=== PATIENT | female | born 1955 ===

== ENCOUNTER 2019-12-30 13:35 | Outpatient (RCR) | payer OTHER, SELFPAY | END 2020-03-19 15:22 | disposition home or self-care (01) | LOC: HO.WCC 13:35 | PROVIDERS: PCP Internal Medicine; Visit Provider Surgery | DX: E11.621 Type 2 diabetes mellitus with foot ulcer (principal); E11.51 Type 2 diabetes mellitus with diabetic peripheral angiopathy without gangrene; I70.245 Atherosclerosis of native arteries of left leg with ulceration of other part of foot; L89.893 Pressure ulcer of other site, stage 3; E11.42 Type 2 diabetes mellitus with diabetic polyneuropathy; I48.20 Chronic atrial fibrillation, unspecified; Z89.511 Acquired absence of right leg below knee; Z79.2 Long term (current) use of antibiotics; Z79.82 Long term (current) use of aspirin; Z79.899 Other long term (current) drug therapy; Z79.4 Long term (current) use of insulin; Z86.73 Personal history of transient ischemic attack (TIA), and cerebral infarction without residual deficits | CPT/HCPCS: 11042; 11043; 97597; 99213; 99214 ==

== ENCOUNTER 2020-01-15 12:24 | Outpatient (REF) | payer OTHER, SELFPAY ==
--- NOTE | 2020-01-15 12:32 | XR_ITS ---
EXAMINATION: XR FOOT, LEFT CLINICAL INFORMATION: Diabetic foot wound COMPARISON: None TECHNIQUE: AP, lateral, and oblique views of the left foot. FINDINGS: There is been transmetatarsal amputation of the great toe. Surgical margin appears intact. No fracture or dislocation is seen. There are mild degenerative changes of the midfoot. There are large calcaneal spurs. No soft tissue foreign body or abnormal air collection is seen. XR/XR foot LT min 3V IMPRESSION: No fracture or x-ray evidence of osteomyelitis. Postsurgical changes following transmetatarsal amputation of the great toe. Large calcaneal spurs.
== END 2020-01-15 12:25 | disposition home or self-care (01) ==
LOC: HO.XRAY 12:24
PROVIDERS: PCP Internal Medicine; Visit Provider Surgery
DX: S91.105D Unspecified open wound of left lesser toe(s) without damage to nail, subsequent encounter (principal)
CPT/HCPCS: 73630

== ENCOUNTER 2020-09-23 07:02 | Outpatient (REF) | payer OTHER, SELFPAY ==
[2020-09-23 07:21] LABS: MANUAL DIFF FLAG NO
[2020-09-23 07:25] LABS: Basophils Percent Auto 0.3 % (0-2); Eosinophils Absolute Auto 0.4 X10*3/uL (0.0-0.4); Eosinophils Percent Auto 6.8 % (0-4); Hematocrit 38.3 % (37-47); Imm Gran Abs Auto 0.01 X10*3/uL (0.00-0.03); Imm Gran Pct Auto 0.2 % (0.0-0.4); Lymphocytes Absolute Auto 1.7 X10*3/uL (1.2-4.9); Lymphocytes Percent Auto 30.2 % (20-40); Mean Corpuscular HGB Conc 28.7 g/dl (31.0-35.0); Mean Corpuscular Hemoglobin 23.5 pg (27.0-33.0); Mean Corpuscular Volume 81.8 fL (80-98); Mean Platelet Volume 12.8 fL (9.4-12.3); Monocytes Absolute Auto 0.4 X10*3/uL (0.1-1.2); Monocytes Percent Auto 6.8 % (2-11); Neutrophils Absolute Auto 3.2 X10*3/uL (2.0-8.3); Neutrophils Percent Auto 55.7 % (45-73); Platelet Count 181 X10*3/uL (160-400); Red Blood Count 4.68 X10*6/uL (4.20-5.50); Red Cell Distribution Width 18.1 % (11.0-16.0); White Blood Count 5.8 X10*3/uL (4.8-10.8)
[2020-09-23 07:58] LABS: Alanine Aminotransferase 8 U/L (0-31); Albumin Level 3.3 g/dL (3.5-5.0); Alkaline Phosphatase 84 U/L (39-117); Anion Gap 11 (12-20); Aspartate Amino Transferase 17 U/L (5-31); Bilirubin Total 1.1 mg/dL (0.0-1.0); Blood Urea Nitrogen 18 mg/dL (9-16); Calcium 8.8 mg/dL (8.4-10.2); Carbon Dioxide 36 mmol/L (22-29); Chloride 100 mmol/L (96-108); Estimated Glomerular Filt Rate 49; Glucose Random 139 mg/dL (60-115); Potassium 3.6 mmol/L (3.3-5.1); Sodium 143 mmol/L (135-145)
== END 2020-09-23 07:03 | disposition home or self-care (01) ==
LOC: HO.MMNH2L 07:02
PROVIDERS: Visit Provider Family Medicine
DX: Z00.00 Encounter for general adult medical examination without abnormal findings (principal)
CPT/HCPCS: 36415; 80053; 85025

== ENCOUNTER 2020-09-28 00:11 | Outpatient (REF) | payer OTHER, SELFPAY ==
[2020-09-28 06:33] LABS: MANUAL DIFF FLAG NO
[2020-09-28 07:13] LABS: Basophils Percent Auto 0.6 % (0-2); Eosinophils Absolute Auto 0.4 X10*3/uL (0.0-0.4); Eosinophils Percent Auto 8.3 % (0-4); Hematocrit 38.4 % (37-47); Hemoglobin 11.3 g/dl (12.0-16.0); Imm Gran Abs Auto 0.01 X10*3/uL (0.00-0.03); Imm Gran Pct Auto 0.2 % (0.0-0.4); Lymphocytes Absolute Auto 2.1 X10*3/uL (1.2-4.9); Lymphocytes Percent Auto 39.4 % (20-40); Mean Corpuscular HGB Conc 29.4 g/dl (31.0-35.0); Mean Corpuscular Volume 81.7 fL (80-98); Monocytes Absolute Auto 0.4 X10*3/uL (0.1-1.2); Monocytes Percent Auto 8.1 % (2-11); Neutrophils Absolute Auto 2.3 X10*3/uL (2.0-8.3); Neutrophils Percent Auto 43.4 % (45-73); Platelet Count 118 X10*3/uL (160-400); Red Cell Distribution Width 18.7 % (11.0-16.0); White Blood Count 5.3 X10*3/uL (4.8-10.8)
[2020-09-28 07:34] LABS: Anion Gap 16 (12-20); Blood Urea Nitrogen 26 mg/dL (9-16); Calcium 8.7 mg/dL (8.4-10.2); Carbon Dioxide 32 mmol/L (22-29); Chloride 98 mmol/L (96-108); Estimated Glomerular Filt Rate 34; Glucose Random 110 mg/dL (60-115); Potassium 3.1 mmol/L (3.3-5.1); Sodium 143 mmol/L (135-145)
[2020-09-28 07:40] LABS: Digoxin 0.9 ng/mL (0.8-2.0)
== END 2020-09-28 00:12 | disposition home or self-care (01) ==
LOC: HO.MMNH2L 00:11
PROVIDERS: Visit Provider Family Medicine
DX: E11.9 Type 2 diabetes mellitus without complications (principal); I50.33 Acute on chronic diastolic (congestive) heart failure; Z79.899 Other long term (current) drug therapy
CPT/HCPCS: 36415; 80048; 80162; 85025

== ENCOUNTER 2020-10-05 00:25 | Outpatient (REF) | payer OTHER, SELFPAY ==
[2020-10-05 06:45] LABS: Hemoglobin 11.1 g/dl (12.0-16.0); Imm Gran Abs Auto 0.01 X10*3/uL (0.00-0.03); Imm Gran Pct Auto 0.2 % (0.0-0.4)
[2020-10-05 06:47] LABS: Basophils Percent Auto 0.6 % (0-2); Eosinophils Absolute Auto 0.3 X10*3/uL (0.0-0.4); Eosinophils Percent Auto 5.2 % (0-4); Hematocrit 37.1 % (37-47); Lymphocytes Absolute Auto 1.8 X10*3/uL (1.2-4.9); Lymphocytes Percent Auto 33.2 % (20-40); Mean Corpuscular HGB Conc 29.9 g/dl (31.0-35.0); Mean Corpuscular Hemoglobin 24.3 pg (27.0-33.0); Mean Corpuscular Volume 81.2 fL (80-98); Monocytes Absolute Auto 0.4 X10*3/uL (0.1-1.2); Neutrophils Absolute Auto 2.8 X10*3/uL (2.0-8.3); Neutrophils Percent Auto 52.8 % (45-73); Platelet Count 128 X10*3/uL (160-400); Red Blood Count 4.57 X10*6/uL (4.20-5.50); Red Cell Distribution Width 18.8 % (11.0-16.0); White Blood Count 5.4 X10*3/uL (4.8-10.8)
[2020-10-05 07:08] LABS: MANUAL DIFF FLAG NO
[2020-10-05 07:14] LABS: Anion Gap 15 (12-20); Blood Urea Nitrogen 35 mg/dL (9-16); Calcium 8.2 mg/dL (8.4-10.2); Carbon Dioxide 31 mmol/L (22-29); Chloride 101 mmol/L (96-108); Estimated Glomerular Filt Rate 34; Glucose Random 110 mg/dL (60-115); Potassium 3.3 mmol/L (3.3-5.1); Sodium 144 mmol/L (135-145)
[2020-10-05 07:25] LABS: Digoxin 1.2 ng/mL (0.8-2.0)
== END 2020-10-05 00:26 | disposition home or self-care (01) ==
LOC: HO.MMNH2L 00:25
PROVIDERS: Visit Provider Family Medicine
DX: E11.9 Type 2 diabetes mellitus without complications (principal); I50.33 Acute on chronic diastolic (congestive) heart failure
CPT/HCPCS: 36415; 80048; 80162; 85025

== ENCOUNTER 2023-03-02 07:56 | Emergency (ER) | payer OTHER, SELFPAY ==
--- NOTE | 2023-03-02 08:01 | ED_ITS ---
HPI - General Adult General Chief complaint: General Medical Stated complaint: WOUND/BEDSORE, BLEEDING CONTR,-THINNER PER EMS Time Seen by Provider: 03/02/23 08:01 Source: patient and EMS Mode of arrival: EMS Limitations: no limitations History of Present Illness HPI narrative: Patient is a 67 year old assigned female at with a history of diabetes and chronic wounds presenting to the emergency department today with bleeding from the chronic wounds of her left lower leg. Patient states that this morning she was changing her chronic left lower leg wound dressings when they began to bleed. Patient states that she has an appointment at wound center today at 11am. Patient denies any dizziness, lightheadedness, abdominal pain, nausea, vomiting, fever, chills, blurry vision, double vision, loss of vision, chest pain, difficulty breathing, shortness of breath, back pain, night sweats, pain with urination, increased urinary frequency, increased urinary urgency, blood in her urine or stool, syncope or a near syncopal episode, recent trauma or falls, bowel incontinence, bladder incontinence, bowel retention, bladder retention, or any other complaints at this time. Onset (ago): minute(s) Location: left and lower extremity Radiation: non-radiation Severity: mild Severity scale (1-10): 2 Relieving factors: none Exacerbating factors: none Associated symptoms: denies other symptoms Treatments prior to arrival: none Related Data Allergies Allergy/AdvReac Type Severity Reaction Status Date / Time vancomycin Allergy Flushing Verified 03/02/23 08:05 clindomycin Allergy Unknown Diarrhea Uncoded 03/02/23 08:05 penicillin Allergy Unknown Rash Uncoded 03/02/23 08:05 Review of Systems 2 Constitutional: Constitutional: Reports no additional constitutional complaints, Denies chills, Denies fever(s) and Denies night sweats Eyes: Eyes: Reports no additional eye complaints, Denies blurry vision, Denies change in vision, Denies diplopia, Denies eye discharge, Denies loss of vision and Denies eye pain ENT: Denies dizziness Cardiovascular: Cardiovascular: Reports no additional cardiovascular complaints, Denies chest pain, Denies lightheadedness, Denies Loss of Consciousness and Denies dyspnea Respiratory: Respiratory: Reports no additional respiratory complaints and Denies dyspnea Gastrointestinal: Gastrointestinal: Reports no additional gastrointestinal complaints, Denies abdominal pain, Denies melena, Denies hematochezia, Denies change in bowel habits and Denies change in stool character Genitourinary: Genitourinary: Denies hematuria, Denies urinary frequency, Denies dysuria, Denies urinary incontinence, Denies urinary hesitancy and Denies urinary urgency Musculoskeletal: Musculoskeletal: Reports no additional musculoskeletal complaints, Denies numbness and Denies tingling Comments: right below knee amputation, chronic wounds to the left posterior lower leg, all left toes amputated, chronic wound on left foot stump Neurologic: Denies dizziness, Denies loss of vision, Denies numbness and Denies tingling Psychiatric: Psychiatric: Reports no additional psychiatric complaints Endocrine: Endocrine: Reports no additional endocrine complaints Hematologic/Lymphatic: Hematologic/Lymphatic: Reports no additional hematologic/lymphatic complaints Allergic/Immunologic: Allergic/Immunologic: Reports no additional allergic/immunologic complaints PMFSH Past Medical History Attestation statement: The following information was validated with the patient. Source: old records reviewed and nursing notes reviewed Onset Date is defined in the Problem List Problems that require an onset date and time if occurred within 24 hrs of arrival to the ED Aortic Dissection and Rupture; Neurologic impairment; Cardiopulmonary Arrest; Endotracheal Intubation; Insertion or Replacement of Mechanical Circulatory Assist Device Social History Social History Advance Directives: No Advance Directives Information Provided: Yes Physical Exam ED Vital Signs: Vital Signs - 24 hr 03/02/23 08:06 Temperature 97 F Pulse Rate 90 Respiratory Rate 16 Blood Pressure 131/59 L Pulse Oximetry 95 Oxygen Delivery Method Room Air BMI result Body Mass Index 44.2 Const General: cooperative, no acute distress, alert and awake Nutritional Appearance: well nourished Orientation/consciousness: patient oriented x3 Limitations: no limitations [facility] Head: Yes normal to inspection and Yes atraumatic Ears: hearing grossly normal bilaterally and external ears normal General nose exam: Normal external nose present, no nasal discharge noted and no epistaxis Face and sinus: Yes normal facial exam, No abrasion and No laceration Mouth: Normal oral and palatal mucosa present, no drooling and no muffled voice Eyes General: appearance normal, both eyes and all related structures Periorbital: periorbital findings normal Eyelids: Yes eyelids normal Conjunctivae: conjunctivae normal Pupils: Equal, round and reactive pupils present EOM: EOMs intact bilaterally Neck Neck: Yes normal visual inspection, Yes full ROM and Yes no lymphadenopathy Chest Chest palpation & inspection: normal inspection of the chest Resp Effort & Inspection: normal respiratory effort and able to speak in complete sentences GI Inspection: Yes normal to inspection Neuro General: patient oriented x3 and moves all extremities Cranial nerves: Yes Equal, round and reactive pupils present Cognition (Neuro): normal cognition Motor exam (neuro): 5/5 motor strength present throughout Sensory Exam: Normal double simultaneous stimulation for sensation Coordination: [id number] test normal Extrem Other: right below knee amputation, chronic wounds to the left posterior lower leg, all left toes amputated, chronic wound on left foot stump General: Yes capillary refill normal Psych Appearance: grossly normal Mental Status: mental status grossly normal Affect: normal affect Attitude: cooperative Thought process: Normal thought process present Thought content: Normal thought content present Insight: Good insight present (Psych) Medical Decision Making Medical Decision Making MDM Narrative: Patient is a 67 year old assigned female at with a history of diabetes and chronic wounds presenting to the emergency department today with bleeding from her chronic wounds. Patient's physical exam was as noted in the physical exam portion of this note. I explained my physical exam findings to the patient. I answered all questions asked by the patient. Patient's wounds were re-dressed by the wound nurse, without incident. I stressed the importance of the patient taking her medication as prescribed. I stressed the importance of the patient following up with her primary care provider and the wound center. I stressed the importance of the patient returning to the emergency department immediately if her symptoms were to worsen or if she were to develop any dizziness, shortness of breath, difficulty breathing, chest pain, blurry vision, loss of vision, nausea, vomiting, abdominal pain, fever, chills, back pain, or any other complaints. Patient verbalized agreement and understanding with this treatment plan and discharge. Differential Diagnosis Differential Diagnoses: The differential diagnosis associated with the presentation includes Chronic wounds Bleeding wound Admission/Observation Consideration of admission/observation: Escalation of care including admission/observation considered Patient would have been admitted to the hospital had her clinical presentation warranted hospital admission. Consult Healthcare Provider Management of the patient was discussed with: Licensed Sales Assistant (consulted the wound nurse who re-dressed the wounds as noted in the MDM Rationale portion of this note.) Independent Historian Clinical information obtained from an independent historian. History obtained from or confirmed by: Spouse (patient's provided additional history and confirmed the history provided by the patient.) and EMS (EMS provided additional history and confirmed the history provided by the patient.) Chronic Conditions Patient?s care impacted by: Diabetes Discharge Plan Discharge Clinical Impression: Chronic wound Patient Disposition: Home, Self-Care Instructions: Chronic Wounds (ED) Additional Instructions: Follow up with your primary care provider and your wound center. Return to the emergency department immediately if your symptoms worsen or if you develop any dizziness, shortness of breath, difficulty breathing, chest pain, blurry vision, loss of vision, nausea, vomiting, abdominal pain, fever, chills, back pain, or any other complaints. Referrals: Ciirlo Alarcon III, MD [Primary Care Provider] - Interventions: ED Discharge Assessment Last Done: 03/02/23 10:21 Discharge Date/Time: 03/02/23 10:21 Print Language: Beninese
[2023-03-02 08:02] VITALS: BP 140/80; PULSE 90; O2SAT 94
[2023-03-02 08:06] VITALS: BP 131/59; PULSE 90; RESP 16; TEMP 36.1; O2SAT 95; BMI 44.2
--- OUTSIDE RECORDS SUMMARY | 2023-03-02 08:23 | XMS_ITS | Continuity of Care Document ---
Author Name Unknown Organization [facility] Address [address] [place] [address]- Care Team Providers Care Hand Bootmaker Name Role Phone Cirilo Alarcon III, MD Primary Care Physician Encounter [facility] Date(s): 01/04/23 - 01/11/23 [facility] [address] [place] [id number] Encounter Diagnosis TYPE II DIABETES MELLITUS [NON-INSULIN DEPENDENT TYPE] [NIDDM TYPE] [ADULT-ONSET TYPE] OR UNSPECIFIED TYPE, UNCONTROLLED, WITHOUT MENTION OF COMPLICATION (Discharge Diagnosis) - 01/04/23 History of transmetatarsal amputation of left foot(Discharge Diagnosis) - 01/04/23 Attending Physician: Eleni Tyler NP Admitting Physician: Eleni Tyler NP Referring Physician: Cirilo Alarcon III, MD Allergies, Adverse Reactions, Alerts Substance Reaction Severity Status clindamycin diarrhea Active penicillin rash Active Immunizations Given and Recorded Vaccine Date Status Refusal Reason SARS-CoV-2 (COVID-19) mRNA-1273 vaccine 12/28/20 R ecorded SARS-CoV-2 (COVID-19) mRNA-1273 vaccine 06/10/20 R ecorded SARS-CoV-2 (COVID-19) mRNA-1273 vaccine 05/13/20 R ecorded influenza virus vaccine, inactivated 1 12/24/06 Gi leonid Pneumococcal Vaccine (oldterm) 11/19/06 Given 1Result Comment: lot# [id number] exp. [id number] Medications atorvastatin 80 mg oral tablet 1 tablet = 80 mg, By Mouth, Daily at bedtime, # 30 tablet, 0 Refills, Maintenance, 02/28/19 11:22:00 EST, Tablet, [facility], 170.1, cm, 02/28/19 4:06:00 EST, Height, 138, kg, 02/25/19 10:41:00 EST, Dry Weight Start Date: 02/28/19 Status: Ordered calcitriol 0.25 mcg oral capsule 1 capsule = 0.25 mcg, By Mouth, Every Monday, Monday and Monday, 0 Refills, Maintenance, 01/07/22 20:26:00 EST, Partial fill upon patient request if the prescription is for a schedule II opioid drug. Start Date: 01/07/22 Status: Ordered Calcium Alginate Pad (7.5 X 12cm) See Instructions, # 1 each, Refills 3, Tot. Refills 3, Maintenance, apply a small piece to the wounds on the left second toe and heel daily, cover with dressing, 01/26/22 12:22:00 EST, Supply, 170, cm, 01/26/22 11:31:00 EST, Height, 109.4, kg, ... Start Date: 01/26/22 Status: Ordered DilTIAZem (Eqv-Tiazac) = 120 mg, By Mouth, Daily, 0 Refills, Maintenance, 01/07/22 20:25:00 EST, Partial fill upon patientrequest if the prescription is for a schedule II opioid drug. Start Date: 01/07/22 Status: Ordered Eliquis 2.5 mg oral tablet 1 tablet = 2.5 mg, By Mouth, 2 times a day, 0 Refills, Maintenance, 03/25/22 10:55:00 EST, Partial fill upon patient request if the prescription is for a schedule II opioid drug. Start Date: 03/25/22 Status: Ordered Forefoot shoe filler Forefoot shoe filler, See Instructions, # 1 each, Refills 0, Tot. Refills 0, Maintenance, Dx: left TMA, DM, PAD, 06/30/22 13:30:00 EDT, Supply Start Date: 06/30/22 Status: Ordered furosemide 40 mg oral tablet 40 mg, 1, tablet, By Mouth, 2 times a day, # 60 tablet, Refills 0, Tot. Refills 0, Maintenance, 02/28/19 13:32:00 EST, Route to Pharmacy Electronically, [facility] #[id number], 170.1, cm, 02/28/19 4:06:00 EST, Height, 138, kg, 02/25/19 10:41:00 E... Start Date: 02/28/19 Status: Ordered Insulin Lispro See Instructions, if blodd sugar is 150-200 take 22 units, 0 Refills, Maintenance, 09/22/20 16:34:00 EDT, Injection, Partial fill upon patient request if the prescription is for a schedule II opioid drug. Start Date: 09/22/20 Status: Ordered Iodosorb 0.9% topical gel See Instructions, Apply to wound on TMA site daily. wound size: 5X 2.5, # 1 each, 0 Refills, Maintenance, 12/28/22 9:45:00 EST, [facility] #[id number], Partial fill upon patient request if the prescription is for a schedule II opioid drug., Lizzie... Start Date: 12/28/22 Status: Ordered isosorbide mononitrate 30 mg oral tablet, extended release 30 mg, 1, tablet, By Mouth, Daily in AM, # 30 tablet, Refills 0, Maintenance, 08/15/17 1:41:35 EDT Start Date: 08/15/17 Status: Ordered Lantus Inj = 70 units, Subcutaneous Injection, Daily at bedtime, 0 Refills, Maintenance, 09/22/20 11:45:00 EDT, Injection, Partial fill upon patient request if the prescription is for a schedule II opioid drug. Start Date: 09/22/20 Status: Ordered levoFLOXacin 500 mg oral tablet 1 tablet = 500 mg, By Mouth, Every 24 hours, for 10 days, Take with food, # 10 tablet, 0 Refills, Acute 01/14/23 11:05:00 EST, 01/04/23 11:05:00 EST, Tablet, [facility] #[id number], Partial fillupon patient request if the prescription is for a s... Start Date: 01/04/23 Stop Date: 01/14/23 Status: Ordered metformin 500 mg oral tablet 1,000 mg, 2, tablet, By Mouth, 2 times a day, 0 Refills Start Date: 11/15/06 Status: Ordered metoprolol 50 mg oral tablet 100 mg, 2, tablet, By Mouth, 2 times a day, Refills 0, Maintenance, 05/12/22 10:36:00 EDT, Partial fill upon patient request if the prescription is for a schedule II opioid drug. Start Date: 05/12/22 Status: Ordered oxyCODONE 5 mg oral tablet 5 mg, 1, tablet, By Mouth, Every 6 hours, PRN, # 12 tablet, Refills 0, Tot. Refills 0, Maintenance,Pain , Severe, 05/21/22 12:08:00 EDT, Print Requisition, Partial fill upon patient request if the prescription is for a schedule II opioid drug. Start Date: 05/21/22 Stop Date: 05/24/22 Status: Ordered pantoprazole 40 mg oral delayed release tablet 1 tablet = 40 mg, By Mouth, Daily, # 30 tablet, 0 Refills, Maintenance, 09/13/20 16:18:00 EDT, EC Tablet Start Date: 09/13/20 Status: Ordered Plain Packing Strip See Instructions, # 1 each, Refills 0, Tot. Refills 0, Maintenance, gently pack into left second toe amp site daily, cover with clean dry dressing, 04/27/22 15:40:00 EST, Supply, 170, cm, 04/27/22 15:02:00 EST, Height, 90, kg, 04/06/22 12:48:00 EST, D... Start Date: 04/27/22 Status: Ordered Plavix 75 mg oral tablet 75 mg, 1, tablet, By Mouth, Daily, # 30 tablet, Refills 5, Tot. Refills 5, Maintenance, 07/05/21 13:21:00 EDT, Route to Pharmacy Electronically, [facility] #[id number], Partial fill upon patientrequest if the prescription is for a schedule II op... Start Date: 07/05/21 Status: Ordered pregabalin 75 mg oral capsule 1 capsule = 75 mg, By Mouth, 2 times a day, # 60 capsule, 0 Refills, Maintenance, 03/22/22 11:34:00EST, Capsule, Partial fill upon patient request if the prescription is for a schedule II opioid drug. Start Date: 03/22/22 Status: Ordered topiramate 25 mg oral tablet = 100 mg, By Mouth, Daily, 0 Refills, Maintenance, 02/28/19 13:11:00 EST, Tablet Start Date: 02/28/19 Status: Ordered Vitamin B12 500 mcg oral tablet 2 tablet = 1,000 mcg, By Mouth, Daily, # 30 tablet, 0 Refills, Maintenance, 08/15/17 1:39:32 EDT, Tablet Start Date: 08/15/17 Status: Ordered Vitamin D3 2000 intl units oral capsule 1 capsule = 50 mcg, By Mouth, Daily, # 60 capsule, 0 Refills, Maintenance, 03/22/22 11:35:00 EST, Capsule, Partial fill upon patient request if the prescription is for a schedule II opioid drug. Start Date: 03/22/22 Status: Ordered Problem List Condition Confirmation Course Effective Dates Status H ealth Status Informant BENIGN ESSENTIAL HYPERTENSION Confirmed Active Cellulitis Confirmed Active Diabetic foot ulcer Confirmed Active History of transmetatarsal amputation of left foot Confirmed Active Hyperlipidemia Confirmed Active Obese class I Confirmed Active Pneumonia Confirmed Active TYPE II DIABETES MELLITUS [NON-INSULIN DEPENDENT TYPE] [NIDDM TYPE] [ADULT-ONSET TYPE] OR UNSPECIFIED TYPE, UNCONTROLLED, WITHOUT MENTION OF COMPLICATION Confirmed Active Diagnosis Diagnosis Type Effective Dates Health Status Clinical Service Informant TYPE II DIABETES MELLITUS [NON-INSULIN DEPENDENT TYPE] [NIDDM TYPE] [ADULT-ONSET TYPE] OR UNSPECIFIED TYPE, UNCONTROLLED, WITHOUT MENTION OF COMPLICATION Discharge Diagnosis 01/04/23 History of transmetatarsal amputation of left foot Discharge Diagnosis 01/04/23 Vital Signs Most recent to oldest [Reference Range]: 1 Height 170 cm (01/04/23 10:02 AM) Weight 96.0 kg (01/04/23 10:02 AM) Pulse Rate [55-90 bpm] 77 bpm (01/04/23 10:02 AM) Body Mass Index [18.5-24.99 kg/m2] 33.22 kg/m2 *>HHI* (01/04/23 10:02 AM) Blood Pressure [90-138/55-84 mm Hg] 128/ 82mm Hg (01/04/23 10:02 AM) Blood pressure sites Arm, right (01/04/23 10:02 AM) Weight Obtained Via Patient/family state d (01/04/23 10:02 AM) Social History Social History Type Response Tobacco Use: quit smoking 30 years ago. Sex Implantable Device List Procedure Provider Procedure Date Device Type Site Aortic Unknown 06/04/21 Unknown Heart Device Identifier Serial Number Lot or Batch Number Manufacturing Date Expiration Date Distinct Identification Code MRI Safety Implantable Status Assigning Authority Unknown 1 Unknown Unknown Unknown Unknown Unknown MR Conditi onal Active Unknown 1Serial [id number] Model [id number] Size 26MMA PATIENT WITH THIS DEVICE CAN BE SCANNED SAFELY UNDER FOLLOWING CONDITIONS : 3T OR LESS - MAXIMUM SPATIAL GRADIENT FIELD OF 2500 GAUSS/CM (25t/M) OR LESS - MAXIMUM SAEED OF 2 W/KG (NORMAL OPERATING MODE) Note * Ashleigh Johnson: PERFORM, SIGN, VERIFY Event Display: Patient Education/Instruction Authored Date: [facility] *[facility] [address] Clinical Summary Name HALLEY TYLER Age 67 Years 1955 PCP Dorian STRATTON MD, Cirilo Worrell PCP Visit Date 01/04/2023 09:59:00 Additional Instructions: Scheduled Appointments?? Future Appointments ?No Future Appointments Scheduled Follow-Up Instructions ?? With: Address: When: Nayeli MARTÍNEZ, Eleni In 3 weeks Comments: follow up in 2-3 weeks with Eleni or Thea Diagnosis Acquired absence of left foot; Type 2 diabetes mellitus with hyperglycemia Medications: Please continue your medications until treatment is completed or stopped by your provider. Discuss any questions related to medications with your provider. New Medications [facility][id number], [address], [place] [id number], [phone] Levofloxacin (levoFLOXacin 500 mg oral tablet) 1 tab(s) Oral every 24 hours for 10 Days. Take with food. Refills: 0. Next Dose: Medications to Continue with No Changes These medications were not printed or sent to your pharmacy apixaban (Eliquis 2.5 mg oral tablet) 1 tab(s) Oral twice a day. Next Dose: Atorvastatin (atorvastatin 80 mg oral tablet) 1 tab(s) Oral Daily at Bedtime. Refills: 0. Next Dose: Cadexomer-Iodine Topical (Iodosorb 0.9% topical gel) Apply to wound on TMA site daily. wound size: 5X 2.5. Refills: 0. Next Dose: Calcitriol (calcitriol 0.25 mcg oral capsule) 1 capsule Oral Monday, Monday and Monday. Next Dose: Cholecalciferol (Vitamin D3 2000 intl units oral capsule) 1 capsule Oral Daily. Next Dose: Clopidogrel (Plavix 75 mg oral tablet) 1 tab(s) Oral Daily. Refills: 5. Next Dose: Cyanocobalamin (Vitamin B12 500 mcg oral tablet) 2 tab(s) Oral Daily. Next Dose: Diltiazem (DilTIAZem (Eqv-Tiazac)) 120 Milligram Oral Daily. Next Dose: Durable Medical Equipment (Calcium Alginate Pad (7.5 X 12cm)) apply a small piece to the wounds on the left second toe and heel daily, cover with dressing. Refills: 3. Next Dose: Durable Medical Equipment (Plain Packing Strip) gently pack into left second toe amp site daily, cover with clean dry dressing. Refills: 0. Next Dose: Furosemide (furosemide 40 mg oral tablet) 1 tab(s) Oral twice a day. Refills: 0. Next Dose: Insulin Glargine (Lantus Inj) 70 unit(s) Subcutaneous Injection Daily at Bedtime. Next Dose: Insulin Lispro if blodd sugar is 150-200 take 22 units. Next Dose: Isosorbide Mononitrate (isosorbide mononitrate 30 mg oral tablet, extended release) 1 tab(s) Oral Daily in the morning. Next Dose: Metformin (metformin 500 mg oral tablet) 2 tab(s) Oral twice a day. Next Dose: Metoprolol (metoprolol 50 mg oral tablet) 2 tab(s) Oral twice a day. Next Dose: Miscellaneous Rx (Forefoot shoe filler) Dx: left TMA, DM, PAD. Refills: 0. Next Dose: Oxycodone (oxyCODONE 5 mg oral tablet) 1 tab(s) Oral every 6 hours as needed Pain , Severe for 3 Days. Refills: 0. Next Dose: Pantoprazole (pantoprazole 40 mg oral delayed release tablet) 1 tab(s) Oral Daily. Next Dose: Pregabalin (pregabalin 75 mg oral capsule) 1 capsule Oral twice a day. Next Dose: Topiramate (topiramate 25 mg oral tablet) 100 Milligram Oral Daily. Next Dose: Allergy Info:?? penicillin; clindamycin Medications Given This Visit Future Orders ?No future orders Vital Signs Height 170 cm Weight 96.0 kg BMI 33.22 kg/m2 Blood Pressure 128 mm Hg/82 mm Hg Temperature Pulse Rate 77 bpm Respiratory Rate 02 Sat Mode of Delivery / You can now view a summary of your hospital visit from the comfort of your home through a free online portal called [employer]. [employer] is a website that allows you to securely view your medical information including discharge summary, medications and follow-up visits. ??You can alsosend a secure electronic message to your doctor???s office to request appointments, renew medications or just ask a question. You can enroll at [email or web address] or register during your next office visit. Disclaimer:?? The information provided is of a general nature and is intended to be used in conjunction with the recommendations and advice of your health care practitioner. ??Every effort has been made to ensure that the information provided is accurate and complete at the time it is provided to you however, as your needs change, or, as new ??information becomes available, different or additional instructions may be required. If you have questions, please consult with your primary care provider or pharmacist, as appropriate. ??This information is not intended to serve as substitution for assessment and evaluation by a qualified health care provider. If you do not have a primary care provider, you may find a [facility] provider by calling [facility] [employer] Link at [phone]. [facility], in keeping with [facility] guidance, no longer requires face masks for staff, patientsor visitors in most situations. Similar to time spent indoors at other locations, there is the chance that you were exposed to respiratory viruses during your time with us (such as flu or COVID-19).? If you develop symptoms concerning for a viral respiratory infection, please seek testing (and treatment if indicated) from your medical provider or home test kit. For information about the plan of care including goals and instructions for your diagnosis, please see the patient education orders section of this document. Patient Education Materials?? The content of this educational material or handout may have been modified, supplemented, or adapted from its original content and format to support your individualized medical care. Patient Care team information Care Team Personnel Name: Leena BAILEY, Gus Heredia Position: [facility] Renal MD Member Role: Lifetime Consulting Physician Address: Address: [address] [place] [address] [id number] [facility] [place] [address]- Name: Gauri Ellison RN Position: S RN Member Role: Primary Care Nurse Name: Cirilo Alarcon III, MD Position: Reference Physician Member Role: PCP Address: Address: [address] [place] [id number]- [place] Name: Ck Nieves RN Position: S RN Member Role: Primary Care Nurse Name: Lionel Chavez RN Position: S RN Supv Member Role: Primary Care Nurse Name: Woody Hayes RN Position: S RN Member Role: Primary Care Nurse Name: Kaylyn Hernandez RN Position: S RN Member Role: Primary Care Nurse Name: Nhan READ, Chasity Position: S RN Member Role: Primary Care Nurse Name: Ganesh Castillo MD Position: [facility] Renal MD Member Role: Lifetime Consulting Physician Address: Address: [address] [place] [address] [address] [facility], [place] [address]- [place] Name: Beto Mora RN Position: S RN Member Role: Primary Care Nurse Name: Teresa Robledo RN Position: S RN Member Role: Primary Care Nurse Name: Gloria Spicer RN Position: S RN Member Role: Primary Care Nurse Care Team Related Persons Name: PRESLEY PHILLIPS Address: home [address] [place] [address] Name: CHOCO TYLER Address: home [address] [place] [address]
--- OUTSIDE RECORDS SUMMARY | 2023-03-02 08:23 | XMS_ITS | Continuity of Care Document ---
Author Name Unknown Organization [facility] Address [address] [place] [address]- Care Team Providers Care Manager Membership Name Role Phone Dorian STRATTON MD, Cirilo Worrell Primary Care Physician Encounter [facility] Date(s): 08/02/22 - 11/30/22 [facility] [address] [place] [id number] Attending Physician: Amador MARTÍNEZ, Bhavna Fermin Admitting Physician: Amador MARTÍNEZ, Bhavna Fermin Referring Physician: Amador MARTÍNEZ, Bhavna Fermin Allergies, Adverse Reactions, Alerts Substance Reaction Severity Status clindamycin diarrhea Active penicillin rash Active Immunizations Given and Recorded Vaccine Date Status Refusal Reason SARS-CoV-2 (COVID-19) mRNA-1273 vaccine 12/28/20 R ecorded SARS-CoV-2 (COVID-19) mRNA-1273 vaccine 06/10/20 R ecorded SARS-CoV-2 (COVID-19) mRNA-1273 vaccine 05/13/20 R ecorded influenza virus vaccine, inactivated 1 12/24/06 Gi leonid Pneumococcal Vaccine (oldterm) 11/19/06 Given 1Result Comment: lot# [id number] exp. [id number] Medications atorvastatin 80 mg oral tablet 1 tablet = 80 mg, By Mouth, Daily at bedtime, # 30 tablet, 0 Refills, Maintenance, 02/28/19 11:22:00 EST, Tablet, [facility], 170.1, cm, 02/28/19 4:06:00 EST, [...] 02/28/19 13:32:00 EST, Route to Pharmacy Electronically, [facility] #[id number], 170.1, cm, 02/28/19 4:06:00 EST, Height, 138, kg, 02/25/19 10:41:00 E... Start Date: 02/28/19 Status: Ordered Insulin Lispro See Instructions, if blodd sugar is 150-200 take 22 units, 0 Refills, Maintenance, 09/22/20 16:34:00 EDT, Injection, Partial fill upon patient request if the prescription is for a schedule II opioid drug. Start Date: 09/22/20 Status: Ordered isosorbide mononitrate 30 mg oral [...] opioid drug. Start Date: 09/22/20 Status: Ordered metformin 500 mg oral tablet [...] 07/05/21 13:21:00 EDT, Route to Pharmacy Electronically, [facility] #[id number], Partial fill upon patientrequest if the prescription [...] Confirmed Active Diabetic foot ulcer Confirmed Active Hyperlipidemia Confirmed Active Obese class I Confirmed Active Pneumonia Confirmed Active TYPE II DIABETES MELLITUS [NON-INSULIN DEPENDENT TYPE] [NIDDM TYPE] [ADULT-ONSET TYPE] OR UNSPECIFIED TYPE, UNCONTROLLED, WITHOUT MENTION OF COMPLICATION Confirmed Active Social History Social History Type Response Tobacco Use: quit smoking 30 years ago. Sex Implantable Device List Procedure Provider Procedure Date Device Type Site Aortic Unknown 06/04/21 Unknown Heart Device Identifier Serial Number Lot or Batch Number Manufacturing Date Expiration Date Distinct Identification Code MRI Safety Implantable Status Assigning Authority Unknown 1 Unknown Unknown Unknown Unknown Unknown MR Pinedo onal Active Unknown 1Serial [id number] Model [id number] Size 26MMA PATIENT WITH THIS DEVICE CAN BE SCANNED SAFELY UNDER FOLLOWING CONDITIONS : 3T OR LESS - MAXIMUM SPATIAL GRADIENT FIELD OF 2500 GAUSS/CM (25t/M) OR LESS - MAXIMUM SAEED OF 2 W/KG (NORMAL OPERATING MODE) Patient Care team information Care Team Personnel Name: Gus Stern MD Position: S Renal MD Member Role: Lifetime Consulting Physician Address: Address: [address] [place] [address], [address] [place] [address]- Name: Gauri Ellison RN Position: S RN Member Role: Primary Care Nurse Name: Cirilo Alarcon III, MD Position: Reference Physician Member Role: PCP Address: Address: [address] [place] [address]- Name: Ck Nieves RN Position: S RN Member Role: Primary Care Nurse Name: Lionel Chavez RN Position: S RN Supv Member Role: Primary Care Nurse Name: Woody Hayes RN Position: S RN Member Role: Primary Care Nurse Name: Kaylyn Hernandez RN Position: S RN Member Role: Primary Care Nurse Name: Chasity Justin RN Position: S RN Member Role: Primary Care Nurse Name: Ganesh Castillo MD Position: [facility] Renal MD Member Role: Lifetime Consulting Physician Address: Address: [address] [place] [address] [address] [facility] [place] [address]- Name: Beto Mora RN Position: S RN Member Role: Primary Care Nurse Name: Teresa Robledo RN Position: S RN Member Role: Primary Care Nurse Name: Gloria Spicer RN Position: S RN Member Role: Primary Care Nurse Care Team Related Persons Name: PRESLEY PHILLIPS Address: [address] [place] [address] Name: CHOCO TYLER Address: home [address] [place] [address]
--- OUTSIDE RECORDS SUMMARY | 2023-03-02 08:23 | XMS_ITS | Continuity of Care Document ---
Author Name Unknown Organization [facility] Address [address] [place] [address]- Care Team Providers Care Sprayer Operator Name Role Phone Cirilo Alarcon III, MD Primary Care Physician [phone] [place] [facility] Date(s): 08/04/22 - 12/02/22 [facility] [address] [place], [place] [address] Attending Physician: Not on Staff, Attending MD Allergies, Adverse Reactions, Alerts Substance Reaction Severity Status clindamycin diarrhea Active penicillin rash Active Immunizations Given and Recorded Vaccine Date Status Refusal Reason SARS-CoV-2 (COVID-19) mRNA-1273 vaccine 12/28/20 R ecorded SARS-CoV-2 (COVID-19) mRNA-1273 vaccine 06/10/20 R ecorded SARS-CoV-2 (COVID-19) mRNA-1273 vaccine 05/13/20 R ecorded influenza virus vaccine, inactivated 1 12/24/06 Gi leonid Pneumococcal Vaccine (oldterm) 11/19/06 Given 1Result Comment: lot# [id number] exp. [id number] Medications atorvastatin 80 mg oral tablet 1 tablet = 80 mg, By Mouth, Daily at bedtime, # 30 tablet, 0 Refills, Maintenance, 02/28/19 11:22:00 EST, Tablet, [facility], 170.1, cm, 02/28/19 4:06:00 EST, [...] 02/28/19 13:32:00 EST, Route to Pharmacy Electronically, [facility] #[id number], 170.1, cm, 02/28/19 4:06:00 EST, Height, 138, [...] 07/05/21 13:21:00 EDT, Route to Pharmacy Electronically, [facility] #[id number], Partial fill upon patientrequest if the prescription [...] 1 Unknown Unknown Unknown Unknown Unknown MR Khris lainezal Active Unknown [facility] [id number] Model [id number] Size 26MMA PATIENT WITH THIS DEVICE CAN BE SCANNED SAFELY UNDER FOLLOWING CONDITIONS : 3T OR LESS - MAXIMUM SPATIAL GRADIENT FIELD OF 2500 GAUSS/CM (25t/M) OR LESS - MAXIMUM SAEED OF 2 W/KG (NORMAL OPERATING MODE) Patient Care team information Care Team Personnel Name: Gus Stern MD Position: S Renal MD Member Role: Lifetime Consulting Physician Address: Address: [address] [place] [address], [address] [place] [address]- [place] Name: Gauri Ellison RN Position: S RN Member Role: Primary Care Nurse Name: Cirilo Alarcon III, MD Position: Reference Physician Member Role: PCP Address: Address: [address] [place] [address]- [place] Name: Ck Nieves RN Position: S [...] Care Nurse Name: Ganesh Castillo MD Position: [facility] Renal MD Member Role: Lifetime Consulting Physician Address: Address: [address] [place] [address] [address] [facility] [place] [address]- Name: Beto Mora RN Position: S RN Member Role: Primary Care Nurse Name: Teresa Robledo RN Position: S RN Member Role: Primary Care Nurse Name: Gloria Spicer RN Position: S RN Member Role: Primary Care Nurse Care Team Related Persons Name: PRESLEY PHILLIPS Address: home [address] [place] [address] Name: JAYSONCHOCO Address: home [address] [place] [address]
--- OUTSIDE RECORDS SUMMARY | 2023-03-02 08:23 | XMS_ITS | Continuity of Care Document ---
Author Name Unknown Organization [facility] Address [address] [place] [id number]- Care Team Providers Care Records Management Coordinator Name Role Phone Dorian STRATTON MD, Cirilo Worrell Primary Care Physician Encounter [facility] Date(s): 05/11/22 - 05/18/22 [facility] [address] [place] [id number] Attending Physician: Amador MARTÍNEZ, Bhavna Fermin Admitting Physician: Amador MARTÍNEZ, Bhavna Fermin Allergies, Adverse [...] Vaccine (oldterm) 11/19/06 Given 1Result Comment: lot# [id number] exp. [id number] Medications atorvastatin 80 mg oral tablet 1 tablet = 80 mg, By Mouth, Daily at bedtime, # 30 tablet, 0 Refills, Maintenance, 02/28/19 11:22:00 EST, Tablet, [facility], 170.1, cm, 02/28/19 4:06:00 [...] opioid drug. Start Date: 03/25/22 Status: Ordered furosemide 40 mg oral tablet 40 mg, 1, tablet, By Mouth, 2 times a day, # 60 tablet, Refills 0, Tot. Refills 0, Maintenance, 02/28/19 13:32:00 EST, Route to [facility]ically[id number], 170.1, cm, 02/28/19 4:06:00 EST, Height, 138, [...] By Mouth, Every 6 hours, PRN, # 20 tablet, Refills 0, Tot. Refills 0, Maintenance,as needed for pain, 03/29/22 10:55:00 EST, Route to Pharmacy Electronically, [facility] #[id number], Partial fill upon patient request if the pres... Start Date: 03/29/22 Status: Ordered pantoprazole 40 mg oral delayed [...] 07/05/21 13:21:00 EDT, Route to Pharmacy Electronically, [facility] #[id number], Partial fill upon patientrequest if the prescription [...] UNCONTROLLED, WITHOUT MENTION OF COMPLICATION Confirmed Active Vital Signs Most recent to oldest [Reference Range]: 1 Height 170 cm (05/11/22 2:55 PM) Weight 90.26 kg (05/11/22 2:55 PM) Oxygen Saturation [94-100 %] 100 % (05/11/22 2:55 PM) Pulse Rate [55-90 bpm] 94 bpm *H* (05/11/22 2:55 PM) Body Mass Index [18.5-24.99 kg/m2] 31.23 kg/m2 *>HHI* (05/11/22 2:55 PM) Blood Pressure [90-138/55-84 mm Hg] 90/5 0mm Hg (05/11/22 2:55 PM) Temperature [96.8-100.4 DegF] 98.9 DegF (05/11/22 2:55 PM) Mode of Delivery (Oxygen) Room air (05/11/22 2:55 PM) Blood pressure sites Arm, right (05/11/22 2:55 PM) Temperature Route Tympanic (05/11/22 2:55 PM) Weight Obtained Via Patient/family state d (05/11/22 2:55 PM) Social History Social History Type Response Tobacco Use: quit smoking 30 years ago. Sex Implantable Device List Procedure Provider Procedure Date Device Type Site Aortic Unknown 06/04/21 Unknown Heart Device Identifier Serial Number Lot or Batch Number Manufacturing Date Expiration Date Distinct Identification Code MRI Safety Implantable Status Assigning Authority Unknown 1 Unknown Unknown Unknown Unknown Unknown MR Khris murphy Active Unknown 1Serial [id number] Model [id number] Size 26MMA PATIENT WITH THIS DEVICE CAN BE SCANNED SAFELY UNDER FOLLOWING CONDITIONS : 3T OR LESS - MAXIMUM SPATIAL GRADIENT FIELD OF 2500 GAUSS/CM (25t/M) OR LESS - MAXIMUM SAEED OF 2 W/KG (NORMAL OPERATING MODE) History and physical note * Amador MARTÍNEZ, Bhavna Fermin: PERFORM Event Display: History and Physical Hospital Authored Date: [id number] Patient: ??HALLEY TYLER ? Age:??66 Years?Sex:??Female?:??1955?? Chief Complaint Left foot wound and heel wound check ?? Date of admission: 05/11/22 Attending: Dr. Jacques History of Present Illness 66 year old with PAD, right BKA, previous amputation of left great toe, ulcerations of left second toe and heel, presents for wound check.??She had a?? recent angiogram but there was no disease to treat with 2 vessel runoff to the ankle with collateralization and second toe amputation on 03/28/2022.?? Current therapy is iodosorb to the heel, toe amp site packing with packing strips.?? Over the past few days,??she has noticed increased redness and tenderness in the left foot.?? She is feeling tired??and reports low appetite.?? Denies fever or hyperglycemia. Physical Exam Vitals & Measurements T:??98.9?F ?? CT:??94?? BP:??90/50?? SpO2:??100%?? HT:??170??cm?? WT:??90.26??kg?? BMI:??31.23?? Constitutional: Alert, in no distress. Mental Status: Oriented to person, place and time. Head: Normocephalic. Eyes: Pupils are equal, round and reactive to light. Extraocular muscles intact. Ear, Nose and Throat: Oropharynx clear, mucous membranes moist. Ears and nose without masses, lesions or deformities. Trachea midline. Neck: Supple, Full range of motion.?? 2+ carotid pulses, no bruit Respiratory: Clear to auscultation. No wheezing, rales or rhonchi. Cardiovascular: S1 S2 regular. No murmurs, rubs or gallops. Gastrointestinal: Abdomen soft, non-tender, non-distended. Normal bowel sounds. No pulsatile mass. No hepatosplenomegaly. Genitourinary: No costovertebral angle tenderness. Neurologic: Cranial nerves II-XII grossly intact. No focal neurological deficits. Flexor plantar response. Moves all extremities spontaneously. Sensation intact bilaterally. Skin: No rashes or lesions. No petechiae or purpura.?? Musculoskeletal: No cyanosis or clubbing. No gross deformities. Normal range of motion. Heme/Lymphatics/Immun: Palpation of neck reveals no swelling or tenderness of neck nodes. Palpationof groin reveals no swelling or tenderness of groin nodes. Psychiatric: Normal mood and affect vascular: palpable femoral pulses, Doppler signal present over DP/PT arteries, shallow second toe amp site wound, does not appear to tunnel, blistered skin plantar surface unroofed, erythema extending to plantar surface and penitentiary up dorsum of the foot, margins marked. Assessment/Plan Left diabetic foot infection ?? Dr Jacques was able to see the patient with me today.?? Admit for IV antibiotic therapy, may need further surgical debridement, possibly even a TMA depending on clinical response. She will present up to the hospital today once a bed is ready.?? Problem List/Past Medical History Ongoing BENIGN ESSENTIAL HYPERTENSION Cellulitis Diabetic foot ulcer Hyperlipidemia Obese class I Pneumonia TYPE II DIABETES MELLITUS [NON-INSULIN DEPENDENT TYPE] [NIDDM TYPE] [ADULT-ONSET TYPE] OR UNSPECIFIED TYPE, UNCONTROLLED, WITHOUT MENTION OF COMPLICATION Historical Chronic Osteomyelitis Involving Ankle and Foot Obese class I Obese class II Obese class II Obese class II Procedure/Surgical History plantar debridement/drainage of abscess: 11/30/07 plantar debridement: 02/08/07 great toe amputation: 02/02/07 surgical drainage of abscess: 11/17/06 Medications Acetaminophen Tablet, 650 mg, By Mouth, Every 4 hours, PRN atorvastatin 80 mg oral tablet, 80 mg= 1 tablet, By Mouth, Daily at bedtime Bisacodyl Supp, 10 mg= 1 supp, Rectally, Daily, PRN calcitriol 0.25 mcg oral capsule, 0.25 mcg= 1 capsule, By Mouth, Every Monday, Monday and Monday Calcium Alginate Pad (7.5 X 12cm), See Instructions, 3 refills, apply a small piece to the wounds on the left second toe and heel daily, cover with dressing Colace sodium 100 mg oral capsule, 100 mg= 1 capsule, By Mouth, 2 times a day, PRN DilTIAZem (Eqv-Tiazac), 120 mg, By Mouth, Daily Docusate Sodium Capsule, 100 mg= 1 capsule, By Mouth, 2 times a day Eliquis 2.5 mg oral tablet, 2.5 mg= 1 tablet, By Mouth, 2 times a day furosemide 40 mg oral tablet, 40 mg= 1 tablet, By Mouth, 2 times a day Insulin Lispro, 3-15 units, Subcutaneous Injection, 3 times a day before meals Insulin LISPRO Sliding Scale, 2-10 units, Subcutaneous Injection, 3 times a day before meals Iodosorb 0.9% topical gel, See Instructions, dispense one tube 10g isosorbide mononitrate 30 mg oral tablet, extended release, 30 mg= 1 tablet, By Mouth, Daily in AM Lantus Inj, 70 units, Subcutaneous Injection, Daily at bedtime metformin 500 mg oral tablet, 1000 mg= 2 tablet, By Mouth, 2 times a day oxyCODONE 5 mg oral tablet, 5 mg= 1 tablet, By Mouth, Every 6 hours, PRN pantoprazole 40 mg oral delayed release tablet, 40 mg= 1 tablet, By Mouth, Daily Plain Packing Strip, See Instructions, gently pack into left second toe amp site daily, cover with clean dry dressing Plavix 75 mg oral tablet, 75 mg= 1 tablet, By Mouth, Daily, 5 refills pregabalin 75 mg oral capsule, 75 mg= 1 capsule, By Mouth, 2 times a day topiramate 25 mg oral tablet, 25 mg= 1 tablet, By Mouth, 2 times a day Toprol XL 50 mg oral tablet, extended release, 50 mg= 1 tablet, By Mouth, Daily, 3 refills, Take 3 tablets by mouth once per day for atrial fibrillation. Vancomycin IVPB, 1250 mg, 15 mg/kg, IVPB, Every 48 hours Vitamin B12 500 mcg oral tablet, 1000 mcg= 2 tablet, By Mouth, Daily Vitamin D3 2000 intl units oral capsule, 50 mcg= 1 capsule, By Mouth, Daily Zosyn Extended IVPB, 3.375 Gm, IVPB, Every 8 hours Allergies clindamycin??(diarrhea) penicillin??(rash) vancomycin??(flushed) Social History Tobacco Use: quit smoking 30 years ago., 02/25/2019 Family History No family history recorded. Hospital Progress note * Amador MARTÍNEZ, Bhavna Fermin: PERFORM Event Display: Progress Note Hospital Authored Date: [id number] Patient: ??HALLEY TYLER ? Age:??66 Years?Sex:??Female?:??1955?? Chief Complaint Left foot wound and heel wound check ?? Date of admission: 05/11/2022 Attending MD: Sawyer History of Present Illness 66 year old with PAD, right BKA, previous amputation of left great toe, ulcerations of left second toe and heel, presents for wound check.??She had a?? recent angiogram but there was no disease to treat with 2 vessel runoff to the ankle with collateralization and second toe amputation on 03/28/2022.?? Current therapy is iodosorb to the heel, toe amp site packing with packing strips.?? Over the past few days,??she has noticed increased redness and tenderness in the left foot.?? She is feeling tired??and reports low appetite.?? Denies fever or hyperglycemia. ?? Physical Exam Vitals & Measurements T:??98.9?F ?? CT:??94?? BP:??90/50?? SpO2:??100%?? HT:??170??cm?? WT:??90.26??kg?? BMI:??31.23?? Constitutional: Alert, in no distress. Mental Status: Oriented to person, place and time. Head: Normocephalic. Eyes: Pupils are equal, round and reactive to light. Extraocular muscles intact. Ear, Nose and Throat: Oropharynx clear, mucous membranes moist. Ears and nose without masses, lesions or deformities. Trachea midline. Neck: Supple, Full range of motion.?? 2+ carotid pulses, no bruit Respiratory: Clear to auscultation. No wheezing, rales or rhonchi. Cardiovascular: S1 S2 regular. No murmurs, rubs or gallops. Gastrointestinal: Abdomen soft, non-tender, non-distended. Normal bowel sounds. No pulsatile mass. No hepatosplenomegaly. Genitourinary: No costovertebral angle tenderness. Neurologic: Cranial nerves II-XII grossly intact. No focal neurological deficits. Flexor plantar response. Moves all extremities spontaneously. Sensation intact bilaterally. Skin: No rashes or lesions. No petechiae or purpura.?? Musculoskeletal: No cyanosis or clubbing. No gross deformities. Normal range of motion. Heme/Lymphatics/Immun: Palpation of neck reveals no swelling or tenderness of neck nodes. Palpationof groin reveals no swelling or tenderness of groin nodes. Psychiatric: Normal mood and affect vascular: palpable femoral pulses, Doppler signal present over DP/PT arteries, shallow second toe amp site wound, does not appear to tunnel, blistered skin plantar surface unroofed, erythema extending to plantar surface and penitentiary up dorsum of the foot, margins marked. Assessment/Plan Left diabetic foot infection ?? Dr Jacques was able to see the patient with me today.?? Admit for IV antibiotic therapy, may need further surgical debridement, possibly even a TMA depending on clinical response. She will present up to the hospital today once a bed is ready.?? Problem List/Past Medical History Ongoing BENIGN ESSENTIAL HYPERTENSION Cellulitis Diabetic foot ulcer Hyperlipidemia Obese class I Pneumonia TYPE II DIABETES MELLITUS [NON-INSULIN DEPENDENT TYPE] [NIDDM TYPE] [ADULT-ONSET TYPE] OR UNSPECIFIED TYPE, UNCONTROLLED, WITHOUT MENTION OF COMPLICATION Historical Chronic Osteomyelitis Involving Ankle and Foot Obese class I Obese class II Obese class II Obese class II Procedure/Surgical History plantar debridement/drainage of abscess: 11/30/07 plantar debridement: 02/08/07 great toe amputation: 02/02/07 surgical drainage of abscess: 11/17/06 Medications atorvastatin 80 mg oral tablet, 80 mg= 1 tablet, By Mouth, Daily at bedtime calcitriol 0.25 mcg oral capsule, 0.25 mcg= 1 capsule, By Mouth, Every Monday, Monday and Monday Calcium Alginate Pad (7.5 X 12cm), See Instructions, 3 refills, apply a small piece to the wounds on the left second toe and heel daily, cover with dressing Colace sodium 100 mg oral capsule, 100 mg= 1 capsule, By Mouth, 2 times a day, PRN DilTIAZem (Eqv-Tiazac), 120 mg, By Mouth, Daily Eliquis 2.5 mg oral tablet, 2.5 mg= 1 tablet, By Mouth, 2 times a day furosemide 40 mg oral tablet, 40 mg= 1 tablet, By Mouth, 2 times a day Insulin Lispro, 3-15 units, Subcutaneous Injection, 3 times a day before meals Iodosorb 0.9% topical gel, See Instructions, dispense one tube 10g isosorbide mononitrate 30 mg oral tablet, extended release, 30 mg= 1 tablet, By Mouth, Daily in AM Lantus Inj, 70 units, Subcutaneous Injection, Daily at bedtime metformin 500 mg oral tablet, 1000 mg= 2 tablet, By Mouth, 2 times a day oxyCODONE 5 mg oral tablet, 5 mg= 1 tablet, By Mouth, Every 6 hours, PRN pantoprazole 40 mg oral delayed release tablet, 40 mg= 1 tablet, By Mouth, Daily Plain Packing Strip, See Instructions, gently pack into left second toe amp site daily, cover with clean dry dressing Plavix 75 mg oral tablet, 75 mg= 1 tablet, By Mouth, Daily, 5 refills pregabalin 75 mg oral capsule, 75 mg= 1 capsule, By Mouth, 2 times a day topiramate 25 mg oral tablet, 25 mg= 1 tablet, By Mouth, 2 times a day Toprol XL 50 mg oral tablet, extended release, 50 mg= 1 tablet, By Mouth, Daily, 3 refills, Take 3 tablets by mouth once per day for atrial fibrillation. Vitamin B12 500 mcg oral tablet, 1000 mcg= 2 tablet, By Mouth, Daily Vitamin D3 2000 intl units oral capsule, 50 mcg= 1 capsule, By Mouth, Daily Allergies clindamycin??(diarrhea) penicillin??(rash) vancomycin??(flushed) Social History Tobacco Use: quit smoking 30 years ago., 02/25/2019 Family History No family history recorded. * Erich BAILEY, Mony Roman: PERFORM Event Display: Progress Note Hospital Authored Date: [id number] Above note is an Admission H&P. 66-year-old female sent as a direct admission to the Vascular Surgery service from clinic for a DM foot wound. Plan for monitoring the wound on IV antibiotics and possible amputation this admission pending progression. ? General: NAD, resting comfortably?? HEENT: normocephalic, atraumatic?? Cardiac: RRR Lungs: CTA b/l?? Abdomen: Soft, nondistended, nontender?? Vascular: R BKA. L maceration and rubor at R2 amp site. No purulent drainage. Biphasic AT/PT. Erythema within marked margins. Neuro: Alert and oriented x 3 ?? Note * Bhavna Hernandez: PERFORM, SIGN, VERIFY Event Display: Patient Education/Instruction Authored Date: [id number] [facility] [address] Clinical Summary Name HALLEY TYLER Age 66 Years 1955 PCP Dorian STRATTON MD, Cirilo Worrell PCP Visit Date 05/11/2022 14:30:00 Additional Instructions: Scheduled Appointments?? Future Appointments ?No Future Appointments Scheduled Follow-Up Instructions ?? Diagnosis Medications: Please continue your medications until treatment is completed or stopped by your provider. Discuss any questions related to medications with your provider. Medications to Continue with No Changes These medications were not printed or sent to your pharmacy apixaban (Eliquis 2.5 mg oral tablet) 1 tab(s) Oral twice a day. Next Dose: Atorvastatin (atorvastatin 80 mg oral tablet) 1 tab(s) Oral Daily at Bedtime. Refills: 0. Next Dose: Cadexomer-Iodine Topical (Iodosorb 0.9% topical gel) dispense one tube 10g. Refills: 0. Next Dose: Calcitriol (calcitriol 0.25 [...] (Eqv-Tiazac)) 120 Milligram Oral Daily. Next Dose: Docusate (Colace sodium 100 mg oral capsule) 1 capsule Oral twice a day as needed Constipation. Refills: 0. Next Dose: Durable Medical Equipment (Calcium Alginate [...] Daily at Bedtime. Next Dose: Insulin Lispro 3-15 units Subcutaneous Injection 3 times a day before meals. Next Dose: Isosorbide Mononitrate (isosorbide mononitrate 30 mg oral tablet, extended release) 1 tab(s) Oral Daily in the morning. Next Dose: Metformin (metformin 500 mg oral tablet) 2 tab(s) Oral twice a day. Next Dose: Metoprolol (Toprol XL 50 mg oral tablet, extended release) 1 tab(s) Oral Daily. Take 3 tablets by mouth once per day for atrial fibrillation.. Refills: 3. Next Dose: Oxycodone (oxyCODONE 5 mg oral tablet) 1 tab(s) Oral every 6 hours as needed as needed for pain. Refills: 0. Next Dose: Pantoprazole (pantoprazole 40 mg oral delayed release tablet) 1 tab(s) Oral Daily. Next Dose: Pregabalin (pregabalin 75 mg oral capsule) 1 capsule Oral twice a day. Next Dose: Topiramate (topiramate 25 mg oral tablet) 1 tab(s) Oral twice a day. Next Dose: Allergy Info:?? vancomycin; penicillin; clindamycin Medications Given This Visit Future Orders ?No future orders Vital Signs Height 170 cm Weight 90.26 kg BMI 31.23 kg/m2 Blood Pressure 90 mm Hg/50 mm Hg Temperature 98.9 DegF Pulse Rate 94 bpm Respiratory Rate 02 Sat Mode of Delivery 100 %/Room air You can now view a summary of your hospital visit from the comfort of your home through a free online portal called [employer]. [employer] is a website that allows you to securely view your medical information including discharge summary, medications and follow-up visits. ??You can alsosend a secure electronic message to your doctor???s office to request appointments, renew medications or just ask a question. You can enroll at [email or web address] or register during your next office visit. [...] primary care provider, you may find a [facility] provider by calling [facility] at [phone]. For information about the plan of care [...] Personnel Name: Leena BAILEY, Gus Heredia Position: [facility] Renal MD Member Role: Lifetime Consulting Physician Address: Address: [address] [place] [address] [address] [place] [address]- [place] Name: Gauri Ellison RN Position: S RN Member Role: Primary Care Nurse Name: Cirilo Alarcon III, MD Position: [facility] Ambulatory (view) Member Role: PCP Address: Address: [address] [place] [address]- [place] Name: Ck Nieves RN Position: S RN Member Role: Primary Care Nurse Name: Lionel Chavez RN Position: [facility] RN Supv Member Role: Primary Care Nurse Name: Woody Hayes RN Position: S RN Member Role: Primary Care Nurse Name: Kaylyn Hernandez RN Position: S RN Member Role: Primary Care Nurse Name: Chasity Justin RN Position: S RN Member Role: Primary Care Nurse Name: Ganesh Castillo MD Position: [facility] Renal MD Member Role: Lifetime Consulting Physician Address: Address: [address] [place] [address] [address] [facility] [place] [address]- [place] Name: Beto Mora RN Position: S RN Member Role: Primary Care Nurse Name: Teresa Robledo RN Position: S RN Member Role: Primary Care Nurse Name: Gloria Spicer RN Position: S RN Member Role: Primary Care Nurse Care Team Related Persons Name: PRESLEY PHILLIPS Address: home [address] [place] [address] Name: CHOCO TYLER Address: home [address] [place] [address]
--- OUTSIDE RECORDS SUMMARY | 2023-03-02 08:23 | XMS_ITS | Continuity of Care Document ---
Author Name Unknown Organization [facility] ter Address [address] [place] [id number] Care Team Providers Care Lab Support Service Tech Name Role Phone Dorian STRATTON MD, Cirilo Worrell Primary Care Physician Encounter [facility] Date(s): 01/07/22 - 01/12/[address] [address] Discharge Disposition: A-D/C Home Attending Physician: Jayden Davis MD Admitting Physician: Cait Núñez MD Referring Physician: Not on Staff, Referring MD Allergies, Adverse Reactions, Alerts Substance Reaction Severity Status clindamycin Active penicillin rash Active vancomycin Active Immunizations Given and Recorded Vaccine Date Status Refusal Reason SARS-CoV-2 (COVID-19) mRNA-1273 vaccine 12/28/20 R ecorded SARS-CoV-2 (COVID-19) mRNA-1273 vaccine 06/10/20 R ecorded SARS-CoV-2 (COVID-19) mRNA-1273 vaccine 05/13/20 R ecorded influenza virus vaccine, inactivated 1 12/24/06 Gi leonid Pneumococcal Vaccine (oldterm) 11/19/06 Given 1Result Comment: lot# [id number] exp. [id number] Medications apixaban 2.5 mg oral tablet 1 tablet = 2.5 mg, By Mouth, 2 times a day, # 60 tablet, 0 Refills, Maintenance, 09/13/20 16:18:00 EDT, Tablet, Partial fill upon patient request if the prescription is for a schedule II opioid drug. Start Date: 09/13/20 Status: Ordered atorvastatin 80 mg oral tablet 1 tablet = 80 mg, By Mouth, Daily at bedtime, # 30 tablet, 0 Refills, Maintenance, 02/28/19 11:22:00 EST, Tablet, [facility], 170.1, cm, 02/28/19 4:06:00 [...] opioid drug. Start Date: 01/07/22 Status: Ordered cefpodoxime 200 mg oral tablet 2 tablet = 400 mg, By Mouth, Every 12 hours, for 9 days, # 36 tablet, 0 Refills, Acute 01/21/22 15:37:00 EST, 01/12/22 15:37:00 EST, Tablet, [facility] #[id number], Partial fill upon patient request if the prescription is for a schedule II opioid... Start Date: 01/12/22 Stop Date: 01/21/22 Status: Ordered Colace sodium 100 mg oral capsule 100 mg, 1, capsule, By Mouth, 2 times a day, PRN, # 30 capsule, Refills 0, Tot. Refills 0, Maintenance, Constipation, 01/12/22 10:54:00 EST, Route to Pharmacy Electronically, [facility][id number], Partial fill upon patient request if the prescr... Start Date: 01/12/22 Status: Ordered DilTIAZem (Eqv-Tiazac) = 120 mg, By Mouth, Daily, 0 Refills, Maintenance, 01/07/22 20:25:00 EST, Partial fill upon patientrequest if the prescription is for a schedule II opioid drug. Start Date: 01/07/22 Status: Ordered diltiazem 120 mg/24 hours oral capsule, extended release 120 mg, CD Capsule, By Mouth, 01/12/22 9:00:00 EST Start Date: 01/12/22 Stop Date: 01/12/22 Status: Completed doxycycline monohydrate 100 mg oral capsule = 100 mg, By Mouth, Every 12 hours, for 9 days, # 18 tablet, 0 Refills, Acute 01/21/22 10:53:00 EST, 01/12/22 10:53:00 EST, Capsule, [facility] #[id number], Partial fill upon patient request if the prescription is for a schedule II opioid drug.,... Start Date: 01/12/22 Stop Date: 01/21/22 Status: Ordered furosemide 40 mg oral tablet 40 mg, 1, tablet, By Mouth, 2 times a day, # 60 tablet, Refills 0, Tot. Refills 0, Maintenance, 02/28/19 13:32:00 EST, Route to Pharmacy Electronically, [facility] #[id number], 170.1, cm, 02/28/19 4:06:00 EST, Height, 138, kg, 02/25/19 10:41:00 E... Start Date: 02/28/19 Status: Ordered gabapentin 300 mg oral capsule 600 mg, 2, capsule, By Mouth, 4 times a day, Refills 0, Maintenance, 02/28/19 13:11:00 EST Start Date: 02/28/19 Status: Ordered Insulin Lispro 3-15 units, Subcutaneous Injection, 3 times a day before meals, 0 Refills, Maintenance, 09/22/20 16:34:00 EDT, Injection, Partial fill upon patient request if the prescription is for a schedule II opioid drug. Start Date: 09/22/20 Status: Ordered isosorbide mononitrate 30 mg oral tablet, extended release 30 mg, 1, tablet, By Mouth, Daily in AM, # 30 tablet, Refills 0, Maintenance, 08/15/17 1:41:35 EDT Start Date: 08/15/17 Status: Ordered Lantus Inj 0.3 mL = 30 units, Subcutaneous Injection, Daily at bedtime, 0 Refills, Maintenance, 09/22/20 11:45:00 EDT, Injection, Partial fill upon patient request if the prescription is for a schedule II opioid drug. Start Date: 09/22/20 Status: Ordered metformin 500 mg oral tablet 1,000 mg, 2, tablet, By Mouth, 2 times a day, 0 Refills Start Date: 11/15/06 Status: Ordered pantoprazole 40 mg oral delayed release tablet 1 tablet = 40 mg, By Mouth, Daily, # 30 tablet, 0 Refills, Maintenance, 09/13/20 16:18:00 EDT, EC Tablet Start Date: 09/13/20 Status: Ordered Plavix 75 mg oral tablet 75 mg, 1, tablet, By Mouth, Daily, # 30 tablet, Refills 5, Tot. Refills 5, Maintenance, 07/05/21 13:21:00 EDT, Route to Pharmacy Electronically, [id number], Partial fill upon patientrequest if the prescription is for a schedule II op... Start Date: 07/05/21 Status: Ordered topiramate 25 mg oral tablet 1 tablet = 25 mg, By Mouth, 2 times a day, 0 Refills, Maintenance, 02/28/19 13:11:00 EST, Tablet Start Date: 02/28/19 Status: Ordered Toprol XL 50 mg oral tablet, extended release 50 mg, 1, tablet, By Mouth, Daily, Take 3 tablets by mouth once per day for atrial fibrillation., #90 tablet, Refills 3, Tot. Refills 3, Maintenance, 09/22/20 11:43:00 EDT, Do Not Route, Partial fill upon patient request if the prescription is for a... Start Date: 09/22/20 Status: Ordered traMADol 50 mg oral tablet 1 tablet = 50 mg, By Mouth, Every 4 hours, PRN Pain , Moderate, for 6 days, # 36 tablet, 0 Refills,Acute 01/18/22 10:52:00 EST, 01/12/22 10:52:00 EST, Tablet, [facility] #[id number], Partial fill upon patient request if the prescription is for a... Start Date: 01/12/22 Stop Date: 01/18/22 Status: Ordered Vitamin B12 500 mcg oral tablet 2 tablet = 1,000 mcg, By Mouth, Daily, # 30 tablet, 0 Refills, Maintenance, 08/15/17 1:39:32 EDT, Tablet Start Date: 08/15/17 Status: Ordered Problem List Condition Confirmation Course Effective Dates Status H ealth Status Informant BENIGN ESSENTIAL HYPERTENSION Confirmed Active Cellulitis Confirmed Active Diabetic foot ulcer Confirmed Active Hyperlipidemia Confirmed Active Obese class II Confirmed Active Pneumonia Confirmed Active TYPE II DIABETES MELLITUS [NON-INSULIN DEPENDENT TYPE] [NIDDM TYPE] [ADULT-ONSET TYPE] OR UNSPECIFIED TYPE, UNCONTROLLED, WITHOUT MENTION OF COMPLICATION Confirmed Active Results Orders for Microbiology Reports Name Date Blood Culture 01/06/22 Blood Culture #2 01/06/22 Microbiology Reports TEST:Blood Culture, Second Order STATUS:Auth (Verified) BODY SITE: SOURCE:Blood COLLECTED DATE/TIME:01/06/22 7:32 PM Blood Culture, Second Order SPECIMEN DESCRIPTION : BLOOD RT AC SPECIAL REQUESTS : NONE CULTURE : NO GROWTH 5 DAYS. REPORT STATUS : FINAL 01/11/2022 TEST:Blood Culture STATUS:Auth (Verified) BODY SITE: SOURCE:Blood COLLECTED DATE/TIME:01/06/22 7:25 PM Blood Culture SPECIMEN DESCRIPTION : BLOOD L AC SPECIAL REQUESTS : NONE CULTURE : NO GROWTH 5 DAYS. REPORT STATUS : FINAL 01/11/2022 Radiology Reports * Exam Date Time Procedure Performing Provider Status 01/09/22 8:54 PM MRI Ext Lower W+W/O Contrast Left Astrid , Jesenia; Auth (Verified) Notes: (MRI Ext Lower W+W/O Contrast Left) Reason For Exam: Infection RESULT: MRI Ext Lower W+W/O Contrast Left MRI Ext Lower W+W/O Contrast Left Reason: Infection; Clinical Question(s): Osteomyelitis; L2 TOE, HEEL ULCER, L LATERAL FOOT DM WOUND. TECHNIQUE: MRI of the left foot was performed without and with intravenous contrast. The patient received 22 cc of Clariscan intravenously. COMPARISON: Left foot radiographs dated 01/06/2022 and left ankle radiographs dated 04/25/2007. FINDINGS: There is subcutaneous edema laterally in the forefoot with adjacent focal area of marrow edema in the distal fifth metatarsal metaphysis. On the coronal images, linear hypointense T1 and T2 signal isseen to extend through this region, compatible with nondisplaced fracture. There is mild diffuse enhancement in the fifth metatarsal distally. There is no additional regions of confluent hypointense T1 signal to suggest osteomyelitis. There is degenerative change throughout the midfoot with chondral thinning, bony proliferation and mild areas of subchondral marrow edema most pronounced in the lateral cuneiform, lateral navicular and portions of the cuboid. There is a bandage overlying the second digit with adjacent subcutaneous soft tissue edema. There is a bandage over the posterolateral aspect of the heel. There is mild subcutaneous edema in the posterior medial aspect of the heel. There is diffuse atrophy of the intrinsic muscles of the foot. There is high- grade partial tearing of the peroneus longus tendon inferior to the cuboid. There is fluid within the peroneal tendon sheath. The peroneus brevis appears intact. The Lisfranc ligament maintains a normal course though there is mild surrounding soft tissue edema,which may reflect sprain. There is thickening in the medial cord of the plantar fascia with no surrounding soft tissue edema to suggest plantar fasciitis. There is mild diffuse edema throughout the sinus Tarsi. No rim-enhancing fluid collection. IMPRESSION: 1. Mild marrow edema in the fifth metatarsal distal metaphysis with associated enhancement and linear hypointense signal extending through this region compatible with a nondisplaced fracture. 2. No confluent marrow edema or enhancement or enhancement to suggest osteomyelitis. Evidence of skin wound on the distal aspect of the second digit and posterolateral heel. 3. High-grade partial tearing the peroneus longus inferior to the cuboid. 4. Edema surrounding the Lisfranc ligament, which may reflect sprain. 5. Degenerative change in the midfoot. WSN: [id number] Ordering Physician: Laya Lechuga Dictated By: Keara Samaniego MD Dictated Date/Time: 01/10/22 8:21 am Reviewed By: Keara Samaniego MD Signed By: Keara Samaniego MD Signed Date/Time: 01/10/22 8:21 am Transcribed By: KRYSTINA Transcribed Date/Time: 01/10/22 7:57 am * Exam Date Time Procedure Performing Provider Status 01/06/22 11:08 PM Foot Min 3 Views Left Jose Daniel; Chris (Verified) Notes: (Foot Min 3 Views Left) Reason For Exam: Pain RESULT: Foot Min 3 Views Left PROCEDURE: Foot Min 3 Views Left CLINICAL INDICATION: 66 years old Female with Hx of Present Illness: infected left foot; Reason: Pain; Clinical Question(s): Osteomyelitis. TECHNIQUE: Three views of the LEFT foot are obtained. COMPARISONS: LEFT ankle 2007.. FINDINGS: Bones and joints: Exam limited by moderate osteopenia. There is evidence of amputation of the entire 1st toe as well as partial resection of the head of the 1st metatarsal. No periosteal reaction or erosion to suggest acute osteomyelitis. Moderate degenerative changes of the tarsal bones. Large plantar calcaneal spur and [id number] Achilles tendon calcaneal spur. Mild to moderate degenerative changes at the ankle joint also noted. Soft Tissues: Moderate soft tissue swelling along the dorsum of the ankle, mild at the dorsum of the midfoot. No soft tissue gas. Severe arterial calcifications. No evidence of radiopaque foreign body. IMPRESSION: 1. No evidence of acute bony injuries. 2. No radiographic evidence of osteomyelitis. 3. Evidence of amputation of the 1st toe and partial resection of the head of the 1st metatarsal. 4. Osteopenia. 5. Degenerative changes in the tarsal bones and ankle joint. 6. Soft tissue swelling anterior to the ankle and along the dorsum of the midfoot. 7. Severe arterial calcifications. Thank you for allowing me to participate in the care of this patient. WSN: [id number] Ordering Physician: Shun Ross MD Dictated By: Saurav Valdez MD Dictated Date/Time: 01/06/22 11:19 p Reviewed By: Saurav Valdez MD Signed By: Saurav Valdez MD Signed Date/Time: 01/06/22 11:19 pm Transcribed By: KRYSTINA Transcribed Date/Time: 01/06/22 11:17 pm Vital Signs Most recent to oldest [Reference Range]: 1 2 3 Height 170 cm (01/11/22 3:49 AM) 170 cm (01/10/22 7:53 PM) 170 cm (01/10/22 2:26 PM) Weight 109.4 kg (01/07/22 7:55 PM) 90.4 kg (01/07/22 7:06 AM) Oxygen Saturation [94-100 %] 98 % (01/12/22 5:00 AM) 98 % (01/11/22 8:00 PM) 95 % (01/11/22 1:00 PM) Pulse Rate [55-90 bpm] 87 bpm (01/12/22 8:56 AM) 70 bpm (01/12/22 5:00 AM) 93 bpm *H* (01/11/22 8:00 PM) Body Mass Index [18.5-24.99 kg/m2] 37.85 kg/m2 *>HHI* (01/07/22 7:55 PM) Blood Pressure [90-138/55-84 mm Hg] 121/44mm Hg (01/12/22 8:56 AM) 101/59mm Hg (01/12/22 5:00 AM) 120/62mm Hg (01/11/22 8:00 PM) Respiratory Rate [16-30 br/min] 18 br/min (01/12/22 5:00 AM) 20 br/min (01/11/22 8:00 PM) 20 br/min (01/11/22 1:00 PM) Temperature [96.8-100.4 DegF] 98.6 DegF (01/12/22 5:00 AM) 98.6 DegF (01/11/22 8:00 PM) 97.4 DegF (01/11/22 1:00 PM) Mode of Delivery (Oxygen) Room air (01/12/22 5:00 AM) Room air (01/11/22 8:00 PM) Room air (01/11/22 1:00 PM) Blood pressure sites Arm, left (01/12/22 5:00 AM) Arm, left (01/11/22 8:00 PM) Arm, left (01/11/22 1:00 PM) Temperature Route Oral (01/12/22 5:00 AM) Oral (01/11/22 8:00 PM) Oral (01/11/22 1:00 PM) Dry Weight 109.4 kg (01/07/22 7:55 PM) Weight Obtained Via Bed scale (01/07/22 7:55 PM) Social History Social History Type Response Tobacco Use: quit smoking 30 years ago. Sex History and physical note * Av BAILEY, Marisela: MODIFY, PERFORM Event Display: History and Physical Hospital Authored Date: Patient: ??HALLEY JUNE ? Age:??66 Years?Sex:??Female?:??[id number]?? Chief Complaint/Reason for Consultation foot infection/pain History of Present Illness Date of exam: 01/08/2020 ?? 66-year-old female with past medical history significant for hypertension, hyperlipidemia, diabetes, PVD status post right BKA, wheelchair-bound, aortic stenosis status post TAVR in June 11, A. fib,presented to ED with 2-week history of worsening left foot infection.?? 2 weeks ago, she noted a black ulcer on her left heel for which she saw a pediatric immunologist.?? Was prescribed diabetic shoes.?? Over the last 2 weeks, she has noticed purulent drainage from the ulcer site??on her second toe and her toe is now erythematous.?? Saw pediatric immunologist again yesterday who advised her to come to ED.?? No fevers or chills.?? Complains of??severe pain in left??foot. ?? Upon arrival to ED, afebrile, slightly tachycardic, hemodynamically stable, saturating well on roomair.?? Labs with no leukocytosis, electrolytes within normal limits, BUN/creatinine 47/2.2, similarto previous values.?? LFTs slightly elevated.?? Lactate levels normal.?? C-reactive protein elevated.?? COVID-19 negative.?? UA with 8 WBCs, negative nitrite.?? Left foot x-ray showing no evidence ofacute bony injuries, no evidence of osteomyelitis, soft tissue swelling noted anterior to the ankleand along the dorsum of the midfoot and severe arterial calcifications.?? Received ceftriaxone and doxycycline antibiotics and being admitted for further management. ?? During my exam, feels okay.?? Rest of ROS negative. Review of Systems Constitutional: No fevers, chills HEENT: No headache, rhinorrhea, difficulty swallowing, blurry vision Cardiovascular: No chest pain Respiratory: No shortness of breath, no cough, no wheezing GI: No nausea, no vomiting, no abdominal pain, no change in bowel habits Neuro: No weakness, numbness, tingling in extremities Psych: No acute behavioral changes Muscular skeletal: Left foot pain, ulceration, purulent drainage Endocrine: No recent weight loss or gain, no change in appetite : No dysuria or hematuria Objective Vital Signs?? Temperature: 98.7 DegF (01/07/22 04:17:00) Temperature Route: Oral (01/07/22 04:17:00) Pulse Rate:??94 bpm??High (01/07/22 12:08:00) Respiratory Rate: 17 br/min (01/07/22 12:08:00) Systolic Blood Pressure: 115 mm Hg (01/07/22 12:08:00) Diastolic Blood Pressure: 60 mm Hg (01/07/22 12:08:00) Blood pressure sites: Arm, left (01/07/22 08:56:00) Mean Arterial Pressure: 74 mm Hg (01/07/22 03:10:00) Pulse Pressure: 52 mm Hg (01/07/22 03:10:00) Oxygen Saturation: 97 % (01/07/22 12:08:00) Mode of Delivery (Oxygen): Room air (01/07/22 12:08:00) Early Warning Score: 0 (01/07/22 12:09:10) ? Physical Exam General: NAD HEENT: Atraumatic, normocephalic, EOMI, PERRLA, moist mucous membranes Neck: Supple Cardiac: S1, S2 heard, no murmurs Pulmonary: Clear to auscultation bilaterally, good bilateral air entry Abdomen: Soft, nontender, nondistended, bowel sounds heard Extremities: No cyanosis, clubbing, left great toe amputation, left second toe erythema, ulcerationand purulent discharge, left heel ulceration?? and scant purulent discharge Skin: No rash Neuro: No focal deficits, awake and alert Psych: Mood and affect appropriate for encounter Assessment/Plan Assessment:? 66-year-old female with past medical history significant for hypertension, hyperlipidemia, diabetes, PVD status post right BKA, wheelchair-bound, aortic stenosis status post TAVR in June 11, A. fib??on Eliquis,??chronic kidney disease stage IV,??admitted with diabetic foot infection ?? Diabetic foot infection (E11.628):??Reviewed x-ray of the left foot,??does not show any radiographic evidence of osteomyelitis, no evidence of gas, purulent drainage noted She is allergic to penicillin, clindamycin and vancomycin ED has given her ceftriaxone and doxycycline??which she has tolerated She will need coverage for MRSA,??Streptococcus.?? Continue doxycycline, dc ceftriaxone, start linezolid ID consult for further recommendations with antibiotic choice and duration Wound care consult ?? TYPE II DIABETES MELLITUS (E11.65):??Continue Lantus??and SSI with POC glucose checks ?? Hyperlipidemia (E78.5):??Continue statin ?? Atrial fibrillation (I48.91):??Rate controlled with metoprolol,??anticoagulated with Eliquis ?? Hypertension (I10):??Continue Lasix, metoprolol, Imdur ?? Peripheral vascular disease (I73.9):??Continue Plavix ?? Chronic kidney disease, stage IV (severe) (N18.4):??Stable, continue to monitor electrolytes and kidney function. Avoid nephrotoxic medications, renally dose all meds ?? VTE Prophylaxis:??On Eliquis ?VTE Prophylaxis Assessment:??VTE Prophylaxis Ordered ?? Code Status:??Full code ? Histories Allergies Allergies ?(Active and Proposed Allergies Only) vancomycin? (Severity: Unknown severity, Onset: Unknown) clindamycin? (Severity: Unknown severity, Onset: Unknown) penicillin? (Severity: Unknown severity, Onset: Unknown) ?Reactions: rash ? Past Medical History/Problem List Active Problems??(7) BENIGN ESSENTIAL HYPERTENSION Cellulitis Diabetic foot ulcer Hyperlipidemia Obese class II Pneumonia TYPE II DIABETES MELLITUS [NON-INSULIN DEPENDENT TYPE] [NIDDM TYPE] [ADULT-ONSET TYPE] OR UNSPECIFIED TYPE, UNCONTROLLED, WITHOUT MENTION OF COMPLICATION ? Past Surgical History plantar debridement/drainage of abscess: 11/30/07 plantar debridement: 02/08/07 great toe amputation: 02/02/07 surgical drainage of abscess: 11/17/06 ? Social History Tobacco Details:??Use: quit smoking 30 years ago. ? Family History No family history of CAD ? Medications Home Medications apixaban (apixaban 2.5 mg oral tablet)?1?tab(s)?2.5?Milligram?By Mouth?2 times a day Atorvastatin (atorvastatin 80 mg oral tablet)?1?tab(s)?80?Milligram?By Mouth?Daily at bedtime Clopidogrel (Plavix 75 mg oral tablet)?75?Milligram?1?tablet?By Mouth?Daily Cyanocobalamin (Vitamin B12 500 mcg oral tablet)?2?tab(s)?1,000?Microgram?By Mouth?Daily Furosemide (furosemide 40 mg oral tablet)?40?Milligram?1?tablet?By Mouth?2 times a day Gabapentin (gabapentin 300 mg oral capsule)?600?Milligram?2?capsule?By Mouth?4 times a day Insulin Glargine (Lantus Inj)?0.3?Milliliter?30?unit(s)?Subcutaneous Injection?Daily at bedtime Insulin Lispro?3-15 units?Subcutaneous Injection?3 times a day before meals Isosorbide Mononitrate (isosorbide mononitrate 30 mg oral tablet, extended release)?30?Milligram?1?tablet?By Mouth?Daily in AM Metformin (metformin 500 mg oral tablet)?1,000?Milligram?2?tab(s)?By Mouth?twice a day Metoprolol (Toprol XL 50 mg oral tablet, extended release)?50?Milligram?1?tablet?By Mouth?Daily?Take 3 tablets by mouth once per day for atrial fibrillation. Pantoprazole (pantoprazole 40 mg oral delayed release tablet)?1?tab(s)?40?Milligram?By Mouth?Daily Topiramate (topiramate 25 mg oral tablet)?1?tab(s)?25?Milligram?By Mouth?2 times a day ? Results Recent Labs BLOOD COUNT & DIFF WBC 9.1 k/mm3 ()?? 01/06/2022 19:25 RBC 3.75 m/mm3 (Low)?? 01/06/2022 19:25 Hgb 10.2 Gm/dL (Low)?? 01/06/2022 19:25 Hct 32.9 % (Low)?? 01/06/2022 19:25 MCV 87.7 femtoliters ()?? 01/06/2022 19:25 MCH 27.2 pg ()?? 01/06/2022 19:25 MCHC 31.0 g/dL (Low)?? 01/06/2022 19:25 Platelet Count 152 k/mm3 ()?? 01/06/2022 19:25 RDW-SD 44.7 femtoliters ()?? 01/06/2022 19:25 MPV 12.4 femtoliters ()?? 01/06/2022 19:25 Nucleated RBC (Automated) 0.0 #/100 WBC'S ()?? 01/06/2022 19:25 Abs. NRBC 0.0 k/mm3 ()?? 01/06/2022 19:25 Abs. Neut 7.2 k/mm3 (High)?? 01/06/2022 19:25 Abs. Lymph 1.2 k/mm3 ()?? 01/06/2022 19:25 Abs. Rankin 0.5 k/mm3 ()?? 01/06/2022 19:25 Abs. Eo 0.1 k/mm3 ()?? 01/06/2022 19:25 Abs. Baso 0.0 k/mm3 ()?? 01/06/2022 19:25 Neut % 79.6 % (High)?? 01/06/2022 19:25 Lymph % 13.0 % (Low)?? 01/06/2022 19:25 Rankin % 5.6 % ()?? 01/06/2022 19:25 Eos % 1.2 % ()?? 01/06/2022 19:25 Baso % 0.2 % ()?? 01/06/2022 19:25 Imm Gran 0.4 % ()?? 01/06/2022 19:25 Abs. Imm Gran 0.0 k/mm3 ()?? 01/06/2022 19:25 ?? CHEM GENERAL Sodium 143 mmol/L ()?? 01/06/2022 19:25 Potassium 4.0 mmol/L ()?? 01/06/2022 19:25 Chloride 103 mmol/L ()?? 01/06/2022 19:25 Bicarbonate Level 29 mmol/L ()?? 01/06/2022 19:25 Anion Gap 11 ()?? 01/06/2022 19:25 Glucose Level 169 mg/dL (High)?? 01/06/2022 19:25 Glucose, POC 115 mg/dL (High)?? 01/07/2022 08:32 BUN 47 mg/dL (High)?? 01/06/2022 19:25 Creatinine-Blood 2.2 mg/dL (High)?? 01/06/2022 19:25 Estimated GFR Creatinine 25 ML/MIN/1.73 M2 ()?? 01/06/2022 19:25 Calcium 9.0 mg/dL ()?? 01/06/2022 19:25 Protein, Total 7.2 Gm/dL ()?? 01/06/2022 19:25 Albumin 4.5 Gm/dL ()?? 01/06/2022 19:25 AG Ratio 1.7 ()?? 01/06/2022 19:25 Alkaline Phosphatase 172 units/L (High)?? 01/06/2022 19:25 AST (SGOT) 44 units/L (High)?? 01/06/2022 19:25 ALT (SGPT) 34 units/L (High)?? 01/06/2022 19:25 Bilirubin, Total 0.6 mg/dL ()?? 01/06/2022 19:25 Lactate 1.4 mmol/L ()?? 01/06/2022 20:00 C-Reactive Protein 3.8 mg/dL (High)?? 01/06/2022 19:25 ?? HEME OTHER Sed Rate 55 mm/hr (High)?? 01/06/2022 19:25 ?? UA/URINALYSIS Appear/Color, Urine LIGHT YELLOW ()?? 01/07/2022 13:06 Specific [place], Urine 1.014 ()?? 01/07/2022 13:06 pH, Urine 6.0 ()?? 01/07/2022 13:06 Albumin, Urine NEGATIVE ()?? 01/07/2022 13:06 Glucose, Urine NEGATIVE ()?? 01/07/2022 13:06 Ketones, Urine NEGATIVE ()?? 01/07/2022 13:06 Bilirubin, Urine NEGATIVE ()?? 01/07/2022 13:06 Hemoglobin, Urine NEGATIVE ()?? 01/07/2022 13:06 Nitrite, Urine NEGATIVE ()?? 01/07/2022 13:06 Leukocyte, Urine 2+ (Abnormal)?? 01/07/2022 13:06 Urobilinogen NORMAL mg/dL ()?? 01/07/2022 13:06 WBC's, Urine 8 /HPF (High)?? 01/07/2022 13:06 RBC's, Urine 1 /HPF ()?? 01/07/2022 13:06 Squamous Epith <1 /HPF ()?? 01/07/2022 13:06 Hold Urine Culture Testing available 48 hours from time of collection. ()?? 01/07/2022 13:06 ?? VIROLOGY COVID-19 by RT-PCR NEGATIVE ()?? 01/07/2022 07:49 ? Imaging(s) ?Foot Min 3 Views Left ?? 01/06/2022 23:08??by Saurav Valdez MD ? EKG study * Event Display: ECG 12-Lead Authored Date: Please click on pdf link to open report * Event Display: ECG 12-Lead Authored Date: Ventricular Rate: 83 BPM QRS Duration: 152 ms Q-T Interval: 422 ms QTC Calculation(Bazett): 495 ms R [place]: -11 degrees T [place]: 130 degrees Atrial fibrillation Left bundle branch block Abnormal ECG When compared with ECG of 05-JUN-2021 07:16, QT has lengthened Confirmed by MILES GARCÍA MD ([id number]) on 01/11/2022 6:21:41 PM [place]: MILES GARCÍA MD Note * Mariam READ, Nguyen: PERFORM Event Display: Discharge/Transfer Note Hospital Authored Date: Nursing Discharge Note Entered On: 01/12/2022 11:11 EST Performed On: 01/12/2022 11:11 EST by Nguyen Becerra RN Nursing Discharge Note 2 Discharge Time : 01/12/2022 12:00 EST Nguyen Becerra RN - 01/12/2022 12:02 EST Discharge Level of Care at Discharge : Homehealth/VNA Patient Left Unit Via : Wheelchair Patient Accompanied Off Unit with : Significant other DC Instructions Provided & Signed by Pt : Yes Patient Understands D/C Instructions : Yes Patient Instructions Discharge Signed : Yes Did Pt have Specialty Bed or Wound Vac : No Nguyen Becerra RN - 01/12/2022 11:11 EST * Ryan BAILEY, Jayden: PERFORM Event Display: Discharge/Transfer Note Hospital Authored Date: [id number] Patient: ??HALLEY JUNE ? Age:??66 Years?Sex:??Female?:??1955?? Patient Information Discharge Location: 4 Primary Care Physician: Cirilo Aalrcon III, MD Admit Date/Time: 01/07/22 05:20 Discharge Disposition Discharge Disposition: Home: No Services Discharge Diagnosis TYPE II DIABETES MELLITUS [NON-INSULIN DEPENDENT TYPE] [NIDDM TYPE] [ADULT-ONSET TYPE] OR UNSPECIFIED TYPE, UNCONTROLLED, WITHOUT MENTION OF COMPLICATION (E11.65) Hyperlipidemia (E78.5) Atrial fibrillation (I48.91) Chronic kidney disease, stage IV (severe) (N18.4) Diabetic foot infection (E11.628) Hypertension (I10) Peripheral vascular disease (I73.9) ?? _ Discharge Medications apixaban (apixaban 2.5 mg oral tablet)?1?tab(s)?2.5?Milligram?By Mouth?2 times a day Atorvastatin (atorvastatin 80 mg oral tablet)?1?tab(s)?80?Milligram?By Mouth?Daily at bedtime Calcitriol (calcitriol 0.25 mcg oral capsule)?1?capsule?0.25?Microgram?By Mouth?Every Monday, Monday and Monday Cefpodoxime (cefpodoxime 200 mg oral tablet)?2?tab(s)?400?Milligram?By Mouth?Every 12 hours?for 9?Days Clopidogrel (Plavix 75 mg oral tablet)?75?Milligram?1?tablet?By Mouth?Daily Cyanocobalamin (Vitamin B12 500 mcg oral tablet)?2?tab(s)?1,000?Microgram?By Mouth?Daily Diltiazem (DilTIAZem (Eqv-Tiazac))?120?Milligram?By Mouth?Daily Docusate (Colace sodium 100 mg oral capsule)?100?Milligram?1?capsule?By Mouth?2 times a day?as needed?Constipation Doxycycline (doxycycline monohydrate 100 mg oral capsule)?100?Milligram?By Mouth?Every 12 hours?for 9?Days Furosemide (furosemide 40 mg oral tablet)?40?Milligram?1?tablet?By Mouth?2 times a day Gabapentin (gabapentin 300 mg oral capsule)?600?Milligram?2?capsule?By Mouth?4 times a day Insulin Glargine (Lantus Inj)?0.3?Milliliter?30?unit(s)?Subcutaneous Injection?Daily at bedtime Insulin Lispro?3-15 units?Subcutaneous Injection?3 times a day before meals Isosorbide Mononitrate (isosorbide mononitrate 30 mg oral tablet, extended release)?30?Milligram?1?tablet?By Mouth?Daily in AM Metformin (metformin 500 mg oral tablet)?1,000?Milligram?2?tab(s)?By Mouth?twice a day Metoprolol (Toprol XL 50 mg oral tablet, extended release)?50?Milligram?1?tablet?By Mouth?Daily?Take 3 tablets by mouth once per day for atrial fibrillation. Pantoprazole (pantoprazole 40 mg oral delayed release tablet)?1?tab(s)?40?Milligram?By Mouth?Daily Topiramate (topiramate 25 mg oral tablet)?1?tab(s)?25?Milligram?By Mouth?2 times a day Tramadol (traMADol 50 mg oral tablet)?1?tab(s)?50?Milligram?By Mouth?Every 4 hours?as needed?Pain , Moderate?for 6?Days ? Medications Started Cefpodoxime 400 mg BID x 9 days Doxycycline 100 mg BID x 9 days Medications Discontinued None Doses Changed None Allergies Allergies ?(Active and Proposed Allergies Only) vancomycin? (Severity: Unknown severity, Onset: Unknown) clindamycin? (Severity: Unknown severity, Onset: Unknown) penicillin? (Severity: Unknown severity, Onset: Unknown) ?Reactions: rash ? PCP Follow-Up/Heads-Up Please check LFTs within a week of discharge to ensure they remain stable. Patient asymptomatic, alk phos elevated, AST ALT somewhat high, may need abd US if develops symptoms or depending on trend of LFTs Being discharged on po antibiotics, please follow up Will need vascular surgery follow up within??1 week of discharge Hospital Course ??Please see below Objective Assessment and Plan Ms. 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 ?? Diabetic foot infection (E11.628) Managed outpatient??by pediatric immunologist who sent her into the ED for further evaluation MRI L foot :??No evidence of osteomyelitis. ESR 55, CRP 3.8 ?- CTX + Doxy (01/07-01/20) , 14-day course needed total, on discharge will be sent on cefpodoxime 400 mg BID and doxycycline 100 mg BID ? - Evaluated by vascular surgery, no need for acute surgical intervention per them, outpatient follow up with vascular surgery in office within 1 week, instructions provided ?? CHRONIC MEDICAL CONDITIONS: TYPE II DIABETES MELLITUS (E11.65):??Continue home regimen on discharge Hyperlipidemia (E78.5):??Continue statin on discharge Atrial fibrillation (I48.91):??Rate controlled with metoprolol,??anticoagulated with Eliquis Hypertension (I10):??Continue Lasix, metoprolol, Imdur Peripheral vascular disease (I73.9):??Continue Plavix Chronic kidney disease, stage IV (severe) (N18.4):??Stable, continue to monitor electrolytes and kidney function. Avoid nephrotoxic medications, renally dose all meds ?? Vital Signs?? Temperature: 98.6 DegF (01/12/22 05:00:00) Temperature Route: Oral (01/12/22 05:00:00) Pulse Rate: 87 bpm (01/12/22 08:56:00) Respiratory Rate: 18 br/min (01/12/22 05:00:00) Systolic Blood Pressure: 121 mm Hg (01/12/22 08:56:00) Diastolic Blood Pressure:??44 mm Hg??Low (01/12/22 08:56:00) Blood pressure sites: Arm, left (01/12/22 05:00:00) Pulse Pressure: 54 mm Hg (01/11/22 13:00:00) Oxygen Saturation: 98 % (01/12/22 05:00:00) Mode of Delivery (Oxygen): Room air (01/12/22 05:00:00) Early Warning Score: 0 (01/12/22 09:09:06) ? Mobility & Ambulation Level Mobility & Ambulation Level Ambulatory devices needed: Wheelchair (01/10/22) Ambulatory devices needed: Wheelchair (01/10/22) ?? Therapeutic Activity Therapeutic Activities/Mobility/Balance Comments on treatment indicated: 66yo F presents c worsening left foot infection/pain with purrulent drainage. Treating for superficial left heel and left second toe diabetic foot infection. Rec home(01/11/22 08:37:00) Treatment Indicated-PT: No (01/11/22 08:37:00) Discharge recommendations: Home (01/11/22 08:37:00) Rehab potential: Good (01/11/22 08:37:00) ?? . Physical Exam Constitutional: Alert, NAD. HEENT: Normocephalic. Respiratory: Clear to auscultation. No wheezing, rales or rhonchi. Cardiovascular: RRR. No murmurs, rubs or gallops. Gastrointestinal: Abdomen soft, non-tender, non-distended. Normal bowel sounds. Neurologic: Moves all extremities spontaneously. Skin: No rashes or lesions. Extremities: weak L DPpalpable pulse (1+), could not palpate PT pulse??though (+) dopplerable. L heel ulceration, L2 toe ulceration with drainage. s/p L1 toe amp. R BKA Psychiatric: appropriate mood and affect Consultants Vascular surgery Pending Results Add On Lab Order ordered on 01/07/2022 Follow-Up Appointments Added Follow Up ?Time Frame ?Comments Sawyer BAILEY, Shayan Dooley?1 week: call to discuss follow up visit?hospital follow up, vascular surgery - call to be seen within 1 week of discharge Dorian STRATTON MD, Cirilo Worrell?1 week: call to discuss follow up visit?hospital follow up, being discharged on antibiotics Patient Instructions Local wound care with Aquacel Ag dressing over ulcerations (left heel/2nd toe) and kerlix roll wrapping - your nurse will provide you with these supplies on discharge Please follow up with your pcp and vascular surgery as provided in your paperwork, within 1 week ofdischarge Cefpodoxime and doxycycline have been sent to the pharmacy on file - please take these antibiotics for 9 more days on discharge Post Discharge Care Discharge ?01/12/22 11:05:00 EST Discharge Prescriptions ?ePrescribed, ??01/12/22 11:05:00 EST Home Health Face to Face ^HomeHealthFTF Results Discharge Labs BLOOD COUNT & DIFF WBC 6.3 k/mm3 ()?? 01/12/2022 01:18 RBC 3.51 m/mm3 (Low)?? 01/12/2022 01:18 Hgb 9.5 Gm/dL (Low)?? 01/12/2022 01:18 Hct 29.8 % (Low)?? 01/12/2022 01:18 MCV 84.9 femtoliters ()?? 01/12/2022 01:18 MCH 27.1 pg ()?? 01/12/2022 01:18 MCHC 31.9 g/dL (Low)?? 01/12/2022 01:18 Platelet Count 168 k/mm3 ()?? 01/12/2022 01:18 RDW-SD 42.0 femtoliters ()?? 01/12/2022 01:18 MPV 12.3 femtoliters ()?? 01/12/2022 01:18 Nucleated RBC (Automated) 0.0 #/100 WBC'S ()?? 01/12/2022 01:18 Abs. NRBC 0.0 k/mm3 ()?? 01/12/2022 01:18 Abs. Neut 7.2 k/mm3 (High)?? 01/06/2022 19:25 Abs. Lymph 1.2 k/mm3 ()?? 01/06/2022 19:25 Abs. Rankin 0.5 k/mm3 ()?? 01/06/2022 19:25 Abs. Eo 0.1 k/mm3 ()?? 01/06/2022 19:25 Abs. Baso 0.0 k/mm3 ()?? 01/06/2022 19:25 Neut % 79.6 % (High)?? 01/06/2022 19:25 Lymph % 13.0 % (Low)?? 01/06/2022 19:25 Rankin % 5.6 % ()?? 01/06/2022 19:25 Eos % 1.2 % ()?? 01/06/2022 19:25 Baso % 0.2 % ()?? 01/06/2022 19:25 Imm Gran 0.4 % ()?? 01/06/2022 19:25 Abs. Imm Gran 0.0 k/mm3 ()?? 01/06/2022 19:25 ?? CHEM GENERAL Sodium 137 mmol/L ()?? 01/12/2022 01:18 Potassium 3.5 mmol/L (Low)?? 01/12/2022 01:18 Chloride 100 mmol/L ()?? 01/12/2022 01:18 Bicarbonate Level 27 mmol/L ()?? 01/12/2022 01:18 Anion Gap 10 ()?? 01/12/2022 01:18 Glucose Level 169 mg/dL (High)?? 01/06/2022 19:25 Glucose, POC 112 mg/dL (High)?? 01/12/2022 07:46 Hemoglobin A1C (Monitoring) 6.3 % (High)?? 01/09/2022 01:56 BUN 52 mg/dL (High)?? 01/12/2022 01:18 Creatinine-Blood 2.3 mg/dL (High)?? 01/12/2022 01:18 Estimated GFR Creatinine 24 ML/MIN/1.73 M2 ()?? 01/12/2022 01:18 Calcium 9.0 mg/dL ()?? 01/06/2022 19:25 Magnesium 1.6 mg/dL ()?? 01/09/2022 01:56 Protein, Total 6.5 Gm/dL ()?? 01/12/2022 01:18 Albumin 3.7 Gm/dL ()?? 01/12/2022 01:18 AG Ratio 1.7 ()?? 01/06/2022 19:25 Alkaline Phosphatase 214 units/L (High)?? 01/12/2022 01:18 AST (SGOT) 34 units/L (High)?? 01/12/2022 01:18 ALT (SGPT) 38 units/L (High)?? 01/12/2022 01:18 Bilirubin, Total 0.3 mg/dL ()?? 01/12/2022 01:18 Bilirubin, Direct 0.2 mg/dL ()?? 01/12/2022 01:18 Bilirubin, Indirect 0.1 mg/dL ()?? 01/12/2022 01:18 Lactate 1.4 mmol/L ()?? 01/06/2022 20:00 C-Reactive Protein 7.1 mg/dL (High)?? 01/10/2022 01:14 ?? HEME OTHER Sed Rate 84 mm/hr (High)?? 01/10/2022 01:14 ? UA/URINALYSIS Appear/Color, Urine LIGHT YELLOW ()?? 01/07/2022 13:06 Specific [place], Urine 1.014 ()?? 01/07/2022 13:06 pH, Urine 6.0 ()?? 01/07/2022 13:06 Albumin, Urine NEGATIVE ()?? 01/07/2022 13:06 Glucose, Urine NEGATIVE ()?? 01/07/2022 13:06 Ketones, Urine NEGATIVE ()?? 01/07/2022 13:06 Bilirubin, Urine NEGATIVE ()?? 01/07/2022 13:06 Hemoglobin, Urine NEGATIVE ()?? 01/07/2022 13:06 Nitrite, Urine NEGATIVE ()?? 01/07/2022 13:06 Leukocyte, Urine 2+ (Abnormal)?? 01/07/2022 13:06 Urobilinogen NORMAL mg/dL ()?? 01/07/2022 13:06 WBC's, Urine 8 /HPF (High)?? 01/07/2022 13:06 RBC's, Urine 1 /HPF ()?? 01/07/2022 13:06 Squamous Epith <1 /HPF ()?? 01/07/2022 13:06 Hold Urine Culture Testing available 48 hours from time of collection. ()?? 01/07/2022 13:06 ? VIROLOGY COVID-19 by RT-PCR NEGATIVE ()?? 01/07/2022 07:49 COVID-19 PCR Specimen Source NASAL ()?? 01/10/2022 10:00 COVID-19 PCR Result NEGATIVE ()?? 01/10/2022 10:00 ? Blood Glucose Trend Glucose, POC:??112 mg/dL??High (01/12/22 07:46:00) Glucose, POC:??189 mg/dL??High (01/11/22 20:47:00) Glucose, POC:??158 mg/dL??High (01/11/22 17:37:00) Glucose, POC:??143 mg/dL??High (01/11/22 12:17:00) ? Microbiology ?? Blood Culture?? Completed?? Source: Blood Body Site: ?? Collected Dt/Tm: 01/06/2022 19:14 Last Updated Dt/Tm: 01/06/2022 19:14 ?SPECIMEN DESCRIPTION : BLOOD ??L ACSPECIAL REQUESTS : NONECULTURE : NO GROWTH 5 DAYS.REPORT STATUS : FINAL 01/11/2022 Blood Culture #2?? Completed?? Source: Blood Body Site: ?? Collected Dt/Tm: 01/06/2022 19:14 Last Updated Dt/Tm: 01/06/2022 19:14 ?SPECIMEN DESCRIPTION : BLOOD ??RT ACSPECIAL REQUESTS : NONECULTURE : NO GROWTH 5 DAYS.REPORT STATUS : FINAL 01/11/2022 COVID-19 (Novel Coronavirus), Rapid PCR?? Completed?? Source: Nasal Body Site: Nose Collected Dt/Tm: 01/07/2022 05:05 Last Updated Dt/Tm: 01/07/2022 08:48 COVID-19 (2019 Novel Coronavirus) PCR?? Completed?? Source: Nasal Body Site: Nose Collected Dt/Tm: 01/10/2022 09:57 Last Updated Dt/Tm: 01/11/2022 17:58 ? 40??minutes spent on discharge * Mariam READ, Nguyen: PERFORM Event Display: Patient Education/Instruction Authored Date: [id number] Inpatient Adult Discharge Instructions [address] [address] Name: HALLEY JUNE : 1955 Visit: 01/07/2022 05:20:00 Current Date: 01/12/2022 11:11 Account: [id number] Inpatient Adult Discharge Instructions We would like to thank you for allowing us to assist you with your healthcare needs. The following includes patient education materials and information regarding your injury/illness. Our entire staffstrives to provide an excellent experience for our patients and their families. PLEASE ENSURE YOU FOLLOW-UP PER THE INSTRUCTIONS BELOW! ?? YOUR OPINION IS IMPORTANT TO US! Please complete the survey you may receive by mail or email. Your feedback will be used to make improvements to the healthcare experiences of our patients and their families. Surveys are administered by [employer] ?? If further treatment with your primary care physician or another doctor is recommended, it is important for you to keep the appointment. Call your primary care physician or return to the Emergency Department immediately if your condition worsens, fails to improve, or new symptoms develop. If you need to find a doctor, you can call [facility] [employer] for a referral at [phone] or toll free at [phone] or log in to [email or web address].. ?? You can view and manage your care through the patient portal or by using a health care sonny of your choosing. [employer] is a website that allows you to securely view your medical information including your hospital discharge summary, office visit summaries, medications and follow-up visits. You can also request appointments, renew medications, and request access to your medical information using a health care sonny of your choosing, or just ask a question. You can enroll at [email or web address] or register during your next office visit. You have been discharged from [facility], Patient Care Unit: S64. If you have any questions regarding these instructions after you leave, please call us and we will be happy to assist you. [facility] Your Care Team Attending Physician Ryan BAILEY, Jayden Consulting Providers Mariano Osborne MD Discharging Providers Ryan BAILEY, Jayden Reason for Admission foot infection/pain Your Diagnosis TYPE II DIABETES MELLITUS [NON-INSULIN DEPENDENT TYPE] [NIDDM TYPE] [ADULT-ONSET TYPE] OR UNSPECIFIED TYPE, UNCONTROLLED, WITHOUT MENTION OF COMPLICATION Hyperlipidemia Diabetic foot infection Hypertension Peripheral vascular disease Atrial fibrillation Chronic kidney disease, stage IV (severe) Tests Performed Below is a partial list of the tests performed during your hospitalization. You may have had other tests and procedures not included in this list. Please discuss all test results with your provider. BUN C-REACTIVE PROTEIN CBC CBC w/ Differential Comprehensive Metabolic Panel COVID-19 (2019 Novel Coronavirus) PCR COVID-19 (Novel Coronavirus), Rapid PCR Creatinine CRP Electrolytes ESR GLUCOSE POC Hemoglobin A1C (Monitoring) Hepatic Function Panel Lactate Level Lytes Magnesium Level SEDIMENTATION RATE,AUTOMATED Urinalysis w/hold for Urine Culture MRI Ext Lower W+W/O Contrast Left XR Foot Min 3 Views Left Primary Care Provider Dorian STRATTON MD, Cirilo Worrell Advance Directive Health Care Proxy on File Yes - Health Care Proxy Yes - MOLST No qualifying data available. Discharge Vitals Temperature: 98.6 DegF Height: 170 cm Pulse Rate: 87 bpm Weight: 109.4 kg Respiratory Rate: 18 br/min Body Mass Index:??37.85 kg/m2??Critical Systolic Blood Pressure: 121 mm Hg Body surface area: 2.27 Diastolic Blood Pressure:??44 mm Hg??Low ?? Oxygen Saturation: 98 % ?? Studies Pending All tests and labs ordered during this hospital stay have been completed unless listed below. Please discuss all pending results with your provider listed above in these instructions. ?? Add On Lab Order What to do next Instructions From Your Doctor Local wound care with Aquacel Ag dressing over ulcerations (left heel/2nd toe) and kerlix roll wrapping - your nurse will provide you with these supplies on discharge Please follow up with your pcp and vascular surgery as provided in your paperwork, within 1 week ofdischarge Cefpodoxime and doxycycline have been sent to the pharmacy on file - please take these antibiotics for 9 more days on discharge Discharge Orders You Need to Schedule the Following Appointments Follow Up with??Sawyer BAILEY, Shayan Dooley When??Within 1 week: call to discuss follow up visit Why: hospital follow up, vascular surgery - call to be seen within 1 week of discharge Where: [facility] [place] [address]- Follow Up with??Dorian STRATTON MD, Cirilo Worrell When??Within 1 week: call to discuss follow up visit Why: hospital follow up, being discharged on antibiotics Where: [address] [place] [address]- Discharge Medications HALLEY JUNE :1955 Visit Date:01/07/2022 Medications: Please continue your medications until treatment is completed or stopped by your provider. Medications not listed below should be discontinued. Discuss any questions related to medications with your provider. What How Much When Instructions Next Dose New Cefpodoxime (cefpodoxime 200 mg oral tablet) 2 tab(s) Oral Every 12 hours Duration: 9 Days Pickup at [facility] #[id number] Start this evening with other antibiotic New Docusate (Colace sodium 100 mg oral capsule) 1 capsule Oral Twice a day as needed for Constipation Pickup at [facility] #[id number] As needed New Doxycycline (doxycycline monohydrate 100 mg oral capsule) 100 Milligram Oral Every 12 hours Duration: 9 Days Pickup at [facility] #[id number] This evening around 9 New Tramadol (traMADol 50 mg oral tablet) 1 tab(s) Oral Every 4 hours as needed for Pain , Moderate Duration: 6 Days Pickup at [facility] #[id number] As needed Unchanged apixaban (apixaban 2.5 mg oral tablet) 1 tab(s) Oral Twice a day This evening Unchanged Atorvastatin (atorvastatin 80 mg oral tablet) 1 tab(s) Oral Daily at Bedtime This evening at bedtime Unchanged Calcitriol (calcitriol 0.25 mcg oral capsule) 1 capsule Oral Monday, Monday and Monday Unchanged Clopidogrel (Plavix 75 mg oral tablet) 1 tab(s) Oral Daily Tomorrow morning 01/13 Unchanged Cyanocobalamin (Vitamin B12 500 mcg oral tablet) 2 tab(s) Oral Daily Tomorrow morning 01/13 Unchanged Diltiazem (DilTIAZem (Eqv-Tiazac)) 120 Milligram Oral Daily Tomorrow morning 01/13 Unchanged Furosemide (furosemide 40 mg oral tablet) 1 tab(s) Oral Twice a day This afternoon Unchanged Gabapentin (gabapentin 300 mg oral capsule) 2 capsule Oral 4 times a day As before Unchanged Insulin Glargine (Lantus Inj) 30 unit(s) Subcutaneous Injection Daily at Bedtime At bedtime Unchanged Insulin Lispro 3-15 units Subcutaneous Injection 3 times a day before meals With meals Unchanged Isosorbide Mononitrate (isosorbide mononitrate 30 mg oral tablet, extended release) 1 tab(s) Oral Daily in the morning Tomorrow morning 01/13 Unchanged Metformin (metformin 500 mg oral tablet) 2 tab(s) Oral Twice a day This evening Unchanged Metoprolol (Toprol XL 50 mg oral tablet, extended release) 1 tab(s) Oral Daily Take 3 tablets by mouth once per day for atrial fibrillation. ?? Tomorrow morning 01/13 Unchanged Pantoprazole (pantoprazole 40 mg oral delayed release tablet) 1 tab(s) Oral Daily Tomorrow morning 01/13 Unchanged Topiramate (topiramate 25 mg oral tablet) 1 tab(s) Oral Twice a day This evening Pharmacy Information [facility] #[id number]: [address], [place] [id number] [phone] Test Results Below is a partial list of the most recent Laboratory test results done prior to this discharge. You may have had other tests and procedures not included in this list. Please discuss all test resultswith your provider. BUN (01/12/2022) ???BUN - 52 mg/dL C-REACTIVE PROTEIN (01/06/2022) ???C-Reactive Protein - 3.8 mg/dL CBC (01/12/2022) ???WBC - 6.3 k/mm3???RBC - 3.51 m/mm3???Hgb - 9.5 Gm/dL???Hct - 29.8 %???MCV - 84.9 femtoliters???MCH - 27.1 pg???MCHC - 31.9 g/dL???Platelet Count - 168 k/mm3???RDW-SD - 42.0 femtoliters???MPV - 12.3 femtoliters???Nucleated RBC (Automated) - 0.0 #/100 WBC'S???Abs. NRBC - 0.0 k/mm3 CBC w/ Differential (01/06/2022) ???WBC - 9.1 k/mm3???RBC - 3.75 m/mm3???Hgb - 10.2 Gm/dL???Hct - 32.9 %???MCV - 87.7 femtoliters???MCH - 27.2 pg???MCHC - 31.0 g/dL???Platelet Count - 152 k/mm3???RDW-SD - 44.7 femtoliters???MPV - 12.4 femtoliters???Nucleated RBC (Automated) - 0.0 #/100 WBC'S???Abs. NRBC - 0.0 k/mm3???Abs. Neut - 7.2 k/mm3???Abs. Lymph - 1.2 k/mm3???Abs. Rankin - 0.5 k/mm3???Abs. Eo - 0.1 k/mm3???Abs. Baso - 0.0 k/mm3???Neut % - 79.6 %???Lymph % - 13.0 %???Rankin % - 5.6 %???Eos % - 1.2 %???Baso % - 0.2 %???Imm Gran - 0.4 %???Abs. Imm Gran - 0.0 k/mm3 Comprehensive Metabolic Panel (01/06/2022) ???Sodium - 143 mmol/L???Potassium - 4.0 mmol/L???Chloride - 103 mmol/L???Bicarbonate Level - 29 mmol/L???Anion Gap - 11???Glucose Level - 169 mg/dL???BUN - 47 mg/dL???Creatinine-Blood - 2.2 mg/dL???Estimated GFR Creatinine - 25 ML/MIN/1.73 M2???Calcium - 9.0 mg/dL???Protein, Total - 7.2 Gm/dL???Albumin - 4.5 Gm/dL???AG Ratio - 1.7???Alkaline Phosphatase - 172 units/L???AST (SGOT) - 44 units/L???ALT (SGPT) - 34 units/L???Bilirubin, Total - 0.6 mg/dL COVID-19 (2019 Novel Coronavirus) PCR (01/10/2022) ???COVID-19 PCR Specimen Source - NASAL???COVID-19 PCR Result - NEGATIVE COVID-19 (Novel Coronavirus), Rapid PCR (01/07/2022) ???COVID-19 by RT-PCR - NEGATIVE Creatinine (01/12/2022) ???Creatinine-Blood - 2.3 mg/dL???Estimated GFR Creatinine - 24 ML/MIN/1.73 M2 CRP (01/10/2022) ???C-Reactive Protein - 7.1 mg/dL Electrolytes (01/08/2022) ???Sodium - 143 mmol/L???Potassium - 3.5 mmol/L???Chloride - 106 mmol/L???Bicarbonate Level - 27 mmol/L???Anion Gap - 10 ESR (01/10/2022) ???Sed Rate - 84 mm/hr GLUCOSE POC (01/12/2022) ???Glucose, POC - 112 mg/dL Hemoglobin A1C (Monitoring) (01/09/2022) ???Hemoglobin A1C (Monitoring) - 6.3 % Hepatic Function Panel (01/12/2022) ???Protein, Total - 6.5 Gm/dL???Albumin - 3.7 Gm/dL???Alkaline Phosphatase - 214 units/L???AST (SGOT) - 34 units/L???ALT (SGPT) - 38 units/L???Bilirubin, Total - 0.3 mg/dL???Bilirubin, Direct - 0.2 mg/dL???Bilirubin, Indirect - 0.1 mg/dL Lactate Level (01/06/2022) ???Lactate - 1.4 mmol/L Lytes (01/12/2022) ???Sodium - 137 mmol/L???Potassium - 3.5 mmol/L???Chloride - 100 mmol/L???Bicarbonate Level - 27 mmol/L???Anion Gap - 10 Magnesium Level (01/09/2022) ???Magnesium - 1.6 mg/dL SEDIMENTATION RATE,AUTOMATED (01/06/2022) ???Sed Rate - 55 mm/hr Urinalysis w/hold for Urine Culture (01/07/2022) ???Appear/Color, Urine - LIGHT YELLOW???Specific [place], Urine - 1.014???pH, Urine - 6.0???Albumin, Urine - NEGATIVE???Glucose, Urine - NEGATIVE???Ketones, Urine - NEGATIVE???Bilirubin, Urine - NEGATIVE???Hemoglobin, Urine - NEGATIVE???Nitrite, Urine - NEGATIVE???Leukocyte, Urine - 2+???Urobilinogen - NORMAL? ?WBC's, Urine - 8 /HPF? ?RBC's, Urine - 1 /HPF? ?Squamous Epith - <1 /HPF? ?Hold Urine Culture - Testing available 48 hours from time of collection. Allergies (NKA means No Known Allergies) clindamycin penicillin??(rash) vancomycin Problems Active Problems??(7) BENIGN ESSENTIAL HYPERTENSION?? Cellulitis?? Diabetic foot ulcer?? Hyperlipidemia?? Obese class II?? Pneumonia?? TYPE II DIABETES MELLITUS [NON-INSULIN DEPENDENT TYPE] [NIDDM TYPE] [ADULT-ONSET TYPE] OR UNSPECIFIE?? Education Materials Below is the list of Educational Leaflet Providered with your Discharge Instructions. Valuables and Belongings I fully understand and agree that [facility] accepts no responsibility for all my personal property including clothing, toilet articles, radios, jewelry, dentures, hearing aids, rings, money, or any other property that is in my possession or is brought to me after admission. I understand certain valuables may be placed in a hospital safe for a short period of time. I understand that the hospital is not liable for loss or damage due to accident, fire, or other natural occurrence while said property is in the safe. I accept full responsibility for any personal property that I keep with me, and will not hold the hospital responsible in case of loss or disappearance. I acknowledge that i have been encouraged to send valuables and belongings home. ?? Review of Valuable and Belonging List: With patient, With witness Date for Pt to Sign Valuables/Belongings: 01/07/22 20:01:00 ?? Other Discharge Information ?? Wound Assessment?? Wound Assessment?? Wound Location I: Heel, left Wound Type I: Diabetic Wound I, Present on Admission: Yes Wound Location II: Second toe, left Wound Type II: Diabetic Wound II, Present on Admission: Yes ? Case Management Discharge Plan?? Discharge Plan?? Discharge Level of Care at Discharge: Homehealth/VNA ?? Pulmonary Rehab Status?? Pulmonary Rehab Discharge Status?? Respiratory Rate: 18 br/min ? Common Emergency Awareness Tips IS IT A STROKE? Act FAST and Check for these signs: FACE Does the face look uneven? ARM Does one arm drift down? SPEECH Does their speech sound strange? TIME Call at any sign of stroke ?? Heart Attack Signs Chest discomfort: Most heart attacks involve discomfort in the center of the chest and lasts more than a few minutes, or goes away and comes back. It can feel like uncomfortable pressure, squeezing, fullness or pain. Discomfort in upper body: Symptoms can include pain or discomfort in one or both arms, back, neck, jaw or stomach. Shortness of breath: With or without discomfort. Other signs: Breaking out in a cold sweat, nausea, or lightheaded. Remember, MINUTES DO MATTER. If you experience any of these heart attack warning signs, call to get immediate medical attention! ?? Smoking can increase your chances of developing chronic health problems and can cause harmful effects to other family members in your house. If you smoke, you are strongly encouraged to quit. Please call [employer] at 013-586-4296 or 2-988-396[employer] (4419) or log in to www.[facility].org for referrals to smoking cessation programs. ?? The National Suicide Prevention Hotline is available 12/09 if you or someone you know needs to find a reason to keep living. By calling 6-451-540-lfzm (8279) you'll be connected to a skilled, trained counselor at a crisis center in your area. INPATIENT DISCHARGE INSTRUCTIONS SIGNATURE PAGE HALLEY JUNE Location:[facility] Registration Date and Time:01/07/2022 05:20 EST Primary Care Physician: Cirilo Alarcon III, MD, I MARIA AHALLEY ZAPATA, have received the above patient education materials/instructions and have verbalized understanding. If ambulance or transport services are being used I further acknowledge being given a choice of service. ?? If you need to contact me, please call me at this number: . Patient/Modeling Agency Manager Name: Patient/Modeling Agency Manager Signature: Relationship to Patient: Witness Name/Signature: Date: * Event Display: VL Ankle/Brachial Indices Authored Date: Status:Open Lower Arterial Plethysmography Demographics Procedure Information Patient name: JAYSON ROWLEY Procedure date: 01/10/2022 8:56 AM Corporate Proc. sub type: Extremities Arteries: Lower Arterial Plethysmography, PVR Limited Single Gender: Female Level. Date of : 1955 Accession No: [id number] Age: 66 year(s) Account No: [id number] Patient status: Routine Procedure Staff Admit Status: Inpatient Ordering physician: Alexandrea RAMOS Facility: [facility] Referring Physician: Alexandrea RAMOS Study location: [facility] Vascular Lab Attending Physician: Niya Chavira MD Procedure consent obtained: Admitting Physician: Niya Chavira MD No Japanese Interpreter: JAKE Jean RVT Amanda Interpreting physician: Hernesto Sanchez MD Indications PVD/Peripheral Vascular Disease. Lower Extremity Findings Right Left Location Pressure (mmHg) Ratio Pressure (mmHg) Ratio Brachial 121 120 PROVIDER SERVICE REPRESENTATIVE 220 1.82 DPA 138 1.14 Left KYLEIGH: 1.82 Physician Conclusions Summary: Right side: BKA Left side: The Ankle / Brachial Index utilizing the Dorsalis Pedis is 1.14, within normal values, previously 1.09. The PVR waveform amplitude is normal, but the dichrotic notch is absent. This finding is mildly abnormal. There mat be calcific arteriopathy elevating the KYLEIGH''s. The Posterior Tibial is non compressible. A Toe / Brachial Index can't be obtained due to Great Toe amputation. Comparison is made with the previous exam of 06/12/07 . Snapshots * Event Display: VL Ankle/Brachial Indices Authored Date: * JULIETTESPclintriravi , CIS S: GUILLAUME Samaniego MD, Keara M: VERIFY Event Display: Result: Authored Date: MRI Ext Lower W+W/O Contrast Left Reason: Infection; Clinical Question(s): Osteomyelitis; L2 TOE, HEEL ULCER, L LATERAL FOOT DM WOUND. TECHNIQUE: MRI of the left foot was performed without and with intravenous contrast. The patient received 22 cc of Clariscan intravenously. COMPARISON: Left foot radiographs dated 01/06/2022 and left ankle radiographs dated 04/25/2007. FINDINGS: There is subcutaneous edema laterally in the forefoot with adjacent focal area of marrow edema in the distal fifth metatarsal metaphysis. On the coronal images, linear hypointense T1 and T2 signal isseen to extend through this region, compatible with nondisplaced fracture. There is mild diffuse enhancement in the fifth metatarsal distally. There is no additional regions of confluent hypointense T1 signal to suggest osteomyelitis. There is degenerative change throughout the midfoot with chondral thinning, bony proliferation and mild areas of subchondral marrow edema most pronounced in the lateral cuneiform, lateral navicular and portions of the cuboid. There is a bandage overlying the second digit with adjacent subcutaneous soft tissue edema. There is a bandage over the posterolateral aspect of the heel. There is mild subcutaneous edema in the posterior medial aspect of the heel. There is diffuse atrophy of the intrinsic muscles of the foot. There is high- grade partial tearing of the peroneus longus tendon inferior to the cuboid. There is fluid within the peroneal tendon sheath. The peroneus brevis appears intact. The Lisfranc ligament maintains a normal course though there is mild surrounding soft tissue edema,which may reflect sprain. There is thickening in the medial cord of the plantar fascia with no surrounding soft tissue edema to suggest plantar fasciitis. There is mild diffuse edema throughout the sinus Tarsi. No rim-enhancing fluid collection. IMPRESSION: 1. Mild marrow edema in the fifth metatarsal distal metaphysis with associated enhancement and linear hypointense signal extending through this region compatible with a nondisplaced fracture. 2. No confluent marrow edema or enhancement or enhancement to suggest osteomyelitis. Evidence of skin wound on the distal aspect of the second digit and posterolateral heel. 3. High-grade partial tearing the peroneus longus inferior to the cuboid. 4. Edema surrounding the Lisfranc ligament, which may reflect sprain. 5. Degenerative change in the midfoot. WSN: [id number] Ordering Physician: Laya Lechuga Dictated By: Keara Samaniego MD Dictated Date/Time: 01/10/22 8:21 am Reviewed By: Keara Samaniego MD Signed By: Keara Samaniego MD Signed Date/Time: 01/10/22 8:21 am Transcribed By: KRYSTINA Transcribed Date/Time: 01/10/22 7:57 am Hospital Progress note * Laya Sagastume MD: MODIFY, PERFORM Event Display: Progress Note Hospital Authored Date: Patient: ??HALLEY JUNE ? Age:??66 Years?Sex:??Female?:??1955?? Subjective No acute events overnight. Patient doing well without changes to her LLE. Patient continues to choose conservative management of her L foot wounds. Physical Exam Vitals & Measurements T:??98.6?F ?? RI:??87?? RR:??18?? BP:??121/44?? SpO2:??98%?? HT:??170??cm?? WT:??109.4??kg?? BMI:??37.85?? Constitutional: No acute distress, awake, alert and oriented x3 Cardiovascular: irregular rate/rhythm (afib) Respiratory: no increased WOB Abdomen: soft, non-tender, non-distended Extremities:??prior right BKA, prior left great toe amputation; 2nd toe with ulceration over distalaspect, minimal serosang drainage with fibrionous tissue surrounding ulceration and mild rim. Xeroform dressing removed. Left heel with small ulceration on base of heel with surrounding superficial necrotizing skin changes. 2+ pitting edema present over left schmidt and ankle?? Neurological: longstanding decreased sensation of distal LLE; patient unable to move her toes. Vascular: BP x3 Assessment/Plan Halley June is a 66 year old female w/ a PMH significant for HTN, HLD, DM w/ neuropathy, PVD s/p BKA, aortic stenosis s/p TAVR and Afib on Eliquis who presented to [facility] on 01/07/22 after a 2 week history of diabetic left foot ulceration of the heel and 2nd toe. Patient is wheelchair bound and states her first noticed black skin color changes on her heel 2 weeks ago with minimal bleeding. Patient also noted having toe erythema around the same time. Patient had seenher pediatric immunologist at that time, who prescribed her diabetic shoes. Patient then began noticing a change in the erythema with increasing redness, ulceration, and purulent drainage. Patient went to her pod iatrist for evaluation and was recommended to come to the hospital for further care due to concern for infection. Throughout this time, patient denies having any fevers or chills, but has been complaining of left foot pain and edema. On presentation to ED, patient was found to have no leukocytosis,CRP elevated. Left foot X-ray obtained showed no evidence of acute bony injuries or osteomyelitis, but significant swelling noted anterior to the ankle and along dorsum of midfoot with severe arterial calcifications. Patient has been admitted under medicine service and started on antibiotics (ceftriaxone, doxycycline) per ID recommendations. MRI of the left lower extremity w/ and w/o contrast shows no evidence of osteomyelitis. ?? Based on clinical findings and imaging results, patient likely with superficial diabetic foot ulcers with superficial infection of second toe ulcer. We recommend??continued wound care with Aquaceldressings.??No acute surgical intervention at this time. Patient not amenable to??surgery at this time??(2nd toe amputation). No??angiogram at this time for??LLE; will re-eval after outpatient visit.??Will have patient follow up??with Vascular Surgery outpatient in 1 wk. Office will follow up with??patient. ?? Recommendations: local wound care with Aquacel Ag dressing over ulcerations (left heel/2nd toe) and kerlix roll wrapping.?? follow up??with Vascular Surgery outpatient in??1wk Continue antibiotics per ID recommendations rest of care per primary team ? Will sign off at this time. [place] [phone] with any questions ?? This patient was discussed with ?[facility]?? Intake and Output Intake and Output Results?? This visit (24 hour periods starting at 07:00 EST)? 01/12/22 *?? 01/11/22?? 01/10/22?? Total Summary?Intake mL?? --?? --?? 370?Output mL?? --?? 2,250?? 1,650?Fluid Balance ?? --?? -2,250?? -1,280?? Intake (1)?Oral Fluids mL?? --?? --?? 370?Total?? --?? --?? 370?? Output (1)?Urine Voided mL?? --?? 2,250?? 1,650?Total?? --?? 2,250?? 1,650?? Counts (3)?Diaper Count ?? --?? 3?? --?Oral Fluids mL?? --?? --?? 370?Urine Voided mL?? --?? 2,250?? 1,650? * This column has not completed the indicated time period.?? Labs Last 24 Hours BLOOD COUNT & DIFF ? Event Name?? Event Result?? Date/Time?? WBC 6.3 k/mm3 01/12/22 01:18:00 RBC 3.51 m/mm3??Low 01/12/22 01:18:00 Hgb 9.5 Gm/dL??Low 01/12/22 01:18:00 Hct 29.8 %??Low 01/12/22 01:18:00 MCV 84.9 femtoliters 01/12/22 01:18:00 MCH 27.1 pg 01/12/22 01:18:00 MCHC 31.9 g/dL??Low 01/12/22 01:18:00 Platelet Count 168 k/mm3 01/12/22 01:18:00 MPV 12.3 femtoliters 01/12/22 01:18:00 Nucleated RBC (Automated) 0 #/100 WBC'S 01/12/22 01:18:00 ? CHEM GENERAL ? Event Name?? Event Result?? Date/Time?? Sodium 137 mmol/L 01/12/22 01:18:00 Chloride 100 mmol/L 01/12/22 01:18:00 Bicarbonate Level 27 mmol/L 01/12/22 01:18:00 Anion Gap 10 01/12/22 01:18:00 BUN 52 mg/dL??High 01/12/22 01:18:00 Creatinine-Blood 2.3 mg/dL??High 01/12/22 01:18:00 Alkaline Phosphatase 214 units/L??High 01/12/22 01:18:00 AST (SGOT) 34 units/L??High 01/12/22 01:18:00 ALT (SGPT) 38 units/L??High 01/12/22 01:18:00 Bilirubin, Total 0.3 mg/dL 01/12/22 01:18:00 Bilirubin, Direct 0.2 mg/dL 01/12/22 01:18:00 Bilirubin, Indirect 0.1 mg/dL 01/12/22 01:18:00 ? * Kayleigh Downs LPN: PERFORM, SIGN, VERIFY Event Display: Progress Note Hospital Authored Date: Patient: HALLEY JUNE Age: 66 years Sex: Female : 1955 Associated Diagnoses: None Author: Kayleigh Downs LPN Findings Nursing Data Vital Signs : VITAL SIGNS SECTION 01/11/2022 20:00 EST Temperature 98.6 DegF Temperature Route Oral Pulse Rate 93 bpm H Respiratory Rate 20 br/min Systolic Blood Pressure 120 mm Hg Diastolic Blood Pressure 62 mm Hg Blood pressure sites Arm, left Oxygen Saturation 98 % Mode of Delivery (Oxygen) Room air . Evaluation Pt alert and oriented x 4. Able to make needs known. Denies pain at this time. Trace edema to LLE. Wound dsg to left foot clean dry and intact. Lung sounds clear on room air. Cont of bowel this shift. 2 assist transfer to bedside commode. Call sosa in reach. Bed in lowest locked position. Safety maintained. . Discharge Information Rehabilitation Discharge : Rehab Discharge Index 01/11/2022 8:37 EST Comments on treatment indicated 66yo F presents c worsening left foot infection/pain with purrulent drainage. Treating for superficial left heel and left second toe diabetic foot infection. Rec home Full chart review completed Yes Hospital course Per chart: Other findings Per comment: * Blaine Durant RN: PERFORM, SIGN, VERIFY Event Display: Progress Note Hospital Authored Date: Patient: HALLEY JUNE Age: 66 years Sex: Female : 1955 Associated Diagnoses: None Author: Carleen READ, Blaine Findings Nursing Data Vital Signs : VITAL SIGNS SECTION 01/11/2022 13:00 EST Temperature 97.4 DegF Temperature Route Oral Pulse Rate 79 bpm Respiratory Rate 20 br/min Systolic Blood Pressure 107 mm Hg Diastolic Blood Pressure 53 mm Hg L Blood pressure sites Arm, left Pulse Pressure 54 mm Hg Oxygen Saturation 95 % Mode of Delivery (Oxygen) Room air . Narrative/Incidental No acute events. Patient awake, alert & oriented, calm & cooperative. Receiving IV and PO abx. L foot pain managed with PO PRN medications. Wound care performed per orders. Suppository given for constipation with positive effect. Sat up at edge of bed with PT and pivoted to commode. Good appetite. Resting comfortably at this time. Vitals stable on room air. No signs of distress. Will continue to monitor.. Discharge Information Rehabilitation Discharge : Rehab Discharge Index 01/11/2022 8:37 EST Comments on treatment indicated 66yo F presents c worsening left foot infection/pain with purrulent drainage. Treating for superficial left heel and left second toe diabetic foot infection. Rec home Full chart review completed Yes Hospital course Per chart: Other findings Per comment: XR Foot - left GE 3 Views * BHSPowerscribe , CIS S: TRANSCRIBE José Miguel BAILEY, Saurav King: VERIFY Event Display: Result: Authored Date: [id number] PROCEDURE: Foot Min 3 Views Left CLINICAL INDICATION: 66 years old Female with Hx of Present Illness: infected left foot; Reason: Pain; Clinical Question(s): Osteomyelitis. TECHNIQUE: Three views of the LEFT foot are obtained. COMPARISONS: LEFT ankle 2007.. FINDINGS: Bones and joints: Exam limited by moderate osteopenia. There is evidence of amputation of the entire 1st toe as well as partial resection of the head of the 1st metatarsal. No periosteal reaction or erosion to suggest acute osteomyelitis. Moderate degenerative changes of the tarsal bones. Large plantar calcaneal spur and [id number] Achilles tendon calcaneal spur. Mild to moderate degenerative changes at the ankle joint also noted. Soft Tissues: Moderate soft tissue swelling along the dorsum of the ankle, mild at the dorsum of the midfoot. No soft tissue gas. Severe arterial calcifications. No evidence of radiopaque foreign body. IMPRESSION: 1. No evidence of acute bony injuries. 2. No radiographic evidence of osteomyelitis. 3. Evidence of amputation of the 1st toe and partial resection of the head of the 1st metatarsal. 4. Osteopenia. 5. Degenerative changes in the tarsal bones and ankle joint. 6. Soft tissue swelling anterior to the ankle and along the dorsum of the midfoot. 7. Severe arterial calcifications. Thank you for allowing me to participate in the care of this patient. WSN: [id number] Ordering Physician: Shun Ross MD Dictated By: Saurav Valdez MD Dictated Date/Time: 01/06/22 11:19 p Reviewed By: Saurav Valdez MD Signed By: Saurav Valdez MD Signed Date/Time: 01/06/22 11:19 pm Transcribed By: KRYSTINA Transcribed Date/Time: 01/06/22 11:17 pm Patient Care team information Care Team Personnel Name: Gauri Ellison RN Position: [facility] RN Member Role: Primary Care Nurse Name: Nguyen Becerra RN Position: [facility] RN Member Role: Primary Care Nurse Name: Cirilo Alarcon III, MD Position: [facility] Ambulatory (view) Member Role: PCP Address: Address: [address] [place] [address] Name: Lionel Chavez RN Position: [facility] RN Member Role: Primary Care Nurse Name: Kaylyn Hernandez RN Position: [facility] RN Member Role: Primary Care Nurse Name: Chasity Justin RN Position: [facility] RN Member Role: Primary Care Nurse Name: Beto Mora RN Position: [facility] RN Member Role: Primary Care Nurse Name: Kyler MORE Attending Position: [facility] ED Medicine Name: Emelyn Hays Position: [facility] ED TA [facility] Name: Jovani Haider RN Position: [facility] ED RN W/OE and Tasks Member Role: Patient Care Provider Name: Kathia Foster Position: [facility] ED OA Charge Member Role: ED Associate Name: Gino Suarez RN Position: [facility] ED RN W/OE and Tasks Member Role: Patient Care Provider Care Team Related Persons Name: PRESLEY PHILLIPS Address: [address] [address] Name: CHOCO JUNE Address: home [address] [place] [id number]
--- OUTSIDE RECORDS SUMMARY | 2023-03-02 08:23 | XMS_ITS | Continuity of Care Document ---
Author Name Unknown Organization [facility] ter Address [address] [place] [id number]- Care Team Providers Care Enroute Controller Name Role Phone Dorian STRATTON MD, Cirilo Worrell Primary Care Physician Encounter [facility] Date(s): 03/09/22 - 03/09/[address] [address]- Discharge Disposition: A-D/C Home Attending Physician: Shun Ross MD Admitting Physician: Shun Ross MD Referring Physician: Not on Staff, Referring [...] Vaccine (oldterm) 11/19/06 Given 1Result Comment: lot# [id number] exp. [id number] Medications apixaban 2.5 mg oral tablet 1 [...] 0 Refills, Maintenance, 02/28/19 11:22:00 EST, Tablet, [facility], 928.1, cm, 02/28/19 4:06:00 EST, Height, 138, kg, [...] kg, ... Start Date: 01/26/22 Status: Ordered Colace sodium 100 mg oral capsule 100 mg, 1, capsule, By Mouth, 2 times a day, PRN, # 30 capsule, Refills 0, Tot. Refills 0, Maintenance, Constipation, 01/12/22 10:54:00 EST, Route to Pharmacy Electronically, [facility] #[id number], Partial fill upon patient request if the prescr... Start Date: 01/12/22 Status: Ordered DilTIAZem (Eqv-Tiazac) = 120 mg, By Mouth, Daily, 0 Refills, Maintenance, 01/07/22 20:25:00 EST, Partial fill upon patientrequest if the prescription is for a schedule II opioid drug. Start Date: 01/07/22 Status: Ordered furosemide 40 mg oral tablet 40 mg, 1, tablet, By Mouth, 2 times a day, # 60 tablet, Refills 0, Tot. Refills 0, Maintenance, 02/28/19 13:32:00 EST, Route to Pharmacy Electronically, [facility] #[id number], 170.1, cm, 02/28/19 4:06:00 EST, Height, 138, [...] Ordered Iodosorb 0.9% topical gel See Instructions, dispense one tube 10g, # 1 each, 0 Refills, Maintenance, 02/10/22 11:49:00 EST, Partial fill upon patient request if the prescription is for a schedule II opioid drug. Start Date: 02/10/22 Status: Ordered isosorbide mononitrate 30 mg oral [...] 07/05/21 13:21:00 EDT, Route to Pharmacy Electronically, [facility] #[id number], Partial fill upon patientrequest if the prescription [...] for a... Start Date: 09/22/20 Status: Ordered Vitamin B12 500 mcg oral [...] to oldest [Reference Range]: 1 2 3 Oxygen Saturation [94-100 %] 98 % (03/09/22 6:25 PM) 100 % (03/09/22 3:11 PM) 100 % (03/09/22 2:12 PM) Pulse Rate [55-90 bpm] 78 bpm (03/09/22 6:25 PM) 80 bpm (03/09/22 3:11 PM) 77 bpm (03/09/22 2:12 PM) Blood Pressure [90-138/55-84 mm Hg] 130/68mm Hg (03/09/22 6:25 PM) 129/65mm Hg (03/09/22 3:11 PM) 112/61mm Hg (03/09/22 2:12 PM) Respiratory Rate [16-30 br/min] 18 br/min (03/09/22 6:25 PM) 18 br/min (03/09/22 3:11 PM) 16 br/min (03/09/22 12:53 PM) Temperature [96.8-100.4 DegF] 98 DegF (03/09/22 6:25 PM) 98.4 DegF (03/09/22 2:12 PM) 97.8 DegF (03/09/22 12:53 PM) Mode of Delivery (Oxygen) Room air (03/09/22 6:25 PM) Room air (03/09/22 3:11 PM) Room air (03/09/22 2:12 PM) Blood pressure sites Arm, right (03/09/22 3:11 PM) Arm, right (03/09/22 2:12 PM) Arm, right (03/09/22 12:53 PM) Temperature Route Oral (03/09/22 6:25 PM) Oral (03/09/22 2:12 PM) Oral (03/09/22 12:53 PM) Social History Social History Type Response Tobacco Use: quit smoking 30 years ago. Sex Patient Care team information Care Team Personnel Name: Gauri Ellison RN Position: [facility] RN Member Role: Primary Care Nurse Name: Nguyen Becerra RN Position: [facility] RN Member Role: Primary Care Nurse Name: Cirilo Alarcon III, MD Position: [facility] Ambulatory (view) Member Role: PCP Address: Address: [address] [place] [address]- Name: Lionel Chavez RN Position: [facility] RN Supv Member Role: Primary Care Nurse Name: Kaylyn Hernandez RN Position: [facility] RN Member Role: Primary Care Nurse Name: Chasity Justin RN Position: [facility] RN Member Role: Primary Care Nurse Name: Beto Mora RN Position: [facility] RN Member Role: Primary Care Nurse Name: Jeny Garrett RN Position: [facility] ED RN W/OE and Tasks Member Role: Patient Care Provider Name: Shun Ross MD Position: [facility] ED Medicine MD Member Role: Admitting Physician Address: Address: [address] [place] [address] [place] [address]- Care Team Related Persons Name: PRESLEY PHILLIPS Address: home [address] [place] [id number] Name: CHOCO TYLER Address: home [address] [place] [id number]
--- OUTSIDE RECORDS SUMMARY | 2023-03-02 08:23 | XMS_ITS | Continuity of Care Document ---
Author Name Unknown Organization [facility] Address [address] [place] [address]- Care Team Providers Care Junior Copywriter Name Role Phone Cirilo Alarcon III, MD Primary Care Physician Encounter [facility] [place] [place] Date(s): 06/03/22 - 06/10/22 [facility] [address] [place] [address]- Attending Physician: Not on Staff, Attending MD [...] Vaccine (oldterm) 11/19/06 Given 1Result Comment: lot# [id number] exp. [id number] Medications atorvastatin 80 mg oral tablet 1 tablet = 80 mg, By Mouth, Daily at bedtime, # 30 tablet, 0 Refills, Maintenance, 02/28/19 11:22:00 EST, Tablet, [facility], 170.1, cm, 02/28/19 4:06:00 [...] 02/28/19 13:32:00 EST, Route to Pharmacy Electronically, [facility] #[id number], 170.1, cm, 02/28/19 4:06:00 EST, Height, 138, [...] 07/05/21 13:21:00 EDT, Route to Pharmacy Electronically, [id number], Partial fill upon patientrequest if the prescription [...] oldest [Reference Range]: 1 Height 170 cm (06/03/22 8:08 AM) Weight 114.7 kg (06/03/22 8:08 AM) Oxygen Saturation [94-100 %] 98 % (06/03/22 8:08 AM) Pulse Rate [55-90 bpm] 93 bpm *H* (06/03/22 8:08 AM) Body Mass Index [18.5-24.99 kg/m2] 39.69 kg/m2 *>HHI* (06/03/22 8:08 AM) Blood Pressure [90-138/55-84 mm Hg] 140/ 80mm Hg *H* (06/03/22 8:08 AM) Blood pressure sites Arm, right (06/03/22 8:08 AM) Social History Social History Type Response [...] Unknown MR Khris murphy Active Unknown 1Serial [id number] Model 9750TFX Size 26MMA PATIENT WITH THIS DEVICE CAN BE SCANNED SAFELY UNDER FOLLOWING CONDITIONS : 3T OR LESS - MAXIMUM SPATIAL GRADIENT FIELD OF 2500 GAUSS/CM (25t/M) OR LESS - MAXIMUM SAEED OF 2 W/KG (NORMAL OPERATING MODE) Note * Bhavna Hernandez: PERFORM, SIGN, VERIFY Event Display: Patient Education/Instruction Authored Date: [id number] [facility] *BVS [address] Clinical Summary Name HALLEY TYLER Age 66 Years 1955 PCP Dorian STRATTON MD, Cirilo Worrell PCP Visit Date 06/03/2022 08:06:00 Additional Instructions: Scheduled Appointments?? Future Appointments ?*BVS??[address]??[place],??[place],??[address] ?Phone:??--?Fax:??-- ?Appt. Date:??06/17/2022?8:00 AM ?Scheduled Provider:??Amador MARTÍNEZ , Bhavna Fermin Follow-Up Instructions ?? Diagnosis Medications: Please continue [...] Daily at Bedtime. Refills: 0. Next Dose: Calcitriol (calcitriol 0.25 [...] tab(s) Oral twice a day. Next Dose: Oxycodone (oxyCODONE 5 mg oral [...] orders Vital Signs Height 170 cm Weight 114.7 kg BMI 39.69 kg/m2 Blood Pressure 140 mm Hg/80 mm Hg Temperature Pulse Rate 93 bpm Respiratory Rate 02 Sat Mode of Delivery 98 %/ You can now view a summary of your hospital visit from the comfort of your home through a free online portal called [email or web address]. [email or web address] is a website that allows you to securely view your medical information including discharge summary, medications and follow-up visits. ??You can alsosend a secure electronic message to your doctor???s office to request appointments, renew medications or just ask a question. You can enroll at [email or web address] or register during your next office visit. [...] primary care provider, you may find a [facility] provider by calling [facility] [employer] Link at [phone]. For information about the plan of care [...] Personnel Name: Leena BAILEY, Gus Heredia [facility] Renal MD Member Role: Lifetime Consulting Physician Address: Address: [address] [place] [address], [facility] [address] [place] [address]- Name: Gauri Ellison RN Position: S RN Member Role: Primary Care Nurse Name: Cirilo Alarcon III, MD Position: Reference Physician Member Role: PCP Address: Address: [address] [place] [address]- Name: Ck Nieves RN Position: S RN [...] Care Nurse Name: Ganesh Castillo MD Position[facility] Renal MD Member Role: Lifetime Consulting Physician Address: Address: [address] [facility] [address] [facility], [place] [address]- Name: Beto Mora RN Position: S RN Member Role: Primary Care Nurse Name: Teresa Robledo RN Position: S RN Member Role: Primary Care Nurse Name: Gloria Spicer RN Position: S RN Member Role: Primary Care Nurse Care Team Related Persons Name: PRESLEY PHILLIPS Address: home [address] [place] [address] Name: CHOCO TYLER Address: home [address] [place] [address]
--- OUTSIDE RECORDS SUMMARY | 2023-03-02 08:23 | XMS_ITS | Continuity of Care Document ---
Author Name Unknown Organization [facility] Address [address] [place] [address]- Care Team Providers Care Final Dressing Cutter Name Role Phone Cirilo Alarcon III, MD Primary Care Physician Encounter [facility] [place] Date(s): 10/26/22 - 11/02/22 [facility] [address] [place] [address] Attending Physician: Sawyer BAILEY, Shayan Dooley Admitting Physician: Sawyer BAILEY, Shayan Dooley Referring Physician: Cirilo Alarcon III, MD Allergies, [...] Vaccine (oldterm) 11/19/06 Given 1Result Comment: lot# [id number] exp. [id number] Medications atorvastatin 80 mg oral tablet 1 tablet = 80 mg, By Mouth, Daily at bedtime, # 30 tablet, 0 Refills, Maintenance, 02/28/19 11:22:00 EST, Tablet, [facility], 170.1, cm, 02/28/19 [...] 02/28/19 13:32:00 EST, Route to Pharmacy Electronically, [facility][id number], 170.1, cm, 02/28/19 4:06:00 EST, Height, 138, [...] 07/05/21 13:21:00 EDT, Route to Pharmacy Electronically, [facility] #[id number], Partial fill upon patientrequest if the prescription [...] oldest [Reference Range]: 1 Height 170 cm (10/26/22 2:47 PM) Weight 90.90 kg (10/26/22 2:47 PM) Oxygen Saturation [94-100 %] 99 % (10/26/22 2:47 PM) Pulse Rate [55-90 bpm] 79 bpm (10/26/22 2:47 PM) Body Mass Index [18.5-24.99 kg/m2] 31.45 kg/m2 *>HHI* (10/26/22 2:47 PM) Blood Pressure [90-138/55-84 mm Hg] 130/ 80mm Hg (10/26/22 2:47 PM) Blood pressure sites Arm, right (10/26/22 2:47 PM) Social History Social History Type Response [...] Unknown MR Khris murphy Active Unknown 1Serial [id number] Model 9750TFX Size 26MMA PATIENT WITH THIS DEVICE CAN BE SCANNED SAFELY UNDER FOLLOWING CONDITIONS : 3T OR LESS - MAXIMUM SPATIAL GRADIENT FIELD OF 2500 GAUSS/CM (25t/M) OR LESS - MAXIMUM SAEED OF 2 W/KG (NORMAL OPERATING MODE) Note * Bhavna Hernandez: PERFORM, SIGN, VERIFY Event Display: Patient Education/Instruction Authored Date: [id number] [facility] *[facility]S [address] Clinical Summary Name HALLEY TYLER Age 67 Years 1955 PCP Dorian STRATTON MD, Cirilo Worrell PCP Visit Date 2022 14:33:00 Additional Instructions: Scheduled Appointments?? Future Appointments ?*BVS??Lab??[address] ?Phone:??--?Fax:??-- ?Appt. Date:??10/31/2022?1:00 PM ?Scheduled Provider:??PVR Room ?*BVS??[address]??[place],??[place],??[address] ?Phone:??--?Fax:??-- ?Appt. Date:??11/02/2022?1:00 PM ?Scheduled Provider:??Amador MARTÍNEZ , Bhavna Fermin Follow-Up Instructions ?? With: Address: When: Sawyer BAILEY, Shayan Dooley 2022 12:00 AM Comments: Continue wound care Has an appointment next week??for??PVRs and then to see Thea Gonzales.?? Okay to bear weight. Diagnosis Medications: Please continue your medications until [...] orders Vital Signs Height 170 cm Weight 90.90 kg BMI 31.45 kg/m2 Blood Pressure 130 mm Hg/80 mm Hg Temperature Pulse Rate 79 bpm Respiratory Rate 02 Sat Mode of Delivery 99 %/ You can now view a summary of your hospital visit from the comfort of your home through a free online portal called SafariDesk. SafariDesk is a website that allows you to securely view your medical information including discharge summary, medications and follow-up visits. ??You can alsosend a secure electronic message to your doctor???s office to request appointments, renew medications or just ask a question. You can enroll at [email or web address] or register during your next office [...] primary care provider, you may find a [facility] provider by calling [facility] [employer] Link at [phone]. [facility], in keeping with [facility] guidance, no longer requires face masks [...] Team Personnel Name: Gus Stern MD Position: [facility] Renal MD Member Role: Lifetime Consulting Physician Address: Address: [address] [place] [address]- Name: Gauri Ellison RN Position: S RN Member Role: Primary Care Nurse Name: Cirilo Alarcon III, MD Position: Reference Physician Member Role: PCP Address: Address: [address] [place] [address]- Name: Ck Nieves RN Position: S RN [...] Care Nurse Name: Ganesh Castillo MD Position: S Renal MD Member Role: Lifetime Consulting Physician Address: Address: [address] [facility], [place] [address]- Name: Beto Mora RN Position: S RN Member Role: Primary Care Nurse Name: Teresa Robledo RN Position: S RN Member Role: Primary Care Nurse Name: Gloria Spicer RN Position: S RN Member Role: Primary Care Nurse Care Team Related Persons Name: CHEVYROYER PRESLEY Address: home [address] [place] [address] Name: CHOCO TYLER Address: home [address] [place] [address]
--- OUTSIDE RECORDS SUMMARY | 2023-03-02 08:23 | XMS_ITS | Continuity of Care Document ---
Author Name Unknown Organization [facility] Address [address] [place] [address]- Care Team Providers Care Flat Finisher Name Role Phone Dorian STRATTON MD, Cirilo Worrell Primary Care Physician [phone] [id number] Date(s): 06/30/22 - 07/07/22 [facility] [address] [place] [id number] Attending Physician: Amador MARTÍNEZ, Bhavna Fermin Admitting Physician: Amador MARTÍNEZ, Bhavna Fermin Referring Physician: Cirilo Alarcon III, MD Allergies, [...] Vaccine (oldterm) 11/19/06 Given 1Result Comment: lot# [id number] exp. [id number] Medications atorvastatin 80 mg oral tablet 1 tablet = 80 mg, By Mouth, Daily at bedtime, # 30 tablet, 0 Refills, Maintenance, 02/28/19 11:22:00 EST, Tablet, [facility], 170.1, cm, 02/28/19 4:06:00 [...] 02/28/19 13:32:00 EST, Route to Pharmacy Electronically, [facility][id number], 170.1, cm, 02/28/19 4:06:00 EST, Height, 138, [...] 07/05/21 13:21:00 EDT, Route to Pharmacy Electronically, [facility][id number], Partial fill upon patientrequest if the prescription [...] oldest [Reference Range]: 1 Height 170 cm (06/30/22 12:59 PM) Weight 114.7 kg (06/30/22 12:59 PM) Oxygen Saturation [94-100 %] 100 % (06/30/22 12:59 PM) Pulse Rate [55-90 bpm] 70 bpm (06/30/22 12:59 PM) Body Mass Index [18.5-24.99 kg/m2] 39.69 kg/m2 *>HHI* (06/30/22 12:59 PM) Blood Pressure [90-138/55-84 mm Hg] 86/5 2mm Hg *L* (06/30/22 12:59 PM) Mode of Delivery (Oxygen) Room air (06/30/22 12:59 PM) Blood pressure sites Arm, right (06/30/22 12:59 PM) Weight Obtained Via Patient/family state d (06/30/22 12:59 PM) Social History Social History Type Response Tobacco Use: quit smoking 30 years ago. Sex Implantable Device List Procedure Provider Procedure Date Device Type Site Aortic Unknown 06/04/21 Unknown Heart Device Identifier Serial Number Lot or Batch Number Manufacturing Date Expiration Date Distinct Identification Code MRI Safety Implantable Status Assigning Authority Unknown 1 Unknown Unknown Unknown Unknown Unknown MR Condtl onal Active Unknown 1Serial [id number] Model 9750TFX Size 26MMA PATIENT WITH THIS DEVICE CAN BE SCANNED SAFELY UNDER FOLLOWING CONDITIONS : 3T OR LESS - MAXIMUM SPATIAL GRADIENT FIELD OF 2500 GAUSS/CM (25t/M) OR LESS - MAXIMUM SAEED OF 2 W/KG (NORMAL OPERATING MODE) Note * Nanda Davison: PERFORM, SIGN, VERIFY Event Display: Patient Education/Instruction Authored Date: [id number] [facility] *[facility]S [address] Clinical Summary Name HALLEY TYLER Age 66 Years 1955 PCP Dorian STRATTON MD, Cir[id number] Date 06/30/2022 12:53:00 Additional Instructions: Scheduled Appointments?? Future Appointments ?No Future Appointments Scheduled Follow-Up Instructions ?? Diagnosis Medications: Please continue your medications until treatment is completed or stopped by your provider. Discuss any questions related to medications with your provider. New Medications - Miscellaneous Rx (Forefoot shoe filler) Dx: left TMA, DM, PAD. Refills: 0. Next Dose: Medications to Continue [...] 114.7 kg BMI 39.69 kg/m2 Blood Pressure 86 mm Hg/52 mm Hg Temperature Pulse Rate 70 bpm Respiratory Rate 02 Sat Mode of Delivery 100 %/Room air You can now view a summary of your hospital visit from the comfort of your home through a free online portal called Sipwise. Sipwise is a website that allows you to securely view your medical information including discharge summary, medications and follow-up visits. ??You can alsosend a secure electronic message to your doctor???s office to request appointments, renew medications or just ask a question. You can enroll at [email or web address] or register during your next office visit. [...] primary care provider, you may find a [facility] provider by calling [facility] [employer] Link at [phone]. For information about the plan of care [...] Personnel Name: Leena BAILEY, Gus Heredia Position: [facility] Renal MD Member Role: Lifetime Consulting Physician Address: Address: [address] [place] [address], [facility] [address] [place] [address]- Name: Gauri Ellison RN Position: S RN Member Role: Primary Care Nurse Name: Cirilo Alarcon III, MD Position: Reference Physician Member Role: PCP Address: Address: [address] [place] [address]- Name: Ck Nieves RN Position: S RN Member Role: Primary Care Nurse Name: Lionel Chavez RN Position: [facility] RN Supv Member Role: Primary Care Nurse Name: Woody Hayes RN Position: S RN Member Role: Primary Care Nurse Name: Kaylyn Hernandez RN Position: S RN Member Role: Primary Care Nurse Name: Chasity Justin RN Position: S RN Member Role: Primary Care Nurse Name: Ganesh Castillo MD Position: [facility] Renal MD Member Role: Lifetime Consulting Physician Address: Address: [address] [place] [address] [address] [facility] [place], [place] [address] Name: Beto Mora RN Position: [facility] RN Member Role: Primary Care Nurse Name: Teresa Robledo RN Position: S RN Member Role: Primary Care Nurse Name: Gloria Spicer RN Position: [facility] RN Member Role: Primary Care Nurse Care Team Related Persons Name: PRESLEY PHILLIPS Address: home [address] [place] [address] Name: CHOCO TYLER Address: home [address] [place] [address]
--- OUTSIDE RECORDS SUMMARY | 2023-03-02 08:24 | XMS_ITS | Continuity of Care Document ---
Author Name Unknown Organization [facility] Address [address] [place] [address]- Care Team Providers Care Mine Wedge Sawyer Name Role Phone Dorian STRATTON MD, Cirilo Worrell Primary Care Physician Encounter [facility] [place] Date(s): 01/25/23 - 02/01/23 [facility] [address] [place] [id number] Attending Physician: Amador MARTÍNEZ, Bhavna Fermin Admitting [...] Vaccine (oldterm) 11/19/06 Given 1Result Comment: lot# [id number] exp. [id number] Medications atorvastatin 80 mg oral tablet 1 tablet = 80 mg, By Mouth, Daily at bedtime, # 30 tablet, 0 Refills, Maintenance, 02/28/19 11:22:00 EST, Tablet, [facility], 170.1, cm, 02/28/19 4:06:00 EST, [...] 02/28/19 13:32:00 EST, Route to Pharmacy Electronically, [facility][id number], 170.1, cm, 02/28/19 4:06:00 EST, Height, 138, [...] 1 each, 0 Refills, Maintenance, 12/28/22 9:45:00 [facility], [facility] #[id number], Partial fill upon patient request if the [...] 07/05/21 13:21:00 EDT, Route to Pharmacy Electronically, [facility][id number], Partial fill upon patientrequest if the prescription [...] oldest [Reference Range]: 1 Height 170 cm (01/25/23 11:46 AM) Weight 96.0 kg (01/25/23 11:46 AM) Oxygen Saturation [94-100 %] 95 % (01/25/23 11:46 AM) Pulse Rate [55-90 bpm] 76 bpm (01/25/23 11:46 AM) Body Mass Index [18.5-24.99 kg/m2] 33.22 kg/m2 *>HHI* (01/25/23 11:46 AM) Blood Pressure [90-138/55-84 mm Hg] 90/6 0mm Hg (01/25/23 11:46 AM) Mode of Delivery (Oxygen) Room air (01/25/23 11:46 AM) Blood pressure sites Arm, right (01/25/23 11:46 AM) Weight Obtained Via Patient/family state d (01/25/23 11:46 AM) Social History Social History Type Response [...] Unknown MR Khris murphy Active Unknown 1Serial [id number] Model 9750TFX Size 26MMA PATIENT WITH THIS DEVICE CAN BE SCANNED SAFELY UNDER FOLLOWING CONDITIONS : 3T OR LESS - MAXIMUM SPATIAL GRADIENT FIELD OF 2500 GAUSS/CM (25t/M) OR LESS - MAXIMUM SAEED OF 2 W/KG (NORMAL OPERATING MODE) Note * Ahsleigh Bae: PERFORM, SIGN, VERIFY Event Display: Patient Education/Instruction Authored Date: [id number] [facility] *BVS [address] Clinical Summary Name HALLEY TYLER Age 67 Years 1955 PCP Dorian STRATTON MD, Cirilo Worrell PCP Visit Date 01/25/2023 11:30:00 Additional Instructions: Scheduled Appointments?? Future Appointments ?*BVS??[address]??[place],??[place],??[address] ?Phone:??--?Fax:??-- ?Appt. Date:??03/14/2023?2:30 PM ?Scheduled Provider:??Bhavna English NP Follow-Up Instructions ?? With: Address: When: Bhavna English NP Comments: end of February, left foot wound check Diagnosis Medications: Please continue your medications until [...] 96.0 kg BMI 33.22 kg/m2 Blood Pressure 90 mm Hg/60 mm Hg Temperature Pulse Rate 76 bpm Respiratory Rate 02 Sat Mode of Delivery 95 %/Room air You can now view a summary of your hospital visit from the comfort of your home through a free online portal called [employer]. [employer] is a website that allows you to securely view your medical information including discharge summary, medications and follow-up visits. ??You can alsosend a secure electronic message to your doctor???s office to request appointments, renew medications or just ask a question. You can enroll at [email or web address] or register during your next office [...] primary care provider, you may find a [facility] provider by calling [facility] Link at [phone]. [facility], in keeping with [facility] guidance, no longer requires face masks [...] Team Personnel Name: Gus Stern MD Position: [facility] Renal MD Member Role: Lifetime Consulting Physician Address: Address: [address] [place] [address] [address] [place] [address]- Name: Gauri Ellison RN Position: [facility] RN Member Role: Primary Care Nurse Name: Cirilo Alarcon III, MD Position: Reference Physician Member Role: PCP Address: Address: [address] [place] [address]- [place] Name: Ck Nieves RN Position: S RN Member Role: Primary Care Nurse Name: Lionel Chavez RN Position: [facility] RN Supv Member Role: Primary Care Nurse Name: Woody Hayes RN Position: S RN Member Role: Primary Care Nurse Name: Kaylyn Hernandez RN Position: S RN Member Role: Primary Care Nurse Name: Chasity Justin RN Position: S RN Member Role: Primary Care Nurse Name: Ganesh Castillo MD Position: [facility] Renal MD Member Role: Lifetime Consulting Physician Address: Address: [address] [facility] [address] [facility] [place] [address]- Name: Beto Mora RN Position: S RN Member Role: Primary Care Nurse Name: Teresa Robledo RN Position: S RN Member Role: Primary Care Nurse Name: Gloria Spicer RN Position: S RN Member Role: Primary Care Nurse Care Team Related Persons Name: CHEVYPRESLEY LINTON Address: home [address] [place] [address] Name: CHOCO TYLER Address: home [address] [place] [address]
--- OUTSIDE RECORDS SUMMARY | 2023-03-02 08:24 | XMS_ITS | Continuity of Care Document ---
Author Name Unknown Organization [facility] Address [address] [place] [id number]- Care Team Providers Care Club Lounge Attendant Name Role Phone Dorian STRATTON MD, Cirilo Worrell Primary Care Physician [phone] Encounter [facility] [place] Date(s): 01/18/22 - 01/25/22 [facility] [address] [place] [address] Attending Physician: Cirilo Alarcon III, MD Admitting Physician: Cirilo Alarcon III, MD Referring Physician: Shayan Jacques MD Allergies, Adverse Reactions, Alerts Substance Reaction Severity Status clindamycin Active penicillin rash Active vancomycin Active Immunizations Given and Recorded Vaccine Date Status Refusal Reason SARS-CoV-2 (COVID-19) mRNA-1273 vaccine 12/28/20 R ecorded SARS-CoV-2 (COVID-19) mRNA-1273 vaccine 06/10/20 R ecorded SARS-CoV-2 (COVID-19) mRNA-1273 vaccine 05/13/20 R ecorded influenza virus vaccine, inactivated 1 12/24/06 Gi leonid Pneumococcal Vaccine (oldterm) 11/19/06 Given 1Result Comment: lot# [id number] exp. [id number] Medications apixaban 2.5 mg oral tablet 1 [...] 0 Refills, Maintenance, 02/28/19 11:22:00 EST, Tablet, [facility] 3, 170.1, cm, 02/28/19 4:06:00 EST, Height, 138, kg, 02/25/19 10:41:00 EST, Dry Weight Start Date: 02/28/19 Status: Ordered calcitriol 0.25 mcg oral capsule 1 capsule = 0.25 mcg, By Mouth, Every Monday, Monday and Monday, 0 Refills, Maintenance, 01/07/22 20:26:00 EST, Partial fill upon patient request if the prescription is for a schedule II opioid drug. Start Date: 01/07/22 Status: Ordered Colace sodium 100 mg oral capsule 100 mg, 1, capsule, By Mouth, 2 times a day, PRN, # 30 capsule, Refills 0, Tot. Refills 0, Maintenance, Constipation, 01/12/22 10:54:00 EST, Route to Pharmacy Electronically, [facility] #[id number], Partial fill upon patient request if the [...] 02/28/19 13:32:00 EST, Route to Pharmacy Electronically, [facility] #[id number], 170.1, cm, 02/28/19 4:06:00 EST, Height, 138, [...] 07/05/21 13:21:00 EDT, Route to Pharmacy Electronically, [facility] #[id number], Partial fill upon patientrequest if the prescription [...] oldest [Reference Range]: 1 Height 170 cm (01/18/22 2:28 PM) Weight 90.4 kg (01/18/22 2:28 PM) Oxygen Saturation [94-100 %] 97 % (01/18/22 2:28 PM) Pulse Rate [55-90 bpm] 84 bpm (01/18/22 2:28 PM) Body Mass Index [18.5-24.99 kg/m2] 31.28 kg/m2 *>HHI* (01/18/22 2:28 PM) Blood Pressure [90-138/55-84 mm Hg] 132/ 68mm Hg (01/18/22 2:28 PM) Mode of Delivery (Oxygen) Room air (01/18/22 2:28 PM) Blood pressure sites Arm, left (01/18/22 2:28 PM) Weight Obtained Via Standing scale (01/18/22 2:28 PM) Social History Social History Type Response Tobacco Use: quit smoking 30 years ago. Sex Note * Kristi Balderrama: PERFORM, SIGN, VERIFY Event Display: Patient Education/Instruction Authored Date: [id number] [facility] [address] Clinical Summary Name HALLEY TYLER Age 66 Years 1955 PCP Dorian STRATTON MD, Cirilo Worrell PCP Visit Date 01/18/2022 14:06:00 Additional Instructions: Scheduled Appointments?? Future Appointments ?*[facility]??[address]Main ?Phone:??--?Fax:??-- ?Appt. Date:??01/26/2022?11:20 AM ?Scheduled Provider:??[facility] Follow-Up Instructions ?? Diagnosis Medications: Please continue your medications until treatment is completed or stopped by your provider. Discuss any questions related to medications with your provider. Medications to Continue with No Changes These medications were not printed or sent to your pharmacy apixaban (apixaban 2.5 mg oral tablet) 1 tab(s) Oral twice a day. Next Dose: Atorvastatin (atorvastatin 80 mg oral tablet) 1 tab(s) Oral Daily at Bedtime. Refills: 0. Next Dose: Calcitriol (calcitriol 0.25 mcg oral capsule) 1 capsule Oral Monday, Monday and Monday. Next Dose: Clopidogrel (Plavix 75 mg oral tablet) 1 tab(s) Oral Daily. Refills: 5. Next Dose: Cyanocobalamin (Vitamin B12 500 mcg oral tablet) 2 tab(s) Oral Daily. Next Dose: Diltiazem (DilTIAZem (Eqv-Tiazac)) 120 Milligram Oral Daily. Next Dose: Docusate (Colace sodium 100 mg oral capsule) 1 capsule Oral twice a day as needed Constipation. Refills: 0. Next Dose: Furosemide (furosemide 40 mg oral tablet) 1 tab(s) Oral twice a day. Refills: 0. Next Dose: Gabapentin (gabapentin 300 mg oral capsule) 2 capsule Oral 4 times a day. Next Dose: Insulin Glargine (Lantus Inj) 30 unit(s) Subcutaneous Injection Daily at Bedtime. Next [...] for atrial fibrillation.. Refills: 3. Next Dose: Pantoprazole (pantoprazole 40 mg oral delayed release tablet) 1 tab(s) Oral Daily. Next Dose: Topiramate (topiramate 25 mg oral tablet) 1 tab(s) Oral twice a day. Next Dose: No Longer Take the Following Medications Cefpodoxime (cefpodoxime 200 mg oral tablet) 2 tab(s) Oral every 12 hours for 9 Days. Refills: 0. Doxycycline (doxycycline monohydrate 100 mg oral capsule) 100 Milligram Oral every 12 hours for 9 Days. Refills: 0. Allergy Info:?? vancomycin; penicillin; clindamycin Medications Given This Visit Future Orders ?No future orders Vital Signs Height 170 cm Weight 90.4 kg BMI 31.28 kg/m2 Blood Pressure 132 mm Hg/68 mm Hg Temperature Pulse Rate 84 bpm Respiratory Rate 02 Sat Mode of Delivery 97 %/Room air You can now view a summary of your hospital visit from the comfort of your home through a free online portal called [email or web address]. [email or web address] is a website that allows you to securely view your medical information including discharge summary, medications and follow-up visits. ??You can alsosend a secure electronic message to your doctor???s office to request appointments, renew medications or just ask a question. You can enroll at [email or web address] or register during your next office [...] [facility] provider by calling [facility] at [phone]. For information about the plan of care [...] Team Personnel Name: Gauri Ellison RN Position: [facility] RN Member Role: Primary Care Nurse Name: Nguyen Becerra RN Position: S RN Member Role: Primary Care Nurse Name: Cirilo Alarcon III, MD Position: S Ambulatory (view) Member Role: PCP Address: Address: [address] [place] [address] Name: Lionel Chavez RN Position: [facility] RN Member Role: Primary Care Nurse Name: Kaylyn Hernandez RN Position: [facility] RN Member Role: Primary Care Nurse Name: Chasity Justin RN Position: [facility] RN Member Role: Primary Care Nurse Name: Beto Mora RN Position: [facility] RN Member Role: Primary Care Nurse Care Team Related Persons Name: PRESLEY PHILLIPS Address: home [address] [place] [address] Name: CHOCO TYLER Address: home [address] [place] [address]
--- OUTSIDE RECORDS SUMMARY | 2023-03-02 08:24 | XMS_ITS | Continuity of Care Document ---
Author Name Unknown Organization [facility] Address [address] [place] [address]- Care Team Providers Care Open Hearth Worker Name Role Phone Cirilo Alarcon III, MD Primary Care Physician Encounter [facility] [place] Date(s): 10/31/22 - 12/12/[address] [address] Encounter Diagnosis Iron deficiency anemia, unspecified(Final) - Discharge Disposition: A-D/C Home Attending Physician: Elza Dasilva MD Admitting Physician: Elza Dasilva MD Referring Physician: Cirilo Alarcon III, MD Allergies, [...] Vaccine (oldterm) 11/19/06 Given 1Result Comment: lot# [id number] exp. [id number] Medications atorvastatin 80 mg oral tablet 1 tablet = 80 mg, By Mouth, Daily at bedtime, # 30 tablet, 0 Refills, Maintenance, 02/28/19 11:22:00 EST, Tablet, [facility], 170.1, cm, 02/28/19 [...] 02/28/19 13:32:00 EST, Route to Pharmacy Electronically, [facility] #[id number], 170.1, cm, 02/28/19 4:06:00 EST, Height, 138, [...] 07/05/21 13:21:00 EDT, Route to Pharmacy Electronically, [facility] #[id number], Partial fill upon patientrequest if the prescription [...] Range]: 1 2 3 Height 170 cm (12/05/22 3:27 PM) 170 cm (12/05/22 1:59 PM) 170 cm (11/21/22 2:58 PM) Oxygen Saturation [94-100 %] 97 % (12/05/22 3:27 PM) 100 % (12/05/22 1:59 PM) 100 % (11/21/22 12:52 PM) Pulse Rate [55-90 bpm] 67 bpm (12/05/22 3:27 PM) 69 bpm (12/05/22 1:59 PM) 62 bpm (11/21/22 12:52 PM) Blood Pressure [90-138/55-84 mm Hg] 103/49mm Hg (12/05/22 3:27 PM) 119/52mm Hg (12/05/22 1:59 PM) 102/62mm Hg (11/21/22 12:52 PM) Respiratory Rate [16-30 br/min] 18 br/min (12/05/22 3:27 PM) 18 br/min (12/05/22 1:59 PM) 18 br/min (11/21/22 12:52 PM) Temperature [96.8-100.4 DegF] 96.7 DegF *L* (12/05/22 3:27 PM) 97.8 DegF (12/05/22 1:59 PM) 98.6 DegF (11/21/22 12:52 PM) Mode of Delivery (Oxygen) Room air (11/21/22 12:52 PM) Room air (11/21/22 11:34 AM) Temperature Route Temporal (12/05/22 3:27 PM) Temporal (12/05/22 1:59 PM) Temporal (11/21/22 12:52 PM) Social History Social History Type Response Tobacco Use: quit smoking 30 years ago. Sex Implantable Device List Procedure Provider Procedure Date Device Type Site Aortic Unknown 06/04/21 Unknown Heart Device Identifier Serial Number Lot or Batch Number Manufacturing Date Expiration Date Distinct Identification Code MRI Safety Implantable Status Assigning Authority Unknown 1 Unknown Unknown Unknown Unknown Unknown MR Pinedo onal Active Unknown 1[employer]eria [id number] Model [id number] Size 26MMA PATIENT WITH THIS DEVICE CAN BE SCANNED SAFELY UNDER FOLLOWING CONDITIONS : 3T OR LESS - MAXIMUM SPATIAL GRADIENT FIELD OF 2500 GAUSS/CM (25t/M) OR LESS - MAXIMUM SAEED OF 2 W/KG (NORMAL OPERATING MODE) Hospital Progress note * Rossy READ, Yolanda: PERFORM, SIGN, VERIFY Event Display: Progress Note Hospital Authored Date: [id number] Patient: HALLEY TYLER Age: 67 years Sex: Female : 1955 Associated Diagnoses: None Author: Yolanda Blair RN Findings Nursing Data IV Lines. : IV Lines. 12/05/2022 15:00 EDT Right Antecubital 22 gauge Peripheral IV Activity: Discontinue Peripheral IV Assess Compare Touch: A/C/T Done, line D/C'd and or pt discharged Peripheral IV D/C Date/Time: 12/05/2022 15:27 Peripheral IV D/C Reason: Discontinued treatment complete Peripheral IV Post-Removal: Catheter tip intact Peripheral IV Dressing: Gauze 12/05/2022 14:00 EDT Right Antecubital 22 gauge Peripheral IV Activity: Start Peripheral IV Insertion Date/Time: 12/05/2022 14:19 Peripheral IV Number of Attempts: 1 Peripheral IV Site Assessment: Flushes Well, Good Blood return Peripheral IV Dressing: Semi-permeable membrane . Narrative/Incidental Pt here for Feraheme infusion. No premeds. Pt tolerated well. Ambulated off unit. End Time 1520. * Shanae Briseno RN: PERFORM, SIGN, VERIFY, MODIFY, SIGN Event Display: Progress Note Hospital Authored Date: Patient: HALLEY TYLER Age: 67 years Sex: Female : 1955 Associated Diagnoses: None Author: Shanae Briseno RN Findings Nursing Data IV Lines. : IV Lines. 11/21/2022 13:00 EDT Left Antecubital 22 gauge Peripheral IV Activity: Discontinue Peripheral IV Assess Compare Touch: A/C/T Done, line D/C'd and or pt discharged Peripheral IV D/C Date/Time: 11/21/2022 12:52 Peripheral IV D/C Reason: Discontinued treatment complete Peripheral IV Post-Removal: Catheter tip intact, Dry sterile dressing applied Peripheral IV Site Assessment: Clean, dry and intact, Cool to touch, Flushes Well, Good Blood return Peripheral IV Site Drainage: None Peripheral IV Dressing: Clean, dry and intact, Semi-permeable membrane 11/21/2022 12:00 EDT Left Antecubital 22 gauge Peripheral IV Activity: Start Peripheral IV Insertion Date/Time: 11/21/2022 12:08 Peripheral IV Number of Attempts: 1 Peripheral IV Site Assessment: Flushes Well, Good Blood return Peripheral IV Site Drainage: None Peripheral IV Dressing: Clean, dry and intact, Semi-permeable membrane . Narrative/Incidental Patient admitted for Feraheme. VSS. Education discussed, written material provided, and questions answered. Infusion well tolerated. Patient remained for 30 minute post infusion observation. No adverse reaction observed or reported. Patient ambulated off of unit. End time 1252.. Patient Care team information Care Team Personnel Name: Leena BAILEY, Gus Heredia Position: [facility] Renal MD Member Role: Lifetime Consulting Physician Address: Address: [address] [place] [address] [address] [place] [address]- Name: Gauri Ellison RN Position: S RN Member Role: Primary Care Nurse Name: Cirilo Alarcon III, MD Position: Reference Physician Member Role: PCP Address: Address: [address] [place] [address]- Name: Ck Nieves RN Position: S RN [...] Care Nurse Name: Ganesh Castillo MD Position: [facility] Renal MD Member Role: Lifetime Consulting Physician Address: Address: [address] [place] [address] [address] [facility] [place] [address]- Name: Beto Mora RN Position: S RN Member Role: Primary Care Nurse Name: Teresa Robledo RN Position: S RN Member Role: Primary Care Nurse Name: Gloria Spicer RN Position: S RN Member Role: Primary Care Nurse Care Team Related Persons Name: PRESLEY PHILLIPS Address: [address] [address] Name: CHOCO TYLER Address: home [address] [place] [address]
--- OUTSIDE RECORDS SUMMARY | 2023-03-02 08:24 | XMS_ITS | Continuity of Care Document ---
Author Name Unknown Organization [facility] Address [address] [place] [address]- Care Team Providers Care Curtain Stretcher Name Role Phone Cirilo Alarcon III, MD Primary Care Physician [place] [facility] [place](s): 03/24/21 - 04/23/21 [facility] [address] [place] [id number] Attending Physician: AdmRenae villanueva Admitting Physician: AdmtrRenae Referring Physician: Admtr, Ar8 Allergies, Adverse Reactions, Alerts Substance Reaction Severity Status clindamycin Active penicillin rash Active vancomycin Active Immunizations Given and Recorded Vaccine Date Status Refusal Reason influenza virus vaccine, inactivated 1 12/24/06 Gi leonid Pneumococcal Vaccine (oldterm) 11/19/06 Given 1Result Comment: lot# [id number] exp. [id number] Medications apixaban 2.5 mg oral tablet 1 [...] 0 Refills, Maintenance, 02/28/19 11:22:00 EST, Tablet, [facility], 170.1, cm, 02/28/19 4:06:00 EST, Height, 138, kg, 02/25/19 10:41:00 EST, Dry Weight Start Date: 02/28/19 Status: Ordered digoxin 0.125 mg oral tablet 125 mcg, 1, tablet, By Mouth, Daily, Take 1 tablet by mouth once per day for atrial fibrillation., # 30 tablet, Refills 3, Tot. Refills 3, Maintenance, 09/22/20 11:47:00 EDT, Do Not Route, Partial fill upon patient request if the prescription is for a... Start Date: 09/22/20 Status: Ordered ferrous sulfate 325 mg oral enteric coated tablet 325 mg, By Mouth, Every other day, Take 1 tablet by mouth every other day for anemia. May take withfood to minimize abdominal discomfort, # 30 tablet, Refills 3, Tot. Refills 3, Maintenance, 09/22/20 12:08:00 EDT, Do Not Route Start Date: 09/22/20 Status: Ordered furosemide 40 mg oral tablet 40 mg, 1, tablet, By Mouth, 2 times a day, # 60 tablet, Refills 0, Tot. Refills 0, Maintenance, 02/28/19 13:32:00 EST, Route to Pharmacy Electronically, [facility] #[id number], 170.1, cm, 02/28/19 4:06:00 EST, Height, 138, [...] 0 Refills Start Date: 11/15/06 Status: Ordered Orthotics See Instructions, 0, 1, 1, 04/17/07 11:47:44, 04/11/07 12:08:52, please fit for orthopedic shoes S/P right great toe amputation, Pt. has past medical HX. of Type II Diabetes, ADS OPPTHS Start Date: 04/11/07 Status: Ordered pantoprazole 40 mg oral delayed release tablet 1 tablet = 40 mg, By Mouth, Daily, # 30 tablet, 0 Refills, Maintenance, 09/13/20 16:18:00 EDT, EC Tablet Start Date: 09/13/20 Status: Ordered topiramate 25 mg oral tablet [...] Date: 08/15/17 Status: Ordered Problem List Condition Effective Dates Status Health Status Inform ant BENIGN ESSENTIAL HYPERTENSION(Confirmed) Active Cellulitis(Confirmed) Active Diabetic foot ulcer(Confirmed) Active Hyperlipidemia(Confirmed) Active Obese class II(Confirmed) Active Pneumonia(Confirmed) Active TYPE II DIABETES MELLITUS [N ON-INSULIN DEPENDENT TYPE] [NIDDM TYPE] [ADULT-ONSET TYPE] OR UNSPECIFIED TYPE, UNCONTROLLED, WITHOUT MENTION OF COMPLICATION(Confirmed) Active Social History Social History Type Response Tobacco Use: quit smoking 30 years ago. Sex
--- OUTSIDE RECORDS SUMMARY | 2023-03-02 08:24 | XMS_ITS | Continuity of Care Document ---
Author Name Unknown Organization [facility] Address [address] [place] [address]- Care Team Providers Care Construction Manager Name Role Phone Cirilo Alarcon III, MD Primary Care Physician [place] [facility] [place] Date(s): 02/15/22 - 03/17/22 [facility] [address] [place], [place] [address] Allergies, Adverse Reactions, Alerts Substance Reaction Severity Status clindamycin Active penicillin rash Active vancomycin Active Immunizations Given and Recorded Vaccine Date Status Refusal Reason SARS-CoV-2 (COVID-19) mRNA-1273 vaccine 12/28/20 R ecorded SARS-CoV-2 (COVID-19) mRNA-1273 vaccine 06/10/20 R ecorded SARS-CoV-2 (COVID-19) mRNA-1273 vaccine 05/13/20 R ecorded influenza virus vaccine, inactivated 1 12/24/06 Gi leonid Pneumococcal Vaccine (oldterm) 11/19/06 Given 1Result Comment: lot# [id number] exp. [id number] Medications apixaban 2.5 mg oral tablet 1 [...] 0 Refills, Maintenance, 02/28/19 11:22:00 EST, Tablet, [facility], 170.1, cm, 02/28/19 4:06:00 [...] 01/12/22 10:54:00 EST, Route to Pharmacy Electronically, [facility] #[id number], Partial fill upon patient request if the [...] 02/28/19 13:32:00 EST, Route to Pharmacy Electronically, [facility] #[id number], 170.1, cm, 02/28/19 4:06:00 EST, Height, 138, [...] 07/05/21 13:21:00 EDT, Route to Pharmacy Electronically, [facility] #[id number], Partial fill upon patientrequest if the prescription [...] Team Personnel Name: Gauri Ellison RN Position: [facility] RN Member Role: Primary Care Nurse Name: Nguyen Becerra RN Position: [facility] RN Member Role: Primary Care Nurse Name: Cirilo Alarcon III, MD Position: [facility] Ambulatory (view) Member Role: PCP Address: Address: [address] [place] [address] Name: Lionel Chavez RN Position: [facility] RN Supv Member Role: Primary Care Nurse Name: Kaylyn Hernandez RN Position: S RN Member Role: Primary Care Nurse Name: Chasity Justin RN Position: S RN Member Role: Primary Care Nurse Name: Beto Mora RN Position: [facility] RN Member Role: Primary Care Nurse Care Team Related Persons Name: PRESLEY PHILLIPS Address: [address] [place] [address] Name: CHOCO TYLER Address: home [address] [place] [address]
--- OUTSIDE RECORDS SUMMARY | 2023-03-02 08:24 | XMS_ITS | Continuity of Care Document ---
Author Name Unknown Organization [facility] Address [address] [place] [address]- Care Team Providers Care Knot Bumper Name Role Phone Dorian STRATTON MD, Cirilo Worrell Primary Care Physician [place] [facility] 03/24/21 - 03/31/21 [facility] [address] [place] [address] Attending Physician: Riaz BAILEY, Elpidio Referring Physician: Carlyle Morales MD Allergies, Adverse Reactions, Alerts Substance Reaction Severity Status clindamycin Active penicillin rash Active vancomycin Active Immunizations Given and Recorded Vaccine Date Status Refusal Reason influenza virus vaccine, inactivated 1 12/24/06 Gi leonid Pneumococcal Vaccine (oldterm) 11/19/06 Given 1Result Comment: lot# [id number] exp. [id number] Medications apixaban 2.5 mg oral tablet 1 [...] 0 Refills, Maintenance, 02/28/19 11:22:00 EST, Tablet, [facility], 170.1, cm, 02/28/19 4:06:00 [...] 02/28/19 13:32:00 EST, Route to Pharmacy Electronically, [facility][id number], 170.1, cm, 02/28/19 4:06:00 EST, Height, 138, [...] TYPE, UNCONTROLLED, WITHOUT MENTION OF COMPLICATION(Confirmed) Active Vital Signs Most recent to oldest [Reference Range]: 1 Height 170 cm (03/24/21 11:58 AM) Weight 109 kg (03/24/21 11:58 AM) Oxygen Saturation [94-100 %] 97 % (03/24/21 11:58 AM) Pulse Rate [55-90 bpm] 67 bpm (03/24/21 11:58 AM) Body Mass Index [18.5-24.99] 37.72 *>HHI* (03/24/21 11:58 AM) Blood Pressure [90-138/55-84 mm Hg] 114/ 67mm Hg (03/24/21 11:58 AM) Respiratory Rate [16-30 br/min] 18 br/mi n (03/24/21 11:58 AM) Mode of Delivery (Oxygen) Room air (03/24/21 11:58 AM) Blood pressure sites Arm, left (03/24/21 11:58 AM) Weight Obtained Via Patient/family state d (03/24/21 11:58 AM) Social History Social History Type Response Tobacco Use: quit smoking 30 years ago. Sex
--- OUTSIDE RECORDS SUMMARY | 2023-03-02 08:24 | XMS_ITS | Continuity of Care Document ---
Author Name Unknown Organization [facility] ter Address [address] [place] [address]- Care Team Providers Care Throw Out Clerk Name Role Phone Dorian STRATTON MD, Cirilo Worrell Primary Care Physician Encounter [facility] [place] Date(s): 09/13/20 - 09/22/[address] [address] Discharge Disposition: A-D/C Home Attending Physician: Miah Brantley MD Admitting Physician: Sanjana Couch DO Referring Physician: Not on Staff, Referring MD Allergies, Adverse Reactions, Alerts Substance Reaction Severity Status clindamycin Active penicillin rash Active vancomycin Active Immunizations Given and Recorded Vaccine Date Status Refusal Reason influenza virus vaccine, inactivated 1 12/24/06 Gi leonid Pneumococcal Vaccine (oldterm) 11/19/06 Given 1Result Comment: lot# [id number] exp. [id number] Medications apixaban 2.5 mg oral tablet 1 [...] 0 Refills, Maintenance, 02/28/19 11:22:00 EST, Tablet, [facility], 170.1, cm, 02/28/19 4:06:00 [...] 02/28/19 13:32:00 EST, Route to Pharmacy Electronically, [facility] #[id number], 170.1, cm, 02/28/19 4:06:00 EST, Height, 138, kg, 02/25/19 10:41:00 E... Start Date: 02/28/19 Status: Ordered gabapentin 300 mg oral capsule 600 mg, 2, capsule, By Mouth, 4 times a day, Refills 0, Maintenance, 02/28/19 13:11:00 EST Start Date: 02/28/19 Status: Ordered gabapentin 300 mg oral capsule 300 mg, Capsule, By Mouth, 09/22/20 9:00:00 EDT Start Date: 09/22/20 Stop Date: 09/22/20 Status: Completed gabapentin 300 mg oral capsule 300 mg, Capsule, By Mouth, 09/22/20 15:00:00 EDT Start Date: 09/22/20 Stop Date: 09/22/20 Status: Completed Insulin Lispro 3-15 units, Subcutaneous Injection, 3 [...] Status: Ordered metoprolol 50 mg oral tablet 50 mg, Tablet, By Mouth, 09/22/20 17:00:00 EDT Start Date: 09/22/20 Stop Date: 09/22/20 Status: Completed Orthotics See Instructions, 0, 1, 1, 04/17/07 [...] Active Diabetic foot ulcer(Confirmed) Active Hyperlipidemia(Confirmed) Active Pneumonia(Confirmed) Active TYPE II DIABETES MELLITUS [N ON-INSULIN DEPENDENT TYPE] [NIDDM TYPE] [ADULT-ONSET TYPE] OR UNSPECIFIED TYPE, UNCONTROLLED, WITHOUT MENTION OF COMPLICATION(Confirmed) Active Results Radiology Reports * Exam Date Time Procedure Performing Provider Status 09/13/20 9:47 AM Chest Portable Gualberto Sheth; Chris (Verified) Notes: (Chest Portable) Reason For Exam: Shortness of Breath RESULT: Chest Portable Chest Portable Hx of Present Illness: tachycardia; Reason: Shortness of Breath; Clinical Question(s): CHF COMPARISON: 02/25/2019 FINDINGS: LINES AND TUBES: None. LUNGS AND PLEURA: Suspected mild to moderate pulmonary edema. Right pleural effusion. Airspace disease in the right lung base. HEART, MEDIASTINUM AND MARCO: Mild central vascular engorgement. BONES AND SOFT TISSUES: No acute abnormality. IMPRESSION: Suspected pulmonary edema. Superimposed consolidation in the right lower lobe. Right pleural effusion. A [place] message has been communicated via the [employer] system on 09/13/2020 9:55 AM, Message ID [id number]. WSN: [id number] Ordering Physician: Korey Topete Dictated By: Magdiel Coronel MD Dictated Date/Time: 09/13/20 9:55 am Reviewed By: Magdiel Coronel MD Signed By: Magdiel Coronel MD Signed Date/Time: 09/13/20 9:55 am Transcribed By: KRYSTINA Transcribed Date/Time: 09/13/20 9:49 am Vital Signs Most recent to oldest [Reference Range]: 1 2 3 Height 170 cm (09/22/20 1:32 PM) 170 cm (09/22/20 7:53 AM) 170 cm (09/22/20 1:18 AM) Weight 118.2 kg (09/21/20 6:11 AM) 119.2 kg (09/20/20 7:25 AM) 120.9 kg (09/19/20 6:56 AM) Oxygen Saturation [94-100 %] 94 % (09/22/20 1:32 PM) 96 % (09/22/20 7:53 AM) 98 % (09/22/20 1:18 AM) Pulse Rate [55-90 bpm] 79 bpm (09/22/20 3:27 PM) 79 bpm (09/22/20 1:32 PM) 63 bpm (09/22/20 7:53 AM) Body Mass Index [18.5-24.99] 44.91 *>HHI* (09/13/20 3:55 PM) Blood Pressure [90-138/55-84 mm Hg] 102/55mm Hg (09/22/20 3:27 PM) 102/55mm Hg (09/22/20 1:32 PM) 119/44mm Hg (09/22/20 7:53 AM) Respiratory Rate [16-30 br/min] 18 br/min (09/22/20 3:27 PM) 16 br/min (09/22/20 1:32 PM) 18 br/min (09/22/20 9:17 AM) Temperature [96.8-100.4 DegF] 97.8 DegF (09/22/20 1:32 PM) 97.1 DegF (09/22/20 7:53 AM) 97.1 DegF (09/22/20 1:18 AM) Liters per Minute 1 L/min (09/22/20 7:53 AM) 1 L/min (09/22/20 1:18 AM) 1 L/min (09/21/20 7:36 PM) Mode of Delivery (Oxygen) Room air (09/22/20 1:32 PM) Nasal cannula (09/22/20 7:53 AM) Nasal cannula (09/22/20 1:18 AM) Blood pressure sites Arm, right (09/22/20 1:32 PM) Arm, left (09/22/20 7:53 AM) Arm, right (09/22/20 1:18 AM) Temperature Route Temporal (09/22/20 1:32 PM) Temporal (09/22/20 7:53 AM) Temporal (09/22/20 1:18 AM) Dry Weight 131.9 kg (09/13/20 3:55 PM) Weight Obtained Via Bed scale (09/21/20 6:11 AM) Bed scale (09/20/20 7:25 AM) Bed scale (09/19/20 6:56 AM) Dry Weight Obtained Via Patient/family s tated (09/13/20 3:55 PM) Social History Social History Type Response Tobacco Use: quit smoking 30 years ago. Sex
--- OUTSIDE RECORDS SUMMARY | 2023-03-02 08:24 | XMS_ITS | Continuity of Care Document ---
Author Name Unknown Organization [facility] Address [address] [place] [address]- Care Team Providers Care Tobacco Sieve Operator Name Role Phone Cirilo Alarcon III, MD Primary Care Physician [place] [facility] [place] - 05/[place]/22 [facility] [address] [place], [place] [address] Allergies, Adverse Reactions, Alerts Substance Reaction Severity Status clindamycin diarrhea Active penicillin rash Active Immunizations Given and Recorded Vaccine Date Status Refusal Reason SARS-CoV-2 (COVID-19) mRNA-1273 vaccine 12/28/20 R ecorded SARS-CoV-2 (COVID-19) mRNA-1273 vaccine 06/10/20 R ecorded SARS-CoV-2 (COVID-19) mRNA-1273 vaccine 05/13/20 R ecorded influenza virus vaccine, inactivated 1 12/24/06 Gi leonid Pneumococcal Vaccine (oldterm) 11/19/06 Given 1Result Comment: lot# [id number] exp. [id number] Medications atorvastatin 80 mg oral tablet 1 tablet = 80 mg, By Mouth, Daily at bedtime, # 30 tablet, 0 Refills, Maintenance, 02/28/19 11:22:00 EST, Tablet, [facility], 170.1, cm, 02/28/19 4:06:00 EST, [...] 02/28/19 13:32:00 EST, Route to Pharmacy Electronically, [facility] #[id number], 170.1, cm, 02/28/19 4:06:00 EST, Height, 138, [...] 07/05/21 13:21:00 EDT, Route to Pharmacy Electronically, [facility] #[id number], Partial fill upon patientrequest if the prescription [...] Unknown Unknown MR Khris murphy Active Unknown 1Seria [id number] Model 9750TFX Size 26MMA PATIENT WITH THIS DEVICE CAN BE SCANNED SAFELY UNDER FOLLOWING CONDITIONS : 3T OR LESS - MAXIMUM SPATIAL GRADIENT FIELD OF 2500 GAUSS/CM (25t/M) OR LESS - MAXIMUM SAEED OF 2 W/KG (NORMAL OPERATING MODE) Patient Care team information Care Team Personnel Name: Leena BAILEY, Gus Heredia Position: [facility] Renal MD Member Role: Lifetime Consulting Physician Address: Address: [address] [place] [address], [address] [place] [address]- [place] Name: Gauri Ellison RN Position: S RN Member Role: Primary Care Nurse Name: Cirilo Alarcon III, MD Position: [facility] Ambulatory (view) Member Role: PCP Address: Address: [address] [place] [address]- [place] Name: Ck Nieves RN Position: S RN Member Role: Primary Care Nurse Name: Lionel Chavez RN Position: [facility] RN Supv Member Role: Primary Care Nurse Name: Woody Hayes RN Position: S RN Member Role: Primary Care Nurse Name: Kaylyn Hernandez RN Position: S RN Member Role: Primary Care Nurse Name: Chasity Justin RN Position: S RN Member Role: Primary Care Nurse Name: Ganesh Castillo MD Position: [facility] Renal MD Member Role: Lifetime Consulting Physician Address: Address: [address] [place] [address] [address] [facility] [place] [address]- [place] Name: Beto Mora RN Position: S RN Member Role: Primary Care Nurse Name: Teresa Robledo RN Position: S RN Member Role: Primary Care Nurse Name: Gloria Spicer RN Position: S RN Member Role: Primary Care Nurse Care Team Related Persons Name: PRESLEY PHILLIPS Address: home [address] [place] [address] Name: CHOCO TYLER Address: home [address] [place] [address]
--- OUTSIDE RECORDS SUMMARY | 2023-03-02 08:24 | XMS_ITS | Continuity of Care Document ---
Author Name Unknown Organization [facility] Address [address] [place] [address]- Care Team Providers Care Clay Stain Mixer Name Role Phone Dorian STRATTON MD, Cirilo Worrell Primary Care Physician [phone] [place] [facility] [facility] [id number] Date(s): 11/11/22 - 12/11/22 [facility] [address] [place], [place] [address] Attending Physician: Admrich, Renae Admitting Physician: Admtr, Ar8 Referring Physician: Admtr, Ar8 Allergies, Adverse Reactions, [...] Vaccine (oldterm) 11/19/06 Given 1Result Comment: lot# [id number] exp. [id number] Medications atorvastatin 80 mg oral tablet 1 tablet = 80 mg, By Mouth, Daily at bedtime, # 30 tablet, 0 Refills, Maintenance, 02/28/19 11:22:00 EST, Tablet, [facility], 170.1, cm, 02/28/19 [...] 02/28/19 13:32:00 EST, Route to Pharmacy Electronically, [facility] #[id number], 170.1, cm, 02/28/19 4:06:00 EST, Height, 138, [...] 07/05/21 13:21:00 EDT, Route to Pharmacy Electronically, [facility] #[id number], Partial fill upon patientrequest if the prescription [...] 1 Unknown Unknown Unknown Unknown Unknown MR Khirs murphy Active Unknown 1Seria [id number] Model 9750TFX Size 26MMA PATIENT WITH THIS DEVICE CAN BE SCANNED SAFELY UNDER FOLLOWING CONDITIONS : 3T OR LESS - MAXIMUM SPATIAL GRADIENT FIELD OF 2500 GAUSS/CM (25t/M) OR LESS - MAXIMUM SAEED OF 2 W/KG (NORMAL OPERATING MODE) Patient Care team information Care Team Personnel Name: Gus Stern MD Position: S Renal MD Member Role: Lifetime Consulting Physician Address: Address: [address] [place] [address], [address] [place] [address]- Name: Gauri Ellison RN Position: S RN Member Role: Primary Care Nurse Name: Cirilo Alarcon III, MD Position: Reference Physician Member Role: PCP Address: Address: [address] [place] [address]- Name: Ck Nieves RN Position: S RN [...] Care Nurse Name: Ganesh Castillo MD Position: [facility] Renal MD Member Role: Lifetime Consulting Physician Address: Address: [address] [place] [address] [address] [facility] [place] [address]- Name: Beto Mora RN Position: S RN Member Role: Primary Care Nurse Name: Teresa Robledo RN Position: S RN Member Role: Primary Care Nurse Name: Gloria Spicer RN Position: S RN Member Role: Primary Care Nurse Care Team Related Persons Name: PRESELY PHILLIPS Address: home [address] [place] [address] Name: CHOCO TYLER Address: home [address] [place] [address]
--- OUTSIDE RECORDS SUMMARY | 2023-03-02 08:24 | XMS_ITS | Continuity of Care Document ---
Author Name Unknown Organization [facility] Address [address] [place] [address]- Care Team Providers Care Ocean Fishing Guide Name Role Phone Dorian STRATTON MD, Cirilo Worrell Primary Care Physician Encounter [facility] [place] Date(s): 09/14/22 - 09/21/22 [facility] [address] [place] [address] [address] Attending Physician: Sawyer BAILEY, Shayan Dooley Admitting Physician: Sawyer BAILEY, Shayan Dooley Allergies, Adverse Reactions, Alerts Substance Reaction Severity Status clindamycin diarrhea Active penicillin rash Active Immunizations Given and Recorded Vaccine Date Status Refusal Reason SARS-CoV-2 (COVID-19) mRNA-1273 vaccine 12/28/20 R ecorded SARS-CoV-2 (COVID-19) mRNA-1273 vaccine 06/10/20 R ecorded SARS-CoV-2 (COVID-19) mRNA-1273 vaccine 05/13/20 R ecorded influenza virus vaccine, inactivated 1 12/24/06 Gi leonid Pneumococcal Vaccine (oldterm) 11/19/06 Given 1Result Comment: lot# [id number] exp. [id number] Medications atorvastatin 80 mg oral tablet 1 tablet = 80 mg, By Mouth, Daily at bedtime, # 30 tablet, 0 Refills, Maintenance, 02/28/19 11:22:00 EST, Tablet, [facility], 170.1, cm, 02/28/19 4:06:00 [...] 02/28/19 13:32:00 EST, Route to Pharmacy Electronically, [facility] #[id number], 170.1, cm, 02/28/19 4:06:00 EST, Height, 138, [...] 07/05/21 13:21:00 EDT, Route to Pharmacy Electronically, [facility] #[id number], Partial fill upon patientrequest if the prescription [...] oldest [Reference Range]: 1 Height 170 cm (09/14/22 3:51 PM) Oxygen Saturation [94-100 %] 100 % (09/14/22 3:51 PM) Pulse Rate [55-90 bpm] 82 bpm (09/14/22 3:51 PM) Blood Pressure [90-138/55-84 mm Hg] 94/6 0mm Hg (09/14/22 3:51 PM) Blood pressure sites Arm, right (09/14/22 3:51 PM) Dry Weight 90 kg (09/14/22 3:51 PM) Dry Weight Obtained Via Patient/family s tated (09/14/22 3:51 PM) Social History Social History Type Response [...] Unknown MR Khris murphy Active Unknown 1Serial 2662824 Model 9750TFX Size 26MMA PATIENT WITH THIS DEVICE CAN BE SCANNED SAFELY UNDER FOLLOWING CONDITIONS : 3T OR LESS - MAXIMUM SPATIAL GRADIENT FIELD OF 2500 GAUSS/CM (25t/M) OR LESS - MAXIMUM SAEED OF 2 W/KG (NORMAL OPERATING MODE) Note * Ashleigh Johnson: PERFORM, SIGN, VERIFY Event Display: Patient Education/Instruction Authored Date: [id number] [facility] [address] Clinical Summary Name HALLEY TYLER Age 66 Years 1955 PCP Dorian STRATTON MD, Cirilo Worrell PCP Visit Date 09/14/2022 15:36:00 Additional Instructions: Scheduled Appointments?? Future Appointments ?*[facility]??[place],??[place],??[address] ?Phone:??--?Fax:??-- ?Appt. Date:??2022?2:40 PM ?Scheduled Provider:??Sawyer BAILEY, Shayan Dooley ?*[facility]??Lab[address] ?Phone:??--?Fax:??-- ?Appt. Date:??10/31/2022?1:00 PM ?Scheduled Provider:??PVR Room ?*[facility]??[place],??[place],??[address] ?Phone:??--?Fax:??-- ?Appt. Date:??11/02/2022?1:00 PM ?Scheduled Provider:??Amador MARTÍNEZ , Bhavna Fermin Follow-Up Instructions ?? With: Address: When: Sawyer BAILEY, Shayan Dooley 09/15/2022 12:00 AM Comments: ??We will see her in 1 month??and wound care with [facility] Diagnosis Medications: Please continue your medications until [...] orders Vital Signs Height 170 cm Weight BMI Blood Pressure 94 mm Hg/60 mm Hg Temperature Pulse Rate 82 bpm Respiratory Rate 02 Sat Mode of Delivery 100 %/ You can now view a summary of your hospital visit from the comfort of your home through a free online portal called [employer]. [employer] is a website that allows you to securely view your medical information including discharge summary, medications and follow-up visits. ??You can alsosend a secure electronic message to your doctor???s office to request appointments, renew medications or just ask a question. You can enroll at [email or web address] or register during your next office [...] care provider, you may find a [facility] provider by calling [facility] at [phone]. For information about the plan of care [...] Team Personnel Name: Gus Stern MD Position: [facility] Renal MD Member Role: Lifetime Consulting Physician Address: Address: [address] [place] [address] Name: Gauri Ell[place] RN Position: S RN Member Role: Primary Care Nurse Name: Cirilo Alarcon III, MD Position: Reference Physician Member Role: PCP Address: Address: [address] [place] [address] Name: Ck Nieves RN Position: S RN Member Role: Primary Care Nurse Name: Lionel Chavez RN Position: S RN Supchristian Member Role: Primary Care Nurse Name: Woody Hayes RN Position: S RN Member Role: Primary Care Nurse Name: Kaylyn Hernandez RN Position: S RN Member Role: Primary Care Nurse Name: Chasity Justin RN Position: S RN Member Role: Primary Care Nurse Name: Ganesh Castillo MD Position: [facility] Renal MD Member Role: Lifetime Consulting Physician Address: Address: [address] [facility] [address] [facility] [place] [address]- Name: Beto Mora RN Position: S RN Member Role: Primary Care Nurse Name: Teresa Robledo RN Position: S RN Member Role: Primary Care Nurse Name: Gloria Spicer RN Position: S RN Member Role: Primary Care Nurse Care Team Related Persons Name: PRESLEY PHILLIPS Address: home [address] [place] [address] Name: CHOCO TYLER Address: home [address] [place] [address]
--- OUTSIDE RECORDS SUMMARY | 2023-03-02 08:24 | XMS_ITS | Continuity of Care Document ---
Author Name Unknown Organization [facility] ter Address [address] [place] [address]- Care Team Providers Care Buckle Inspector Name Role Phone Wes White MD Primary Care Physician Encounter [facility] [place] Date(s): 02/25/19 - 02/28/[address] [address]- [facility] Discharge Disposition: A-D/C Home Attending Physician: Duke Aguilar MD Admitting Physician: Duke Aguilar MD Referring Physician: Duke Aguilar MD Allergies, Adverse Reactions, Alerts Substance Reaction Severity Status clindamycin Active penicillin rash Active Immunizations Given and Recorded Vaccine Date Status Refusal Reason influenza virus vaccine, inactivated 1 12/24/06 Gi leonid Pneumococcal Vaccine (oldterm) 11/19/06 Given 1Result Comment: lot# [id number] exp. [id number] Medications aspirin 81 mg oral delayed release tablet 81 mg, By Mouth, Daily, Refills 0, Maintenance, 02/28/19 13:10:00 EST Start Date: 02/28/19 Status: Ordered atorvastatin 80 mg oral tablet 1 tablet = 80 mg, By Mouth, Daily at bedtime, # 30 tablet, 0 Refills, Maintenance, 02/28/19 11:22:00 EST, Tablet, [facility], 170.1, cm, 02/28/19 4:06:00 EST, Height, 138, kg, 02/25/19 10:41:00 EST, Dry Weight Start Date: 02/28/19 Status: Ordered ferrous sulfate 325 mg oral enteric coated tablet 325 mg, By Mouth, Daily, # 30 tablet, Refills 0, Tot. Refills 0, Maintenance, 02/28/19 11:22:00 EST, Route to Pharmacy Electronically, [facility], 170.1, cm, 02/28/19 4:06:00 EST, Height, 138, kg, 02/25/19 10:41:00 EST, Dry Weight Start Date: 02/28/19 Status: Ordered furosemide 40 mg oral tablet 40 mg, 1, tablet, By Mouth, 2 times a day, # 60 tablet, Refills 0, Tot. Refills 0, Maintenance, 02/28/19 13:32:00 EST, Route to Pharmacy Electronically, [facility] #[id number], 170.1, cm, 02/28/19 4:06:00 EST, Height, 138, kg, 02/25/19 10:41:00 E... Start Date: 02/28/19 Status: Ordered gabapentin 300 mg oral capsule 600 mg, 2, capsule, By Mouth, 4 times a day, Refills 0, Maintenance, 02/28/19 13:11:00 EST Start Date: 02/28/19 Status: Ordered isosorbide mononitrate 30 mg oral tablet, extended release 30 mg, 1, tablet, By Mouth, Daily in AM, # 30 tablet, Refills 0, Maintenance, 08/15/17 1:41:35 EDT Start Date: 08/15/17 Status: Ordered Lantus 100 u/ml subcutaneous solution 85 units, Subcutaneous Infusion, Daily at bedtime, 0 Refills Start Date: 02/07/07 Status: Ordered metformin 500 mg oral tablet 1,000 mg, 2, tablet, By Mouth, 2 times a day, 0 Refills Start Date: 11/15/06 Status: Ordered metoprolol 25 mg oral tablet 50 mg, 2, tablet, By Mouth, 2 times a day, Refills 0, Maintenance, 02/28/19 13:11:00 EST Start Date: 02/28/19 Status: Ordered NovoLog FlexPen 100 units/mL subcutaneous solution = 22 units, Subcutaneous Infusion, 3 times a day, 0 Refills, sliding scale, 11/15/06 16:07:03 EDT Start Date: 11/15/06 Status: Ordered omeprazole 20 mg oral delayed release tablet 1 tablet = 20 mg, By Mouth, Daily, # 30 tablet, 0 Refills, Maintenance, 02/25/19 11:54:00 EST, CR Tablet Start Date: 02/25/19 Status: Ordered Orthotics See Instructions, 0, 1, 1, 04/17/07 11:47:44, 04/11/07 12:08:52, please fit for orthopedic shoes S/P right great toe amputation, Pt. has past medical HX. of Type II Diabetes, ADS OPPTHS Start Date: 04/11/07 Status: Ordered Plavix 75 mg oral tablet 75 mg, 1, tablet, By Mouth, Daily, Refills 0, Maintenance, 02/28/19 13:11:00 EST Start Date: 02/28/19 Status: Ordered topiramate 25 mg oral tablet [...] Active Diabetic foot ulcer(Confirmed) Active Hyperlipidemia(Confirmed) Active TYPE II DIABETES MELLITUS [N ON-INSULIN DEPENDENT TYPE] [NIDDM TYPE] [ADULT-ONSET TYPE] OR UNSPECIFIED TYPE, UNCONTROLLED, WITHOUT MENTION OF COMPLICATION(Confirmed) Active Results Radiology Reports * Exam Date Time Procedure Performing Provider Status 02/25/19 4:18 PM Chest Portable Alber Saunders (RAD[facility]); Auth (Verified) Notes: (Chest Portable) Reason For Exam: CHF RESULT: Chest Portable Chest Portable AP upright at 1611 hours Reason: CHF COMPARISON: 08/14/2017 FINDINGS: LINES AND TUBES: None. LUNGS AND PLEURA: Low lung volumes with mild crowding of bronchovascular markings.. Lungs are otherwise clear with noconsolidation. No pleural effusion. No pneumothorax. HEART, MEDIASTINUM AND MARCO: Heart is normal in size. Normal mediastinal and hilar contour. BONES AND SOFT TISSUES: No acute abnormality. IMPRESSION: Low lung volume with crowding of bronchovascular markings. There may be mild superimposed central pulmonary congestion without mando edema. WSN: [id number] Dictated By: Stephane Saravia DO Dictated Date/Time: 02/25/19 4:25 pm Reviewed By: Stephane Saravia DO Signed By: Stephane Saravia DO Signed Date/Time: 02/25/19 4:25 pm Transcribed By: KRYSTINA Transcribed Date/Time: 02/25/19 4:24 pm Vital Signs Most recent to oldest [Reference Range]: 1 2 3 Height 170.1 cm (02/28/19 12:00 PM) 170.1 cm (02/28/19 4:06 AM) 170.1 cm (02/27/19 6:00 PM) Weight 131.5 kg (02/28/19 4:06 AM) 131.7 kg (02/27/19 1:00 PM) 153.3 kg (02/27/19 6:34 AM) Oxygen Saturation [94-100 %] 95 % (02/28/19 12:00 PM) 95 % (02/28/19 4:06 AM) 94 % (02/27/19 6:00 PM) Pulse Rate [55-90 bpm] 69 bpm (02/28/19 12:00 PM) 75 bpm (02/28/19 9:44 AM) 66 bpm (02/28/19 4:06 AM) Body Mass Index [18.5-24.99] 45.45 *>HHI* (02/28/19 4:06 AM) 45.52 *>HHI* (02/27/19 1:00 PM) 47.69 *>HHI* (02/25/19 10:41 AM) Blood Pressure [90-138/55-84 mm Hg] 146/60mm Hg *H* (02/28/19 12:00 PM) 149/50mm Hg *H* (02/28/19 9:44 AM) 154/41mm Hg *H* (02/28/19 4:06 AM) Respiratory Rate [16-30 br/min] 18 br/min (02/28/19 1:52 PM) 18 br/min (02/28/19 12:00 PM) 18 br/min (02/28/19 10:45 AM) Temperature [96.8-100.4 DegF] 97.8 DegF (02/28/19 12:00 PM) 98 DegF (02/28/19 4:06 AM) 98.3 DegF (02/27/19 6:00 PM) Liters per Minute 2 L/min (02/27/19 6:00 AM) 2 L/min (02/27/19 4:00 AM) 2 L/min (02/27/19 2:00 AM) Mode of Delivery (Oxygen) Room air (02/28/19 12:00 PM) Room air (02/28/19 4:06 AM) Room air (02/27/19 6:00 PM) Blood pressure sites Arm, left (02/28/19 12:00 PM) Arm, left (02/28/19 4:06 AM) Arm, left (02/27/19 6:00 PM) Temperature Route Oral (02/28/19 12:00 PM) Oral (02/28/19 4:06 AM) Oral (02/27/19 6:00 PM) Dry Weight 138 kg (02/25/19 10:41 AM) Weight Obtained Via Bed scale (02/28/19 4:06 AM) Bed scale (02/27/19 1:00 PM) Bed scale (02/26/19 7:16 AM) Sensory deficits None (02/25/19 10:41 AM) Mobility assistance Wheelchair: self (02/25/19 10:41 AM) Social History Social History Type Response Tobacco Use: quit smoking 30 years ago. Sex
--- OUTSIDE RECORDS SUMMARY | 2023-03-02 08:24 | XMS_ITS | Continuity of Care Document ---
Author Name Unknown Organization [facility] ter Address [address] [place] [address]- Care Team Providers Care Hand Baseball Sewer Name Role Phone Cirilo Alarcon III, MD Primary Care Physician [place] [facility] [place]28[place] - 03/28/[address] [address] [place] Discharge Disposition: A-D/C Home Attending Physician: Shayan Jacques MD Admitting Physician: Shayan Jacques MD Referring Physician: Shayan Jacques MD Allergies, Adverse Reactions, Alerts Substance Reaction Severity Status clindamycin diarrhea Active penicillin rash Active vancomycin flushed Active Immunizations Given and Recorded Vaccine Date Status Refusal Reason SARS-CoV-2 (COVID-19) mRNA-1273 vaccine 12/28/20 R ecorded SARS-CoV-2 (COVID-19) mRNA-1273 vaccine 06/10/20 R ecorded SARS-CoV-2 (COVID-19) mRNA-1273 vaccine 05/13/20 R ecorded influenza virus vaccine, inactivated 1 12/24/06 Gi leonid Pneumococcal Vaccine (oldterm) 11/19/06 Given 1Result Comment: lot# [id number] exp. [id number] Medications apixaban 2.5 mg oral tablet 1 [...] Refills, Maintenance, 02/28/19 11:22:00 EST, Tablet, [facility], 170.1, cm, 02/28/19 4:06:00 EST, Height, [...] 01/12/22 10:54:00 EST, Route to Pharmacy Electronically, [facility] #[id number], Partial fill upon patient request if the [...] opioid drug. Start Date: 03/25/22 Status: Ordered Fioricet Tablet By Mouth, Every 4 hours, 0 Refills, Maintenance, 03/25/22 11:16:00 EST, Partial fill upon patient request if the prescription is for a schedule II opioid drug. Start Date: 03/25/22 Status: Ordered furosemide 40 mg oral tablet 40 mg, 1, tablet, By Mouth, 2 times a day, # 60 tablet, Refills 0, Tot. Refills 0, Maintenance, 02/28/19 13:32:00 EST, Route to Pharmacy Electronically, [facility][id number], 170.1, cm, 02/28/19 4:06:00 EST, Height, 138, [...] 07/05/21 13:21:00 EDT, Route to Pharmacy Electronically, [facility] #[id number], Partial fill upon patientrequest if the prescription [...] Confirmed Active Obese class I Confirmed Active Obese class II Confirmed Active Pneumonia Confirmed Active TYPE II DIABETES MELLITUS [NON-INSULIN DEPENDENT TYPE] [NIDDM TYPE] [ADULT-ONSET TYPE] OR UNSPECIFIED TYPE, UNCONTROLLED, WITHOUT MENTION OF COMPLICATION Confirmed Active Vital Signs Most recent to oldest [Reference Range]: 1 2 3 Height 170 cm (03/28/22 10:43 AM) 170 cm (03/25/22 11:32 AM) Weight 109.8 kg (03/28/22 10:43 AM) Oxygen Saturation [94-100 %] 99 % (03/28/22 5:15 PM) 97 % (03/28/22 5:00 PM) 95 % (03/28/22 4:45 PM) Pulse Rate [55-90 bpm] 82 bpm (03/28/22 10:43 AM) Body Mass Index [18.5-24.99 kg/m2] 37.99 kg/m2 *>HHI* (03/28/22 10:43 AM) Blood Pressure [90-138/55-84 mm Hg] 124/64mm Hg (03/28/22 5:15 PM) 124/64mm Hg (03/28/22 5:00 PM) 110/56mm Hg (03/28/22 4:45 PM) Respiratory Rate [16-30 br/min] 11 br/min *L* (03/28/22 5:15 PM) 13 br/min *L* (03/28/22 5:00 PM) 9 br/min *L* (03/28/22 4:45 PM) Temperature [96.8-100.4 DegF] 97 DegF (03/28/22 4:30 PM) 97 DegF (03/28/22 2:00 PM) 97.8 DegF (03/28/22 10:43 AM) Mode of Delivery (Oxygen) Room air (03/28/22 5:15 PM) Room air (03/28/22 2:00 PM) Room air (03/28/22 10:43 AM) Blood pressure sites Arm, left (03/28/22 4:15 PM) Arm, left (03/28/22 2:30 PM) Arm, left (03/28/22 2:15 PM) Temperature Route Temporal (03/28/22 4:30 PM) Temporal (03/28/22 2:00 PM) Temporal (03/28/22 10:43 AM) Dry Weight 109.8 kg (03/28/22 10:43 AM) Weight Obtained Via Standing scale (03/28/22 10:43 AM) Dry Weight Obtained Via Standing scale (03/28/22 10:43 AM) Social History Social History Type Response Tobacco Use: quit smoking 30 years ago. Sex Note * Bhavna Daniel RN: PERFORM Event Display: Discharge/Transfer Note Hospital Authored Date: [id number] Nursing Discharge Note Entered On: 03/28/2022 16:21 EST Performed On: 03/28/2022 16:21 EST by Bhavna Daniel RN Nursing Discharge Note 2 Discharge Time : 03/28/2022 17:50 EST Patient Left Unit Via : Wheelchair Patient Accompanied Off Unit with : Other: staff DC Instructions Provided & Signed by Pt : No Patient Understands D/C Instructions : Yes Verbalized Understanding of D/C Plan By : Patient, Significant other Patient Instructions Discharge Signed : Yes Did Pt have Specialty Bed or Wound Vac : No Bhavna Daniel RN - 03/28/2022 18:00 EST Discharge Level of Care at Discharge : Home/[facility] Bhavna Daniel RN - 03/28/2022 16:21 EST * Bhavna Daniel RN: PERFORM Event Display: Patient Education/Instruction Authored Date: [id number] Inpatient Adult Discharge Instructions [address] [id number] Name: HALLEY TYLER : 1955 Visit: 03/28/2022 09:36:00 Current Date: 03/28/2022 16:57 Account: [id number] Inpatient Adult Discharge Instructions We would like [...] and their families. Surveys are administered by [employer] ?? If further treatment with your primary care physician or another doctor is recommended, it is important for you to keep the appointment. Call your primary care physician or return to the Emergency Department immediately if your condition worsens, fails to improve, or new symptoms develop. If you need to find a doctor, you can call [facility] for a referral at [phone] or toll free at [phone] or log in to [email or web address].. ?? You can view and manage your care through the patient portal or by using a health care sonny of your choosing. [employer] is a website that allows you to securely view your medical information including your hospital discharge summary, office visit summaries, medications and follow-up visits. You can also request appointments, renew medications, and request access to your medical information using a health care sonny of your choosing, or just ask a question. You can enroll at [email or web address] or register during your next office visit. You have been discharged from [facility], Patient Care Unit: CARE. If you have any questions regarding these instructions after you leave, please call us and we will be happy to assist you. [facility] Your Care Team Attending Physician Sawyer BAILEY, Shayan Dooley Discharging Providers Sandor BAILEY, Kimi Rosas Reason for Admission PVD W ULCER LLE ANGIO L2DEMP 23HR DST [place] 945AM Tests Performed Below is a partial list of the tests performed during your hospitalization. You may have had other tests and procedures not included in this list. Please discuss all test results with your provider. GLUCOSE POC Primary Care Provider Dorian STRATTON MD, Cirilo Worrell Advance Directive Health Care Proxy on File Yes - Health Care Proxy Yes - [facility]OL[facility] Discharge Vitals Temperature: 97 DegF Height: 170 cm Pulse Rate: 82 bpm Weight: 109.8 kg Respiratory Rate: 16 br/min Body Mass Index:??37.99 kg/m2??Critical Systolic Blood Pressure: 128 mm Hg Body surface area: 2.28 Diastolic Blood Pressure: 70 mm Hg ?? Oxygen Saturation: 96 % ?? Studies Pending All tests and labs ordered during this hospital stay have been completed unless listed below. Please discuss all pending results with your provider listed above in these instructions. ?? No incomplete studies found What to do next Instructions From Your Doctor Lay flat x4 hours. Minimize weight bearing. Heel weight bearing shoe. Discharge Orders Instructions from your Care Team You may take tylenol again at 9pm. ?? Scheduled Follow-Up Appointments Monday 11:00 AM EST ?? Where: [facility] [address] [address]- You Need to Schedule the Following Appointments Follow Up with??Sawyer BAILEY, Shayan Dooley When??Within 1-2 day: call to discuss follow up visit Where: Discharge Medications HALLEY TYLER :1955 Visit Date:03/28/2022 Medications: Please continue your medications until treatment is completed or stopped by your provider. Medications not listed below should be discontinued. Discuss any questions related to medications with your provider. What How Much When Instructions Next Dose Unchanged Acetaminophen/ Butalbital/ Caffeine (Fioricet Tablet) Oral Every 4 hours resume home schedule Unchanged apixaban (apixaban 2.5 mg oral tablet) 1 tab(s) Oral Twice a day resume home schedule Unchanged apixaban (Eliquis 2.5 mg oral tablet) 1 tab(s) Oral Twice a day resume?? home schedule Unchanged Atorvastatin (atorvastatin 80 mg oral tablet) 1 tab(s) Oral Daily at Bedtime Unchanged Cadexomer-Iodine Topical (Iodosorb 0.9% topical gel) See instructions dispense one tube 10g ?? resume home schedule Unchanged Calcitriol (calcitriol 0.25 mcg oral capsule) 1 capsule Oral Monday, Monday and Monday resume home schedule Unchanged Cholecalciferol (Vitamin D3 2000 intl units oral capsule) 1 capsule Oral Daily resume home schedule Unchanged Clopidogrel (Plavix 75 mg oral tablet) 1 tab(s) Oral Daily resume home schedule Unchanged Cyanocobalamin (Vitamin B12 500 mcg oral tablet) 2 tab(s) Oral Daily resume home schedule Unchanged Diltiazem (DilTIAZem (Eqv-Tiazac)) 120 Milligram Oral Daily resume home schedule Unchanged Docusate (Colace sodium 100 mg oral capsule) 1 capsule Oral Twice a day as needed for Constipation resume home schedule Unchanged Durable Medical Equipment (Calcium Alginate Pad (7.5 X 12cm)) See instructions apply a small piece to the wounds on the left second toe and heel daily, cover with dressing ?? resume home schedule Unchanged Furosemide (furosemide 40 mg oral tablet) 1 tab(s) Oral Twice a day resume home schedule Unchanged Insulin Glargine (Lantus Inj) 70 unit(s) Subcutaneous Injection Daily at Bedtime resume home schedule Unchanged Insulin Lispro 3-15 units Subcutaneous Injection 3 times a day before meals resume home schedule Unchanged Isosorbide Mononitrate (isosorbide mononitrate 30 mg oral tablet, extended release) 1 tab(s) Oral Daily in the morning resume home schedule Unchanged Metformin (metformin 500 mg oral tablet) 2 tab(s) Oral Twice a day resume home schedule Unchanged Metoprolol (Toprol XL 50 mg oral tablet, extended release) 1 tab(s) Oral Daily Take 3 tablets by mouth once per day for atrial fibrillation. ?? resume home schedule Unchanged Pantoprazole (pantoprazole 40 mg oral delayed release tablet) 1 tab(s) Oral Daily resume home schedule Unchanged Pregabalin (pregabalin 75 mg oral capsule) 1 capsule Oral Twice a day resume home schedule Unchanged Topiramate (topiramate 25 mg oral tablet) 1 tab(s) Oral Twice a day resume home schedule Test Results Below is a partial list of the most recent Laboratory test results done prior to this discharge. You may have had other tests and procedures not included in this list. Please discuss all test resultswith your provider. GLUCOSE POC (03/28/2022) ???Glucose, POC - 79 mg/dL Allergies (NKA means No Known Allergies) clindamycin??(diarrhea) penicillin??(rash) vancomycin??(flushed) Problems Active Problems??(8) BENIGN ESSENTIAL HYPERTENSION?? Cellulitis?? Diabetic foot ulcer?? Hyperlipidemia?? Obese class I?? Obese class II?? Pneumonia?? TYPE II DIABETES MELLITUS [NON-INSULIN DEPENDENT TYPE] [NIDDM TYPE] [ADULT-ONSET TYPE] OR UNSPECIFIE?? Education Materials Below is the list of Educational Leaflet Providered with your Discharge Instructions. M-NSx DC Instructions Angio?? BVS-Toe and ??partial foot Amp?? M-Groin I Discharge Instructions?? BVS-Special Instructions?? BVS-Toe and ??partial foot Amp?? Valuables and Belongings I fully understand and agree that [facility] accepts no responsibility for all my personal [...] Review of Valuable and Belonging List: With patient Possessions released to: Care Unit Date for Pt to Sign Valuables/Belongings: 03/28/22 11:27:00 ?? Other Discharge Information ? Case Management Discharge Plan?? Discharge Plan?? Discharge Level of Care at Discharge: Home/[facility] ?? Pulmonary Rehab Status?? Pulmonary Rehab Discharge Status?? Respiratory Rate: 16 br/min ? Common Emergency Awareness Tips IS [...] are strongly encouraged to quit. Please call [facility] at [phone] or [phone]) or log in to [email or web address] for referrals to smoking cessation programs. ?? The National Suicide Prevention Hotline is available 12/09 if you or someone you know needs to find a reason to keep living. By calling 8-784-948-aafn (0365) you'll be connected to a skilled, trained counselor at a crisis center in your area. INPATIENT DISCHARGE INSTRUCTIONS SIGNATURE PAGE HALLEY TYLER Location:[facility] Registration Date and Time:03/28/2022 09:36 EST Primary Care Physician: Dorian STRATTON MD, Cirilo Worrell, I HALLEY TYLER, have received the above patient education materials/instructions and have verbalized understanding. If ambulance or transport services are being used I further acknowledge being given a choice of service. ?? If you need to contact me, please call me at this number: . Patient/Net Programmer Analyst Name: Patient/Net Programmer Analyst Signature: Relationship to Patient: Witness Name/Signature: Date: * Bhavna Daniel RN: PERFORM Event Display: Patient Education Leaflets Authored Date: [id number] M-NSx DC Instructions Angio ?? 184 Diagnostic Angiogram Discharge Instructions ?? Call your doctor if you have or experience any of the following: ??? Bleeding from the puncture site, temperature of 101 or more, redness, drainage, swelling or increased discomfort at the puncture site. ??? Change in breathing, chest pain, dizziness, fainting, significant worsening of palpitations, nausea, vomiting, or change in appetite. ??? Side-effects from the medications (rash, cough, dizziness, leg cramps, nausea or blurred vision). ??? New redness or irritation on your back which can result (rarely) from exposure to radiation during your procedure. ?? Call 911 or go to your closest emergency room if you develop any of the following: ??? New sudden onset of weakness, numbness, loss or changes in your vision, slurred or garbled speech, or any concern for a stroke or mini-stroke. ??? Numbness, tingling, loss of sensation, and for coolness to your arms or legs. ??? Chest pain or discomfort that is not relieved with rest. ?? If profuse bleeding (does not stop in 30 minutes) occurs hold pressure to the site and CALL [address] [facility]. ?? Follow Up Instructions: ??? You should have a follow up appointment with your doctor within 2-8 days of the procedure. ??? If you do not have an appointment already scheduled, call [phone] to make an appointment when you get home. ?? Post-Procedure Instructions: ??? No heavy lifting over 10 pounds (gallon of milk) for 1 week following the procedure, gradually increase activities over the next 5 days. ??? You may feel like restingmore after your procedure. Slowly start to do more each day. Rest when you feel it is needed. ??? No driving or operating heavy machinery the day of discharge. ??? Make sure to look at your proceduresite every day until completely healed. You may see bruising at the puncture site and that is common after the procedure. ??? You may shower when you go home but no tub baths, hot tubs, soaking of the puncture site or swimming for 1 week. ??? Keep the site covered with a band-aid for 48 hours. Apply clean band-aid after showering for the next 2 days. ??? If you have mild pain at the incision siteyou may take Tylenol or ibuprofen or Aleve as needed. DO NOT TAKE combinations of the above. ??? A follow-up phone call by a nurse will be made within 72 hours of your procedure. ??? At the earliest you can return to work 5 days after your procedure, the above restrictions may apply (e.g. lifting).??? You may resume sexual activity 5 days after procedure; avoid bending the hip on the side of thegroin puncture excessively and any strenuous positions. ??? You should resume all your regular medications as scheduled before the procedure unless a specific change was made by your doctor or their team during or after the procedure. ??? If you are taking Aspirin, Plavix or other antiplatelet medic ation you MUST not miss a dose. ??? If you were taking Coumadin before the procedure you should have specific instructions in your possession. You should resume Coumadin on day 1 after the procedure.Adhere to the prescribed lovenox injections until you follow-up with your Coumadin clinic to check your INR. You should follow-up with your Coumadin clinic 4-6 days after your procedure. ?? * Fredy READ, Bhavna Cook: PERFORM Event Display: Patient Education Leaflets Authored Date: [id number] BVS-Toe and partial foot Amp ?? 61 Toe/Partial Foot Amputation Post Operative Discharge Instructions ?? You are being discharged from the hospital.?? Here is information related to your condition to helpyou when you get home.?? In addition, you may have been given the [facility] heart and vascular patient education book.?? This book provides written information and instruction for you to review at home with your family.? Special Instructions Post Operative Discharge Care Instructions Bathing ??? No showering or tub baths until cleared by vascular surgeon. ?? Incision Care ??? Keep your incision clean and dry.?? Use only soap and water to cleanse the area around the incision.?? Once the incision is healed you may wash over the incision with a soft wash cloth and soap and water.? Do not use perfumed soaps or body washes, lotions, creams, oils or ointments on your incision. This may irritate your incision and put you at risk for an infection. ??? Check your incision daily fordrainage, redness, increased tenderness or edges pulling apart.?? Some bruising and discoloration is normal in the first week following surgery. ??? If your incision is still draining, you will learn how to apply dry clean dressings.? If you have steri strips on your incision, remove them on Post-Op Day #5. ?? Limb Elevation ??? You may experience some limb swelling following surgery. ??? Itis important that you are not sitting for long periods of time with your limb down.?? Elevate your limb as much as possible. ??? If you notice swelling, elevate your limb at or above heart level while seated.?? If swelling continues or worsens call the vascular surgery office. ?? Activity ??? When appropriate physical therapy will be ordered.? You may need a post-operative shoe, your vascular surgeon will order if necessary.? It is important to continue to do the coughing and deep breathing exercises to help prevent breathing complications. ?? Driving ??? No driving until cleared byyour surgeon. ??? Always wear a seat belt. ?? Sexual Relations ??? You may resume sexual activity as soon as you feel comfortable. ?? Emotions ??? It is common for people to feel more emotional or have difficulty concentrating or remembering after major surgery.?? These emotions may be the result of anesthesia, medications, not knowing whatto expect and difficulty doing simple tasks without becoming tired.? Pain ??? You may have some muscle or incision discomfort during activity. You will be given prescription medication for the pain and use it if you need it.? Call the Vascular SURGEON ? For any incision redness, swelling, tenderness, drainage, or odor. ??? For a temperature of 101.5 degrees F or greater. ??? For unusual or severe limb pain, loss of sensation or movement, coldness or discoloration of the limb, and any skin breakdown of the limb. ?? Seek care IMMEDIATELY if? You have increased or unusual pain or numbness of limb, or sudden loss of movement in your limb. ??? Your limb becomes very cold, or turns pale or blue ??? You have trouble breathing all of a sudden ??? Your stitches or carmen come apart or separate ??? Your incision suddenly starts bleeding and/or your dressing becomes soaked with blood ?You have signs of a heart attack:?? CALL 911 right away. You may need an ambulance to take you to the hospital. Do not drive yourself or wait for your doctor to call you back.?? Signs of a heart attack may be: o Chest pain or discomfort, including squeezing, crushing, pressure, tightness or heaviness in the chest. o Pain or discomfort in your arms , shoulders, neck, back or jaw. o Indigestion, such as heartburn and upset stomach. o Nausea (feel sick to your stomach) and vomiting (throwing up). o Pain in your abdomen (stomach). o Shortness of breath. o Sweating, weakness or fainting (passing out). Follow-up ??? A follow up appointment should be made with your surgeon for 1 to 2 weeks following discharge.?? If you do not have an appointment scheduled already, make an appointment when you get home.?? Follow up care is important; it is strongly encouraged for you to keep your appointment. You may have more than one appointment, one with your surgeon and one with your primary care doctor. ??? Be sure tosee your primary care physician 1-2 weeks after hospital discharge. ??? Ask your doctor when you can return to work. ??? If you have any questions, please call the vascular surgeons at [phone]. ?? Heart and Vascular Healthy Living You can make style changes that can help lower your risk for heart and vascular disease.?? The following information can help you get started or maintain your current lifestyle. Diet ??? Eat a low fat, low cholesterol diet. ??? Eating 3 to 4 small meals daily maybe better tolerated than 1-2 large meals daily ??? Limit caffeine and alcohol use ??? Limit the amount of salt in your diet Exercise ??? Routine regular or prescribed exercise is strongly encouraged. ??? Avoid strenuous exercise after meals Smoking ??? If you smoke, you are strongly encouraged to quit.? Smoking can increases blood pressure, decrease exercise tolerance and increase the tendency for blood to clot, decrease HDL (good) cholesterol and creates a higher risk for having a heart at tack, stroke or other vascular events.? If you are ready to quit, please let us know; Referrals to smoking cessation programs are available. Lowering your cholesterol ??? Talk to your doctor about taking medicine for high cholesterol. Diet and exercise may not loweryour cholesterol enough. Cholesterol medicines may help prevent further cholesterol build up in thearteries. High blood pressure and diabetes ??? If you have high blood pressure or diabetes, continue with your prescribed treatments.?? These health problems if not controlled can put you at risk for having a heart attack, stroke or other vascular events. ?? Stress ??? Stress may slow healing and cause illness later. Since it is hard to avoid stress, learn to control it. Learn new ways to relax (deep breathing, relaxing muscles, meditation, or biofeedback). Talk to your caregiver about things that upset you. ?? Medication Information Take all your medicationsas prescribed.?? Many medications have more than one name. Be sure you know the name of your medication.?? Call your physician if you have any questions after you get home.?? Keep a written list ([facility]) of what medicines you take and when and why you take them. Bring the list of your medicines or the pill bottles when you see your caregivers. Learn why you take each medicine. Ask your caregiver for information about your medicine. Depending on your condition, you may have other medicines prescribed as part of your discharge plan of care.?? Some may include: ??? Pain Medication :?? Pain medications may be prescribed after surgery.?? Controlling your pain is important to help you heal and increase your activity level.?? One of the side effects of pain medication is constipation.?? If you are taking pain medication on a regular basis, it is important to also take a stool softener that is prescribed. Also, adding high fiber foods, fiber medicines and prune juice may help.? Antibiotics :?? You may be prescribed antibiotics following surgery.?? This medicine may be given to help you fight infection. It is important for you to finish the prescription. ??? PJ inhibitors : These are medicines that keep your blood vessels relaxed and open. They help keep oxygen-rich blood flowing into your heart. These medicines may be used to treat high blood pressure and prevent your heart muscle from weakening. ??? Aldosterone Inhibitors : These medicines prevent scar tissue from forming in your heart.?? It also helps with eliminating extra salt and water. ??? Angiotensin Receptor Blockers (ARB): These medicines lower blood pressure and prevent your heart muscle from weakening. These medicines are used for patients who can not tolerate PJ Inhibitors. ??? Beta-blockers : These medicines keep your heart pumping strongly and regularly and may also lower your blood pressure. Beta blockers lower blood pressure, prevent chest pain and irregular heart beats. ??? Digoxin: This medicine keeps your heart rate slow if your heart is in an irregular rhythm.?? Digoxin may improveactivity tolerance as well.? Diuretics: ?? These medicines help the heart work better by decrea sing the extra fluid in your body.?? Getting rid of the extra fluid will help your heart to not work so hard.?? These medicines may need to be adjusted by your doctor. ??? Vasodilators : These medicines decrease the pressure in your arteries, especially in the vessels around your heart. ??? Anti-coagulants: These medicines help keep the blood from clotting in an artery, vein or the heart. Clots can block the blood flow to your heart muscle and cause a heart attack.?? Clots can also block blood flow to your brain, causing a stroke. ??? Anti-platelets : Anti-platelet medicines, such as aspirin,keep platelets from sticking to a damaged part of your artery. Sticky platelets may cause a blockage in your artery and keep blood from going to your heart muscle. ??? Blood pressure (Anti-hypertensives): These medicines may be given to lower your blood pressure. Keeping your blood pressure under control protects your heart, lungs, brain, kidneys, and other organs. ??? Cholesterol lowering medicines: These help to lower cholesterol that causes coronary (heart) artery disease. ??? Diabetes medicines : These may be given to control the amount of sugar in your blood. It helps your body move the sugar from the blood to your cells, where it is needed for energy. ??? Nitroglycerin: This medicine may also be called nitro. Nitroglycerin opens the arteries to your heart so the heart gets more oxygen. Nitroglycerin can be given in an IV, by mouth, or put on your body as a patch or paste. ? * Fredy READ, Bhavna Cook: PERFORM Event Display: Patient Education Leaflets Authored Date: M-Groin I Discharge Instructions ?? 179 Groin Discharge Instructions No heavy lifting over 10 pounds (for example: gallon of milk) 1 week following the procedure; gradually increase normal activity over the next 5 days. Avoid straining/pushing when moving bowels You may feel like resting more after your procedure. Slowly start to do more each day. Rest when you feel it is needed. Make sure to look at your procedure site every day until it is completely healed. You may see bruising at the puncture site and that is common after the procedure. You may shower the day after your procedure. Remove the band aid before showering. Wash the area gently with soap and water. Leave open to air. Do not take tub baths, hot tubs, soaking of the puncture site or swimming for 1 week. Do not put any creams, powders or lotions on your puncture site You may resume sexual activity the day after your procedure; avoid bending the hip on ?? the side of the groin puncture excessively and any strenuous positions for 1 week. Call your doctor if your procedure site develops any of the following: ??? New onset severe pain ??? New onset lump or swelling ??? Bleeding that does not stop with lightpressure ? Patient Care team information Care Team Personnel Name: Gauri Ellison RN Position: [facility] RN Member Role: Primary Care Nurse Name: Cirilo Alarcon III, MD Position: [facility] Ambulatory (view) Member Role: PCP Address: Address: [address] [place] [id number] Name: Lionel Chavez RN Position: [facility] RN Supv Member Role: Primary Care Nurse Name: Kaylyn Hernandez RN Position: [facility] RN Member Role: Primary Care Nurse Name: Chasity Justin RN Position: [facility] RN Member Role: Primary Care Nurse Name: Beto Mora RN Position: [facility] RN Member Role: Primary Care Nurse Care Team Related Persons Name: PRESLEY PHILLIPS Address: home [address] [place] [address] Name: CHOCO TYLER Address: home [address] [place] [id number]
--- OUTSIDE RECORDS SUMMARY | 2023-03-02 08:24 | XMS_ITS | Continuity of Care Document ---
Author Name Unknown Organization [facility] Address [address] [place] [id number]- Care Team Providers Care Welder Fitter Gas Name Role Phone Dorian STRATTON MD, Cirilo Worrell Primary Care Physician Encounter [facility] Date(s): 06/17/22 - 06/24/22 [facility] [address] [place] [id number] Attending Physician: Amador MARTÍNEZ, Bhavna Fermin [...] Vaccine (oldterm) 11/19/06 Given 1Result Comment: lot# [id number] exp. [id number] Medications atorvastatin 80 mg oral tablet 1 tablet = 80 mg, By Mouth, Daily at bedtime, # 30 tablet, 0 Refills, Maintenance, 02/28/19 11:22:00 EST, Tablet, [facility], 170.1, cm, 02/28/19 4:06:00 [...] 02/28/19 13:32:00 EST, [id number], 170.1, cm, 02/28/19 4:06:00 EST, Height, 138, [...] 07/05/21 13:21:00 EDT, Route to Pharmacy Electronically, [id number], Partial fill upon patientrequest if the prescription [...] oldest [Reference Range]: 1 Height 170 cm (06/17/22 8:07 AM) Weight 114.7 kg (06/17/22 8:07 AM) Oxygen Saturation [94-100 %] 96 % (06/17/22 8:07 AM) Pulse Rate [55-90 bpm] 80 bpm (06/17/22 8:07 AM) Body Mass Index [18.5-24.99 kg/m2] 39.69 kg/m2 *>HHI* (06/17/22 8:07 AM) Blood Pressure [90-138/55-84 mm Hg] 124/ 72mm Hg (06/17/22 8:07 AM) Mode of Delivery (Oxygen) Room air (06/17/22 8:07 AM) Blood pressure sites Arm, left (06/17/22 8:07 AM) Weight Obtained Via Patient/family state d (06/17/22 8:07 AM) Social History Social History Type Response [...] Unknown MR Khris murphy Active Unknown 1Serial [id number] Model [id number] Size 26MMA PATIENT WITH THIS DEVICE CAN BE SCANNED SAFELY UNDER FOLLOWING CONDITIONS : 3T OR LESS - MAXIMUM SPATIAL GRADIENT FIELD OF 2500 GAUSS/CM (25t/M) OR LESS - MAXIMUM SAEED OF 2 W/KG (NORMAL OPERATING MODE) Note * Kristi Balderrama: PERFORM, SIGN, VERIFY Event Display: Patient Education/Instruction Authored Date: [id number] [facility] [address] Clinical Summary Name HALLEY TYLER Age 66 Years 1955 PCP Dorian STRATTON MD, Cirilo Worrell PCP Visit Date 06/17/2022 08:03:00 Additional Instructions: Scheduled Appointments?? Future Appointments ?*[facility],??[place],??[address] ?Phone:??--?Fax:??-- ?Appt. Date:??06/30/2022?1:00 PM ?Scheduled Provider:??Amador MARTÍNEZ , Bhavna Fermin [...] 114.7 kg BMI 39.69 kg/m2 Blood Pressure 124 mm Hg/72 mm Hg Temperature Pulse Rate 80 bpm Respiratory Rate 02 Sat Mode of Delivery 96 %/Room air You can now view a summary of your hospital visit from the comfort of your home through a free online portal called [facility] ([facility]). [facility] ([facility]) is a website that allows you to securely view your medical information including discharge summary, medications and follow-up visits. ??You can alsosend a secure electronic message to your doctor???s office to request appointments, renew medications or just ask a question. You can enroll at [email or web address] or register during your next office [...] primary care provider, you may find a [facility] provider by calling [facility] [place] [employer] [facility] at [phone]. For information about the plan of care [...] Member Role: Lifetime Consulting Physician Address: Address: [address] [place] [address], [facility] [address] [place] [address]- Name: Gauri Ellison RN Position: [facility] RN Member Role: Primary Care Nurse Name: Cirilo Alarcon III, MD Position: Reference Physician Member Role: PCP Address: Address: [address] [place] [id number] Name: Ck Nieves RN Position: [facility] RN Member Role: Primary Care Nurse Name: Lionel Chavez RN Position: [facility] RN Supv Member Role: Primary Care Nurse Name: Woody Hayes RN Position: [facility] RN Member Role: Primary Care Nurse Name: Kaylyn Hernandez RN Position: S RN Member Role: Primary Care Nurse Name: Chasity Justin RN Position: S RN Member Role: Primary Care Nurse Name: Ganesh Castillo MD Position: [facility] Renal MD Member Role: Lifetime Consulting Physician Address: Address: [address] [place] [address] [address] [facility], [place] [address]- Name: Beto Mora RN Position: [facility] RN Member Role: Primary Care Nurse Name: Teresa Robledo RN Position: [facility] RN Member Role: Primary Care Nurse Name: Gloria Spicer RN Position: [facility] RN Member Role: Primary Care Nurse Care Team Related Persons Name: PRESLEY PHILLIPS Address: home [address] [place] [address] Name: CHOCO TYLER Address: home [address] [place] [id number]
--- OUTSIDE RECORDS SUMMARY | 2023-03-02 08:24 | XMS_ITS | Continuity of Care Document ---
Author Name Unknown Organization [facility] ter Address [address] [place] [id number]- Care Team Providers Care Change Management Manager Name Role Phone Cirilo Alarcon III, MD Primary Care Physician Encounter [facility] Date(s): 04/06/22 - 04/07/[address] [id number] Discharge Disposition: A-D/C Home Attending Physician: Jessica Fritz MD Admitting Physician: Jessica Fritz MD Referring Physician: Jessica Fritz MD Allergies, Adverse Reactions, Alerts Substance Reaction [...] Vaccine (oldterm) 11/19/06 Given 1Result Comment: lot# [id number] exp. [id number] Medications atorvastatin 80 mg oral tablet 1 tablet = 80 mg, By Mouth, Daily at bedtime, # 30 tablet, 0 Refills, Maintenance, 02/28/19 11:22:00 EST, Tablet, [facility], 170.1, cm, 02/28/19 [...] kg, ... Start Date: 01/26/22 Status: Ordered Cardizem CD 120 mg/24 hours oral capsule, extended release 120 mg, CD Capsule, By Mouth, 04/07/22 9:00:00 EST Start Date: 04/07/22 Stop Date: 04/07/22 Status: Completed Colace sodium 100 mg oral capsule 100 mg, 1, capsule, By Mouth, 2 times a day, PRN, # 30 capsule, Refills 0, Tot. Refills 0, Maintenance, Constipation, 01/12/22 10:54:00 EST, Route to Pharmacy Electronically, [facility] #[id number], Partial fill upon patient request if the [...] 02/28/19 13:32:00 EST, Route to Pharmacy Electronically, [facility] #[id number], 170.1, cm, 02/28/19 4:06:00 EST, Height, 138, [...] 0 Refills Start Date: 11/15/06 Status: Ordered oxyCODONE 5 mg oral tablet 5 mg, 1, tablet, By Mouth, Every 6 hours, PRN, # 20 tablet, Refills 0, Tot. Refills 0, Maintenance,as needed for pain, 03/29/22 10:55:00 EST, Route to Pharmacy Electronically, [facility] #[id number], Partial fill upon patient request if the [...] 07/05/21 13:21:00 EDT, Route to Pharmacy Electronically, [facility] #[id number], Partial fill upon patientrequest if the prescription [...] mg oral tablet, extended release 50 mg, XL Tablet, By Mouth, 04/07/22 9:00:00 EST Start Date: 04/07/22 Stop Date: 04/07/22 Status: Completed Toprol XL 50 mg oral tablet, extended [...] Range]: 1 2 3 Height 170 cm (04/07/22 7:57 AM) 170 cm (04/07/22 2:18 AM) 170 cm (04/06/22 7:38 PM) Weight 108.5 kg (04/07/22 6:00 AM) 90 kg (04/06/22 12:48 PM) 90 kg (04/06/22 12:48 PM) Oxygen Saturation [94-100 %] 95 % (04/07/22 7:57 AM) 97 % (04/07/22 2:18 AM) 100 % (04/06/22 7:38 PM) Pulse Rate [55-90 bpm] 86 bpm (04/07/22 8:58 AM) 86 bpm (04/07/22 8:58 AM) 86 bpm (04/07/22 7:57 AM) Blood Pressure [90-138/55-84 mm Hg] 104/62mm Hg (04/07/22 8:58 AM) 104/62mm Hg (04/07/22 8:58 AM) 104/62mm Hg (04/07/22 7:57 AM) Respiratory Rate [16-30 br/min] 18 br/min (04/07/22 7:57 AM) 16 br/min (04/07/22 2:18 AM) 16 br/min (04/06/22 7:38 PM) Temperature [96.8-100.4 DegF] 97.1 DegF (04/07/22 2:18 AM) 97.1 DegF (04/06/22 7:38 PM) 97.1 DegF (04/06/22 12:48 PM) Mode of Delivery (Oxygen) Room air (04/07/22 7:57 AM) Room air (04/07/22 2:18 AM) Room air (04/06/22 7:38 PM) Blood pressure sites Arm, left (04/07/22 7:57 AM) Arm, left (04/07/22 2:18 AM) Arm, left (04/06/22 7:38 PM) Temperature Route Temporal (04/07/22 2:18 AM) Temporal (04/06/22 7:38 PM) Oral (04/06/22 12:48 PM) Dry Weight 90 kg (04/06/22 12:48 PM) Weight Obtained Via Bed scale (04/07/22 6:00 AM) Social History Social History Type Response Tobacco Use: quit smoking 30 years ago. Sex EKG study * Event Display: ECG 12-Lead Authored Date: Please click on pdf link to open report * Event Display: ECG 12-Lead Authored Date: Ventricular Rate: 70 BPM Atrial Rate: 115 BPM QRS Duration: 146 ms Q-T Interval: 438 ms QTC Calculation(Bazett): 473 ms R [place]: -25 degrees T [place]: 101 degrees Atrial fibrillation Left bundle branch block Abnormal ECG When compared with ECG of 09-MAR-2022 16:38, No significant change was found Confirmed by IVAN QUEEN MD ([id number]) on 04/06/2022 1:22:55 PM [place]: IVAN QUEEN MD Note * Event Display: Cardiac Rhythm Strips Authored Date: * Jessica Fritz MD: PERFORM, SIGN, VERIFY Event Display: Discharge/Transfer Note Hospital Authored Date: [id number] Patient: HALLEY TYLER Age: 66 years Sex: Female : 1955 Associated Diagnoses: None Author: Jessica Fritz MD No acute issues Physical Examination Vital Signs Reviewed Results: Vitals : VITALS(Date Range: 04/06/2022 0:00 EST - 04/07/2022 10:13 EST). HEENT Moist mucous membranes. Respiratory Lungs: CTA. Cardiac Rhythms: irregularly irregular. Abdomen/GI Abdomen: soft, non-tender. Extremities Extremities: no clubbing, no cyanosis. Neurologic Alert & oriented x 3 . Results Review Reviewed Impression and Plan SUMMARY: The patient does have a history of paroxysmal atrial fibrillation with CHADS-VASc score of6 points. She is clinically compromised by anemia with iron deficiency anemia. Successful hemostasis of the right femoral vein using a silk suture was done. Successful occlusion of left atrial appendage with a 24 mm Watchman FLX device. RECOMMENDATIONS: Bed rest for 4 hours. ASA 81 mg and Apixaban 2.5 mg BID. Repeat transesophageal echocardiogram in 45 days. If no evidence of thrombus or maria dolores- device leak greater than 5 mm. We will start clopidogrel 75 mg daily and continue aspirin once daily until six months post-procedure with subsequent discontinuation of the clopidogrel. Continue to follow up with labs as needed as well. COMPLICATIONS: No complications. Discharge Medications Apixaban 2.5 mg PO BID Atorvastatin 80 mg PO QHS Plavix 75 mg PO QD Diltiazem 120 mg PO QD Lasix 40 mg PO BID Insulin Glargine Insulin Lispro Imdur Metformin 500 mg PO BID Metoprolol 50 mg PO QD Pregabalin 75 mg PO QD Topiramate 25 mg PO BID Plan Follow-up with [facility] in three weeks Lam * Jeff READ, Rachel: PERFORM Event Display: Patient Education/Instruction Authored Date: [id number] Inpatient Adult Discharge Instructions [address] [address] Name: HALLEY TYLER : 1955 Visit: 04/06/2022 12:28:00 Current Date: 04/07/2022 11:39 Account: [id number] Inpatient Adult Discharge Instructions We would like [...] and their families. Surveys are administered by [employer] ?? If further treatment with your primary care physician or another doctor is recommended, it is important for you to keep the appointment. Call your primary care physician or return to the Emergency Department immediately if your condition worsens, fails to improve, or new symptoms develop. If you need to find a doctor, you can call [facility] for a referral at [phone] or toll free at [phone] - Maps With [employer] ([id number]) or log in to [email or web address].. ?? You can view and manage your care through the patient portal or by using a health care sonny of your choosing. [employer] is a website that allows you to securely view your medical information including your hospital discharge summary, office visit summaries, medications and follow-up visits. You can also request appointments, renew medications, and request access to your medical information using a health care sonny of your choosing, or just ask a question. You can enroll at [email or web address] or register during your next office visit. You have been discharged from [facility], Patient Care Unit: M7. If you have any questions regarding these instructions after you leave, please call us and we will be happy to assist you. [facility] Your Care Team Attending Physician Jessica Fritz MD Discharging Providers Jessica Fritz MD Reason for Admission watchmen Your Diagnosis Implantation of Left Atrial Occlusion Device Tests Performed Below is a partial list of the tests performed during your hospitalization. You may have had other tests and procedures not included in this list. Please discuss all test results with your provider. BUN CBC Creatinine Electrolytes GLUCOSE POC HOLD LAVENDER TUBE INR Lytes Type and Screen Primary Care Provider Cirilo Alarcon III, MD Advance Directive Health Care Proxy on File Yes - Health Care Proxy Yes - MOLST Discharge Vitals Temperature: 97.1 DegF Height: 170 cm Pulse Rate: 86 bpm Weight: 108.5 kg Pulse Rate: 86 bpm ?? Respiratory Rate: 18 br/min ?? Systolic Blood Pressure: 104 mm Hg ?? Systolic Blood Pressure: 104 mm Hg ?? Diastolic Blood Pressure: 62 mm Hg ?? Diastolic Blood Pressure: 62 mm Hg ?? Oxygen Saturation: 95 % ?? Studies Pending All tests and labs ordered during this hospital stay have been completed unless listed below. Please discuss all pending results with your provider listed above in these instructions. ?? COVID-19 (2019 Novel Coronavirus) PCR What to do next Instructions From Your Doctor Discharge Orders Scheduled Follow-Up Appointments Monday 11:00 AM EST ?? Where: [facility] [address] [place] [address]- Discharge Medications HALLEY TYLER :1955 Visit Date:04/06/2022 Medications: Please continue your medications until treatment is completed or stopped by your provider. Medications not listed below should be discontinued. Discuss any questions related to medications with your provider. What How Much When Instructions Next Dose Changed apixaban (Eliquis 2.5 mg oral tablet) 1 tab(s) Oral Twice a day tonight (04/07) at 8PM Unchanged Acetaminophen/ Butalbital/ Caffeine (Fioricet Tablet) Oral Every 4 hours as previously scheduled Unchanged Atorvastatin (atorvastatin 80 mg oral tablet) 1 tab(s) Oral Daily at Bedtime tonight (04/07) at 8PM Unchanged Cadexomer-Iodine Topical (Iodosorb 0.9% topical gel) See instructions dispense one tube 10g ?? Unchanged Calcitriol (calcitriol 0.25 mcg oral capsule) 1 capsule Oral Monday, Monday and Monday tomorrow (04/08) at 9AM Unchanged Cholecalciferol (Vitamin D3 2000 intl units oral capsule) 1 capsule Oral Daily tomorrow (04/08) at 9AM Unchanged Clopidogrel (Plavix 75 mg oral tablet) 1 tab(s) Oral Daily tomorrow (04/08) at 9AM Unchanged Cyanocobalamin (Vitamin B12 500 mcg oral tablet) 2 tab(s) Oral Daily tomorrow (04/08) at 9AM Unchanged Diltiazem (DilTIAZem (Eqv-Tiazac)) 120 Milligram Oral Daily tomorrow (04/08) at 9AM Unchanged Docusate (Colace sodium 100 mg oral capsule) 1 capsule Oral Twice a day as needed for Constipation as needed Unchanged Durable Medical Equipment (Calcium Alginate Pad (7.5 X 12cm)) See instructions apply a small piece to the wounds on the left second toe and heel daily, cover with dressing ?? Unchanged Furosemide (furosemide 40 mg oral tablet) 1 tab(s) Oral Twice a day today (04/07) at 3PM Unchanged Insulin Glargine (Lantus Inj) 70 unit(s) Subcutaneous Injection Daily at Bedtime tonight (04/07) at 8PM Unchanged Insulin Lispro 3-15 units Subcutaneous Injection 3 times a day before meals today (04/07) at 12noon and 5PM Unchanged Isosorbide Mononitrate (isosorbide mononitrate 30 mg oral tablet, extended release) 1 tab(s) Oral Daily in the morning tomorrow (04/08) at 9AM Unchanged Metformin (metformin 500 mg oral tablet) 2 tab(s) Oral Twice a day tonight (04/07) at 8PM Unchanged Metoprolol (Toprol XL 50 mg oral tablet, extended release) 1 tab(s) Oral Daily Take 3 tablets by mouth once per day for atrial fibrillation. ?? tomorrow (04/08) at 9AM Unchanged Oxycodone (oxyCODONE 5 mg oral tablet) 1 tab(s) Oral Every 6 hours as needed for as needed for pain as needed Unchanged Pantoprazole (pantoprazole 40 mg oral delayed release tablet) 1 tab(s) Oral Daily tomorrow (04/08) at 9AM Unchanged Pregabalin (pregabalin 75 mg oral capsule) 1 capsule Oral Twice a day tonight (04/07) at 8PM Unchanged Topiramate (topiramate 25 mg oral tablet) 1 tab(s) Oral Twice a day tonight (04/07) at 8PM Test Results Below is a partial list of the most recent Laboratory test results done prior to this discharge. You may have had other tests and procedures not included in this list. Please discuss all test resultswith your provider. BUN (04/06/2022) ???BUN - 50 mg/dL CBC (04/06/2022) ???WBC - 5.7 k/mm3???RBC - 3.94 m/mm3???Hgb - 10.2 Gm/dL???Hct - 33.8 %???MCV - 85.8 femtoliters???MCH - 25.9 pg???MCHC - 30.2 g/dL???Platelet Count - 153 k/mm3???RDW-SD - 48.7 femtoliters???MPV - 12.5 femtoliters???Nucleated RBC (Automated) - 0.0 #/100 WBC'S???Abs. NRBC - 0.0 k/mm3 Creatinine (04/07/2022) ???Creatinine-Blood - 1.9 mg/dL???Estimated GFR Creatinine - 29 ML/MIN/1.73 M2 Electrolytes (04/07/2022) ???Sodium - 140 mmol/L???Potassium - 4.4 mmol/L???Chloride - 103 mmol/L???Bicarbonate Level - 27 mmol/L???Anion Gap - 10 GLUCOSE POC (04/07/2022) ???Glucose, POC - 168 mg/dL HOLD LAVENDER TUBE (04/07/2022) ???Hold Lavender Top - SPECIMEN DISCARDED AFTER 24 HOURS. INR (04/06/2022) ???INR - 1.1???Protime (PT) - 11.5 seconds Lytes (04/06/2022) ???Sodium - 145 mmol/L???Potassium - HEMOLYZED???Chloride - 105 mmol/L???Bicarbonate Level - 30 mmol/L???Anion Gap - 10 Type and Screen (04/06/2022) ???Blood Type - O Positive???Antibody Screen - Negative Allergies (NKA means No Known Allergies) clindamycin??(diarrhea) penicillin??(rash) vancomycin??(flushed) Problems Active Problems??(8) BENIGN ESSENTIAL HYPERTENSION?? Cellulitis?? Diabetic foot ulcer?? Hyperlipidemia?? Obese class I?? Obese class II?? Pneumonia?? TYPE II DIABETES MELLITUS [NON-INSULIN DEPENDENT TYPE] [NIDDM TYPE] [ADULT-ONSET TYPE] OR UNSPECIFIE?? Education Materials Below is the list of Educational Leaflet Providered with your Discharge Instructions. Metoprolol Extended Release Oral Tablet?? Apixaban Oral Tablet?? Isosorbide Extended Release Oral Tablet?? Cardizem CD 24 HR Extended Release Oral Capsule 120 mg?? Left Atrial Appendage Closure?? Valuables and Belongings I fully understand and agree that [facility] accepts no responsibility for all [...] encouraged to send valuables and belongings home. ? Other Discharge Information ?? Wound Assessment?? Wound Assessment?? Wound Location I: Heel, left Wound Type I: Venous Wound I, Present on Admission: Yes ? Pulmonary Rehab Status?? Pulmonary Rehab Discharge Status?? [...] are strongly encouraged to quit. Please call [employer] at [phone] or [phone] ([phone]) or log in to [email or web address] for referrals to smoking cessation programs. ?? The National Suicide Prevention Hotline is available 12/09 if you or someone you know needs to find a reason to keep living. By calling 7-457-816-Vaughn Burton (1961) you'll be connected to a skilled, trained counselor at a crisis center in your area. INPATIENT DISCHARGE INSTRUCTIONS SIGNATURE PAGE HALLEY TYLER Location:[facility] Registration Date and Time:04/06/2022 12:28 EST Primary Care Physician: Cirilo Alarcon III, MD, I HALLEY TYLER, have received the above patient education materials/instructions and have verbalized understanding. If ambulance or transport services are being used I further acknowledge being given a choice of service. ?? If you need to contact me, please call me at this number: . Patient/Utility Forester Name: Patient/Utility Forester Signature: Relationship to Patient: Witness Name/Signature: Date: * Jeff READ, Rachel: PERFORM Event Display: Patient Education Leaflets Authored Date: [id number] Metoprolol Extended Release Oral Tablet ?? [id number] Metoprolol Extended Release Oral Tablet Brands: Joshrol Uses This medicine is used for the following purposes: ??? angina ??? heart attack ??? heart failure ???high blood pressure ??? irregular heart beat ??? prevent migraine headaches ??? movement disorder ?? Instructions Swallow the medicine without crushing or chewing it. This medicine may be taken with or without food. It is very important that you take the medicine at about the same time every day. It will work bestif you do this. Keep the medicine at room temperature. Avoid heat and direct light. It is important that you keep taking each dose of this medicine on time even if you are feeling well. If you forget to take a dose on time, take it as soon as you remember. If it is almost time for thenext dose, do not take the missed dose. Return to your normal schedule. Do not take 2 doses at one time. Drug interactions can change how medicines work or increase risk for side effects. Tell your healthcare providers about all medicines taken. Include prescription and xyep-pku-[id number] medicines, vitamins, and herbal medicines. Speak with your doctor or pharmacist before starting or stopping any medicine. This medicine may cause low blood sugar. Eat regular meals and exercise as instructed by your doctor. Tell your doctor if you have symptoms of low blood sugar such as nausea, sweating, cold skin, fast heartbeat, hunger, and irritability. If you have diabetes, this medicine may hide some signs of low blood sugar, such as fast heartbeat.Check your blood sugar regularly and for other signs of low blood sugar. ?? Cautions Tell your doctor and pharmacist if you ever had an allergic reaction to a medicine. Some patients with weak hearts may have worsening of symptoms. If you notice difficulty breathing, weight gain, or swelling of your legs or ankles, let your doctor know right away. Do not use the medication any more than instructed. This medicine may cause dizziness or fainting, especially after exercising or in hot weather. Be very careful when standing or sitting up quickly. Your ability to stay alert or to react quickly may be impaired by this medicine. Do not drive or operate machinery until you know how this medicine will affect you. Please check with your doctor before drinking alcohol while on this medicine. Tell the doctor or pharmacist if you are , planning to be , or . Do not share this medicine with anyone who has not been prescribed this medicine. ?? Side Effects The following is a list of some common side effects from this medicine. Please speak with your doctor about what you should do if you experience these or other side effects. ??? diarrhea ??? dizziness or drowsiness ??? lack of energy and tiredness ??? slow heartbeat ??? low blood pressure Call your doctor or get medical help right away if you notice any of these more serious side effects: ??? confusion ??? depression or feeling sad ??? fainting ??? pale or blue skin, lips or fingernails??? shortness of breath ??? unusual or unexplained tiredness or weakness ??? sudden or unexplained weight gain A few people may have an allergic reaction to this medicine. Symptoms can include difficulty breathing, skin rash, itching, swelling, or severe dizziness. If you notice any of these symptoms, seek medical help quickly. ?? Extra Please speak with your doctor, nurse, or pharmacist if you have any questions about this medicine. ?? [email or web address] IMPORTANT NOTE: This document tells you briefly how to take your medicine, but it does not tell youall there is to know about it. Your doctor or pharmacist may give you other documents about your medicine. Please talk to them if you have any questions. Always follow their advice. There is a more complete description of this medicine available in Micronesian. Scan this code on your smartphone or tablet or use the web address below. You can also ask your pharmacist for a printout. If you have any questions, please ask your pharmacist. The display and use of this drug information is subject to Terms of Use. Copyright(c) 2022 [employer]. ?? The [employer]. All rights reserved. This information is not intended as a substitute for professional medical care. Always follow your healthcare professional's instructions. ?? * Rachel Aguilar RN: PERFORM Event Display: Patient Education Leaflets Authored Date: [id number] Apixaban Oral Tablet ?? [id number] Apixaban Oral Tablet Brands: Eliquis Uses This medicine is used for the following purposes: ??? blood disorder ??? prevent blood clots ??? blood clot ?? Instructions This medicine may be taken with or without food. It is very important that you take the medicine at about the same time every day. It will work bestif you do this. Store at room temperature away from heat, light, and moisture. Do not keep in the bathroom. It is important that you keep taking each dose of this medicine on time even if you are feeling well. If you forget to take a dose on time, take it as soon as you remember. If it is almost time for thenext dose, do not take the missed dose. Return to your normal schedule. Do not take 2 doses at one time. Drug interactions can change how medicines work or increase risk for side effects. Tell your healthcare providers about all medicines taken. Include prescription and foqx-txa-wuaphkp medicines, vitamins, and herbal medicines. Speak with your doctor or pharmacist before starting or stopping any medicine. It is very important that you follow your doctor's instructions for all blood tests. ?? Cautions This medicine may cause serious bleeding problems in patients taking blood thinner medications. Follow your doctor's instructions carefully to monitor your blood lab tests if you are on blood thinners. Tell your doctor and pharmacist if you ever had an allergic reaction to a medicine. This medicine may cause serious bleeding from the stomach or bowels. Stop this medicine and call your doctor immediately if you see any signs of bleeding. Bleeding can cause pain in the stomach, vomiting up liquid that looks like coffee grounds, and red or dark tarry stools. There is an increased risk of bleeding while on this medicine, please tell your doctor or nurse if you notice any excessive bleeding or bruising. Do not use the medication any more than instructed. Speak with your doctor before taking any medicine with aspirin. Please check with your doctor before drinking alcohol while on this medicine. Tell the doctor or pharmacist if you are , planning to be , or . Do not breastfeed while on this medicine. This medicine can hurt a new baby in the womb. If you become while on this medicine, tell your doctor immediately. Your doctor may switch you to a different medicine. Do not take Chhaya's wort while on this medicine. Call your doctor right away if you notice any unusual bleeding or bruising. Do not share this medicine with anyone who has not been prescribed this medicine. Some patients have serious side effects from this medicine. Ask your pharmacist to show you the information from the Food and Drug Administration (FDA) and discuss it with you. Always refill this medicine before it runs out. ?? Side Effects The following is a list of some common side effects from this medicine. Please speak with your doctor about what you should do if you experience these or other side effects. ??? increased risk of bleeding ??? nosebleeds Call your doctor or get medical help right away if you notice any of these more serious side effects: ??? bleeding or bruising ??? coughing up blood or vomit that looks like coffee grounds ??? fainting??? numbness or tingling in hands and feet ??? severe or persistent headache ??? sudden leg pain, swelling, warmth or redness ??? loss of movement anywhere on the body ??? shortness of breath ??? bloody or dark, tarry stools ??? symptoms of stroke (such as one-sided weakness, slurred speech, confusion) ??? difficulty swallowing ??? unusual or unexplained tiredness or weakness ??? blood in urine ??? blurring or changes of vision A few people may have an allergic reaction to this medicine. Symptoms can include difficulty breathing, skin rash, itching, swelling, or severe dizziness. If you notice any of these symptoms, seek medical help quickly. ?? Extra Please speak with your doctor, nurse, or pharmacist if you have any questions about this medicine. ?? [email or web address] IMPORTANT NOTE: This document tells you briefly how to take your medicine, but it does not tell youall there is to know about it. Your doctor or pharmacist may give you other documents about your medicine. Please talk to them if you have any questions. Always follow their advice. There is a more complete description of this medicine available in Micronesian. Scan this code on your smartphone or tablet or use the web address below. You can also ask your pharmacist for a printout. If you have any questions, please ask your pharmacist. The display and use of this drug information is subject to Terms of Use. Copyright(c) 2022 [employer]. ?? The [employer]. All rights reserved. This information is not intended as a substitute for professional medical care. Always follow your healthcare professional's instructions. ?? * Rachel Aguilar RN: PERFORM Event Display: Patient Education Leaflets Authored Date: [id number] Isosorbide Extended Release Oral Tablet ?? [id number] Isosorbide Extended Release Oral Tablet Uses This medicine is used for the following purposes: ??? angina ??? enlarged veins ?? Instructions Swallow the medicine without crushing or chewing it. Take the medicine with 250 mL (1 cup) of water. It is very important that you take the medicine at about the same time every day. It will work bestif you do this. Take the medicine first thing in the morning. Keep the medicine at room temperature. Avoid heat and direct light. It is important that you keep taking each dose of this medicine on time even if you are feeling well. If you forget to take a dose on time, take it as soon as you remember. If it is almost time for thenext dose, do not take the missed dose. Return to your normal schedule. Do not take 2 doses at one time. Tell your doctor and pharmacist about all your medicines. Include prescription and ewjo-zao-nccppkanwflarfeu, vitamins, and herbal medicines. Do not suddenly stop taking this medicine. Check with your doctor before stopping. ?? Cautions Tell your doctor and pharmacist if you ever had an allergic reaction to a medicine. Do not use the medication any more than instructed. This medicine may cause dizziness or fainting, especially after exercising or in hot weather. Be very careful when standing or sitting up quickly. Your ability to stay alert or to react quickly may be impaired by this medicine. Do not drive or operate machinery until you know how this medicine will affect you. Tell the doctor or pharmacist if you are , planning to be , or . Do not take this medicine with other medicines called PDE5 inhibitors (Viagra, Levitra, Cialis). Your doctor will let you know if it is safe for you to do so. Do not start or stop any other medicines without first speaking to your doctor or pharmacist. Do not share this medicine with anyone who has not been prescribed this medicine. ?? Side Effects The following is a list of some common side effects from this medicine. Please speak with your doctor about what you should do if you experience these or other side effects. ??? dizziness ??? headaches ??? nausea Call your doctor or get medical help right away if you notice any of these more serious side effects: ??? low blood pressure A few people may have an allergic reaction to this medicine. Symptoms can include difficulty breathing, skin rash, itching, swelling, or severe dizziness. If you notice any of these symptoms, seek medical help quickly. ?? Extra Please speak with your doctor, nurse, or pharmacist if you have any questions about this medicine. ?? [email or web address] IMPORTANT NOTE: This document tells you briefly how to take your medicine, but it does not tell youall there is to know about it. Your doctor or pharmacist may give you other documents about your medicine. Please talk to them if you have any questions. Always follow their advice. There is a more complete description of this medicine available in Micronesian. Scan this code on your smartphone or tablet or use the web address below. You can also ask your pharmacist for a printout. If you have any questions, please ask your pharmacist. The display and use of this drug information is subject to Terms of Use. Copyright(c) 2022 [employer]. ?? The [employer]. All rights reserved. This information is not intended as a substitute for professional medical care. Always follow your healthcare professional's instructions. ?? Hospital Progress note * Simona Day: PERFORM, SIGN, VERIFY Event Display: Progress Note Hospital Authored Date: [id number] Patient: HALLEY TYLER Age: 66 years Sex: Female : 1955 Associated Diagnoses: None Author: Simona Day Findings Nursing Data IV Lines. : IV Lines. 04/06/2022 13:00 EST Left Antecubital 20 gauge Peripheral IV Activity: Start Peripheral IV Insertion Date/Time: 04/06/2022 13:03 Peripheral IV Number of Attempts: 1 Peripheral IV Site Assessment: Flushes Well, Good Blood return Right Antecubital 20 gauge Peripheral IV Activity: Start Peripheral IV Insertion Date/Time: 04/06/2022 13:04 Peripheral IV Number of Attempts: 1 Peripheral IV Site Assessment: Flushes Well, Good Blood return . Vital Signs : VITAL SIGNS SECTION 04/06/2022 12:48 EST Temperature 97.1 DegF Temperature Route Oral Pulse Rate 75 bpm Respiratory Rate 18 br/min Systolic Blood Pressure 114 mm Hg Diastolic Blood Pressure 59 mm Hg Blood pressure sites Arm, left Mean Arterial Pressure 77 mm Hg Pulse Pressure 55 mm Hg Oxygen Saturation 100 % Mode of Delivery (Oxygen) Room air . Narrative/Incidental Patient arrived on unit at 1230 Patient aware of planned procedure Labs sent . Call sosa at bedsidepatient states blood sugar this AM 117 . Patient Care team information Care Team Personnel Name: Gauri Ellison RN Position: S RN Member Role: Primary Care Nurse Name: Cirilo Alarcon III, MD Position: [facility] Ambulatory (view) Member Role: PCP Address: Address: [address] [place] [address]- Name: Lionel Chavez RN Position: [facility] RN Supv Member Role: Primary Care Nurse Name: Kaylyn Hernandez RN Position: [facility] RN Member Role: Primary Care Nurse Name: Chasity Justin RN Position: S RN Member Role: Primary Care Nurse Name: Beto Mora RN Position: S RN Member Role: Primary Care Nurse Care Team Related Persons Name: PRESLEY PHILLIPS Address: [address] [place] [address] Name: CHOCO TYLER Address: home [address] [place] [address]
--- OUTSIDE RECORDS SUMMARY | 2023-03-02 08:24 | XMS_ITS | Continuity of Care Document ---
Author Name Unknown Organization [facility] ter Address [address] [place] [address]- Care Team Providers Care Etcher Enameling Name Role Phone Dorian STRATTON MD, Cirilo Worrell Primary Care Physician Encounter [facility] ACCT R [id number] Date(s): 11/04/22 - 12/30/[address] [address] Attending Physician: Elza Dasilva MD Admitting Physician: Elza Dasilva MD Referring Physician: Elza Dasilva MD Allergies, Adverse Reactions, Alerts Substance Reaction Severity Status clindamycin diarrhea Active penicillin rash Active Immunizations Given and Recorded Vaccine Date Status Refusal Reason SARS-CoV-2 (COVID-19) mRNA-1273 vaccine 12/28/20 R ecorded SARS-CoV-2 (COVID-19) mRNA-1273 vaccine 06/10/20 R ecorded SARS-CoV-2 (COVID-19) mRNA-1273 vaccine 05/13/20 R ecorded influenza virus vaccine, inactivated 1 12/24/06 Gi leonid Pneumococcal Vaccine (oldterm) 11/19/06 Given 1Result Comment: lot# [id number] exp. [id number] Medications atorvastatin 80 mg oral tablet 1 tablet = 80 mg, By Mouth, Daily at bedtime, # 30 tablet, 0 Refills, Maintenance, 02/28/19 11:22:00 EST, Tablet, [facility], 170.1, cm, 02/28/19 [...] 02/28/19 13:32:00 EST, Route to Pharmacy Electronically, [facility] #[id number], 170.1, cm, 02/28/19 4:06:00 EST, Height, 138, [...] 1 each, 0 Refills, Maintenance, 12/28/22 9:45:00 [facility], [facility] #[id number], Partial fill upon patient request if the [...] 07/05/21 13:21:00 EDT, Route to Pharmacy Electronically, [facility] #[id number], Partial fill upon patientrequest if the prescription [...] Unknown MR Khris murphy Active Unknown 1Serial [id number] Model [id number] Size 26MMA PATIENT WITH THIS DEVICE CAN BE SCANNED SAFELY UNDER FOLLOWING CONDITIONS : 3T OR LESS - MAXIMUM SPATIAL GRADIENT FIELD OF 2500 GAUSS/CM (25t/M) OR LESS - MAXIMUM SAEED OF 2 W/KG (NORMAL OPERATING MODE) Patient Care team information Care Team Personnel Name: Gus Stern MD Position: [facility] Renal MD Member Role: Lifetime Consulting Physician Address: Address: [address] [place] [address] [address] [facility] [place] [address]- [place] Name: Gauri Ellison RN Position: S RN Member Role: Primary Care Nurse Name: Cirilo Alarcon III, MD Position: Reference Physician Member Role: PCP Address: Address: [address] [place] [address]- [place] Name: Ck Nieves RN Position: S RN Member Role: Primary Care Nurse Name: Lionel Chavez RN Position: [facility] RN Ross Member Role: Primary Care Nurse Name: Woody Hayes RN Position: S RN Member Role: Primary Care Nurse Name: Kaylyn Hernandez RN Position: S RN Member Role: Primary Care Nurse Name: Chasity Justin RN Position: S RN Member Role: Primary Care Nurse Name: Ganesh Castillo MD Position: [facility] Renal MD Member Role: Lifetime Consulting Physician Address: Address: [address] [place] [address] [address] [facility] [place], [place] [address]- [place] Name: Beto Mora RN Position: S RN Member Role: Primary Care Nurse Name: Teresa Robledo RN Position: S RN Member Role: Primary Care Nurse Name: Gloria Spicer RN Position: S RN Member Role: Primary Care Nurse Care Team Related Persons Name: PRESLEY PHILLIPS Address: home [address] [place] [id number] Name: CHOCO TYLER Address: home [address] [place] [address]
--- OUTSIDE RECORDS SUMMARY | 2023-03-02 08:24 | XMS_ITS | Continuity of Care Document ---
Author Name Unknown Organization [facility] Address [address] [place] [address]- Care Team Providers Care Blast Furnace Supervisor Name Role Phone Dorian STRATTON MD, Cirilo Worrell Primary Care Physician Encounter [facility] Date(s): 12/21/22 - 01/20/23 [facility] [address] [place], [place] [address] Allergies, Adverse Reactions, Alerts Substance Reaction Severity Status clindamycin diarrhea Active penicillin rash Active Immunizations Given and Recorded Vaccine Date Status Refusal Reason SARS-CoV-2 (COVID-19) mRNA-1273 vaccine 12/28/20 R ecorded SARS-CoV-2 (COVID-19) mRNA-1273 vaccine 06/10/20 R ecorded SARS-CoV-2 (COVID-19) mRNA-1273 vaccine 05/13/20 R ecorded influenza virus vaccine, inactivated 1 12/24/06 Gi leonid Pneumococcal Vaccine (oldterm) 11/19/06 Given 1Result Comment: lot# [id number] exp. [id number] Medications atorvastatin 80 mg oral tablet 1 tablet = 80 mg, By Mouth, Daily at bedtime, # 30 tablet, 0 Refills, Maintenance, 02/28/19 11:22:00 EST, Tablet, [facility], 170.1, cm, 02/28/19 4:06:00 [...] 02/28/19 13:32:00 EST, Route to Pharmacy Electronically, [facility] #[id number], 170.1, cm, 02/28/19 4:06:00 EST, Height, 138, [...] 1 each, 0 Refills, Maintenance, 12/28/22 9:45:00 [facility], [facility] #[id number], Partial fill upon patient request if the [...] 07/05/21 13:21:00 EDT, Route to Pharmacy Electronically, [facility] #[id number], Partial fill upon patientrequest if the prescription [...] Unknown MR Khris murphy Active Unknown 1Serial [id number] Model [id number] Size 26MMA PATIENT WITH THIS DEVICE CAN BE SCANNED SAFELY UNDER FOLLOWING CONDITIONS : 3T OR LESS - MAXIMUM SPATIAL GRADIENT FIELD OF 2500 GAUSS/CM (25t/M) OR LESS - MAXIMUM SAEED OF 2 W/KG (NORMAL OPERATING MODE) Patient Care team information Care Team Personnel Name: Gus Stern MD Position: [facility] Renal MD Member Role: Lifetime Consulting Physician Address: Address: [address] [place] [address] [address] [place] [address]- [place] Name: Gauri Ellison RN Position: [facility] RN Member Role: Primary Care Nurse Name: Cirilo Alarcon III, MD Position: Reference Physician Member Role: PCP Address: Address: [address] [place] [address]- [place] Name: Ck Nieves RN Position: [facility] RN Member Role: Primary Care Nurse Name: Lionel Chavez RN Position: [facility] RN Supv Member Role: Primary Care Nurse Name: Woody Hayes RN Position: [facility] RN Member Role: Primary Care Nurse Name: Kaylyn Hernandez RN Position: S RN Member Role: Primary Care Nurse Name: Chasity Justin RN Position: [facility] RN Member Role: Primary Care Nurse Name: Ganesh Castillo MD Position: [facility] Renal MD Member Role: Lifetime Consulting Physician Address: Address: [address] [place] [address] [address] [facility] [place], [place] [address]- [place] Name: Beto Mora RN Position: S RN Member Role: Primary Care Nurse Name: Teresa Robledo RN Position: S RN Member Role: Primary Care Nurse Name: Gloria Spicer RN Position: S RN Member Role: Primary Care Nurse Care Team Related Persons Name: PRESLEY PHILLIPS Address: home [address] [place] [address] Name: CHOCO TYLER Address: home [address] [place], [place] [address] [address]
--- OUTSIDE RECORDS SUMMARY | 2023-03-02 08:24 | XMS_ITS | Continuity of Care Document ---
Author Name Unknown Organization [facility] Address [address] [place] [address]- Care Team Providers Care Purchasing Agent Name Role Phone Dorian STRATTON MD, Cirilo Worrell Primary Care Physician [id number] Date(s): 04/13/22 - 04/20/22 [facility] [address] [place] [address] Attending Physician: Amador MARTÍNEZ, Bhavna Fermin Admitting [...] Vaccine (oldterm) 11/19/06 Given 1Result Comment: lot# [id number] exp. [id number] Medications atorvastatin 80 mg oral tablet 1 tablet = 80 mg, By Mouth, Daily at bedtime, # 30 tablet, 0 Refills, Maintenance, 02/28/19 11:22:00 EST, Tablet, [facility], 170.1, cm, 02/28/19 [...] 01/12/22 10:54:00 EST, Route to Pharmacy Electronically, [facility] #[id number], Partial fill upon patient request if the [...] 02/28/19 13:32:00 EST, Route to Pharmacy Electronically, [facility] #[id number], 170.1, cm, 02/28/19 4:06:00 EST, Height, 138, [...] 03/29/22 10:55:00 EST, Route to Pharmacy Electronically, [facility] #[id number], Partial fill upon patient request if the [...] 07/05/21 13:21:00 EDT, Route to Pharmacy Electronically, [facility] #[id number], Partial fill upon patientrequest if the prescription [...] oldest [Reference Range]: 1 Height 170 cm (04/13/22 12:16 PM) Weight 90.26 kg (04/13/22 12:16 PM) Oxygen Saturation [94-100 %] 97 % (04/13/22 12:16 PM) Pulse Rate [55-90 bpm] 83 bpm (04/13/22 12:16 PM) Body Mass Index [18.5-24.99 kg/m2] 31.23 kg/m2 *>HHI* (04/13/22 12:16 PM) Blood Pressure [90-138/55-84 mm Hg] 82/5 6mm Hg *L* (04/13/22 12:16 PM) Mode of Delivery (Oxygen) Room air (04/13/22 12:16 PM) Blood pressure sites Arm, right (04/13/22 12:16 PM) Weight Obtained Via Patient/family state d (04/13/22 12:16 PM) Social History Social History Type Response Tobacco Use: quit smoking 30 years ago. Sex Note * Elizabeth Galvan: PERFORM, SIGN, VERIFY Event Display: Patient Education/Instruction Authored Date: [id number] [facility] [address] Clinical Summary Name HALLEY TYLER Age 66 Years 1955 PCP Dorian STRATTON MD, Cirilo Worrell PCP Visit Date 04/13/2022 10:54:00 Additional Instructions: Scheduled Appointments?? Future Appointments ?*[facility],??[place],??[address] ?Phone:??--?Fax:??-- ?Appt. Date:??04/27/2022?3:00 PM ?Scheduled Provider:??Amador MARTÍNEZ , Bhavna Fermin Follow-Up Instructions ?? Diagnosis Medications: Please continue your medications until treatment is completed or stopped by your provider. Discuss any questions related to medications with your provider. Medications to Continue with No Changes [facility] #[id number], [address] [place] [id number], [phone] Oxycodone (oxyCODONE 5 mg oral tablet) 1 tab(s) Oral every 6 hours as needed as needed for pain. Refills: 0. Next Dose: These medications were not printed or sent to your pharmacy Acetaminophen/Butalbital/Caffeine (Fioricet Tablet) Oral every 4 hours. Next Dose: apixaban (Eliquis 2.5 mg oral tablet) 1 [...] cover with dressing. Refills: 3. Next Dose: Furosemide (furosemide 40 mg oral [...] Orders ?No future orders Vital Signs Height Weight BMI Blood Pressure / Temperature Pulse Rate Respiratory Rate 02 Sat Mode of Delivery / You can now view a summary of your hospital visit from the comfort of your home through a free online portal called [employer]. [employer] is a website that allows you to securely view your medical information including discharge summary, medications and follow-up visits. ??You can alsosend a secure electronic message to your doctor???s office to request appointments, renew medications or just ask a question. You can enroll at [email or web address] or register during your next office [...] primary care provider, you may find a [facility] provider by calling [facility] [employer] Link at [phone]. For information about the plan of care [...] Team Personnel Name: Gauri Ellison RN Position: [facility] RN Member Role: Primary Care Nurse Name: Cirilo Alarcon III, MD Position: [facility] Ambulatory (view) Member Role: PCP Address: Address: [address] [place] [address]- Name: Lionel Chavez RN Position: [facility] RN Supv Member Role: Primary Care Nurse Name: Kaylyn Hernandez RN Position: [facility] RN Member Role: Primary Care Nurse Name: Chasity Justin RN Position: [facility] RN Member Role: Primary Care Nurse Name: Beto Mora RN Position: [facility] RN Member Role: Primary Care Nurse Care Team Related Persons Name: PRESLEY PHILLIPS Address: home [address] [place] [address] Name: CHOCO TYLER Address: home [address] [place] [address]
--- OUTSIDE RECORDS SUMMARY | 2023-03-02 08:24 | XMS_ITS | Continuity of Care Document ---
Author Name Unknown Organization [facility] Address [address] [place] [address]- Care Team Providers Care Medical Record Consultant Name Role Phone Dorian STRATTON MD, Cirilo Worrell Primary Care Physician [phone] [id number]s): [facility]/15[facility]22 - 12/22/22 [facility] [address] [place] [address] Attending Physician: Amador MARTÍNEZ, Bhavna [...] Vaccine (oldterm) 11/19/06 Given 1Result Comment: lot# [id number] exp. [id number] Medications atorvastatin 80 mg oral tablet 1 tablet = 80 mg, By Mouth, Daily at bedtime, # 30 tablet, 0 Refills, Maintenance, 02/28/19 11:22:00 EST, Tablet, [facility], 170.1, cm, 02/28/19 4:06:00 [...] opioid drug. Start Date: 01/07/22 Status: Ordered doxycycline hyclate 100 mg oral tablet 1 tablet = 100 mg, By Mouth, 2 times a day, for 10 days, # 20 tablet, 0 Refills, Acute 12/25/22 11:08:00 EST, 12/15/22 11:08:00 EDT, Tablet, [facility][id number], Partial fill upon patient request if the prescription is for a schedule II opioid... Start Date: 12/15/22 Stop Date: 12/25/22 Status: Ordered Eliquis 2.5 mg oral tablet [...] 02/28/19 13:32:00 EST, Route to Pharmacy Electronically, [facility] #[id number], 170.1, cm, 02/28/19 4:06:00 EST, Height, 138, [...] 2.5, # 1 each, 0 Refills, Maintenance, 12/22/22 9:15:00 EDT, [facility] #[id number], Partial fill upon patient request if the prescription is for a schedule II opioid drug., Lizzie... Start Date: 12/22/22 Status: Ordered isosorbide mononitrate 30 mg oral [...] 07/05/21 13:21:00 EDT, [id number], Partial fill upon patientrequest if the prescription [...] oldest [Reference Range]: 1 Height 170 cm (12/15/22 10:47 AM) Weight 95.45 kg (12/15/22 10:47 AM) Oxygen Saturation [94-100 %] 97 % (12/15/22 10:47 AM) Pulse Rate [55-90 bpm] 82 bpm (12/15/22 10:47 AM) Body Mass Index [18.5-24.99 kg/m2] 33.03 kg/m2 *>HHI* (12/15/22 10:47 AM) Blood Pressure [90-138/55-84 mm Hg] 102/ 50mm Hg (12/15/22 10:47 AM) Mode of Delivery (Oxygen) Room air (12/15/22 10:47 AM) Blood pressure sites Arm, left (12/15/22 10:47 AM) Weight Obtained Via Patient/family state d (12/15/22 10:47 AM) Social History Social History Type Response Tobacco Use: quit smoking 30 years ago. Sex Implantable Device List Procedure Provider Procedure Date Device Type Site Aortic Unknown 06/04/21 Unknown Heart Device Identifier Serial Number Lot or Batch Number Manufacturing Date Expiration Date Distinct Identification Code MRI Safety Implantable Status Assigning Authority Unknown 1 Unknown Unknown Unknown Unknown Unknown MR Khris murphy Active [id number] Model [id number] Size 26MMA PATIENT WITH THIS DEVICE CAN BE SCANNED SAFELY UNDER FOLLOWING CONDITIONS : 3T OR LESS - MAXIMUM SPATIAL GRADIENT FIELD OF 2500 GAUSS/CM (25t/M) OR LESS - MAXIMUM SAEED OF 2 W/KG (NORMAL OPERATING MODE) Note * Sarina Tobin: PERFORM, SIGN, VERIFY Event Display: Patient Education/Instruction Authored Date: [id number] [facility] [address] Clinical Summary Name HALLEY TYLER Age 67 Years 1955 PCP Dorian STRATTON MD, Cirilo Worrell PCP Visit Date 12/15/2022 10:30:00 Additional Instructions: Scheduled Appointments?? Future Appointments ?*[address]??[place],??[place],??[address] ?Phone:??--?Fax:??-- ?Appt. Date:??01/04/2023?10:00 AM ?Scheduled Provider:??Nayeli MARTÍNEZ, Eleni Follow-Up Instructions ?? With: Address: When: Amador MARTÍNEZ, Bhavna Fermin 12/15/2022 12:00 AM Comments: refer to [place] [facility] dx: diabetic foot wound, consider hyperbaric treatment Appt in 2-3 weeks with me, wound check Diagnosis Medications: Please continue your medications until treatment is completed or stopped by your provider. Discuss any questions related to medications with your provider. New [facility]ations [id number], [address] [place] [phone], [phone] Doxycycline (doxycycline hyclate 100 mg oral tablet) 1 tab(s) Oral twice a day for 10 Days. Refills: 0. Next Dose: Medications to Continue [...] orders Vital Signs Height 170 cm Weight 95.45 kg BMI 33.03 kg/m2 Blood Pressure 102 mm Hg/50 mm Hg Temperature Pulse Rate 82 bpm Respiratory Rate 02 Sat Mode of Delivery 97 %/Room air You can now view a summary of your hospital visit from the comfort of your home through a free online portal called Plisten. Plisten is a website that allows you to securely view your medical information including discharge summary, medications and follow-up visits. ??You can alsosend a secure electronic message to your doctor???s office to request appointments, renew medications or just ask a question. You can enroll at [email or web address] or register during your next office visit. [...] primary care provider, you may find a [facility] provider by calling [facility] [place] Link at [phone]. [facility], in keeping with [facility] guidance, no longer requires face masks for [...] format to support your individualized medical care. * Sarina Tobin: PERFORM, SIGN, VERIFY Event Display: Patient Education/Instruction Authored Date: [id number] [facility] *S [address] Clinical Summary Name HALLEY TYLER Age 67 Years 1955 PCP Cirilo Alarcon III, MD PCP Visit Date 12/15/2022 10:30:00 Additional Instructions: Scheduled Appointments?? Future Appointments ?*[facility]??[place],??[place],??[address] ?Phone:??--?Fax:??-- ?Appt. Date:??01/04/2023?10:00 AM ?Scheduled Provider:??Nayeli MARTÍNEZ, Eleni Follow-Up Instructions ?? With: Address: When: Amador MARTÍNEZ, Bhavna Fermin 12/15/2022 12:00 AM Comments: refer to [place] [facility] dx: diabetic foot wound, consider hyperbaric treatment Appt in 2-3 weeks with me, wound check Diagnosis Medications: Please continue your medications until treatment is completed or stopped by your provider. Discuss any questions related to medications with your provider. New Medications [id number], [address] [place] [phone], [phone] Doxycycline (doxycycline hyclate 100 mg oral tablet) 1 tab(s) Oral twice a day for 10 Days. Refills: 0. Next Dose: Medications to Continue [...] orders Vital Signs Height 170 cm Weight 95.45 kg BMI 33.03 kg/m2 Blood Pressure 102 mm Hg/50 mm Hg Temperature Pulse Rate 82 bpm Respiratory Rate 02 Sat Mode of Delivery 97 %/Room air You can now view a summary of your hospital visit from the comfort of your home through a free online portal called Plisten. Plisten is a website that allows you to securely view your medical information including discharge summary, medications and follow-up visits. ??You can alsosend a secure electronic message to your doctor???s office to request appointments, renew medications or just ask a question. You can enroll at [email or web address] or register during your next office visit. [...] primary care provider, you may find a [facility] provider by calling [facility] [place] [facility] at [phone]. [facility], in keeping with [facility] guidance, no longer requires face masks for [...] Personnel Name: Leena BAILEY, Gus Heredia Position: Luis M Renal MD Member Role: Lifetime Consulting Physician Address: Address: [address] [place] [address] [address] [facility] [place] [address]- Name: Gauri Ellison RN Position: Luis M RN Member Role: Primary Care Nurse Name: Cirilo Alarcon III, MD Position: Reference Physician Member Role: PCP Address: Address: [address] [place] [address]- [place] Name: Ck Nieves RN Position: S [...] Care Nurse Name: Ganesh Castillo MD Position: [facility] Renal MD Member Role: Lifetime Consulting Physician Address: Address: [address] [facility] [address] [facility] [address] [facility] [place] [address]- [place] Name: Beto Mora RN Position: S RN Member Role: Primary Care Nurse Name: Teresa Robledo RN Position: S RN Member Role: Primary Care Nurse Name: Gloria Spicer RN Position: S RN Member Role: Primary Care Nurse Care Team Related Persons Name: PRESLEY PHILLIPS Address: home [address] [place] [address] Name: CHOCO TYLER Address: home [address] [place] [address]
--- OUTSIDE RECORDS SUMMARY | 2023-03-02 08:24 | XMS_ITS | Continuity of Care Document ---
Author Name Unknown Organization [facility] Address [address] [place] [address]- Care Team Providers Care General Ii Farmworker Name Role Phone Cirilo Alarcon III, MD Primary Care Physician Encounter [facility] Date(s): 02/09/22 - 03/12/22 [facility] [address] [place] [address] Attending Physician: Amador MARTÍNEZ, Bhavna Fermin Admitting Physician: Amador MARTÍNEZ, Bhavna Fermin Referring Physician: Cirilo Alarcon III, MD Allergies, Adverse Reactions, Alerts Substance Reaction Severity Status clindamycin Active vancomycin Active penicillin rash Active Immunizations Given and Recorded Vaccine Date Status Refusal Reason SARS-CoV-2 (COVID-19) mRNA-1273 vaccine 12/28/20 R ecorded SARS-CoV-2 (COVID-19) mRNA-1273 vaccine 06/10/20 R ecorded SARS-CoV-2 (COVID-19) mRNA-1273 vaccine 05/13/20 R ecorded influenza virus vaccine, inactivated 1 12/24/06 Gi leonid Pneumococcal Vaccine (oldterm) 11/19/06 Given 1Result Comment: lot# [id number] exp. [id number] Medications apixaban 2.5 mg oral tablet 1 [...] 0 Refills, Maintenance, 02/28/19 11:22:00 EST, Tablet, [facility], 170.1, cm, 02/28/19 [...] 01/12/22 10:54:00 EST, Route to Pharmacy Electronically, [facility][id number], Partial fill upon patient request if the [...] 02/28/19 13:32:00 EST, Route to Pharmacy Electronically, [facility] #[id number], 170.1, cm, 02/28/19 4:06:00 EST, Height, 138, [...] 07/05/21 13:21:00 EDT, Route to Pharmacy Electronically, [facility] #[id number], Partial fill upon patientrequest if the prescription [...] Team Personnel Name: Gauri Ellison RN Position: [facility] RN Member Role: Primary Care Nurse Name: Nguyen Becerra RN Position: [facility] RN Member Role: Primary Care Nurse Name: Cirilo Alarcon III, MD Position: [facility] Ambulatory (view) Member Role: PCP Address: Address: [address] [place] [address] Name: Lionel Chavez RN Position: [facility] RN Supv Member Role: Primary Care Nurse Name: Kaylyn Hernandez RN Position: S RN Member Role: Primary Care Nurse Name: Chasity Justin RN Position: S RN Member Role: Primary Care Nurse Name: Beto Mora RN Position: S RN Member Role: Primary Care Nurse Care Team Related Persons Name: PRESLEY PHILLIPS Address: home [address] [place] [place] [address] Name: CHOCO TYLER Address: home [address] [place] [address]
--- OUTSIDE RECORDS SUMMARY | 2023-03-02 08:24 | XMS_ITS | Continuity of Care Document ---
Author Name Unknown Organization [facility] Address [address] [place] [address]- Care Team Providers Care Motorman/Woman Name Role Phone Cirilo Alarcon III, MD Primary Care Physician Encounter [facility] Date(s): 01/26/22 - 03/11/22 [facility] [address] [place] [address] Attending Physician: Amador MARTÍNEZ, Bhavna [...] Vaccine (oldterm) 11/19/06 Given 1Result Comment: lot# [id number] exp. [id number] Medications apixaban 2.5 mg oral tablet 1 [...] 0 Refills, Maintenance, 02/28/19 11:22:00 EST, Tablet, [facility], 170.1, cm, 02/28/19 4:06:00 [...] 01/12/22 10:54:00 EST, Route to Pharmacy Electronically, [facility] #[id number], Partial fill upon patient request if the [...] 02/28/19 13:32:00 EST, Route to Pharmacy Electronically, [facility] #[id number], 170.1, cm, 02/28/19 4:06:00 EST, Height, 138, [...] 07/05/21 13:21:00 EDT, Route to Pharmacy Electronically, [facility] #[id number], Partial fill upon patientrequest if the prescription [...] Team Personnel Name: Gauri Ellison RN Position: [facility] RN Member Role: Primary Care Nurse Name: Nguyen Becerra RN Position: [facility] RN Member Role: Primary Care Nurse Name: Cirilo Alarcon III, MD Position: [facility] Ambulatory (view) Member Role: PCP Address: Address: [address] [place] [id number] Name: Lionel Chavez RN Position: [facility] RN Supv Member Role: Primary Care Nurse Name: Kaylyn Hernandez RN Position: S RN Member Role: Primary Care Nurse Name: Chasity Justin RN Position: S RN Member Role: Primary Care Nurse Name: Beto Mora RN Position: S RN Member Role: Primary Care Nurse Care Team Related Persons Name: PRESLEY PHILLIPS Address: home [address] [place] [address] Name: CHOCO TYLER Address: home [address] [place] [address]
--- OUTSIDE RECORDS SUMMARY | 2023-03-02 08:24 | XMS_ITS | Continuity of Care Document ---
Author Name Unknown Organization [facility] Address [address] [place] [address]- Care Team Providers Care Rug Cutter Name Role Phone Cirilo Alarcon III, MD Primary Care Physician [phone] Encounter 06/08/22 - 08/05/22 [facility] [address] [place] [address]- Discharge Disposition: PER CLIENT REQUEST Allergies, Adverse Reactions, Alerts Substance Reaction Severity Status clindamycin diarrhea Active penicillin rash Active Immunizations Given and Recorded Vaccine Date Status Refusal Reason SARS-CoV-2 (COVID-19) mRNA-1273 vaccine 12/28/20 R ecorded SARS-CoV-2 (COVID-19) mRNA-1273 vaccine 06/10/20 R ecorded SARS-CoV-2 (COVID-19) mRNA-1273 vaccine 05/13/20 R ecorded influenza virus vaccine, inactivated 1 12/24/06 Gi leonid Pneumococcal Vaccine (oldterm) 11/19/06 Given 1Result Comment: lot# [id number] exp. [id number] Medications atorvastatin 80 mg oral tablet 1 tablet = 80 mg, By Mouth, Daily at bedtime, # 30 tablet, 0 Refills, Maintenance, 02/28/19 11:22:00 EST, Tablet, [facility], 170.1, cm, 02/28/19 4:06:00 EST, [...] 02/28/19 13:32:00 EST, Route to Pharmacy Electronically, [facility][id number], 170.1, cm, 02/28/19 4:06:00 EST, Height, 138, [...] 07/05/21 13:21:00 EDT, Route to Pharmacy Electronically, [facility] #[id number], Partial fill upon patientrequest if the prescription [...] Unknown MR Khris murphy Active Unknown 1[employer]eria 8753660 Model 9750TFX Size 26MMA PATIENT WITH THIS DEVICE CAN BE SCANNED SAFELY UNDER FOLLOWING CONDITIONS : 3T OR LESS - MAXIMUM SPATIAL GRADIENT FIELD OF 2500 GAUSS/CM (25t/M) OR LESS - MAXIMUM SAEED OF 2 W/KG (NORMAL OPERATING MODE) Patient Care team information Care Team Personnel Name: Gus Stern MD Position: [facility] Renal MD Member Role: Lifetime Consulting Physician Address: Address: [address] [place] [address], [address] [place] [address]- [place] Name: Gauri Ellison RN Position: S RN Member Role: Primary Care Nurse Name: Cirilo Alarcon III, MD Position: Reference Physician Member Role: PCP Address: Address: [address] [place] [address]- [place] Name: Ck Nieves RN Position: S [...] Care Nurse Name: Ganesh Castillo MD Position: [facility] Renal MD Member Role: Lifetime Consulting Physician Address: Address: [address] [place] [address] [address] [facility] [place] [address]- Name: Beto Mora RN Position: S RN Member Role: Primary Care Nurse Name: Teresa Robledo RN Position: S RN Member Role: Primary Care Nurse Name: Gloria Spicer RN Position: S RN Member Role: Primary Care Nurse Care Team Related Persons Name: CHEVYROYER PRESLEY Address: home [address] [place] [address] Name: CHOCO TYLER Address: home [address] [place] [address]
--- OUTSIDE RECORDS SUMMARY | 2023-03-02 08:24 | XMS_ITS | Continuity of Care Document ---
Author Name Unknown Organization [facility] Address [address] [place] [address]- Care Team Providers Care Gardening Manager Name Role Phone Cirilo Alarcon III, MD Primary Care Physician [facility] [facility] Date(s): 06/07/22 - 07/07/[address] [address]- Attending Physician: Not on Staff, Attending MD Admitting Physician: Not on Staff, Admitting MD Referring Physician: Not on Staff, Referring [...] Vaccine (oldterm) 11/19/06 Given 1Result Comment: lot# [id number] exp. [id number] Medications atorvastatin 80 mg oral tablet 1 [...] mcg, By Mouth, Every Monday, Monday and Scott, 0 Refills, Maintenance, 01/07/22 20:26:00 EST, Partial [...] 02/28/19 13:32:00 EST, Route to Pharmacy Electronically, [email or web address][id number], 170.1, cm, 02/28/19 4:06:00 EST, Height, 138, [...] 07/05/21 13:21:00 EDT, Route to Pharmacy Electronically, [facility][id number], Partial fill upon patientrequest if the prescription [...] Unknown MR Khris murphy Active Unknown 1[employer]eria [id number] Model 9750TFX Size 26MMA PATIENT WITH THIS DEVICE CAN BE SCANNED SAFELY UNDER FOLLOWING CONDITIONS : 3T OR LESS - MAXIMUM SPATIAL GRADIENT FIELD OF 2500 GAUSS/CM (25t/M) OR LESS - MAXIMUM SAEED OF 2 W/KG (NORMAL OPERATING MODE) Patient Care team information Care Team Personnel Name: Gus Stern MD Position: S Renal MD Member Role: Lifetime Consulting Physician Address: Address: [address] [place] [address], [address] [place] [address]- Name: Gauri Ellison RN Position: S RN Member Role: Primary Care Nurse Name: Cirilo Alarcon III, MD Position: Reference Physician Member Role: PCP Address: Address: [address] [place] [address]- Name: Ck Nieves RN Position: S RN [...] Member Role: Lifetime Consulting Physician Address: Address: [address] [place] [address] [address] [facility] [place] [address]- Name: Beto Mora RN Position: S RN Member Role: Primary Care Nurse Name: Teresa Robledo RN Position: S RN Member Role: Primary Care Nurse Name: Gloria Spicer RN Position: S RN Member Role: Primary Care Nurse Care Team Related Persons Name: PRESLEY PHILLIPS Address: home [address] [place] [address] Name: CHOCO TYLER Address: home [address] [place] [address]
--- OUTSIDE RECORDS SUMMARY | 2023-03-02 08:25 | XMS_ITS | Continuity of Care Document ---
Author Name Unknown Organization [facility] Address [address] [place] [address]- Care Team Providers Care Sql Data Architect Name Role Phone Cirilo Alarcon III, MD Primary Care Physician [phone] Encounter [facility] Date(s): 08/16/22 - 09/15/22 [facility] [address] [place], [place] [address] Allergies, Adverse Reactions, Alerts Substance Reaction Severity Status clindamycin diarrhea Active penicillin rash Active Immunizations Given and Recorded Vaccine Date Status Refusal Reason SARS-CoV-2 (COVID-19) mRNA-1273 vaccine 12/28/20 R ecorded SARS-CoV-2 (COVID-19) mRNA-1273 vaccine 06/10/20 R ecorded SARS-CoV-2 (COVID-19) mRNA-1273 vaccine 05/13/20 R ecorded influenza virus vaccine, inactivated 1 12/24/06 Gi leonid Pneumococcal Vaccine (oldterm) 11/19/06 Given 1Result Comment: lot# [id number] exp. [id number] Medications atorvastatin 80 mg oral tablet 1 tablet = 80 mg, By Mouth, Daily at bedtime, # 30 tablet, 0 Refills, Maintenance, 02/28/19 11:22:00 EST, Tablet, [facility], 170.1, cm, 02/28/19 [...] 02/28/19 13:32:00 EST, Route to Pharmacy Electronically, [facility][id number], 170.1, cm, 02/28/19 4:06:00 EST, Height, 138, [...] 07/05/21 13:21:00 EDT, [id number], Partial fill upon patientrequest if the prescription [...] Unknown MR Khris murphy Active Unknown 1[employer]eria 1528825 Model 9750TFX Size 26MMA PATIENT WITH THIS DEVICE CAN BE SCANNED SAFELY UNDER FOLLOWING CONDITIONS : 3T OR LESS - MAXIMUM SPATIAL GRADIENT FIELD OF 2500 GAUSS/CM (25t/M) OR LESS - MAXIMUM SAEED OF 2 W/KG (NORMAL OPERATING MODE) Patient Care team information Care Team Personnel Name: Gus Stern MD Position: S Renal MD Member Role: Lifetime Consulting Physician Address: Address: [address] [place] [address], [address] [place] [address]- [place] Name: Gauri Ellison RN Position: S RN Member Role: Primary Care Nurse Name: Cirilo Alarcon III, MD Position: Reference Physician Member Role: PCP Address: Address: [address] [place] [address]- [place] Name: Ck Nieves RN Position: S [...] Care Nurse Name: Ganesh Castillo MD Position: [facility] Renal MD Member Role: Lifetime Consulting Physician Address: Address: [address] [place] [address] [address] [facility] [place] [address]- Name: Beto Mora RN Position: S RN Member Role: Primary Care Nurse Name: Teresa Robledo RN Position: S RN Member Role: Primary Care Nurse Name: Gloria Spicer RN Position: S RN Member Role: Primary Care Nurse Care Team Related Persons Name: CHEVYROYER PRESLEY Address: home [address] [place] [address] Name: CHOCO TYLER Address: home [address] [place] [address]
--- OUTSIDE RECORDS SUMMARY | 2023-03-02 08:25 | XMS_ITS | Continuity of Care Document ---
Author Name Unknown Organization [facility] Address [address] [place] [address]- Care Team Providers Care Panama Hat Blocker Name Role Phone Dorian STRATTON MD, Cirilo Worrell Primary Care Physician Encounter [facility] Date(s): 04/27/22 - 05/04/22 [facility] [address] [place], [place] [address] Attending Physician: Not on Staff, Attending [...] Vaccine (oldterm) 11/19/06 Given 1Result Comment: lot# [id number] exp. [id number] Medications atorvastatin 80 mg oral tablet 1 tablet = 80 mg, By Mouth, Daily at bedtime, # 30 tablet, 0 Refills, Maintenance, 02/28/19 11:22:00 EST, Tablet, [facility], 170.1, cm, 02/28/19 4:06:00 EST, [...] cm, 01/26/22 11:31:00 EST, Height, 109.4, kg, 2... Start Date: 01/26/22 Status: Ordered Colace sodium 100 mg oral capsule 100 mg, 1, capsule, By Mouth, 2 times a day, PRN, # 30 capsule, Refills 0, Tot. Refills 0, Maintenance, Constipation, 01/12/22 10:54:00 EST, Route to Pharmacy Electronically, [facility] #[id number], Partial fill upon patient request if the [...] 02/28/19 13:32:00 EST, Route to Pharmacy Electronically, [facility] #[id number], 170.1, cm, 02/28/19 4:06:00 EST, Height, 138, [...] 03/29/22 10:55:00 EST, Route to Pharmacy Electronically, [facility] #[id number], Partial fill upon patient request if the [...] 07/05/21 13:21:00 EDT, Route to Pharmacy Electronically, [facility] #[id number], Partial fill upon patientrequest if the prescription [...] oldest [Reference Range]: 1 Height 170 cm (04/27/22 3:02 PM) Oxygen Saturation [94-100 %] 98 % (04/27/22 3:02 PM) Pulse Rate [55-90 bpm] 89 bpm (04/27/22 3:02 PM) Blood Pressure [90-138/55-84 mm Hg] 80/6 0mm Hg *L* (04/27/22 3:02 PM) Blood pressure sites Arm, right (04/27/22 3:02 PM) Social History Social History Type Response Tobacco Use: quit smoking 30 years ago. Sex Note * Kristi Balderrama: PERFORM, SIGN, VERIFY Event Display: Patient Education/Instruction Authored Date: [id number] [facility] [address] Clinical Summary Name HALLEY TYLER Age 66 Years 1955 PCP Dorian STRATTON MD, Cirilo Worrell PCP Visit Date 04/27/2022 14:49:00 Additional Instructions: Scheduled Appointments?? Future Appointments ?*[facility],??[place],??[address] ?Phone:??--?Fax:??-- ?Appt. Date:??05/12/2022?4:00 PM ?Scheduled Provider:??Amador MARTÍNEZ , Bhavna Fermin Follow-Up Instructions ?? Diagnosis Medications: Please continue your medications until treatment is completed or stopped by your provider. Discuss any questions related to medications with your provider. New Medications [facility] #[id number], [address] [place], [place] [id number], [phone] Durable Medical Equipment (Plain Packing Strip) gently pack into left second toe amp site daily, cover with clean dry dressing. Refills: 0. Next Dose: Medications to Continue [...] Height 170 cm Weight BMI Blood Pressure 80 mm Hg/60 mm Hg Temperature Pulse Rate 89 bpm Respiratory Rate 02 Sat Mode of Delivery 98 %/ You can now view a summary of your hospital visit from the comfort of your home through a free online portal called [employer]. [employer] is a website that allows you to securely view your medical information including discharge summary, medications and follow-up visits. ??You can alsosend a secure electronic message to your doctor???s office to request appointments, renew medications or just ask a question. You can enroll at [email or web address] or register during your [...] care provider, you may find a [facility] provider by calling [facility] at [phone]. For information about the plan of care [...] Team Personnel Name: Gauri Ellison RN Position: [facility] RN Member Role: Primary Care Nurse Name: Cirilo Alarcon III, MD Position: [facility] Ambulatory (view) Member Role: PCP Address: Address: [address] [place] [address] Name: Lionel Chavez RN Position: [facility] RN Supv Member Role: Primary Care Nurse Name: Kaylyn Hernandez RN Position: [facility] RN Member Role: Primary Care Nurse Name: Chasity Justin RN Position: [facility] RN Member Role: Primary Care Nurse Name: Beto Mora RN Position: [facility] RN Member Role: Primary Care Nurse Care Team Related Persons Name: PRESLEY PHILLIPS Address: home [address] [place] [address] Name: CHOCO TYLER Address: home [address] [place] [id number]
--- OUTSIDE RECORDS SUMMARY | 2023-03-02 08:25 | XMS_ITS | Continuity of Care Document ---
Author Name Unknown Organization [facility] Address [address] [place] [address]- Care Team Providers Care Casting Machine Adjuster Name Role Phone Cirilo Alarcon III, MD Primary Care Physician Encounter [facility] Date(s): 12/27/22 - 01/26/23 [facility] [address] [place], [place] [address] Allergies, Adverse Reactions, Alerts Substance Reaction Severity Status clindamycin diarrhea Active penicillin rash Active Immunizations Given and Recorded Vaccine Date Status Refusal Reason SARS-CoV-2 (COVID-19) mRNA-1273 vaccine 12/28/20 R ecorded SARS-CoV-2 (COVID-19) mRNA-1273 vaccine 06/10/20 R ecorded SARS-CoV-2 (COVID-19) mRNA-1273 vaccine 05/13/20 R ecorded influenza virus vaccine, inactivated 1 12/24/06 Gi leonid Pneumococcal Vaccine (oldterm) 11/19/06 Given 1Result Comment: lot# [id number] exp. [id number] Medications atorvastatin 80 mg oral tablet 1 tablet = 80 mg, By Mouth, Daily at bedtime, # 30 tablet, 0 Refills, Maintenance, 02/28/19 11:22:00 EST, Tablet, [facility], 170.1, cm, 02/28/19 4:06:00 [...] 02/28/19 13:32:00 EST, Route to Pharmacy Electronically, [facility] #[id number], 170.1, cm, 02/28/19 4:06:00 EST, Height, 138, [...] 1 each, 0 Refills, Maintenance, 12/28/22 9:45:00 [facility] #[id number], Partial fill upon patient request if the [...] 07/05/21 13:21:00 EDT, Route to Pharmacy Electronically, [facility] #[id number], Partial fill upon patientrequest if the prescription [...] Unknown MR Khris murphy Active Unknown 1Serial [id number] Model 9750TFX Size 26MMA PATIENT WITH THIS DEVICE CAN BE SCANNED SAFELY UNDER FOLLOWING CONDITIONS : 3T OR LESS - MAXIMUM SPATIAL GRADIENT FIELD OF 2500 GAUSS/CM (25t/M) OR LESS - MAXIMUM SAEED OF 2 W/KG (NORMAL OPERATING MODE) Patient Care team information Care Team Personnel Name: Gus Stern MD [facility] Renal MD Member Role: Lifetime Consulting Physician Address: Address: [address] [place] [address] [address] [facility] [place] [address]- [place] Name: Gauri Ellison RN [facility] RN Member Role: Primary Care Nurse Name: Cirilo Alarcon III, MD Position: Reference Physician Member Role: PCP Address: Address: [address] [place] [address]- [place] Name: Ck Nieves RN Position: [facility] RN Member Role: Primary Care Nurse Name: Lionel Chavez RN Position[facility] RN Supv Member Role: Primary Care Nurse Name: Woody Hayes RN Position: [facility] RN Member Role: Primary Care Nurse Name: Kaylyn Hernandez RN Position: [facility] RN Member Role: Primary Care Nurse Name: Chasity Justin RN Position: [facility] RN Member Role: Primary Care Nurse Name: Ganesh Castillo MD Position: [facility] Renal MD Member Role: Lifetime Consulting Physician Address: Address: [address] [place] [address] [address] [facility] [place], [place] [address]- [place] Name: Beto Mora RN Position: S RN Member Role: Primary Care Nurse Name: Teresa Robledo RN Position: S RN Member Role: Primary Care Nurse Name: Gloria Spicer RN Position: [facility] RN Member Role: Primary Care Nurse Care Team Related Persons Name: PRESLEY PHILLIPS Address: home [address] [place] [address] Name: CHOCO TYLER Address: home [address] [place] [address]
--- OUTSIDE RECORDS SUMMARY | 2023-03-02 08:25 | XMS_ITS | Continuity of Care Document ---
Author Name Unknown Organization [facility] ter Address [address] [place] [address]- Care Team Providers Care Paper Plate Machine Tender Name Role Phone Dorian STRATTON MD, Cirilo Worrell Primary Care Physician Encounter [facility] [id number] Date(s): 11/04/22 - 12/16/[address] [address] Attending Physician: Elza Dasilva MD Admitting Physician: [...] Vaccine (oldterm) 11/19/06 Given 1Result Comment: lot# [id number] exp. [id number] Medications atorvastatin 80 mg oral tablet 1 tablet = 80 mg, By Mouth, Daily at bedtime, # 30 tablet, 0 Refills, Maintenance, 02/28/19 11:22:00 EST, Tablet, [facility], 170.1, cm, 02/28/19 4:06:00 [...] 12/25/22 11:08:00 EST, 12/15/22 11:08:00 EDT, Tablet, [facility][id number], Partial fill upon patient request if the [...] 02/28/19 13:32:00 EST, Route to Pharmacy Electronically, [facility][id number], 170.1, cm, 02/28/19 4:06:00 EST, Height, 138, [...] 07/05/21 13:21:00 EDT, Route to Pharmacy Electronically, [facility] #[id number], Partial fill upon patientrequest if the prescription [...] Unknown MR Khris murphy Active Unknown 1Seria [id number] Model 9750TFX Size 26MMA PATIENT WITH THIS DEVICE CAN BE SCANNED SAFELY UNDER FOLLOWING CONDITIONS : 3T OR LESS - MAXIMUM SPATIAL GRADIENT FIELD OF 2500 GAUSS/CM (25t/M) OR LESS - MAXIMUM SAEED OF 2 W/KG (NORMAL OPERATING MODE) Patient Care team information Care Team Personnel Name: Gus Stern MD Position: [facility] Renal MD Member Role: Lifetime Consulting Physician Address: Address: [address] [place] [address], [address] [place] [address]- Name: Gauri Ellison RN Position: S RN Member Role: Primary Care Nurse Name: Cirilo Alarcon III, MD Position: Reference Physician Member Role: PCP Address: Address: [address] [place] [address]- Name: Ck Nieves RN Position: S RN Member Role: Primary Care Nurse Name: Lionel Chavez RN Position: [facility] RN Supchristian Member Role: Primary Care Nurse Name: Woody Hayes RN Position: S RN Member Role: Primary Care Nurse Name: Kaylyn Hernandez RN Position: S RN Member Role: Primary Care Nurse Name: Chasity Justin RN Position: S RN Member Role: Primary Care Nurse Name: Ganesh Castillo MD Position: [facility] Renal MD Member Role: Lifetime Consulting Physician Address: Address: [address] [place] [address] [address] [facility] [place] [place] [address]- Name: Beto Mora RN Position: S RN Member Role: Primary Care Nurse Name: Teresa Robledo RN Position: S RN Member Role: Primary Care Nurse Name: Gloria Spicer RN Position: S RN Member Role: Primary Care Nurse Care Team Related Persons Name: PRESLEY PHILLIPS Address: home [address] [place] [address] Name: CHOCO TYLER Address: home [address] [place] [address]
--- OUTSIDE RECORDS SUMMARY | 2023-03-02 08:25 | XMS_ITS | Continuity of Care Document ---
Author Name Unknown Organization [facility] Address [address] [place] [address]- Care Team Providers Care Fibre Optics Jointer Name Role Phone Cirilo Alarcon III, MD Primary Care Physician Encounter [facility] Date(s): 02/09/22 - 03/11/22 [facility] [address] [place], [place] [address] Allergies, Adverse Reactions, Alerts Substance Reaction Severity Status clindamycin Active vancomycin Active penicillin rash Active Immunizations Given and Recorded Vaccine Date Status Refusal Reason SARS-CoV-2 (COVID-19) mRNA-1273 vaccine 12/28/20 R ecorded SARS-CoV-2 (COVID-19) mRNA-1273 vaccine 06/10/20 R ecorded SARS-CoV-2 (COVID-19) mRNA-1273 vaccine 05/13/20 R ecorded influenza virus vaccine, inactivated 1 12/24/06 Gi leonid Pneumococcal Vaccine (oldterm) 11/19/06 Given 1Result Comment: lot# [id number] exp. [id number] Medications apixaban 2.5 mg oral tablet 1 [...] 0 Refills, Maintenance, 02/28/19 11:22:00 EST, Tablet, [facility], 170.1, cm, 02/28/19 4:06:00 EST, [...] 01/12/22 10:54:00 EST, Route to Pharmacy Electronically, [facility] #[id number], Partial fill upon patient request if the [...] 02/28/19 13:32:00 EST, Route to Pharmacy Electronically, [facility] #[id number], 170.1, cm, 02/28/19 4:06:00 EST, Height, 138, [...] 07/05/21 13:21:00 EDT, Route to Pharmacy Electronically, [facility] #[id number], Partial fill upon patientrequest if the prescription [...] Team Personnel Name: Gauri Ellison RN Position: [facility] RN Member Role: Primary Care Nurse Name: Nguyen Becerra RN Position: [facility] RN Member Role: Primary Care Nurse Name: Cirilo Alarcon III, MD Position: [facility] Ambulatory (view) Member Role: PCP Address: Address: [address] [place] [address] Name: Lionel Chavez RN Position: [facility] RN Supv Member Role: Primary Care Nurse Name: Kaylyn Hernandez RN Position: S RN Member Role: Primary Care Nurse Name: Chasity Justin RN Position: S RN Member Role: Primary Care Nurse Name: Beto Mora RN Position: [facility] RN Member Role: Primary Care Nurse Care Team Related Persons Name: PRESLEY PHILLIPS Address: home [address] [place] [address] Name: CHOCO TYLER Address: home [address] [place] [address]
--- OUTSIDE RECORDS SUMMARY | 2023-03-02 08:25 | XMS_ITS | Continuity of Care Document ---
Author Name Unknown Organization [facility] Address [address] [place] [address]- Care Team Providers Care Human Service Worker Name Role Phone Cirilo Alarcon III, MD Primary Care Physician Encounter [facility] Date(s): 01/10/23 - 02/09/23 [facility] [address] [place], [place] [address] Allergies, Adverse Reactions, Alerts Substance Reaction Severity Status clindamycin diarrhea Active penicillin rash Active Immunizations Given and Recorded Vaccine Date Status Refusal Reason SARS-CoV-2 (COVID-19) mRNA-1273 vaccine 12/28/20 R ecorded SARS-CoV-2 (COVID-19) mRNA-1273 vaccine 06/10/20 R ecorded SARS-CoV-2 (COVID-19) mRNA-1273 vaccine 05/13/20 R ecorded influenza virus vaccine, inactivated 1 12/24/06 Gi leonid Pneumococcal Vaccine (oldterm) 11/19/06 Given 1Result Comment: lot# [id number] exp. [id number] Medications atorvastatin 80 mg oral tablet 1 tablet = 80 mg, By Mouth, Daily at bedtime, # 30 tablet, 0 Refills, Maintenance, 02/28/19 11:22:00 EST, Tablet, [facility], 170.1, cm, 02/28/19 4:06:00 EST, [...] 02/28/19 13:32:00 EST, Route to Pharmacy Electronically, [facility] #[id number], 170.1, cm, 02/28/19 4:06:00 EST, Height, 138, [...] 1 each, 0 Refills, Maintenance, 12/28/22 9:45:00 [facility] #[id number], Partial fill upon patient request if the [...] 07/05/21 13:21:00 EDT, Route to Pharmacy Electronically, [email or web address] #[id number], Partial fill upon patientrequest if the prescription [...] Unknown MR Khris murphy Active Unknown 1Serial [id number] Model 9750TFX Size 26MMA PATIENT WITH THIS DEVICE CAN BE SCANNED SAFELY UNDER FOLLOWING CONDITIONS : 3T OR LESS - MAXIMUM SPATIAL GRADIENT FIELD OF 2500 GAUSS/CM (25t/M) OR LESS - MAXIMUM SAEED OF 2 W/KG (NORMAL OPERATING MODE) Patient Care team information Care Team Personnel Name: Gus Stern MD Position: [facility] Renal MD Member Role: Lifetime Consulting Physician Address: Address: [address] [place] [address] [address] [place] [address]- [place] Name: Gauri Ellison RN Position: [facility] RN Member Role: Primary Care Nurse Name: Cirilo Alarcon III, MD Position: Reference Physician Member Role: PCP Address: Address: [address] [place] [address] - [place] Name: Ck Nieves RN Position: [facility] RN Member Role: Primary Care Nurse Name: Lionel Chavez RN Position: [facility] RN Supv Member Role: Primary Care Nurse Name: Woody Hayes RN Position: [facility] RN Member Role: Primary Care Nurse Name: Kaylyn Hernandez RN Position: [facility] RN Member Role: Primary Care Nurse Name: Chasity Justin RN Position: [facility] RN Member Role: Primary Care Nurse Name: Ganesh Castillo MD Position: [facility] Renal MD Member Role: Lifetime Consulting Physician Address: Address: [address] [place] [address] [address] [facility] [place], [place] [address]- [place] Name: Beto Mora RN Position: S RN Member Role: Primary Care Nurse Name: Teresa Robledo RN Position: S RN Member Role: Primary Care Nurse Name: Gloria Spicer RN Position: [facility] RN Member Role: Primary Care Nurse Care Team Related Persons Name: PRESLEY PHILLIPS Address: home [address] [place] [address] Name: CHOCO TYLER Address: home [address] [place] [address]
--- OUTSIDE RECORDS SUMMARY | 2023-03-02 08:25 | XMS_ITS | Continuity of Care Document ---
Author Name Unknown Organization [facility] ter Address [address] [place] [id number]- Care Team Providers Care Point Of Sale Associate Name Role Phone Dorian STRATTON MD, Cirilo Worrell Primary Care Physician [phone] Encounter [facility] [id number] Date(s): 05/11/22 - 05/21/[address] [address] Discharge Disposition: A-Transfer SNF Attending Physician: Shayan Jacques MD Admitting Physician: Shayan Jacques MD Referring Physician: Not on Staff, Referring [...] Vaccine (oldterm) 11/19/06 Given 1Result Comment: lot# [id number] exp. [id number] Medications atorvastatin 80 mg oral tablet 1 tablet = 80 mg, By Mouth, Daily at bedtime, # 30 tablet, 0 Refills, Maintenance, 02/28/19 11:22:00 EST, Tablet, [facility], 170.1, cm, 02/28/19 [...] release 120 mg, CD Capsule, By Mouth, 05/21/22 9:00:00 EDT Start Date: 05/21/22 Stop Date: 05/21/22 Status: Completed Eliquis 2.5 mg oral tablet 1 tablet [...] 02/28/19 13:32:00 EST, Route to Pharmacy Electronically, [id number], 170.1, cm, 02/28/19 4:06:00 EST, Height, 138, [...] opioid drug. Start Date: 05/12/22 Status: Ordered metoprolol 50 mg oral tablet 100 mg, Tablet, By Mouth, 05/21/22 9:00:00 EDT Start Date: 05/21/22 Stop Date: 05/21/22 Status: Completed oxyCODONE 5 mg oral tablet 5 mg, [...] 07/05/21 13:21:00 EDT, [id number], Partial fill upon patientrequest if the prescription [...] Results Orders for Microbiology Reports Name Date Anaerobic Culture (ANAEROBIC CULTURE) Tissue Culture w/ Gram Smear (TISSUE/BIO PSY CULT.) 05/14/22 Microbiology Reports TEST:Anaerobic Culture STATUS:Auth (Verified) BODY SITE: SOURCE:BONE COLLECTED DATE/TIME:05/14/22 10:15 AM Anaerobic Culture SPECIMEN DESCRIPTION : BONE LEFT FOOT SECOND TOE SPECIAL REQUESTS : NONE CULTURE : NO ANAEROBES ISOLATED REPORT STATUS : FINAL 05/16/2022 TEST:Tissue/Biopsy Culture STATUS:Auth (Verified) BODY SITE: SOURCE:BONE COLLECTED DATE/TIME:05/14/22 10:15 AM Tissue/Biopsy Culture SPECIMEN DESCRIPTION : BONE LEFT FOOT SECOND TOE SPECIAL REQUESTS : NONE GRAM STAIN : 1+ POLYMORPHONUCLEAR LEUKOCYTES 1+ TISSUE CELLS 1+ SQ.EPITHELIAL CELLS NO ORGANISMS SEEN CULTURE : 2+ STAPHYLOCOCCUS AUREUS. This isolate was identified using Maldi-TOF system These AST results were performed on the Microscan ID and AST system 1+ ENTEROCOCCUS FAECALIS, VANCOMYCIN RESISTANT. This isolate was identified using Maldi-TOF system These AST results were performed on the Microscan ID and AST system REPORT STATUS : FINAL 05/16/2022 ORGANISM 2+ STAPHYLOCOCCUS AUREUS. This isolate was identified using Maldi-TOF system These AST results were performed on the Microscan ID and AST system METHOD MIN. INHIB. CONC. (MCG/ML) CIPROFLOXACIN SUSCEPTIBLE CLINDAMYCIN SUSCEPTIBLE ERYTHROMYCIN SUSCEPTIBLE LEVOFLOXACIN SUSCEPTIBLE OXACILLIN SUSCEPTIBLE PENICILLIN RESISTANT RIFAMPIN SUSCEPTIBLE RIFAMPIN RIFAMPIN SHOULD NOT BE USED ALONE FOR ANTIMICROBIAL RIFAMPIN THERAPY. TETRACYCLINE SUSCEPTIBLE TRIMETH/SULFAMETHOX SUSCEPTIBLE VANCOMYCIN SUSCEPTIBLE ORGANISM 1+ ENTEROCOCCUS FAECALIS, VANCOMYCIN RESISTANT. This isolate was identified using Maldi-TOF system These AST results were performed on the Microscan ID and AST system METHOD MIN. INHIB. CONC. (MCG/ML) AMPICILLIN SUSCEPTIBLE LINEZOLID SUSCEPTIBLE VANCOMYCIN RESISTANT GENTAMICIN SYNERGY ACTIVE IN SYNERGY STREPTOMYCIN SYNERGY ACTIVE IN SYNERGY Radiology Reports * Exam Date Time Procedure Performing Provider Status 05/15/22 11:22 AM MRI Ext Lower W+W/O Contrast Left Jocelyne Brown; Auth (Verified) Notes: (MRI Ext Lower W+W/O Contrast Left) Reason For Exam: Infection RESULT: MRI Ext Lower W+W/O Contrast Left INDICATION: Second digit ulceration. Question osteomyelitis. Patient had debridement including boneof the second digit on 05/14/2022 TECHNIQUE: Multiplanar multisequence MRI of the left forefoot with and without intravenous contrastmaterial. 18 mL of Clariscan intravenous contrast was administered. COMPARISONS: 01/09/2022. Radiographs 05/12/2022 FINDINGS: Bone: Bony edema within the second metatarsal head without confluent T1 marrow placement. There appears to be a 6 mm x 5 mm bony fragment remaining from the second digit proximal phalanx with imagingcharacteristics characteristic of osteomyelitis as seen on series 8 image 20 and series 7 image 20.The lateral base of the second digit proximal phalanx is what remains. Minimal edema within the first metatarsal head without mild edema noted within the proximal phalanxof the third digit without confluent T1 marrow replacement. Soft tissues: Surgical debridement extending to the second metatarsal head. No discrete abscess. IMPRESSION: 1. 6 mm x 5 mm bony fragment representing the lateral base of the second digit proximal phalanx hasimaging characteristics compatible with osteomyelitis. The remaining portion of the second digit proximal phalanx has been resected. 2. Mild edema within the second metatarsal head and third digit proximal phalanx without confluent T1 marrow replacement, likely reactive edema at this time. WSN: [id number] Ordering Physician: Deanna Monroe Dictated By: Luther Shrestha MD Dictated Date/Time: 05/16/22 8:11 am Reviewed By: Luther Shrestha MD Signed By: Luther Shrestha MD Signed Date/Time: 05/16/22 8:11 am Transcribed By: KRYSTINA Transcribed Date/Time: 05/16/22 8:03 am * Exam Date Time Procedure Performing Provider Status 05/12/22 3:23 PM Foot Min 3 Views Left Mal Hoffmann; Modified Notes: (Foot Min 3 Views Left) Reason For Exam: Infection RESULT: Foot Min 3 Views Left Foot Min 3 Views Left, 3 views History: Infection. COMPARISON: January 26, 2022 FINDINGS: Osteolysis distal aspect of the second proximal phalanx. Diffuse soft tissue swelling in the foot. Status post amputation of the left great toe. Diffuse osseous demineralization. IMPRESSION: Suspect osteomyelitis second proximal phalanx. I have personally reviewed the images and I agree with this report. WSN: [id number] Ordering Physician: Deanna Monroe Dictated By: Bob Casiano MD Dictated Date/Time: 05/12/22 5:11 pm Reviewed By: Gus Henriquez MD Signed By: Gus Henriquez MD Signed Date/Time: 05/12/22 5:16 pm Transcribed By: KRYSTINA Transcribed Date/Time: 05/12/22 4:30 pm Vital Signs Most recent to oldest [Reference Range]: 1 2 3 Height 170 cm (05/21/22 12:05 PM) 170 cm (05/21/22 7:31 AM) 170 cm (05/21/22 4:03 AM) Weight 114.7 kg (05/21/22 4:06 AM) Oxygen Saturation [94-100 %] 99 % (05/21/22 12:05 PM) 97 % (05/21/22 7:31 AM) 95 % (05/21/22 4:03 AM) Pulse Rate [55-90 bpm] 65 bpm (05/21/22 12:05 PM) 69 bpm (05/21/22 8:47 AM) 69 bpm (05/21/22 8:47 AM) Blood Pressure [90-138/55-84 mm Hg] 133/66mm Hg (05/21/22 12:05 PM) 132/65mm Hg (05/21/22 8:47 AM) 132/65mm Hg (05/21/22 8:47 AM) Respiratory Rate [16-30 br/min] 18 br/min (05/21/22 12:05 PM) 17 br/min (05/21/22 7:31 AM) 18 br/min (05/21/22 4:03 AM) Temperature [96.8-100.4 DegF] 98.1 DegF (05/21/22 12:05 PM) 97.7 DegF (05/21/22 7:31 AM) 97.5 DegF (05/21/22 4:03 AM) Liters per Minute 6 L/min (05/18/22 2:00 PM) 6 L/min (05/18/22 1:45 PM) 6 L/min (05/14/22 10:45 AM) Mode of Delivery (Oxygen) Room air (05/21/22 12:05 PM) Room air (05/21/22 7:31 AM) Room air (05/21/22 4:03 AM) Blood pressure sites Arm, right (05/21/22 12:05 PM) Arm, right (05/21/22 7:31 AM) Arm, right (05/21/22 4:03 AM) Temperature Route Oral (4/1/23 12:05 PM) Oral (05/21/22 7:31 AM) Oral (05/21/22 4:03 AM) Dry Weight 90 kg (05/11/22 4:46 PM) Weight Obtained Via Bed scale (05/21/22 4:06 AM) Social History Social History Type Response [...] Unknown MR Khris murphy Active Unknown 1Serial [id number] Model 9750TFX Size 26MMA PATIENT WITH THIS DEVICE CAN BE SCANNED SAFELY UNDER FOLLOWING CONDITIONS : 3T OR LESS - MAXIMUM SPATIAL GRADIENT FIELD OF 2500 GAUSS/CM (25t/M) OR LESS - MAXIMUM SAEED OF 2 W/KG (NORMAL OPERATING MODE) History and physical note * Event Display: History and Physical Hospital Authored Date: Note * Jillian Tillman RN: PERFORM Event Display: Discharge/Transfer Note Hospital Authored Date: [id number] Nursing Discharge Note Entered On: 05/21/2022 15:53 EDT Performed On: 05/21/2022 15:53 EDT by Jillian Tillman RN Nursing Discharge Note 2 Discharge Time : 05/21/2022 15:53 EDT Discharge Level of Care at Discharge : halfway facility Discharge Nursing Homes/Rehab Facilities : [facility] Patient Left Unit Via : Ambulance Patient Accompanied Off Unit with : Ambulance/Chair Van Personnel Handover Given to Transport Personnel : Yes DC Instructions Provided & Signed by Pt : Yes Patient Understands D/C Instructions : Yes Patient Instructions Discharge Signed : Yes Did Pt have Specialty Bed or Wound Vac : No Jillian Tillman RN - 05/21/2022 15:53 EDT * Lavern Thomas RN: PERFORM Event Display: Discharge/Transfer Note Hospital Authored Date: [id number] Nursing Discharge Note Entered On: 05/21/2022 15:53 EDT Performed On: 05/21/2022 15:53 EDT by Lavern Thomas RN Nursing Discharge Note 2 Discharge Time : 05/21/2022 15:53 EDT Discharge Level of Care at Discharge : halfway facility Discharge Nursing Homes/Rehab Facilities : [facility] Patient Left Unit Via : Ambulance Patient Accompanied Off Unit with : Ambulance/Chair Van Personnel Handover Given to Transport Personnel : Yes DC Instructions Provided & Signed by Pt : Yes Patient Understands D/C Instructions : Yes Patient Instructions Discharge Signed : Yes Did Pt have Specialty Bed or Wound Vac : No Lavern Thomas RN - 05/21/2022 15:53 EDT * Clauido MARTÍNEZ, Nguyen Quesada: PERFORM, SIGN, VERIFY Event Display: Discharge/Transfer Note Hospital Authored Date: [id number] Patient: HALLEY JUNE Age: 66 years Sex: Female : 1955 Associated Diagnoses: None Author: Claudio MARTÍNEZ, Nguyen Quesada Discharge Information Admission Date: 05/11/2022 Discharge Date 05/21/2022 Primary Care Provider: Dorian STRATTON MD, Cirilo Worrell Principal Discharge Diagnosis Diabetic infection of left foot: Present on admission - yes. Secondary Discharge Diagnoses BENIGN ESSENTIAL HYPERTENSION: Present on admission - yes. Chronic Osteomyelitis Involving Ankle and Foot: Present on admission - yes. Hyperlipidemia: Present on admission - yes. Type 2 diabetes mellitus: Present on admission - yes. Medications MEDICATION LIST (Selected) Prescriptions Prescribed Calcium Alginate Pad (7.5 X 12cm): See Instructions, # 1 each, Refills 3, Tot. Refills 3, Maintenance, apply a small piece to the wounds on the left second toe and heel daily, cover with dressing, 01/26/22 12:22:00 EST, Supply, 170, cm, 01/26/22 11:31:00 EST, Height, 109.4, kg, ... Plain Packing Strip: See Instructions, # 1 each, Refills 0, Tot. Refills 0, Maintenance, gently pack into left second toe amp site daily, cover with clean dry dressing, 04/27/22 15:40:00 EST, Supply,170, cm, 04/27/22 15:02:00 EST, Height, 90, kg, 04/06/22 12:48:00 EST, D... Plavix 75 mg oral tablet: 75 mg, 1, tablet, By Mouth, Daily, # 30 tablet, Refills 5, Tot. Refills 5, Maintenance, 07/05/21 13:21:00 EDT, Route to Pharmacy Electronically, [facility] #[id number],Partial fill upon patient request if the prescription is for a schedule II op... atorvastatin 80 mg oral tablet: 1 tablet = 80 mg, By Mouth, Daily at bedtime, # 30 tablet, 0 Refills, Maintenance, 02/28/19 11:22:00 EST, Tablet, [facility] 3, 170.1, cm, 02/28/19 4:06:00EST, Height, 138, kg, 02/25/19 10:41:00 EST, Dry Weight furosemide 40 mg oral tablet: 40 mg, 1, tablet, By Mouth, 2 times a day, # 60 tablet, Refills 0, Tot. Refills 0, Maintenance, 02/28/19 13:32:00 EST, Route to Pharmacy Electronically, [facility] #[id number], 170.1, cm, 02/28/19 4:06:00 EST, Height, 138, kg, 02/25/19 10:41:00 E... oxyCODONE 5 mg oral tablet: 5 mg, 1, tablet, By Mouth, Every 6 hours, PRN, # 12 tablet, Refills 0, Tot. Refills 0, Maintenance, Pain , Severe, 05/21/22 12:08:00 EDT, Print Requisition, Partial fill upon patient request if the prescription is for a schedule II opioid drug. Documented Medications Documented DilTIAZem (Eqv-Tiazac): = 120 mg, By Mouth, Daily, 0 Refills, Maintenance, 01/07/22 20:25:00 EST, Partial fill upon patient request if the prescription is for a schedule II opioid drug. Eliquis 2.5 mg oral tablet: 1 tablet = 2.5 mg, By Mouth, 2 times a day, 0 Refills, Maintenance, 03/25/22 10:55:00 EST, Partial fill upon patient request if the prescription is for a schedule II opioid drug. Insulin Lispro: See Instructions, if blodd sugar is 150-200 take 22 units, 0 Refills, Maintenance, 09/22/20 16:34:00 EDT, Injection, Partial fill upon patient request if the prescription is for a schedule II opioid drug. Lantus Inj: = 70 units, Subcutaneous Injection, Daily at bedtime, 0 Refills, Maintenance, 09/22/20 11:45:00 EDT, Injection, Partial fill upon patient request if the prescription is for a schedule II opioid drug. Vitamin B12 500 mcg oral tablet: 2 tablet = 1,000 mcg, By Mouth, Daily, # 30 tablet, 0 Refills, Maintenance, 08/15/17 1:39:32 EDT, Tablet Vitamin D3 2000 intl units oral capsule: 1 capsule = 50 mcg, By Mouth, Daily, # 60 capsule, 0 Refills, Maintenance, 03/22/22 11:35:00 EST, Capsule, Partial fill upon patient request if the prescription is for a schedule II opioid drug. calcitriol 0.25 mcg oral capsule: 1 capsule = 0.25 mcg, By Mouth, Every Monday, Monday and Monday, 0 Refills, Maintenance, 01/07/22 20:26:00 EST, Partial fill upon patient request if the prescription is for a schedule II opioid drug. isosorbide mononitrate 30 mg oral tablet, extended release: 30 mg, 1, tablet, By Mouth, Daily in AM, # 30 tablet, Refills 0, Maintenance, 08/15/17 1:41:35 EDT metformin 500 mg oral tablet: 1,000 mg, 2, tablet, By Mouth, 2 times a day, 0 Refills metoprolol 50 mg oral tablet: 100 mg, 2, tablet, By Mouth, 2 times a day, Refills 0, Maintenance, 05/12/22 10:36:00 EDT, Partial fill upon patient request if the prescription is for a schedule II opioid drug. pantoprazole 40 mg oral delayed release tablet: 1 tablet = 40 mg, By Mouth, Daily, # 30 tablet, 0 Refills, Maintenance, 09/13/20 16:18:00 EDT, EC Tablet pregabalin 75 mg oral capsule: 1 capsule = 75 mg, By Mouth, 2 times a day, # 60 capsule, 0 Refills,Maintenance, 03/22/22 11:34:00 EST, Capsule, Partial fill upon patient request if the prescription is for a schedule II opioid drug. topiramate 25 mg oral tablet: = 100 mg, By Mouth, Daily, 0 Refills, Maintenance, 02/28/19 13:11:00 EST, Tablet. Chief Complaint/Reason for Admission Diabetic foot infection Aware of diagnosis: patient. Procedures Surgical Operative Note Patient: HALLEY JUNE Age: 66 years Sex: Female : 1955 Associated Diagnoses: None Author: Joshua Harper MD Operative Information Procedure Date: 05/18/2022. Preoperative Diagnosis: Osteomyelitis of left foot. Postoperative Diagnosis: Same as Preoperative Diagnosis. Procedure Performed: Left transmetatarsal amputation. Surgeon: Joshua Harper MD. Assistants: Alfredo BAILEY, Chelsey. Anesthesia Type: General, Regional. . 66-year-old female with diabetes and peripheral artery disease. She presented with left great toe infection and wound. She previous underwent left great toe amputation. She was subsequently brought to the operating room for completion left foot transmetatarsal amputation. . Attending Consultants Angela RAMOS, Andra Castillo MD, Kostas. Delfino BAILEY, Tan. Allergies Allergic Reactions (Selected) Severity Not Documented Clindamycin- Diarrhea. Penicillin- Rash. Discharge condition: good Compared to admission: improved Code status: Full Hospital Course Halley June is a 66 year old female with past medical history of DM2, CKD4, HTN, HLD, AF s/p watchman in March, and PVD s/p R BKA who presented to [facility] as a direct admit from outpatient clinic on 05/11 for nonhealing diabetic left foot wound infection. She recently underwent angiography of LLE without intervention as well as amputation of L 1/[address] Jacques (03/28/22).Left foot with erythema to midfoot, with purulence. She was admitted for IV abx- Vanco/Zosyn. L foot XR suspicious for osteo on second proximal phalanx. Pt is now s/p Left foot debridement, excisional, to include bone, 3.5x4cm, Left 2nd toe amputation on 05/14/22 (Laura), which she tolerated well without any complications. Postoperatively she continues to recover well. ID following; recommend continuation of Zosyn, stop Vanc for now. Renal following for JEN on CKD; close to baseline of 2.0 at this time; continue IV LR, holding Lasix. Obtaining daily weights to monitor fluid status. BIDs consulted for ongoing management of DM2. Continue holding Eliquis as patient will need completion left TMA, likely this week. MRI compatible with osteomyelitis of the left 2nd lateral base of the phalanx. Now s/p L TMA with Dr Harper on 05/18. Tolerated well. Recovering appropriately. PT has evaluated and recommends rehab. Per ID, IV Zosyn for 48 hours postop from 05/18 which is completed. Plan for discharge to rehab today, 05/21/22. Anticoagulation: Eliquis 2.5mg BID, ASA 81mg daily Statin: Atorvastatin 80mg daily Pain: Tylenol 650mg Q6H PRN mild-moderate pain; Oxycodone 5mg Q6H PRN severe pain Postoperative Events Unexpected Return to the OR: no. Bleeding required re-operation: no. 35 minutes spent on discharge Discharge Plan Discharge Disposition Discharge: Post Acute Care. CYTOLOGIST: Wound Care Left TMA: betadine paint BID; cover with DSD Monitor for signs/symptoms of infection, Physical Therapy LLE NWB 4-6 weeks postop. * Pancho READ, Darya Still: PERFORM, SIGN, VERIFY Event Display: Case Management Discharge Plan Authored Date: [id number] Patient: HALLEY JUNE Age: 66 years Sex: Female : 1955 Associated Diagnoses: None Author: Darya Deleon RN Discharge Plan Case Management Discharge Plan : Case Management Discharge Plan Data 05/21/2022 12:02 EDT Discharge Level of Care at Discharge halfway facility Discharge Nursing Homes/Rehab Facilities [facility] Discharge Transportation Arranged [facility] [address] [place] [id number] Discharge Arranged Transport Date/Time 05/21/2022 15:00 Mode of Transportation Arranged Ambulance Name of Agency #1 [facility] Service Categories #1 Physical Therapy, Correction * Lavern Thomas RN: PERFORM Event Display: Patient Education/Instruction Authored Date: [id number] Inpatient Adult Discharge Instructions [address] [address] Name: HALLEY JUNE : 1955 Visit: 05/11/2022 16:35:00 Current Date: 05/21/2022 14:11 Account: [id number] Inpatient Adult Discharge Instructions We would like [...] and their families. Surveys are administered by [employer]. ?? If further treatment with your primary care physician or another doctor is recommended, it is important for you to keep the appointment. Call your primary care physician or return to the Emergency Department immediately if your condition worsens, fails to improve, or new symptoms develop. If you need to find a doctor, you can call [facility] [employer] for a referral at [phone] or toll free at [phone]) or log in to [email or web address].. ?? You can view and manage your care through the patient portal or by using a health care sonny of your choosing. [employer] is a website that allows you to securely view your medical information including your hospital discharge summary, office visit summaries, medications and follow-up visits. You can also request appointments, renew medications, and request access to your medical information using a health care sonny of your choosing, or just ask a question. You can enroll at [email or web address] or register during your next office visit. You have been discharged from [facility], Patient Care Unit: M6. If you have any questions regarding these instructions after you leave, please call us and we will be happy to assist you. [facility] Your Care Team Consulting Providers Leroy BAILEY, Joshua Cook; Terese BAILEY, Laith Abraham; Niya BAILEY, Jaya; Shannan BAILEY, Hamzah Daniel MD,Hannah Bertrand MD, Rae Roman; Delfino BAILEY, Tan; Colleen BAILEY, Jessy; Castillo BAILEY, Uri Warren Discharging Providers Claudio MARTÍNEZ, Nguyen Quesada Reason for Admission T2DM; Diabetic foot wound; S/p operative debridement Your Diagnosis Diabetic infection of left foot Type 2 diabetes mellitus BENIGN ESSENTIAL HYPERTENSION Chronic Osteomyelitis Involving Ankle and Foot Hyperlipidemia Tests Performed Below is a partial list of the tests performed during your hospitalization. You may have had other tests and procedures not included in this list. Please discuss all test results with your provider. BUN CBC Complete Urinalysis COVID-19 (2019 Novel Coronavirus) PCR COVID-19 (NOVEL CORONAVIRUS), PCR Creatinine GLUCOSE POC HOLD GEL TUBE HOLD LAVENDER TUBE Ionized Calcium Lytes Magnesium Level Microalbumin Urine Phosphorus Level Protein/Creatinine Ratio Urine Type and Screen UREA NITROGEN, URINE MG/DL Urine Chloride Urine Creatinine Urine Osmolality Urine Sodium MRI Ext Lower W+W/O Contrast Left XR Foot Min 3 Views Left Primary Care Provider Cirilo Alarcon III, MD Advance Directive Health Care Proxy on File Yes - Health Care Proxy Yes - MOLST Discharge Vitals Temperature: 98.1 DegF Height: 170 cm Pulse Rate: 65 bpm Weight: 114.7 kg Respiratory Rate: 18 br/min ?? Systolic Blood Pressure: 133 mm Hg ?? Diastolic Blood Pressure: 66 mm Hg ?? Oxygen Saturation: 99 % ?? Studies Pending All tests and labs ordered during this hospital stay have been completed unless listed below. Please discuss all pending results with your provider listed above in these instructions. ?? Add On Lab Order BUN CBC Creatinine Electrolytes (Lytes) Pathology Tissue Request () What to do next Instructions From Your Doctor Discharge Orders Discharge Medications HALLEY JUNE :1955 Visit Date:05/11/2022 Medications: Please continue your medications until treatment is completed or stopped by your provider. Medications not listed below should be discontinued. Discuss any questions related to medications with your provider. What How Much When Instructions Next Dose Changed Metoprolol (metoprolol 50 mg oral tablet) 2 tab(s) Oral Twice a day Tonight 4/ in evening Changed Oxycodone (oxyCODONE 5 mg oral tablet) 1 tab(s) Oral Every 6 hours as needed for Pain , Severe Duration: 3 Days Printed Prescription As needed Unchanged apixaban (Eliquis 2.5 mg oral tablet) 1 tab(s) Oral Twice a day Tonight 4/1 in evening Unchanged Atorvastatin (atorvastatin 80 mg oral tablet) 1 tab(s) Oral Daily at Bedtime Tonight 4/1 in evening Unchanged Calcitriol (calcitriol 0.25 mcg oral capsule) 1 capsule Oral Monday, Monday and Monday 4/3 in a.m. Unchanged Cholecalciferol (Vitamin D3 2000 intl units oral capsule) 1 capsule Oral Daily Tomorrow 4/2 in a.m. Unchanged Clopidogrel (Plavix 75 mg oral tablet) 1 tab(s) Oral Daily Tomorrow 4/2 in a.m. Unchanged Cyanocobalamin (Vitamin B12 500 mcg oral tablet) 2 tab(s) Oral Daily Tomorrow 4/2 in a.m. Unchanged Diltiazem (DilTIAZem (Eqv-Tiazac)) 120 Milligram Oral Daily Tomorrow 4/2 in a.m. Unchanged Durable Medical Equipment (Calcium Alginate Pad (7.5 X 12cm)) See instructions apply a small piece to the wounds on the left second toe and heel daily, cover with dressing ?? Unchanged Durable Medical Equipment (Plain Packing Strip) See instructions gently pack into left second toe amp site daily, cover with clean dry dressing ?? Unchanged Furosemide (furosemide 40 mg oral tablet) 1 tab(s) Oral Twice a day Tonight 4/1 in evening Unchanged Insulin Glargine (Lantus Inj) 70 unit(s) Subcutaneous Injection Daily at Bedtime Tonight 4/1 in evening Unchanged Insulin Lispro See instructions if blodd sugar is 150-200 take 22 units ?? Unchanged Isosorbide Mononitrate (isosorbide mononitrate 30 mg oral tablet, extended release) 1 tab(s) Oral Daily in the morning Tomorrow 4/2 in a.m. Unchanged Metformin (metformin 500 mg oral tablet) 2 tab(s) Oral Twice a day Tonight 4/1 in evening Unchanged Pantoprazole (pantoprazole 40 mg oral delayed release tablet) 1 tab(s) Oral Daily Tomorrow 4/2 in a.m. Unchanged Pregabalin (pregabalin 75 mg oral capsule) 1 capsule Oral Twice a day Tonight 4/1 in evening Unchanged Topiramate (topiramate 25 mg oral tablet) 100 Milligram Oral Daily Tomorrow 4/2 in a.m. ?? What How Much When Comments Stop Taking Cadexomer-Iodine Topical (Iodosorb 0.9% topical gel) See instructions dispense one tube 10g ?? Stop Taking Docusate (Colace sodium 100 mg oral capsule) 1 capsule Oral Twice a day as needed for Constipation Test Results Below is a partial list of the most recent Laboratory test results done prior to this discharge. You may have had other tests and procedures not included in this list. Please discuss all test resultswith your provider. BUN (05/21/2022) ???BUN - 21 mg/dL CBC (05/21/2022) ???WBC - 6.0 k/mm3???RBC - 2.99 m/mm3???Hgb - 7.4 Gm/dL???Hct - 25.2 %???MCV - 84.3 femtoliters???MCH - 24.7 pg???MCHC - 29.4 g/dL???Platelet Count - 160 k/mm3???RDW-SD - 50.1 femtoliters???MPV - 11.6 femtoliters???Nucleated RBC (Automated) - 0.0 #/100 WBC'S???Abs. NRBC - 0.0 k/mm3 Complete Urinalysis (05/12/2022) ???Appear/Color, Urine - LIGHT YELLOW???Specific [place], Urine - 1.017???pH, Urine - 6.5???Albumin, Urine - TRACE???Glucose, Urine - NEGATIVE???Ketones, Urine - NEGATIVE???Bilirubin, Urine - NEGATIVE???Hemoglobin, Urine - NEGATIVE???Nitrite, Urine - NEGATIVE???Leukocyte, Urine - 1+???Urobilinogen - NORMAL???WBC's, Urine - 4 /HPF???RBC's, Urine - 1 /HPF???Squamous Epith - 3 /HPF???Hyaline Cast - 1 LPF???Mucus - SLIGHT COVID-19 (2019 Novel Coronavirus) PCR (05/19/2022) ???COVID-19 PCR Specimen Source - NASAL???COVID-19 PCR Result - NEGATIVE COVID-19 (NOVEL CORONAVIRUS), PCR (05/21/2022) ???COVID-19 by RT-PCR - NEGATIVE Creatinine (05/21/2022) ???Creatinine-Blood - 2.0 mg/dL???Estimated GFR Creatinine - 28 ML/MIN/1.73 M2 GLUCOSE POC (05/21/2022) ???Glucose, POC - 137 mg/dL HOLD GEL TUBE (05/12/2022) ???Hold Gel Top - SPECIMEN DISCARDED AFTER 1 WEEK HOLD LAVENDER TUBE (05/12/2022) ???Hold Lavender Top - SPECIMEN DISCARDED AFTER 24 HOURS. Ionized Calcium (05/19/2022) ???Calcium, Ionized pH Corrected - 1.15 mmol/L Lytes (05/21/2022) ???Sodium - 143 mmol/L???Potassium - 4.1 mmol/L???Chloride - 111 mmol/L???Bicarbonate Level - 25 mmol/L???Anion Gap - 7 Magnesium Level (05/19/2022) ???Magnesium - 1.9 mg/dL Microalbumin Urine (05/12/2022) ???Malb/Creat Ratio - Unable to calculate???Urine Creat For Micro Alb - 89.4 mg/dL???Micro-Albumin - <12.0 mg/L Phosphorus Level (05/19/2022) ???Phosphorus - 4.0 mg/dL Protein/Creatinine Ratio Urine (05/12/2022) ???Protein, Total Urine Random - 19 mg/dL???TP/Cr Ratio - 0.21???Creatinine, Urine - 89.4 mg/dL Type and Screen (05/12/2022) ???Blood Type - O Positive???Antibody Screen - Negative UREA NITROGEN, URINE MG/DL (05/12/2022) ???Urea Nitrogen, Urine Random - 672.1 mg/dL Urine Chloride (05/12/2022) ? ?Chloride, Urine Random - <20 mmol/L Urine Creatinine (05/12/2022) ???Creatinine, Urine Random - 89.4 mg/dL Urine Osmolality (05/12/2022) ???Osmolality, Urine Random - 411 mOsm/kg Urine Sodium (05/12/2022) ???Sodium, Urine Random - 29 mmol/L Allergies (NKA means No Known Allergies) clindamycin??(diarrhea) penicillin??(rash) Problems Active Problems??(7) BENIGN ESSENTIAL HYPERTENSION?? Cellulitis?? Diabetic foot ulcer?? Hyperlipidemia?? Obese class I?? Pneumonia?? TYPE II DIABETES MELLITUS [NON-INSULIN DEPENDENT TYPE] [NIDDM TYPE] [ADULT-ONSET TYPE] OR UNSPECIFIE?? Education Materials Below is the list of Educational Leaflet Providered with your Discharge Instructions. BVS-Toe and ??partial foot Amp?? BVS-Vascular Activity for TMA?? Valuables and Belongings I fully understand and agree that [facility] accepts no responsibility for all my [...] to send valuables and belongings home. ?? Possessions released to: No valuables and belongings present in pre-op Date for Pt to Sign Valuables/Belongings: 05/18/22 11:38:00 ?? Other Discharge Information ?? Wound Assessment?? Wound Assessment?? Wound Location I: Foot, left ?? Case Management Discharge Plan?? Discharge Plan?? Discharge Agency Information?? Discharge Level of Care at Discharge: halfway facility Name of Agency #1: [facility] Discharge Rx Program: Discharge Prescription Program Service Categories #1: Physical Therapy, Correction Discharge Transportation Arranged: [facility] Kenny Ramirez [facility] [id number] [phone] ?? Mode of Transportation Arranged: Ambulance ?? Discharge Arranged Transport Date/Time: 05/21/22 15:00:00 ?? Discharge Nursing Homes/Rehab Facilities: [facility] ? Pulmonary Rehab Status?? Pulmonary Rehab Discharge [...] are strongly encouraged to quit. Please call [facility] Code71 Link at [phone] or [phone] ([phone]) or log in to [email or web address] for referrals to smoking cessation programs. ?? The National Suicide Prevention Hotline is available 12/09 if you or someone you know needs to find a reason to keep living. By calling 2-874-524-[employer]mags (4450) you'll be connected to a skilled, trained counselor at a crisis center in your area. INPATIENT DISCHARGE INSTRUCTIONS SIGNATURE PAGE HALLEY JUNE Location:[facility] Registration Date and Time:05/11/2022 16:35 EDT Primary Care Physician: Dorian STRATTON MD, Cirilo Worrell, I HALLEY JUNE, have received the above patient education materials/instructions and have verbalized understanding. If ambulance or transport services are being used I further acknowledge being given a choice of service. ?? If you need to contact me, please call me at this number: . Patient/Tandem Operator Name: Patient/Tandem Operator Signature: Relationship to Patient: Witness Name/Signature: Date: * Lavern Thomas RN: PERFORM Event Display: Patient Education Leaflets Authored Date: [id number] BVS-Toe and partial foot Amp ?? 62 [...] questions, please call the vascular surgeons at [phone]. ?? Heart and Vascular Healthy Living You [...] you get home.?? Keep a written list ([employer] [place]medication card) of what medicines you take and [...] as a patch or paste. ? * Lavern Thomas RN: PERFORM Event Display: Patient Education Leaflets Authored Date: [id number] BVS-Vascular Activity for TMA ?? 62 Vascular Activity for TMA ?? ABSOLUTELY NO WEIGHT BEARING on amputation site for 4-6 weeks or until healed. ? * Event Display: Provider Clarification Note Please click on pdf link to open report * SPowerscriherbie , CIS S: TRANSCRIBE Luther Shrestha MD: VERIFY Event Display: Result: Authored Date: [id number] INDICATION: Second digit ulceration. Question osteomyelitis. Patient had debridement including boneof the second digit on 05/14/2022 TECHNIQUE: Multiplanar multisequence MRI of the left forefoot with and without intravenous contrastmaterial. 18 mL of Clariscan intravenous contrast was administered. COMPARISONS: 01/09/2022. Radiographs 05/12/2022 FINDINGS: Bone: Bony edema within the second metatarsal head without confluent T1 marrow placement. There appears to be a 6 mm x 5 mm bony fragment remaining from the second digit proximal phalanx with imagingcharacteristics characteristic of osteomyelitis as seen on series 8 image 20 and series 7 image 20.The lateral base of the second digit proximal phalanx is what remains. Minimal edema within the first metatarsal head without mild edema noted within the proximal phalanxof the third digit without confluent T1 marrow replacement. Soft tissues: Surgical debridement extending to the second metatarsal head. No discrete abscess. IMPRESSION: 1. 6 mm x 5 mm bony fragment representing the lateral base of the second digit proximal phalanx hasimaging characteristics compatible with osteomyelitis. The remaining portion of the second digit proximal phalanx has been resected. 2. Mild edema within the second metatarsal head and third digit proximal phalanx without confluent T1 marrow replacement, likely reactive edema at this time. WSN: [id number] Ordering Physician: Deanna Monroe Dictated By: Luther Shrestha MD Dictated Date/Time: 05/16/22 8:11 am Reviewed By: Luther Shrestha MD Signed By: Luther Shrestha MD Signed Date/Time: 05/16/22 8:11 am Transcribed By: KRYSTINA Transcribed Date/Time: 05/16/22 8:03 am * Event Display: Cardiac Rhythm Strips Authored Date: [id number] Hospital Progress note * Uri Chong MD: PERFORM, SIGN, VERIFY Event Display: Progress Note Hospital Authored Date: Patient: HALLEY JUNE Age: 66 years Sex: Female : 1955 Associated Diagnoses: None Author: Uri Chong MD Overnight Events & Current Issues Events noted. All recent data reviewed. Renal function @ baseline Review of Systems Review of Systems Respiratory: no shortness of breath. Cardiovascular: no chest pain. Gastrointestinal: no nausea, no vomiting. Physical Examination Vitals Vitals : VITAL SIGNS SECTION 05/21/2022 12:05 EDT Temperature 98.1 DegF Temperature Route Oral Pulse Rate 65 bpm Respiratory Rate 18 br/min Systolic Blood Pressure 133 mm Hg Diastolic Blood Pressure 66 mm Hg Blood pressure sites Arm, right Mean Arterial Pressure 88 mm Hg Pulse Pressure 67 mm Hg Oxygen Saturation 99 % Mode of Delivery (Oxygen) Room air . General Appearance No apparent distress. Respiratory Decreased breath sounds. Cardiac Rhythms: RRR. Abdomen/GI Soft. Non-tender. Extremities Normal. Neurologic Alert. Results Review General resultsToday's results : Results 05/21/2022 7:02 EDT Sodium 143 mmol/L Potassium 4.1 mmol/L Chloride 111 mmol/L H Bicarbonate Level 25 mmol/L Anion Gap 7 BUN 21 mg/dL Creatinine-Blood 2.0 mg/dL H . Impression and Plan Comprehensive Plan JEN CKD 3(resolved) kidney function at baseline JEN due to compromised kidney perfusion and tubular stress resolved known CKD followed by Dr Núñez baseline Scr ~ 2 mg/dl Renal function @ baseline Shall arrange F/U when D/Fabrizio * Layne READ, Jillian: SIGN, MODIFY, PERFORM, SIGN, VERIFY Event Display: Progress Note Hospital Authored Date: Patient: HALLEY JUNE Age: 66 years Sex: Female : 1955 Associated Diagnoses: None Author: Layne READ, Jillian Findings Problem Related to Alteration in Tissue Perfusion : Alteration in Tissue Perfusion 05/21/2022 11:00 EDT Alteration Tissue Perfusion related to Vascular disease, Vascular Procedure Goals & Outcomes: Tissue perfusion Pt will maintain optimal perfusion to vital organs, Pt will resume/maintain adequate peripheral circulation, Pt will experience improved tissue perfusion, Pt will achieve progressive healing of injured area, Pt will be hemodynamically stable, Pt will achieve no rmal/improved/optimal neuro status, Pt will return to baseline respiratory function, Pt will maintain adequate GI function appropriate for pt, Pt will maintain adequate function appropriate for pt, Pt will be discharged without infection, Pt/ S.O. will state understanding of plan of care, Pt/S.O. will verbalize understanding of the D/C plan Interventions: Tissue Perfusion Assess for s/s of infection of lines, drains, incisions, Assess/Monitor activity tolerance, Assess/Monitor CMS to affected extremity, Assess/Monitor mental status, Assess/Monitor peripheral pulses & capillary refill, Assess/Monitor presence & degree of edema,Assess/Monitor secretions & drainage for s/s of infection, Assess/Monitor vital signs per unit standard & prn, Discuss discharge needs with family service caseworker, Ensure case management or social service consult, Maintain precautions per Infection Control Standards, Monitor blood loss, Monitor Intake & Output, Monitor labs & report variances to provider, Monitor response to fluid replacement, Monitor size & character of hematoma, Elevate limbs, Physical assessment per unit standards, Position for comfort, Provide info on community resources for education, support, Report changes inhemodymamics to MD, Teach pt/caregiver discharge plan & follow up care, Teach pt/caregiver on plan of care, treatment, s/s & meds, Teach pt/caregiver on use of pain scale, Teach Pt/caregiver signs & symptoms of infection BH Goals/Interventions, Tissue Perfusion Yes Tissue Perfusion, Problem Start 05/20/2022 14:52 Reviewed Plan with, Tissue Perfusion Patient Patient Progression, Tissue Perfusion Pt progressing according to plan . Narrative/Incidental AAOx4. L foot dressing cdi, NWB x 6 weeks. Denies pain. Pt able to turn and reposition self in be with minimal assistance. Pt educated on pressure protection and relief practices. No events this shift, systems as documented. Plan for dc today to [facility]. Ambulance filler picker booked for 1500 per CM. . Discharge Information Case Management Discharge Plan : Case Management Discharge Plan Data 05/21/2022 12:02 EDT Discharge Level of Care at Discharge halfway facility Discharge Nursing Homes/Rehab Facilities [facility] Discharge Transportation Arranged [facility] [id number] [phone] Discharge Arranged Transport Date/Time 05/21/2022 15:00 Mode of Transportation Arranged Ambulance Name of Agency #1 [facility] Service Categories #1 Physical Therapy, Correction Rehabilitation Discharge : Rehab Discharge Index 05/19/2022 11:24 EDT Comments on treatment indicated 66 y/o F with DM and PVD pmh sig for Right BKA is now s/p Left TMA with strict NWB. Pt will need to perform all transfers via slideboard. PT to seefor therex, bed mobility, balance, transfer via slideboard. Full chart review completed Yes Hospital course see comment Other findings Pt demonstrates good Left ankle ROM and was educated for DF stretch, ankle pumps as well as UE strength via bed push ups in sitting with elbows extended to lift buttocks. Pt demo good effort and understanding of all exercises and strict NWB Left foot. Plan of care PT Transfer training, Therapeutic exercise, Functional Activities, Balance training * Layne READ, Jillian: PERFORM Event Display: Progress Note Hospital Authored Date: Discharge instructions medications and follow up care reviewed with pt by Kayleigh varma RN. Handover report given to EMT, pt transported off floor via stretcher with procurement professional * Jerod Escobar MD: PERFORM Jerod Escobar MD: PERFORM, SIGN Jerod Escobar MD: SIGN, VERIFY Jerod Escobar MD: VERIFY, MODIFY Event Display: Progress Note Hospital Authored Date: Patient: HALLEY JUNE Age: 66 years Sex: Female : 1955 Associated Diagnoses: None Author: Jerod Escobar MD Subjective No acute events. Pt denies chest pain/SOB, fever/chills, nausea/vomiting. Tolerating diet. Pain controlled. PT recommending rehab Objective Vital Signs Vitals : VITALS 05/21/2022 8:48 EDT Early Warning Score 2.00 05/21/2022 8:48 EDT Early Warning Score 2.00 05/21/2022 8:47 EDT Pulse Rate 69 bpm Pulse Rate 69 bpm Systolic Blood Pressure 132 mm Hg Systolic Blood Pressure 132 mm Hg Diastolic Blood Pressure 65 mm Hg Diastolic Blood Pressure 65 mm Hg . Physical Exam: General: No acute distress, awake, alert. HEENT:??Normocephalic, atraumatic. Cardio: Regular rate. Lungs: Non-labored breathing on room air. Abdomen: Non-distended. Extremities: Left TMA site well-healing; faint erythema along posterior flap but nondraining, nonfluctuant, edematous. Right leg BKA well-healed Psych:??Appropriate mood and affect Results Review 7 Day Results Results Laboratory : LABORATORY 05/21/2022 7:34 EDT Glucose, POC 72 mg/dL 05/21/2022 7:04 EDT WBC 6.0 k/mm3 RBC 2.99 m/mm3 L Hgb 7.4 Gm/dL L Hct 25.2 % L MCV 84.3 femtoliters MCH 24.7 pg L MCHC 29.4 g/dL L Platelet Count 160 k/mm3 RDW-SD 50.1 femtoliters H MPV 11.6 femtoliters Nucleated RBC (Automated) 0.0 #/100 WBC'S Abs. NRBC 0.0 k/mm3 05/21/2022 7:02 EDT Sodium 143 mmol/L Potassium 4.1 mmol/L Chloride 111 mmol/L H Bicarbonate Level 25 mmol/L Anion Gap 7 BUN 21 mg/dL Creatinine-Blood 2.0 mg/dL H Estimated GFR Creatinine 28 ML/MIN/1.73 M2 Impression and Plan Halley June is a 66 year old female with past medical history of DM2, CKD4, HTN, HLD, AF s/p watchman in March, and PVD s/p R BKA who presented to [facility] as a direct admit from outpatient clinic on 05/11 for nonhealing diabetic left foot wound infection. She recently underwent angiography of LLE without intervention as well as amputation of L 1/[address] Jacques (03/28/22).Left foot with erythema to midfoot, with purulence. She was admitted for IV abx- Vanco/Zosyn. L foot XR suspicious for osteo on second proximal phalanx. Pt is now s/p Left foot debridement, excisional, to include bone, 3.5x4cm, Left 2nd toe amputation on 05/14/22 (Laura), which she tolerated well without any complications. Postoperatively she continues to recover well. ID following; recommend continuation of Zosyn, stop Vanc for now. Renal following for JEN on CKD; close to baseline of 2.0 at this time; continue IV LR, holding Lasix. Obtaining daily weights to monitor fluid status. BIDs consulted for ongoing management of DM2. Continue holding Eliquis as patient will need completion left TMA, likely this week. MRI compatible with osteomyelitis of the left 2nd lateral base of the phalanx. Now s/p L TMA with Dr Harper on 05/18. Tolerated well. Recovering appropriately. PT has evaluated and recommends rehab. Dispo pending. Per ID, IV Zosyn for 48 hours postop from 05/18. Plan: - diabetic Diet - Appreciate renal recs - Continue Plavix/Statin/Eliquis - Wound care: Daily betadine paint to staple line, cover with DSD, multipodus boot. - Tight glycemic control - Pain control: Tylenol, Oxycodone PRN - Appreciate BIDS input; SARAH, hold Metformin - PT: rehab, pending; NO weight bearing x 6wks DC rehab [facility] when bad available/insurance authorization Please page Vascular [place] [phone]. Discussed with attending vascular surgeon Dr. Mac * Estefania BAILEY, Shaunna Multani: PERFORM Event Display: Progress Note Hospital Authored Date: I personally saw and evaluated the patient. I reviewed the resident's note and findings and discussed it with them. I agree with the documented plan of care. XR Foot - left GE 3 Views * CLARIBEL Hoffmann S: TRANSCRIHERBIE Casiano MD, Bob L: Gus Nuñez MD: VERIFY Event Display: Result: Authored Date: Foot Min 3 Views Left, 3 views History: Infection. COMPARISON: January 26, 2022 FINDINGS: Osteolysis distal aspect of the second proximal phalanx. Diffuse soft tissue swelling in the foot. Status post amputation of the left great toe. Diffuse osseous demineralization. IMPRESSION: Suspect osteomyelitis second proximal phalanx. I have personally reviewed the images and I agree with this report. WSN: [id number] Ordering Physician: Deanna Monroe Dictated By: Bob Casiano MD Dictated Date/Time: 05/12/22 5:11 pm Reviewed By: Gus Henriquez MD Signed By: Gus Henriquez MD Signed Date/Time: 05/12/22 5:16 pm Transcribed By: KRYSTINA Transcribed Date/Time: 05/12/22 4:30 pm Patient Care team information Care Team Personnel Name: Gus Stern MD Position: [facility] Renal MD Member Role: Lifetime Consulting Physician Address: Address: [address] [place] [address], [address] [place] [address]- [place] Name: Gauri Ellison RN Position: S RN Member Role: Primary Care Nurse Name: Cirilo Alarcon III, MD Position: [facility] Ambulatory (view) Member Role: PCP Address: Address: [address] [place] [phone] Name: Ck Nieves RN Position: S RN Member Role: Primary Care Nurse Name: Lionel Chavez RN Position: [facility] RN Supv Member Role: Primary Care Nurse Name: Woody Hayes RN Position: S RN Member Role: Primary Care Nurse Name: Kaylyn Hernandez RN Position: S RN Member Role: Primary Care Nurse Name: Chasity Justin RN Position: S RN Member Role: Primary Care Nurse Name: Ganesh Castillo MD Position: [facility] Renal MD Member Role: Lifetime Consulting Physician Address: Address: [address] [place] [address] [address] [facility] [place] [address]- [place] Name: Beto Mora RN Position: [facility] RN Member Role: Primary Care Nurse Name: Teresa Robledo RN Position: [facility] RN Member Role: Primary Care Nurse Name: Gloria Spicer RN Position: S RN Member Role: Primary Care Nurse Name: Melanie Stauffer Position: S TA Member Role: Patient Care Provider Care Team Related Persons Name: GUS PHILLIPS Address: [address] [place] [address] Name: CHOCO JUNE Address: home [address] [place] [id number]
--- OUTSIDE RECORDS SUMMARY | 2023-03-02 08:25 | XMS_ITS | Summary of Care ---
Author Name Unknown Organization [facility] Address [address] [place] [address]- Encounter 01/03/16 - 01/16/16 [facility] [address] [place] [address]- Discharge Diagnosis: Acid reflux Discharge Diagnosis: HTN - Hypertension Discharge Diagnosis: CHF - Congestive heart failure Discharge Diagnosis: HLD - Hyperlipidaemia Discharge Diagnosis: Diabetes mellitus Attending Physician: Lu Cabrera MD Vital Signs Most recent to oldest [Reference Range]: 1 2 3 Temperature Oral F [96.4-99.1 DegF] 96.4 DegF (01/16/16 5:45 AM) 97.3 DegF (01/15/16 3:00 PM) 96.9 DegF (01/15/16 6:25 AM) Peripheral Pulse Rate [60-100 bpm] 63 bpm (01/16/16 5:45 AM) 69 bpm (01/15/16 7:55 PM) 75 bpm (01/15/16 3:00 PM) Respiratory Rate [14-20 br/min] 18 br/min (01/16/16 5:45 AM) 18 br/min (01/15/16 3:00 PM) 20 br/min (01/15/16 6:25 AM) Blood Pressure [90-140/60-90 mmHg] 114/64mmHg (01/16/16 7:47 AM) Systolic Blood Pressure [90-140 mmHg] 112 mmHg (01/16/16 5:45 AM) 129 mmHg (01/15/16 7:55 PM) Diastolic Blood Pressure [60-90 mmHg] 62 mmHg (01/16/16 5:45 AM) 55 mmHg *LOW* (01/15/16 3:00 PM) Extremity used to obtain blood pressure Left Arm (01/04/16 12:00 AM) Left Arm (01/03/16 6:51 PM) Cuff Size. Large (01/04/16 12:00 AM) Medium (01/03/16 6:51 PM) Diastolic Blood Pressure with Activity 55 mmHg (01/04/16 7:00 AM) Peripheral Pulse Rate with Activity 82 bpm (01/04/16 7:00 AM) Systolic Blood Pressure with Activity 118 mmHg (01/04/16 7:00 AM) Vital Signs w/ Activity Additional Info after completing spongebath at sink (01/04/16 7:00 AM) Temperature Oral [36-37 DegC] 36 DegC (01/16/16 5:45 AM) 36 DegC (01/15/16 6:25 AM) 36 DegC (01/14/16 4:05 PM) Problem List Condition Effective Dates Status Health Status Inform ant Acid reflux(Confirmed) Active CHF - Congestive heart failure(Confirmed) Active Diabetes mellitus(Confirmed) Active HLD - Hyperlipidaemia(Confirmed) Active HTN - Hypertension(Confirmed) Active Neuropathy(Confirmed) Active Obesity(Confirmed) Active Renal insufficiency(Confirmed) Active Allergies, Adverse Reactions, Alerts Substance Reaction Severity Status clindamycin Active penicillins Active Medications amLODIPine 5 mg oral tablet 5 mg, = 1 tab, Tab, Oral, Daily, Refills 0 Start Date: 01/15/16 Status: Ordered Colace 100 mg oral capsule 100 mg, = 1 cap, Cap, Oral, BID PRN, Refills 0, Constipation Start Date: 01/15/16 Status: Ordered Dilaudid 2 mg oral tablet 2 mg, = 1 tab, Tab, Oral, q3hr PRN, Refills 0, Pain scale 1-5, 0 Start Date: 01/15/16 Status: Ordered ferrous sulfate 325 mg (65 mg elemental iron) oral tablet 325 mg, = 1 tab, Tab, Oral, BID, Refills 0 Start Date: 01/15/16 Status: Ordered gabapentin 300 mg oral capsule 600 mg, = 2 cap, Cap, Oral, QID, Refills 0 Start Date: 01/15/16 Status: Ordered HYDROmorphone 4 mg oral tablet 4 mg, = 1 tab, Tab, Oral, q3hr PRN, Refills 0, Pain scale 6-10, 0 Start Date: 01/15/16 Status: Ordered Lantus 100 units/mL subcutaneous solution 62 units, Injection-Insulin (soln), Subcutaneous, QHS, Refills 0 Start Date: 01/15/16 Status: Ordered Lasix 40 mg oral tablet 40 mg, = 1 tab, Tab, Oral, Daily, Refills 0 Start Date: 01/15/16 Status: Ordered Levaquin 500 mg oral tablet 500 mg, 1 tab, Tab, Oral, q24hr, Refills 0 Start Date: 01/15/16 Status: Ordered magnesium oxide 400 mg (241.3 mg elemental magnesium) oral tablet 400 mg, = 1 tab, Tab, Oral, BID, Refills 0 Start Date: 01/15/16 Status: Ordered metFORMIN 500 mg oral tablet 1,000 mg, = 2 tab, Tab, Oral, BIDWM, Refills 0 Start Date: 01/15/16 Status: Ordered metoprolol tartrate 50 mg oral tablet 50 mg, 1 tab, Tab, Oral, BID, Refills 0 Start Date: 01/15/16 Status: Ordered pantoprazole 40 mg oral delayed release tablet 40 mg, = 1 tab, Tab-DR, Oral, Before breakfast, Refills 0 Start Date: 01/15/16 Status: Ordered simvastatin 20 mg oral tablet 20 mg, = 1 tab, Tab, Oral, QHS, Refills 0 Start Date: 01/15/16 Status: Ordered Results LABORATORY Most recent to oldest [Reference Range]: 1 2 3 Glucose POC RALS [74-106 mg/dL] 91 mg/dL (01/16/16 6:02 AM) 125 mg/dL *HI* (01/15/16 8:00 PM) 129 mg/dL *HI* (01/15/16 4:06 PM) Blood Glucose, Capillary [74-106 mg/dL] 125 mg/dL *HI* (01/15/16 8:01 PM) 165 mg/dL *HI* (01/12/16 9:08 PM) 139 mg/dL *HI* (01/10/16 8:06 PM) Estimated Creatinine Clearance 64.56 mL/min (01/16/16 5:47 AM) 64.56 mL/min (01/15/16 2:19 PM) 66.76 mL/min (01/15/16 6:25 AM) Creatinine Level 0.91 mg/dL (01/15/16 2:19 PM) 0.88 mg/dL (01/13/16 10:55 AM) 0.79 mg/dL (01/12/16 5:10 PM) Immunizations No data available for this section Procedures No data available for this section Social History No data available for this section Assessment and Plan No data available for this section
--- OUTSIDE RECORDS SUMMARY | 2023-03-02 08:25 | XMS_ITS | Continuity of Care Document ---
Author Name Unknown Organization [facility] Address [address] [place] [address]- Care Team Providers Care Township Clerk Name Role Phone Cirilo Alarcon III, MD Primary Care Physician [phone] Encounter [facility] Date(s): 03/15/22 - 03/15/[address] [address]- Discharge Disposition: A-D/C Home Attending Physician: David Valera MD Admitting Physician: David Valera MD Referring Physician: Not on Staff, Referring [...] Vaccine (oldterm) 11/19/06 Given 1Result Comment: lot# [id number] exp. [id number] Medications apixaban 2.5 mg oral tablet 1 [...] 0 Refills, Maintenance, 02/28/19 11:22:00 EST, Tablet, [facility], 170.1, cm, 02/28/19 4:06:00 [...] 01/12/22 10:54:00 EST, Route to Pharmacy Electronically, [facility][id number], Partial fill upon patient request if the [...] 02/28/19 13:32:00 EST, Route to Pharmacy Electronically, [facility] #[id number], 170.1, cm, 02/28/19 4:06:00 EST, Height, 138, [...] 07/05/21 13:21:00 EDT, Route to Pharmacy Electronically, [id number], Partial fill upon patientrequest if the prescription [...] Most recent to oldest [Reference Range]: 1 Oxygen Saturation [94-100 %] 94 % (03/15/22 3:43 PM) Pulse Rate [55-90 bpm] 52 bpm *L* (03/15/22 3:43 PM) Mode of Delivery (Oxygen) Room air (03/15/22 3:43 PM) Social History Social History Type Response Tobacco Use: quit smoking 30 years ago. Sex Patient Care team information Care Team Personnel Name: Gauri Ellison RN Position: [facility] RN Member Role: Primary Care Nurse Name: Nguyen Becerra RN Position: [facility] RN Member Role: Primary Care Nurse Name: Cirilo Alarcon III, MD Position: [facility] Ambulatory (view) Member Role: PCP Address: Address: [address] [place] [id number] Name: Lionel Chavez RN Position: [facility] RN Supv Member Role: Primary Care Nurse Name: Kaylyn Hernandez RN Position: [facility] RN Member Role: Primary Care Nurse Name: Chasity Justin RN Position: S RN Member Role: Primary Care Nurse Name: Beto Mora RN Position: S RN Member Role: Primary Care Nurse Care Team Related Persons Name: PRESLEY PHILLIPS Address: home [address] [place] [address] Name: JAYSONCHOCO Address: home [address] [place] [address]
--- OUTSIDE RECORDS SUMMARY | 2023-03-02 08:25 | XMS_ITS | Continuity of Care Document ---
Author Name Unknown Organization [facility] Address [address] [place] [address]- Care Team Providers Care Mail Officer Name Role Phone Dorian STRATTON MD, Cirilo Worrell Primary Care Physician [phone] Encounter [facility] Date(s): 01/26/22 - 02/02/22 [facility] [address] [place] [address] Attending Physician: Amador MARTÍNEZ, Bhavna [...] Vaccine (oldterm) 11/19/06 Given 1Result Comment: lot# [id number] exp. [id number] Medications apixaban 2.5 mg oral tablet 1 [...] 01/12/22 10:54:00 EST, Route to Pharmacy Electronically, [facility] #[id number], Partial fill upon patient request if the [...] 02/28/19 13:32:00 EST, Route to Pharmacy Electronically, [facility] #[id number], 170.1, cm, 02/28/19 4:06:00 EST, Height, 138, [...] 07/05/21 13:21:00 EDT, Route to Pharmacy Electronically, [facility] #[id number], Partial fill upon patientrequest if the prescription [...] oldest [Reference Range]: 1 Height 170 cm (01/26/22 11:31 AM) Weight 90.26 kg (01/26/22 11:31 AM) Oxygen Saturation [94-100 %] 91 % *L* (01/26/22 11:31 AM) Pulse Rate [55-90 bpm] 97 bpm *H* (01/26/22 11:31 AM) Body Mass Index [18.5-24.99 kg/m2] 31.23 kg/m2 *>HHI* (01/26/22 11:31 AM) Blood Pressure [90-138/55-84 mm Hg] 136/ 74mm Hg (01/26/22 11:31 AM) Mode of Delivery (Oxygen) Room air (01/26/22 11:31 AM) Blood pressure sites Arm, left (01/26/22 11:31 AM) Weight Obtained Via Patient/family state d (01/26/22 11:31 AM) Social History Social History Type Response Tobacco Use: quit smoking 30 years ago. Sex Note * Kristi Balderrama: PERFORM, SIGN, VERIFY Event Display: Patient Education/Instruction Authored Date: [id number] [facility] *[facility] [address] Clinical Summary Name HALLEY TYLER Age 66 Years 1955 PCP Dorian STRATTON MD, Cirilo Worrell PCP Visit Date 01/26/2022 11:10:00 Additional Instructions: Scheduled Appointments?? Future Appointments ?*BVS??[address]00[address] ?Phone:??--?Fax:??-- ?Appt. Date:??02/09/2022?11:00 AM ?Scheduled Provider:??[facility] Follow-Up Instructions ?? Diagnosis Medications: Please continue your medications until treatment is completed or stopped by your provider. Discuss any questions related to medications with your provider. New Medications [id number], [address] [place] [id number], [phone] Durable Medical Equipment (Calcium Alginate Pad (7.5 X 12cm)) apply a small piece to the wounds on the left second toe and heel daily, cover with dressing. Refills: 3. Next Dose: Medications to Continue with No [...] clindamycin Medications Given This Visit Future Orders ?Toe 2nd Left Foot? Order Date:01/26/22?- Complete within?3 days Vital Signs Height 170 cm Weight 90.26 kg BMI 31.23 kg/m2 Blood Pressure 136 mm Hg/74 mm Hg Temperature Pulse Rate 97 bpm Respiratory Rate 02 Sat Mode of Delivery 91 %/Room air You can now view a summary of your hospital visit from the comfort of your home through a free online portal called [email or web address]. [email or web address] is a website that allows you to securely view your medical information including discharge summary, medications and follow-up visits. ??You can alsosend a secure electronic message to your doctor???s office to request appointments, renew medications or just ask a question. You can enroll at [email or web address] or register during your next [...] primary care provider, you may find a [facility] provider by calling [facility] [employer] at [phone]. For information about the plan of care [...] Nurse Name: Cirilo Alarcon III, MD Position: [facility] Ambulatory (view) Member Role: PCP Address: Address: [address] [place] [address] Name: Lionel Chavez RN Position: [facility] RN Member Role: Primary Care Nurse Name: Kaylyn Hernandez RN Position: S RN Member Role: Primary Care Nurse Name: Chasity Justin RN Position: S RN Member Role: Primary Care Nurse Name: Beto Mora RN Position: [facility] RN Member Role: Primary Care Nurse Care Team Related Persons Name: PRESLEY PHILLIPS Address: [address] [place] [address] Name: CHOCO TYLER Address: home [address] [place] [address]
--- OUTSIDE RECORDS SUMMARY | 2023-03-02 08:25 | XMS_ITS | Continuity of Care Document ---
Author Name Unknown Organization [facility] Address [address] [place] [address]- Care Team Providers Care Rescue Boat Operator Name Role Phone Cirilo Alarcon III, MD Primary Care Physician [phone] [place] [facility] Date(s): 12/05/22 - 01/04/23 [facility] [address] [place], [place] [address] Allergies, Adverse Reactions, Alerts Substance Reaction Severity Status clindamycin diarrhea Active penicillin rash Active Immunizations Given and Recorded Vaccine Date Status Refusal Reason SARS-CoV-2 (COVID-19) mRNA-1273 vaccine 12/28/20 R ecorded SARS-CoV-2 (COVID-19) mRNA-1273 vaccine 06/10/20 R ecorded SARS-CoV-2 (COVID-19) mRNA-1273 vaccine 05/13/20 R ecorded influenza virus vaccine, inactivated 1 12/24/06 Gi leonid Pneumococcal Vaccine (oldterm) 11/19/06 Given 1Result Comment: lot# [id number] exp. [id number] Medications atorvastatin 80 mg oral tablet 1 tablet = 80 mg, By Mouth, Daily at bedtime, # 30 tablet, 0 Refills, Maintenance, 02/28/19 11:22:00 EST, Tablet, [facility], 170.1, cm, 02/28/19 4:06:00 [...] 02/28/19 13:32:00 EST, Route to Pharmacy Electronically, [email or web address][id number], 170.1, cm, 02/28/19 4:06:00 EST, Height, 138, [...] each, 0 Refills, Maintenance, 12/28/22 9:45:00 EST, [facility] #[id number], Partial fill upon patient request if the [...] 01/14/23 11:05:00 EST, 01/04/23 11:05:00 EST, Tablet, [facility] #[id number], Partial fillupon patient request if the prescription [...] 07/05/21 13:21:00 EDT, [id number], Partial fill upon patientrequest if the prescription [...] Unknown MR Khris murphy Active Unknown 1Serial [id number] Model [id number] Size 26MMA PATIENT WITH THIS DEVICE CAN BE SCANNED SAFELY UNDER FOLLOWING CONDITIONS : 3T OR LESS - MAXIMUM SPATIAL GRADIENT FIELD OF 2500 GAUSS/CM (25t/M) OR LESS - MAXIMUM SAEED OF 2 W/KG (NORMAL OPERATING MODE) Patient Care team information Care Team Personnel Name: uGs Stern MD Position: [facility] Renal MD Member Role: Lifetime Consulting Physician Address: Address: [address] [place] [address] [address] [place] [address]- Name: Gauri Ellison RN Position: S RN Member Role: Primary Care Nurse Name: Cirilo Alarcon III, MD Position: Reference Physician Member Role: PCP Address: Address: [address] [place] [address]- Name: Ck Nieves RN Position: S RN Member Role: Primary Care Nurse Name: Lionel Chavez RN Position: [facility] RN Supv Member Role: Primary Care Nurse Name: Woody Hayes RN Position: S RN Member Role: Primary Care Nurse Name: Kaylyn Hernandez RN Position: S RN Member Role: Primary Care Nurse Name: Chasity Justin RN Position: S RN Member Role: Primary Care Nurse Name: Ganesh Castillo MD Position: [facility] Renal MD Member Role: Lifetime Consulting Physician Address: Address: [address] [place] [address] [address] [facility] [place] [address]- Name: Beto Mora RN Position: S RN Member Role: Primary Care Nurse Name: Teresa Robledo RN Position: S RN Member Role: Primary Care Nurse Name: Gloria Spicer RN Position: S RN Member Role: Primary Care Nurse Care Team Related Persons Name: PRESLEY PHILLIPS Address: home [address] [address] Name: CHOCO TYLER Address: home [address] [place] [address]
--- OUTSIDE RECORDS SUMMARY | 2023-03-02 08:25 | XMS_ITS | Continuity of Care Document ---
Author Name Unknown Organization [facility] Address [address] [place] [address]- Care Team Providers Care Escrow Agent Name Role Phone Cirilo Alarcon III, MD Primary Care Physician Encounter [facility] Date(s): 02/10/22 - 02/17/22 [facility] [address] [place] [address] Attending Physician: Simona Medina NP Admitting Physician: Simona Medina NP Referring Physician: Cirilo Alarcon III, MD [...] Vaccine (oldterm) 11/19/06 Given 1Result Comment: lot# [id number] exp. [id number] Medications apixaban 2.5 mg oral tablet 1 [...] 0 Refills, Maintenance, 02/28/19 11:22:00 EST, Tablet, [facility], 170.1, cm, 02/28/19 [...] 01/12/22 10:54:00 EST, Route to Pharmacy Electronically, [facility] #[id number], Partial fill upon patient request if the [...] 02/28/19 13:32:00 EST, Route to Pharmacy Electronically, [facility] #[id number], 170.1, cm, 02/28/19 4:06:00 EST, Height, 138, [...] 07/05/21 13:21:00 EDT, Route to Pharmacy Electronically, [facility] #[id number], Partial fill upon patientrequest if the prescription [...] oldest [Reference Range]: 1 Height 170 cm (02/10/22 11:02 AM) Weight 90.26 kg (02/10/22 11:02 AM) Body Mass Index [18.5-24.99 kg/m2] 31.23 kg/m2 *>HHI* (02/10/22 11:02 AM) Blood Pressure [90-138/55-84 mm Hg] 110/ 62mm Hg (02/10/22 11:02 AM) Blood pressure sites Arm, right (02/10/22 11:02 AM) Weight Obtained Via Patient/family state d (02/10/22 11:02 AM) Social History Social History Type Response Tobacco Use: quit smoking 30 years ago. Sex Note * Nanda Davison: PERFORM, SIGN, VERIFY Event Display: Patient Education/Instruction Authored Date: [id number] [facility] *[facility] [address] Clinical Summary Name HALLEY TYLER Age 66 Years 1955 PCP Dorian STRATTON MD, Cirilo Worrell PCP Visit Date 02/10/2022 10:54:00 Additional Instructions: Scheduled Appointments?? Future Appointments ?*[facility]??[address]??[place],??[place],??[address] ?Phone:??--?Fax:??-- ?Appt. Date:??03/02/2022?3:30 PM ?Scheduled Provider:??Amador DOGMAN/WOMAN , Bhavna Fermin Follow-Up Instructions ?? Diagnosis Medications: Please continue your medications until treatment is completed or stopped by your provider. Discuss any questions related to medications with your provider. New Medications - Cadexomer-Iodine Topical (Iodosorb 0.9% topical gel) dispense one tube 10g. Refills: 0. Next Dose: Medications to Continue [...] 90.26 kg BMI 31.23 kg/m2 Blood Pressure 110 mm Hg/62 mm Hg Temperature Pulse Rate Respiratory Rate 02 Sat Mode of Delivery / You can now view a summary of your hospital visit from the comfort of your home through a free online portal called zhiwo. zhiwo is a website that allows you to securely view your medical information including discharge summary, medications and follow-up visits. ??You can alsosend a secure electronic message to your doctor???s office to request appointments, renew medications or just ask a question. You can enroll at [email or web address] or register during your next office [...] care provider, you may find a [facility] provider by calling [facility] [employer] at [phone]. For information about the plan of care [...] Nurse Name: Cirilo Alarcon III, MD Position: [facility] Ambulatory (view) Member Role: PCP Address: Address: [address] [place] [address] Name: Lionel Chavez RN Position: S RN Member Role: Primary Care Nurse Name: Kaylyn Hernandez RN Position: S RN Member Role: Primary Care Nurse Name: Chasity Justin RN Position: S RN Member Role: Primary Care Nurse Name: Beto Mora RN Position: S RN Member Role: Primary Care Nurse Care Team Related Persons Name: PRESLEY PHILLIPS Address: home [address] [place] [address] Name: CHOCO TYLER Address: home [address] [place] [address]
--- OUTSIDE RECORDS SUMMARY | 2023-03-02 08:25 | XMS_ITS | Continuity of Care Document ---
Author Name Unknown Organization [facility] Address [address] [place] [address]- Care Team Providers Care Station Inspector Name Role Phone Cirilo Alarcon III, MD Primary Care Physician Encounter [facility] Date(s): 03/02/22 - 03/09/22 [facility] [address] [place], [place] [address] Attending Physician: Not on Staff, Attending MD [...] Vaccine (oldterm) 11/19/06 Given 1Result Comment: lot# [id number] exp. [id number] Medications apixaban 2.5 mg oral tablet 1 [...] Refills, Maintenance, 02/28/19 11:22:00 EST, Tablet, [facility], 170.1, cm, 02/28/19 4:06:00 EST, [...] 01/12/22 10:54:00 EST, Route to Pharmacy Electronically, [facility] #[id number], Partial fill upon patient request if the [...] 02/28/19 13:32:00 EST, Route to Pharmacy Electronically, [facility] #[id number], 170.1, cm, 02/28/19 4:06:00 EST, Height, 138, [...] 13:21:00 EDT, Route to Pharmacy Electronically, [facility] #[id number], Partial fill upon patientrequest if the prescription [...] oldest [Reference Range]: 1 Height 170 cm (03/02/22 3:49 PM) Weight 90.26 kg (03/02/22 3:49 PM) Pulse Rate [55-90 bpm] 70 bpm (03/02/22 3:49 PM) Body Mass Index [18.5-24.99 kg/m2] 31.23 kg/m2 *>HHI* (03/02/22 3:49 PM) Blood Pressure [90-138/55-84 mm Hg] 130/ 74mm Hg (03/02/22 3:49 PM) Blood pressure sites Arm, right (03/02/22 3:49 PM) Weight Obtained Via Patient/family state d (03/02/22 3:49 PM) Social History Social History Type Response Tobacco Use: quit smoking 30 years ago. Sex Note * Kristi Balderrama: PERFORM, SIGN, VERIFY Event Display: Patient Education/Instruction Authored Date: [id number] [facility] *[facility]S [address] Clinical Summary Name HALLEY TYLER Age 66 Years 1955 PCP Dorian STRATTON MD, Cirilo Worrell PCP [facility]# [id number] Visit Date 03/02/2022 15:30:00 Additional Instructions: Scheduled Appointments?? Future Appointments ?No [...] 90.26 kg BMI 31.23 kg/m2 Blood Pressure 130 mm Hg/74 mm Hg Temperature Pulse Rate 70 bpm Respiratory Rate 02 Sat Mode of Delivery / You can now view a summary of your hospital visit from the comfort of your home through a free online portal called [employer]. [employer]ix is a website that allows you to securely view your medical information including discharge summary, medications and follow-up visits. ??You can alsosend a secure electronic message to your doctor???s office to request appointments, renew medications or just ask a question. You can enroll at [email or web address] or register during your next office visit. [...] primary care provider, you may find a [facility] provider by calling [facility] [employer] at [phone]. For information about the plan of care [...] Care Nurse Name: Nguyen Becerra RN Position: [facility] RN Member Role: Primary Care Nurse Name: Cirilo Alarcon III, MD Position: [facility] Ambulatory (view) Member Role: PCP Address: Address: [address] [place] [address]- Name: Lionel Chavez RN Position: S RN Supv Member Role: Primary Care Nurse Name: Kaylyn Hernandez RN Position: S RN Member Role: Primary Care Nurse Name: Chasity Justin RN Position: S RN Member Role: Primary Care Nurse Name: Beto Mora RN Position: S RN Member Role: Primary Care Nurse Care Team Related Persons Name: CHEVYROYERPRESLEY Address: home [address] [place] [address] Name: CHOCO TYLER Address: home [address] [place] [address]
--- OUTSIDE RECORDS SUMMARY | 2023-03-02 08:25 | XMS_ITS | Continuity of Care Document ---
Author Name Unknown Organization [facility] ter Address [address] [place] [id number] Care Team Providers Care It Support Specialist Name Role Phone Cirilo Alarcon III, MD Primary Care Physician [place] [facility] [place] - 06/05/[address] [id number] Discharge Disposition: A-D/C Home Attending Physician: Mihir Mccullough MD Admitting Physician: Mihir Mccullough MD Referring Physician: Carlyle Morales MD Allergies, Adverse Reactions, Alerts Substance Reaction Severity Status clindamycin Active penicillin rash Active vancomycin Active Immunizations Given and Recorded Vaccine Date Status Refusal Reason influenza virus vaccine, inactivated 1 12/24/06 Gi leonid Pneumococcal Vaccine (oldterm) 11/19/06 Given 1Result Comment: lot# [id number] exp. [id number] Medications apixaban 2.5 mg oral tablet 1 [...] Refills, Maintenance, 02/28/19 11:22:00 EST, Tablet, [facility], 170.1, cm, 02/28/19 4:06:00 EST, Height, 138, kg, 02/25/19 10:41:00 EST, Dry Weight Start Date: 02/28/19 Status: Ordered furosemide 40 mg oral tablet 40 mg, 1, tablet, By Mouth, 2 times a day, # 60 tablet, Refills 0, Tot. Refills 0, Maintenance, 02/28/19 13:32:00 EST, Route to Pharmacy Electronically, [facility] #[id number], 170.1, cm, 02/28/19 4:06:00 EST, Height, 138, kg, 02/25/19 10:41:00 E... Start Date: 02/28/19 Status: Ordered gabapentin 300 mg oral capsule 600 mg, Capsule, By Mouth, 06/05/21 9:00:00 EDT Start Date: 06/05/21 Stop Date: 06/05/21 Status: Completed gabapentin 300 mg oral capsule 600 mg, [...] 11/15/06 Status: Ordered metoprolol 50 mg oral tablet, extended release 50 mg, XL Tablet, By Mouth, 06/05/21 9:00:00 EDT Start Date: 06/05/21 Stop Date: 06/05/21 Status: Completed pantoprazole 40 mg oral delayed release tablet 1 tablet = 40 mg, By Mouth, Daily, # 30 tablet, 0 Refills, Maintenance, 09/13/20 16:18:00 EDT, EC Tablet Start Date: 09/13/20 Status: Ordered Plavix 75 mg oral tablet 75 mg, 1, tablet, By Mouth, Daily, # 30 tablet, Refills 0, Tot. Refills 0, Maintenance, 06/05/21 9:21:00 EDT, [id number], Partial fill upon patient request if the prescription is for a schedule II opi... Start Date: 06/05/21 Status: Ordered topiramate 25 mg oral tablet [...] Exam Date Time Procedure Performing Provider Status 06/05/21 5:54 AM Chest Portable Karuna Hammer; Auth (V erified) Notes: (Chest Portable) Reason For Exam: S/P TAVR;Postop RESULT: Chest Portable AP upright portable chest dated June 05, 2021 at 0538 hours. Comparison films are from June 04, 2021. HISTORY: Status post aortic valve replacement. FINDINGS: The cardiac silhouette is within normal limits for size. An aortic valve replacement is present. It is unchanged. Mural calcifications are present in a mildly unfolded aorta. Elevation of left diaphragm is stable. No airspace infiltrate or pleural effusion is seen. Degenerative changes are noted in the spine and shoulders. IMPRESSION: No evidence of acute pulmonary disease. No significant interval change. Examination 52819. Thank you for allowing me to participate in the care of this patient. WSN: [id number] Ordering Physician: Keyanna Park Dictated By: Gurdeep Wheat MD Dictated Date/Time: 06/05/21 8:45 am Reviewed By: Gurdeep Wheat MD Signed By: Gurdeep Wheat MD Signed Date/Time: 06/05/21 8:45 am Transcribed By: KRYSTINA Transcribed Date/Time: 06/05/21 8:45 am * Exam Date Time Procedure Performing Provider Status 06/04/21 10:11 AM Chest Portable Aurora Balderrama; Auth (Verified) Notes: (Chest Portable) Reason For Exam: S/P TAVR;Postop RESULT: Chest Portable Chest Portable REASON: Postop; S P TAVR; Clinical Question(s): Cardiac Tamponade; Special Instructions: on admission to unit / Other: COMPARISON: 09/13/2020 FINDINGS: LINES AND TUBES: Multiple wires project over the patient. LUNGS AND PLEURA: Low lung volumes with mild basilar atelectasis. Lungs are otherwise clear with no definite consolidation. No pleural effusion. No pneumothorax. HEART, MEDIASTINUM AND MARCO: Heart is normal in size. Status post TAVR. BONES AND SOFT TISSUES: No acute abnormality. IMPRESSION: No evidence of complication status post TAVR. WSN: [id number] Ordering Physician: Keyanna Park Dictated By: Miah Beal MD Dictated Date/Time: 06/04/21 10:12 a Reviewed By: Miah Beal MD Signed By: Miah Beal MD Signed Date/Time: 06/04/21 10:12 am Transcribed By: KRYSTINA Transcribed Date/Time: 06/04/21 10:11 am Vital Signs Most recent to oldest [Reference Range]: 1 2 3 4 Height 169 cm (06/05/21 4:03 AM) 169 cm (06/04/21 11:09 PM) 169 cm (06/04/21 7:24 PM) Weight 101.1 kg (06/04/21 12:24 PM) 101.1 kg (06/04/21 12:00 PM) 95 kg (06/04/21 5:44 AM) 95 kg (06/04/21 5:44 AM) Oxygen Saturation [94-100 %] 98 % (06/05/21 11:00 AM) 97 % (06/05/21 7:00 AM) 98 % (06/05/21 4:03 AM) Pulse Rate [55-90 bpm] 97 bpm *H* (06/05/21 11:00 AM) 96 bpm *H* (06/05/21 8:51 AM) 96 bpm *H* (06/05/21 7:00 AM) Body Mass Index [18.5-24.99] 35.4 *>HHI* (06/04/21 12:00 PM) 33.26 *>HHI* (06/04/21 5:44 AM) Blood Pressure [90-138/55-84 mm Hg] 112/62mm Hg (06/05/21 11:00 AM) 125/52mm Hg (06/05/21 8:51 AM) 126/73mm Hg (06/05/21 7:00 AM) Respiratory Rate [16-30 br/min] 18 br/min (06/05/21 11:00 AM) 16 br/min (06/05/21 8:51 AM) 18 br/min (06/05/21 7:00 AM) Temperature [96.8-100.4 DegF] 98.1 DegF (06/05/21 11:00 AM) 98.4 DegF (06/05/21 7:00 AM) 98.5 DegF (06/05/21 4:03 AM) Liters per Minute 2 L/min (06/04/21 11:15 AM) 2 L/min (06/04/21 11:00 AM) 2 L/min (06/04/21 10:45 AM) Mode of Delivery (Oxygen) Room air (06/05/21 11:00 AM) Room air (06/05/21 7:00 AM) Room air (06/05/21 4:03 AM) Blood pressure sites Arm, left (06/05/21 11:00 AM) Arm, left (06/05/21 7:00 AM) Arm, left (06/05/21 4:03 AM) Temperature Route Oral (06/05/21 11:00 AM) Oral (06/05/21 7:00 AM) Oral (06/05/21 4:03 AM) Dry Weight 101.1 kg (06/04/21 12:00 PM) Weight Obtained Via Bed scale (06/04/21 12:24 PM) Social History Social History Type Response Tobacco Use: quit smoking 30 years ago. Sex
--- NOTE | 2023-03-02 09:19 | HO.WOUND ---
Wound Consult: Initial 67yr old F ?admitted to [facility] on? /?- See progress notes and H&P for detailed history.? Wound consult placed for Left TMA site and Left Leg. Arrival to bedside patient is agreeable to assessment and photo documentation. Left TMA site Left Leg Chronic wounds follows with out wound clinic appointment scheduled for today at 11 - advised to keep appointment for debridement and assessment. Pt reports she woke up today and put her leg down from the bed and is started to bleed - she reports significant amount of blood - her pant of the left side was saturated with red blood. Left TMA site Measurements: 3.5cm x 4.5cm x 0.6cm Wound Bed: central pale yellow slough - rough bone particle noted - red viable tissue surrounding slough Drainage / Odor: Serosang - small at time of my consult Edges: ? irregular Cecilia wound: ? No Induration, Fluctuance or Warmth noted Pain: reports tenderness when cleansed Goals of Treatment: ?Continue to Dakins - defer to Outpt Wound clinic todays appt at 11 Left Lateral Leg Measurements: 17cm x 3cm x 0.2cm - with intact island bridges noted Wound Bed: various stages of wound bed progression - adherent yellow garcia slough noted - superior site is believed to be site of bleeding - no vascular structure noted at the time of my assessment - gentle cleansing due to presumed friable nature of the tissue given observed amount of blood on pt belongings. Drainage / Odor: Sanguineous - none at time of my consult Edges: ? irregular Cecilia wound: ?Warmth and mild erythema noted wrapping towards front of schmidt - pt states this is how her leg always looks. No Induration, Fluctuance noted Pain: reports tenderness when cleansed Goals of Treatment: ?Continue with Santyl - defer to Outpt Wound clinic todays appt at 11 Recommendations: 1. Turn and Reposition every 2 hours and as needed for patient comfort.? Use pillows or wedges to support off loading positions. 2. Off Load all bony prominences with use of pillows and heel boots if needed.? Apply Preventative foams where needed. ? 3. Monitor for incontinence and moisture control, use barrier creams when needed for prevention and treatment. 4. Provide adequate and supplemental nutrition. Place Nutrition consult if appropriate. 5. Order or Continue low air loss mattress. 6. Maintain blood glucose levels per Providers orders if applicable. 7. Re-consult wound care Nurse for wound deterioration or wound changes.
== END 2023-03-02 10:21 | disposition home or self-care (01) ==
PROVIDERS: Emergency Provider Emergency Medicine; PCP Internal Medicine
DX: L98.499 Non-pressure chronic ulcer of skin of other sites with unspecified severity (principal)
CPT/HCPCS: 99282

== ENCOUNTER 2023-03-14 13:24 | Outpatient (REF) | payer OTHER, SELFPAY | END 2023-03-14 13:25 | disposition home or self-care (01) | LOC: HO.CHCLDS 13:24 | PROVIDERS: Visit Provider Surgery | DX: Z13.89 Encounter for screening for other disorder (principal) | CPT/HCPCS: 36415; 80048; 83036; 84134; 85027; 85652; 86140 ==

== ENCOUNTER 2024-12-17 10:09 | Outpatient (AMB) | payer OTHER, SELFPAY ==
--- NOTE | 2024-12-17 10:20 | MHC.OFFVIS ---
Intake Visit Reasons: 6M Allergies vancomycin Allergy (Verified 12/17/24 10:23) Flushing clindomycin Allergy (Unknown, Uncoded 12/17/24 10:23) Diarrhea penicillin Allergy (Unknown, Uncoded 12/17/24 10:23) Rash Medication List - Last Reconciled 12/17/24 by Mikayla Garcia CNP aspirin 81 mg PO DAILY atorvastatin (Lipitor) 80 mg PO QPM bumetanide 1 mg PO DAILY rmvmoivbpf-bydpjeu-msfkvyrh 50-325-40 mg 1 - 2 tabs PO DAILY PRN calcitriol 0.25 mcg PO 3XW empagliflozin (Jardiance) 10 mg PO DAILY insulin glargine (Lantus Solostar U-100 Insulin) 5 units subcut QPM metoprolol tartrate 100 mg PO BID midodrine 5 mg PO TID pregabalin 75 mg PO BID topiramate 100 mg PO BEDTIME HPI Comments Details: 69-year-old woman with IDDM, right below knee amputation, HTN, CAD, GERD, and migraine. She was having headaches almost every day. Pain could be all over head, throbbing-type pain, with photophobia and sonophobia. She ran out of butalbital as needed which helped. Sleep was okay. [facility]LY [facility], [facility] Medical History (Updated 12/17/24 @ 10:27 by Mikayla Garcia CNP) Renal insufficiency Obesity, Class II, BMI 35-39.9 Neuropathy HTN (hypertension) Diabetes mellitus CHF (congestive heart failure) Acid reflux Pneumonia Hyperlipidemia Diabetic foot ulcer Cellulitis Benign essential hypertension Surgical History (Updated 12/17/24 @ 10:23 by Mikayla Garcia CNP) History of transmetatarsal amputation of left foot (01/04/23) History of transmetatarsal amputation of left foot Review of Systems Const Denies chills, Denies daytime sleepiness, Reports difficulty sleeping, Denies fatigue, Denies fever(s), Denies frequent falls, Reports headache(s), Denies increased appetite, Denies poor appetite, Denies snoring, Denies weakness, Denies weight gain and Denies weight loss Eyes Denies loss of vision ENT Denies vertigo, Denies dizziness and Reports headache(s) Card Denies chest pain at rest, Denies chest pain with activity, Denies syncope, Denies leg edema and Denies palpitations Resp Denies snoring GI Denies constipation, Denies heartburn, Denies diarrhea and Denies nausea Denies urinary frequency, Denies urinary incontinence and Denies urinary urgency Musc Denies abnormal gait, Denies numbness and Denies tingling Skin/Breast Denies dry skin and Denies rash Neuro Denies abnormal gait, Denies vertigo, Denies dizziness, Denies syncope, Denies frequent falls, Reports headache(s), Denies lack of coordination, Denies loss of vision, Denies memory loss, Denies numbness, Denies restless legs, Denies seizure-like activity, Denies tingling, Denies paresthesias, Denies tremor(s) and Denies weakness Psych Denies anxiety, Denies depression, Denies auditory hallucinations, Denies memory loss, Denies visual hallucinations and Denies suicidal ideation Endo Denies fatigue and Denies palpitations Physical Exam Const Other: General Appearance:? normal, in no acute distress. Skin:? no rashes, no significant birthmarks. Heart:? S1, S2 normal, no murmurs. Lungs:? clear anteriorly and posteriorly. Extremities:? no edema. Psych:? alert, oriented, cognitive function intact, cooperative with exam. Neuro Other: Mental Status:?Normal attention, orientation, memory and affect.? Cranial Nerves:?Pupils are equal, round and reactive to light. External occular muscles are intact. Visual plata are full. Face is symmetrical. Facial sensations are normal. Tongue is midline. Palate elevates symmetrically. Shoulder shrugging is normal. Hearing to bedside conversation is normal. Sensory Exam:?....? Coordination:?No ataxia,?no titubation.? Gait Exam: In wheelchair. Cerebellar Signs:?Xbcyiy-ux-skot is okay. Extrapyramidal System:?No tremor, rigidity with normal facial expressions.? Pronator Drift:?Not present.? Involuntary Movements:?No tremors seen.? Speech:?Normal.? Assessment & Plan Assessment & Plan (1) Migraine: Code(s): G43.909 - Migraine, unspecified, not intractable, without status migrainosus Category: Medical Qualifiers: Intractability: not intractable Migraine type: unspecified Status migrainosus presence: without status migrainosus Qualified Code(s): G43.909 - Migraine, unspecified, not intractable, without status migrainosus Plan: Continue topiramate 100mg 1 tablet at bedtime. Continue fbqyvdmlou-QONL-unmo 50-325-40mg 1-2 tablets as needed for headache #12 for 30 days. She had new pharmacy, will send refills when pharmacy information updated. (2) Cerebral microvascular disease: Code(s): I67.89 - Other cerebrovascular disease Category: Medical (3) Diabetic neuropathy: Code(s): E11.40 - Type 2 diabetes mellitus with diabetic neuropathy, unspecified Category: Medical Qualifiers: Diabetes mellitus complication detail: diabetic polyneuropathy Diabetes mellitus type: type 2 Qualified Code(s): E11.42 - Type 2 diabetes mellitus with diabetic polyneuropathy Plan Meds tried: topiramate, gabapentin Coding Level of Care Code Est Pt Level 4 (00788) Diagnoses Migraine without status migrainosus, not intractable, unspecified migraine type G43.909 Intractability: not intractable Migraine type: unspecified Status migrainosus presence: without status migrainosus Cerebral microvascular disease I67.89 Diabetic polyneuropathy associated with type 2 diabetes mellitus E11.42 Diabetes mellitus complication detail: diabetic polyneuropathy Diabetes mellitus type: type 2
--- OUTSIDE RECORDS SUMMARY | 2024-12-17 12:18 | XMS_ITS ---
Author Organization [facility] Care Team Providers Care A P Mechanic Name Role Phone Jairo Roper Unavailable Unavailable Kassi Neal Unavailable Unavailable Planeshahid Kassi Unavailable Unavailable Allergies and adverse reactions Code CodeSystem Substance Reaction Severity StartDate Concern Status 2582 RXNORM Clindamycin Nausea (code- 442692945, SNOMED CT) Moderate 09/22/[address] Penicillins Nausea (code- 874136549, SNOMED CT) Moderate 09/22/2020 active 82160 RXNORM Vancomycin Nausea (code- 783916163, SNOMED CT) Moderate 09/22/2020 active Care Team Name Role Address Phone Organization [facility] Jairo Roper PCP [address], [place], [address], [place] (Office): : [facility] 09/22/2020 - 10/08/2020 Kassi Neal [address], [place], [address], [place] (Office): [facility] 09/22/2020 - 10/08/2020 Kassi Plan[facility] 09/22/2020 - 10/08/2020 Immunizations Immunization Status Vaccine Details Vaccine Code CodeSystem Date Notes Influenza cancelled Influenza, split virus, trivalent, injectable, contains preservative 141 CVX created date: 09/23/2020 consent date: 10/06/2020 TB 2 Step Mantoux Skin Test completed tuberculin skin test; unspecified formulation lotNumber: [id number] expiry: 10/21/2021 Mfg: par Given 0.1 ml Right Forearm intradermally Step 1 of Multi-step with next step required 98 CVX created date: 09/23/2020 consent date: 09/23/2020 administer ed date: 09/23/2020 Educated by stephanie on 09/23/2020 SARS-COV-2 (COVID-19) completed SARS-COV-2 (COVID-19) vaccine, mRNA, spike protein, LNP, preservative free, 100 mcg/0.5mL dose or 50 mcg/0.25mL dose Mfg: Moderna Step 2 of Multi-step with next step required 207 CVX created date: 09/22/2020 administer ed date: 06/10/2020 SARS-COV-2 (COVID-19) completed SARS-COV-2 (COVID-19) vaccine, mRNA, spike protein, LNP, preservative free, 100 mcg/0.5mL dose or 50 mcg/0.25mL dose Mfg: Moderna Step 1 of Multi-step with next step required 207 CVX created date: 09/22/2020 administer ed date: 05/13/2020 Mental Status Section Date Assessment Total Score Description 10/08/2020 BIMS 15 cognitively int act CAM 0 No delirium ind icated PHQ-9 00 09/28/2020 BIMS 15 cognitively int act CAM 0 No delirium ind icated PHQ-9 00 Insurance Providers Problems Problem # Description Date of onset Resolved Date Code CodeSystem Concern Status 1 ACUTE KIDNEY FAILURE, UNSPECIFIED 09/23/[address] active 2 LOBAR PNEUMONIA, UNSPECIFIED ORGANISM 09/23/[address] active 3 ACUTE ON CHRONIC DIASTOLIC (CONGESTIVE) HEART FAILURE 09/22/[address] active 4 DIABETES MELLITUS DUE TO UNDERLYING CONDITION WITH DIABETIC AUTONOMIC (POLY)NEUROPATHY 09/22/[address] active 5 ESSENTIAL (PRIMARY) HYPERTENSION 09/22/[address] active 6 HYPERLIPIDEMIA, UNSPECIFIED 09/22/[address] active 7 MUSCLE WASTING AND ATROPHY, NOT ELSEWHERE CLASSIFIED, LEFT LOWER LEG 09/22/[address] active 8 MUSCLE WASTING AND ATROPHY, NOT ELSEWHERE CLASSIFIED, RIGHT LOWER LEG 09/22/[address] active 9 OTHER MALAISE 09/22/[address] act everett 10 OTHER REDUCED MOBILITY 09/22/[address] active 11 PERIPHERAL VASCULAR DISEASE, UNSPECIFIED 09/22/[address] active 12 TYPE 2 DIABETES MELLITUS WITHOUT COMPLICATIONS 09/22/[address] active 13 UNSPECIFIED ATRIAL FIBRILLATION 09/22/[address] active 14 UNSPECIFIED OSTEOARTHRITIS, UNSPECIFIED SITE 09/22/[address] active Reason for Referral No Reasons for Referral Entered Social History Social History Observation Description Start Date End Date Code Code System Current Smoking Status Tobacco smoking consumption unknown 779297928 SNOMED CT Sex Assigned At Female 1955 57680-1 [facility] Gender Identity Sexual Orientation Vital Signs Code Code System Vitals Name Values and Units Timing Information 41569-9 [facility] Pain Level Value=0.0 10/08/2020 9279-1 [facility] Respiratory Rate Value=16.0 Units=/m in 10/08/2020 8310-5 [facility] Body Temperature Value=97.7 Units= F 10/08/2020 21908-8 [facility] O2 % BldC Oximetry Value=96.0 Units= % 10/08/2020 2339-0 [facility] Blood Sugar Lvomn=509.0 Units=mg/dL 10/08/2020 06759-9 [facility] Weight Bdtjq=336.6 Units=Lbs 8462-4 [facility] Blood Pressure-Diastolic Value=67 Un its=mmHg 10/07/2020 8480-6 [facility] Blood Pressure-Systolic Ydndt=514 Un its=mmHg 10/07/2020 8867-4 [facility] Heart rate Value=74.0 Units=/min 8302-2 [facility] Height Value=67.0 Units=Inches 09/23/2020
--- OUTSIDE RECORDS SUMMARY | 2024-12-17 12:18 | XMS_ITS | Clinical Summary ---
Author Organization [facility] Address [address] [place] [address] Care Team Providers Care Family Consumer Scientist Name Role Phone Cirilo Alarcon MD Primary Care Provider [phone] Allergies Active Allergy Reactions Criticality Noted Date Comments Clindamycin 08/21/2019 Penicillins 08/21/2019 Vancomycin 05/04/2020 Medications Medication Sig Dispensed Refills Start Date End Date Status clopidogrel (PLAVIX) 75 MG tablet Take 75 mg by mouth daily. 0 Active pantoprazole (PROTONIX) 40 MG tablet Take 40 mg by mouth every morning on an empty stomach. 0 Active dilTIAZem (CARDIZEM CD) 120 MG 24 hr capsule Take 120 mg by mouth daily. 0 Active gabapentin (NEURONTIN) 600 MG tablet Take 600 mg by mouth 3 (three) times a day. 0 Active metFORMIN (GLUCOPHAGE) tablet 500 mg Take 500 mg by mouth 2 (two) times a day with meals. 0 Active insulin aspart (NovoLOG FLEXPEN) injection 100 units/mL Inject under the skin. 0 Active atorvastatin (LIPITOR) tablet 80 mg Take 80 mg by mouth daily. 0 Active furosemide (LASIX) 40 MG tablet Take 40 mg by mouth 2 (two) times a day. 0 Active metoprolol tartrate (LOPRESSOR) 50 MG tablet Take by mouth 2 (two) times a day. 0 Active insulin glargine (LANTUS) injection 100 units/mL Inject under the skin every night at bedtime. 0 Active isosorbide mononitrate (IMDUR) 30 MG 24 hr tablet Take 30 mg by mouth daily. 0 Active vitamin B-12 (CYANOCOBALAMIN) 500 MCG tablet Take 500 mcg by mouth daily. 0 Active ferrous sulfate 325 (65 FE) MG tablet Take 325 mg by mouth every morning with breakfast. 0 Active Active Problems No known active problems Family History Medical History Relation Name Comments Diabetes Mother Relation Name Status Comments Mother Social History Tobacco Use Types Packs/Day Years Used Date Smoking Tobacco: Former Smokeless Tobacco: Never Alcohol Use Standard Drinks/Week Comments No 0 (1 standard drink = 0.6 oz pur e alcohol) Sex and Gender Information Value Date Recorded Sex Assigned at Not on file Gender Identity Not on file Sexual Orientation Not on file Job Start Date Occupation Industry Not on file Not on file Not on file Last Filed Vital Signs Vital Sign Reading Time Taken Comments Blood Pressure 111/52 09/08/2022 10:34 AM EDT Pulse 66 09/08/2022 10:34 AM EDT Temperature 35.4 C (95.8 F) 09/08/2022 10:34 AM EDT Respiratory Rate - - Oxygen Saturation 100% 09/08/2022 10:34 AM EDT Inhaled Oxygen Concentration - - Weight - - Height - - Body Mass Index - - Plan of Treatment Health Maintenance Due Date Last Done Comments Hepatitis C Screening 1955 COVID-19 Vaccine (#1) 04/25/1956 Depression Screening 1968 Preventative Health Evaluation 1974 Colon Cancer Screening (Colonoscopy) 2001 Breast Cancer Screening (Mammogram) 2006 Shingrix-Zoster Vaccine (1 of 2) 2006 Fall Risk Assessment 2021 Osteoporosis Screening (DEXA Scan) 2021 Pneumococcal Vaccine (3 of 3 - PPSV23 or PCV20) 12/09/2022 12/09/2021, 11/19/2006, 07/13/2006 Influenza Vaccine (#1) 2024 2, 11/09/2019, 01/04/2019, Additional history exists DTap / Tdap / Td (3 - Td or Tdap) 01/04/2029 01/04/2019, 07/13/2006 RSV Adult > 60+ Yrs or (1 - 1-dose 75+ series) 10/27/2031 Hepatitis B Vaccines Aged Out No long er eligible based on patient's age to complete this topic RSV Ped < 20 months Aged Out No longe r eligible based on patient's age to complete this topic Care Teams Family Consumer Scientist Relationship Specialty Start Date End Date Cirilo Alarcon MD PCP - General Internal Medicine 08/21/19
--- OUTSIDE RECORDS SUMMARY | 2024-12-17 12:18 | XMS_ITS ---
Author Organization [facility] Care Team Providers Care Rehab Services Aide Name Role Phone Cat Borja Unavailable Unavailable Kathy Hooper Unavailable Unavailable Bree Peng Unavailable Unavailable Angela Flood Unavailable Unavailable Ayah CLOTH WINDER, Leticia Gandhi Unavailable Unavailable Lupe, Hina Unavailable Unavailable Maingi, Shadrack Unavailable Unavailable Allergies and adverse reactions Code CodeSystem Substance Reaction Severity StartDate Concern Status 2582 RXNORM Clindamycin Unknown 09/04/[address] Penicillins Unknown 09/04/2020 activ e 16539 RXNORM Vancomycin Unknown 09/04/2020 active Care Team Name Role Address Phone Organization Dates Bree Peng PCP [address], [address], [facility] (Office): : [facility] 09/04/2020 - 09/22/2020 Cat Borja [address] [facility] [address], [address], [facility] (Office): : [phone] [facility] 09/04/2020 - 09/22/2020 [place], [address], [facility] (Office): : [facility] 09/04/2020 - 09/22/2020 Angela Flood [address] [facility] [address], [address], [facility] (Office): : [phone] [facility] 09/04/2020 - 09/22/2020 Leticia Poon NP [address] (Office): [facility] 09/04/2020 - 09/22/2020 Hina Andrade [address] [facility] [address] (Office): : [facility] 09/04/2020 - 09/22/2020 Nneka León [address] (Office): : [facility] 09/04/2020 - 09/22/2020 Mental Status Section Date Assessment Total Score Description 09/13/2020 CAM 0 No delirium ind icated Insurance Providers Problems Problem # Description Date of onset Resolved Date Code CodeSystem Concern Status 1 WEAKNESS 09/23/[address] active 2 ACUTE RESPIRATORY FAILURE WITH HYPOXIA 09/04/[address] active 3 CANDIDIASIS, UNSPECIFIED 09/04/[address] active 4 HEART FAILURE, UNSPECIFIED 09/04/[address] active 5 HYPOMAGNESEMIA 09/04/[address] ac tive 6 OTHER ABNORMALITIES OF GAIT AND MOBILITY 09/04/[address] active 7 TYPE 2 DIABETES MELLITUS WITH DIABETIC NEUROPATHY, UNSPECIFIED 09/04/[address] active 8 TYPE 2 DIABETES MELLITUS WITH OTHER SPECIFIED COMPLICATION 09/04/[address] active 9 UNSPECIFIED ATRIAL FIBRILLATION 09/04/[address] active 10 UNSTEADINESS ON FEET 09/04/[address] active 11 VENOUS INSUFFICIENCY (CHRONIC) (PERIPHERAL) 09/04/[address] active Reason for Referral No Reasons for Referral Entered Social History Social History Observation Description Start Date End Date Code Code System Current Smoking Status Tobacco smoking consumption unknown 329818669 SNOMED CT Sex Assigned At Female 1955 87459-1 [facility] Gender Identity Sexual Orientation Vital Signs Code Code System Vitals Name Values and Units Timing Information 01785-4 [facility] Pain Level Value=0.0 09/14/2020 8462-4 [facility] Blood Pressure-Diastolic Value=69 Un its=mmHg 09/13/2020 8480-6 [facility] Blood Pressure-Systolic Value=99 Uni ts=mmHg 09/13/2020 2339-0 [facility] Blood Sugar Xsqza=886.0 Units=mg/dL 09/12/2020 9279-1 [facility] Respiratory Rate Value=18.0 Units=/m in 09/12/2020 8310-5 [facility] Body Temperature Value=97.3 Units= F 09/12/2020 8867-4 [facility] Heart rate Value=89.0 Units=/min 85460-4 [facility] O2 % BldC Oximetry Value=93.0 Units= % 09/12/2020 63400-8 [facility] Weight Yzohu=471.5 Units=Lbs
== END 2024-12-17 10:45 | disposition home or self-care (01) ==
LOC: HO.HSM 10:09
PROVIDERS: PCP Nurse Practitioner; Referring Provider Internal Medicine; Visit Provider Registered Nurse
DX: G43.909 Migraine, unspecified, not intractable, without status migrainosus (principal); I67.89 Other cerebrovascular disease; E11.42 Type 2 diabetes mellitus with diabetic polyneuropathy
CPT/HCPCS: 99214

== ENCOUNTER → 2024-12-17 10:09 | Outpatient (BNVA) | payer OTHER, SELFPAY | PROVIDERS: PCP Nurse Practitioner; Referring Provider Internal Medicine; Visit Provider Registered Nurse | DX: G43.909 Migraine, unspecified, not intractable, without status migrainosus (principal); I67.89 Other cerebrovascular disease; E11.42 Type 2 diabetes mellitus with diabetic polyneuropathy | CPT/HCPCS: 99212 ==